=== PATIENT | male | born 1985 | race Caucasian/White ===

== ENCOUNTER 2016-10-03 11:09 | Outpatient (RCR) | payer OTHER ==
--- OUTSIDE RECORDS SUMMARY | 2016-07-18 11:14 | XMS REPORT | Continuity of Care Document ---
Author Author [facility] Organization [facility] Address Unknown Phone Unavailable Care Team Providers Care Mine Development Engineer Name Role Phone TIMOTHY ARGUETA MD PCP Insurance Providers Payer Name Policy Number Subscriber Name Relationship [facility] [id number]*CHPPPO [place] 18 Self / Same As Patient Problems Active Problems Medical Problem Onset Date Status Pulmonary infiltrates Unknown Acute Medications Current Home Medications Medication Dose Units Route Directions Days/Qty Instructions Start Date Valsartan 320 Mg 320 Mg Oral Daily 06/28/16 Promethazine Hcl 12.5 Mg 12.5-25 Mg Oral Every 6 Hours as needed for Nausea /Vomiting 06/28/16 Docusate Sodium 100 Mg 100 Mg Oral As Needed 06/28/16 Metoprolol Tartrate 100 Mg 100 Mg Oral Twice A Day 06/28/16 Cyclobenzaprine Hcl 5 Mg 5 Mg Oral Three Times A Day 06/28/16 Ondansetron 4 Mg 4 Mg Oral Every 6 Hours as needed for Nausea/Vomiting 06/28/16 Minoxidil 10 Mg 10 Mg Oral Twice A Day 06/28/16 Cefdinir (Omnicef) 300 Mg 300 Mg Oral Every 48 Hours 06/28/16 Sertraline Hcl 50 Mg 50 Mg Oral Bedtime 06/28/16 Amlodipine Besylate 10 Mg 10 Mg Oral Daily 06/28/16 Social History Social History Problem Response Recorded Date/Time Recent Foreign Travel N SEE FREEDOM 07/10/2016 10:45am Recent Hopitalizations Yes 06/28/2016 2:35pm Hospital Discharge Instructions No hospital discharge instructions. Plan of Care Prescriptions See Medication Section Functional Status No functional status results. Allergies, Adverse Reactions, Alerts No known allergies. Immunizations No immunization records. Vital Signs Acute Vital Signs Vital Response Date/Time Temperature (Fahrenheit) 98.9 degrees F (97.6 - 99.5) 06/28/2016 5:17pm Temperature (Calculated Celsius) 37.36364 degrees C (36.4 - 37.5) 06/28/2016 5:17pm Temperature Source Tympanic 06/28/2016 5:17pm Pulse Rate (adult) 91 bpm (60 - 90) 06/28/2016 5:17pm Respiratory Rate 18 bpm (12 - 24) 06/28/2016 5:17pm O2 Sat by Pulse Oximetry 96 % (88 - 100) 06/28/2016 5:17pm Blood Pressure 135/101 mm Hg 06/28/2016 5:17pm Blood Pressure Mean 167 mm Hg 06/28/2016 2:15pm Pain Numeric Pain Scale 0-No Pain 06/28/2016 5:17pm Height (Feet) 5 feet 06/28/2016 2:15pm Height (Inches) 7 inches 06/28/2016 2:15pm Height (Calculated Centimeters) 170.666446 cm 06/28/2016 2:15pm Weight (Pounds) 156 pounds 06/28/2016 2:15pm Weight (Calculated Kilograms) 70.894467 kilograms 06/28/2016 2:15pm Capillary Refill Capillary Refill Less Than 3 Seconds 06/28/2016 2:15pm Results Laboratory Results Test Name Result Units Flags Reference Collection Date/Time Result Date/ Time Comments White Blood Count 8.9 10^3/uL 4.3-11.0 07/11/2016 11:55am 07/11/2016 12 :02pm Red Blood Count 3.40 10^6/uL L 4.35-5.85 07/11/2016 11:55am 07/11/2016 12 :02pm Hemoglobin 9.8 G/DL L 13.3-17.7 07/11/2016 11:55am 07/11/2016 12:02pm Hematocrit 31 % L 40-54 07/11/2016 11:55am 07/11/2016 12:02pm Mean Corpuscular Volume 92 FL 80-99 07/11/2016 11:55am 07/11/2016 12: 02pm Mean Corpuscular Hemoglobin 29 PG 25-34 07/11/2016 11:55am 07/11/2016 12:02pm Mean Corpuscular Hemoglobin Concent 31 G/DL L 32-36 07/11/2016 11:55am 12:02pm Red Cell Distribution Width 16.8 % H 10.0-14.5 07/11/2016 11:55am 2015 12:02pm Platelet Count 462 10^3/uL H 130-400 07/11/2016 11:5507/11/2016 12: 02pm Mean Platelet Volume 8.1 FL 7.4-10.4 07/11/2016 11:55am 07/11/2016 12: 02pm Neutrophils (%) (Auto) 77 % H 42-75 07/11/2016 11:55am 07/11/2016 12: 02pm Lymphocytes (%) (Auto) 7 % L 12-44 07/11/2016 11:55am 07/11/2016 12:02pm Monocytes (%) (Auto) 12 % 0-12 07/11/2016 11:5507/11/2016 12:02pm Eosinophils (%) (Auto) 3 % 0-10 07/11/2016 11:55am 07/11/2016 12:02pm Basophils (%) (Auto) 0 % 0-10 07/11/2016 11:5507/11/2016 12:02pm Neutrophils # (Auto) 6.9 X 10^3 1.8-7.8 07/11/2016 11:am 07/11/2016 12:02pm Lymphocytes # (Auto) 0.6 X 10^3 L 1.0-4.0 07/11/2016 11:5507/11/2016 12:02pm Monocytes # (Auto) 1.1 X 10^3 H 0.0-1.0 07/11/2016 11:55am 07/11/2016 12: 02pm Eosinophils # (Auto) 0.3 10^3/uL 0.0-0.3 07/11/2016 11:55am 07/11/2016 12:02pm Basophils # (Auto) 0.0 10^3/uL 0.0-0.1 07/11/2016 11:5507/11/2016 12 :02pm Sodium Level 138 MMOL/L 135-145 07/11/2016 12:07/11/2016 12:47pm Potassium Level 2.8 MMOL/L L 3.6-5.0 07/11/2016 12:07/11/2016 12: 47pm Chloride Level 95 MMOL/L L 98-107 07/11/2016 12:07/11/2016 12:47pm Carbon Dioxide Level 31 MMOL/L 21-32 07/11/2016 12:07/11/2016 12: 47pm Anion Gap 12 MMOL/L 5-14 07/11/2016 12:07/11/2016 12:47pm Blood Urea Nitrogen 6 MG/DL L 7-18 07/11/2016 12:07/11/2016 12:47pm Creatinine 2.13 MG/DL H 0.60-1.30 07/11/2016 12:07/11/2016 12:47pm BUN/Creatinine Ratio 3 07/11/2016 12:07/11/2016 12:47pm Estimat Glomerular Filtration Rate 36 07/11/2016 12:2015 12:47pm GFR INTERPRETIVE DATA UNITS FOR ESTIMATED GFR (eGFR): mL/min/1.73 M2 REFERENCE RANGE FOR ESTIMATED GFR (eGFR) eGFR NORMAL eGFR >60 MODERATELY DECREASED eGFR 30-59 SEVERLY DECREASED eGFR 15-29 KIDNEY FAILURE <15 (OR DIALYSIS) Glucose Level 126 MG/DL H 70-105 07/11/2016 12:pm 07/11/2016 12:47pm Calcium Level 8.4 MG/DL L 8.5-10.1 07/11/2016 12:07/11/2016 12:47pm Magnesium Level 1.9 MG/DL 1.8-2.4 07/11/2016 12:07/11/2016 12: 47pm Total Bilirubin 0.3 MG/DL 0.1-1.0 07/11/2016 12:07/11/2016 12: 47pm Alkaline Phosphatase 83 U/L 40-136 07/11/2016 12:07/11/2016 12: 47pm Aspartate Amino Transf (AST/SGOT) 7 U/L 5-34 07/11/2016 12:2015 12:47pm Alanine Aminotransferase (ALT/SGPT) < 6 U/L 0-55 07/11/2016 12:11pm 12:47pm Lactate Dehydrogenase 275 U/L H 125-220 06/11/2016 10:53am 06/11/2016 11: 42am Total Protein 6.4 G/DL 6.4-8.2 07/11/2016 12:11pm 07/11/2016 12:47pm Albumin 3.1 G/DL L 3.2-4.5 07/11/2016 12:11pm 07/11/2016 12:47pm Ferritin 951 ng/mL H 25-300 06/11/2016 10:53am 06/12/2016 8:33am Test performed at [facility], CLIA# [id number] [address] [place] [address] Homocysteine 7.5 umol/L <=10.3 06/11/2016 10:53am 06/12/2016 4:31pm Test performed at [facility], CLIA# [id number] [address] [place] [address] Methylmalonic Acid 0.65 umol/L H 0.00-0.40 06/11/2016 10:53am 06/17/2016 7:31am Slight elevation 0.41-0.99 umol/L Consistent with mild vitamin B12 deficiency, renal insufficiency, or intravascular volume contraction. Moderate elevation 1.00-9.99 umol/L Consistent with mild vitamin B12 deficiency. Massive elevation - Greater than or equal to 10 umol/L Consistent with significant vitamin B12 deficiency or with inborn errors of metabolism. INTERPRETIVE INFORMATION: MMA Serum/Plasma, Metabolic Disorder Test developed and characteristics determined by [facility]. See Compliance Statement B: [email or web address] Performed by [facility], [address] [place] [id number] [email or web address], Orlando Dangelo MD - Lab. Director Pending Laboratory Results Test Name Collection Date/Time Procedures No known history of procedures. Encounters Encounter Location Arrival/Admit Date Discharge/Depart Date Attending Provider Discharged Recurring [facility] 07/11/16 11:24am 10:29am ANDRE RED Departed Emergency Room [facility] 06/28/16 2:17pm 06/28 5:17pm ALEXANDRIA MOLINA MD
[2016-07-25 11:44] LABS: BASOPHILS % (AUTO) 0 % (0-10); EOSINOPHILS # (AUTO) 0.3 10^3/uL (0.0-0.3); EOSINOPHILS % (AUTO) 3 % (0-10); LYMPHOCYTES # (AUTO) 0.8 X 10^3 (1.0-4.0); LYMPHOCYTES % (AUTO) 9 % (12-44); MEAN CORPUSCULAR HEMOGLOBIN 28 PG (25-34); MEAN CORPUSCULAR HGB CONC 31 G/DL (32-36); MEAN CORPUSCULAR VOLUME 91 FL (80-99); MEAN PLATELET VOLUME 7.9 FL (7.4-10.4); MONOCYTES # (AUTO) 0.6 X 10^3 (0.0-1.0); MONOCYTES % (AUTO) 7 % (0-12); NEUTROPHILS # (AUTO) 7.2 X 10^3 (1.8-7.8); NEUTROPHILS % (AUTO) 81 % (42-75); PLATELET COUNT 487 10^3/uL (130-400); RED BLOOD COUNT 3.24 10^6/uL (4.35-5.85); WHITE BLOOD COUNT 8.9 10^3/uL (4.3-11.0)
[2016-07-25 12:04] LABS: CALCIUM 8.8 MG/DL (8.5-10.1); CREATININE SERUM 1.82 MG/DL (0.60-1.30); POTASSIUM 3.2 MMOL/L (3.6-5.0)
[2016-08-01 11:44] LABS: BASOPHILS # (AUTO) 0.1 10^3/uL (0.0-0.1); BASOPHILS % (AUTO) 1 % (0-10); EOSINOPHILS # (AUTO) 0.4 10^3/uL (0.0-0.3); EOSINOPHILS % (AUTO) 5 % (0-10); LYMPHOCYTES # (AUTO) 1.2 X 10^3 (1.0-4.0); LYMPHOCYTES % (AUTO) 15 % (12-44); MEAN CORPUSCULAR HEMOGLOBIN 29 PG (25-34); MEAN CORPUSCULAR HGB CONC 33 G/DL (32-36); MEAN CORPUSCULAR VOLUME 87 FL (80-99); MEAN PLATELET VOLUME 8.8 FL (7.4-10.4); MONOCYTES # (AUTO) 0.8 X 10^3 (0.0-1.0); MONOCYTES % (AUTO) 10 % (0-12); NEUTROPHILS # (AUTO) 5.2 X 10^3 (1.8-7.8); NEUTROPHILS % (AUTO) 69 % (42-75); PLATELET COUNT 638 10^3/uL (130-400); RED BLOOD COUNT 4.59 10^6/uL (4.35-5.85); RED CELL DISTRIBUTION WIDTH 15.2 % (10.0-14.5); WHITE BLOOD COUNT 7.5 10^3/uL (4.3-11.0)
[2016-08-01 12:06] LABS: CALCIUM 9.3 MG/DL (8.5-10.1); CREATININE SERUM 1.89 MG/DL (0.60-1.30); POTASSIUM 3.2 MMOL/L (3.6-5.0)
[2016-08-08 11:26] LABS: BASOPHILS % (AUTO) 1 % (0-10); EOSINOPHILS # (AUTO) 0.4 10^3/uL (0.0-0.3); EOSINOPHILS % (AUTO) 5 % (0-10); LYMPHOCYTES % (AUTO) 11 % (12-44); MEAN CORPUSCULAR HEMOGLOBIN 30 PG (25-34); MEAN CORPUSCULAR HGB CONC 33 G/DL (32-36); MEAN CORPUSCULAR VOLUME 89 FL (80-99); MEAN PLATELET VOLUME 8.5 FL (7.4-10.4); MONOCYTES # (AUTO) 0.9 X 10^3 (0.0-1.0); MONOCYTES % (AUTO) 10 % (0-12); NEUTROPHILS # (AUTO) 6.5 X 10^3 (1.8-7.8); NEUTROPHILS % (AUTO) 74 % (42-75); PLATELET COUNT 496 10^3/uL (130-400); RED CELL DISTRIBUTION WIDTH 16.1 % (10.0-14.5); WHITE BLOOD COUNT 8.8 10^3/uL (4.3-11.0)
[2016-08-08 11:45] LABS: ALBUMIN 4.2 G/DL (3.2-4.5); BILIRUBIN,TOTAL 0.3 MG/DL (0.1-1.0); CALCIUM 9.1 MG/DL (8.5-10.1); CREATININE SERUM 2.31 MG/DL (0.60-1.30); POTASSIUM 2.9 MMOL/L (3.6-5.0); TOTAL PROTEIN 8.4 G/DL (6.4-8.2)
[2016-09-19 11:32] LABS: BASOPHILS # (AUTO) 0.1 10^3/uL (0.0-0.1); BASOPHILS % (AUTO) 1 % (0-10); EOSINOPHILS # (AUTO) 0.3 10^3/uL (0.0-0.3); EOSINOPHILS % (AUTO) 4 % (0-10); LYMPHOCYTES # (AUTO) 1.1 X 10^3 (1.0-4.0); LYMPHOCYTES % (AUTO) 16 % (12-44); MEAN CORPUSCULAR HEMOGLOBIN 29 PG (25-34); MEAN CORPUSCULAR HGB CONC 32 G/DL (32-36); MEAN CORPUSCULAR VOLUME 90 FL (80-99); MEAN PLATELET VOLUME 8.6 FL (7.4-10.4); MONOCYTES # (AUTO) 0.7 X 10^3 (0.0-1.0); MONOCYTES % (AUTO) 10 % (0-12); NEUTROPHILS # (AUTO) 4.9 X 10^3 (1.8-7.8); NEUTROPHILS % (AUTO) 70 % (42-75); PLATELET COUNT 423 10^3/uL (130-400); RED BLOOD COUNT 3.96 10^6/uL (4.35-5.85); RED CELL DISTRIBUTION WIDTH 15.6 % (10.0-14.5)
[2016-09-19 11:52] LABS: ALANINE AMINOTRANSFERASE < 6 U/L (0-55); ALBUMIN 4.7 G/DL (3.2-4.5); ANION GAP 14 MMOL/L (5-14); ASPARTATE AMINO TRANSFERASE 12 U/L (5-34); BILIRUBIN,TOTAL 0.9 MG/DL (0.1-1.0); BLOOD UREA NITROGEN 10 MG/DL (7-18); BUN/CREATININE RATIO 4; CALCIUM 9.6 MG/DL (8.5-10.1); CARBON DIOXIDE 31 MMOL/L (21-32); CHLORIDE 95 MMOL/L (98-107); CREATININE SERUM 2.42 MG/DL (0.60-1.30); GFR ESTIMATED 31; GLUCOSE 100 MG/DL (70-105); POTASSIUM 2.9 MMOL/L (3.6-5.0); SODIUM 140 MMOL/L (135-145); TOTAL PROTEIN 8.4 G/DL (6.4-8.2)
[~2016-10-03 11:09] MED LIST: ALPR0.5T7 PO; AMLO10TA2 PO; AMOX500T2 PO; CEFD300C3 PO; CENTER ONLY IV SCH; CTR IV SCH; CYCL5TAB PO; DOCU-238 PO; ECUL300V IV; ECULIZUMAB IV SCH; FENT1PAT58; GUAI600T43 PO; HYDR-3922; METO100T2 PO; NF-MINO10T PO; NS (IVPB) CANCER CENTER 250 ML ONE; NS IV 500 ML (CANCER CENTER) 500 ML ONE; NS IV SCH; OMEP40CA36 PO; ONDA4TAB8 PO; OXYC-202 PO; PROM12.59 PO; SERT50TA9 PO; SUCR1TAB36 PO; VALS320T14 PO; [UNRECOGNIZED DRUG - OTHER] IV SCH
[2016-10-03 11:31] LABS: BASOPHILS % (AUTO) 1 % (0-10); EOSINOPHILS # (AUTO) 0.5 10^3/uL (0.0-0.3); EOSINOPHILS % (AUTO) 7 % (0-10); LYMPHOCYTES # (AUTO) 1.4 X 10^3 (1.0-4.0); LYMPHOCYTES % (AUTO) 22 % (12-44); MEAN CORPUSCULAR HEMOGLOBIN 29 PG (25-34); MEAN CORPUSCULAR HGB CONC 32 G/DL (32-36); MEAN CORPUSCULAR VOLUME 91 FL (80-99); MEAN PLATELET VOLUME 8.1 FL (7.4-10.4); MONOCYTES # (AUTO) 0.7 X 10^3 (0.0-1.0); MONOCYTES % (AUTO) 11 % (0-12); NEUTROPHILS # (AUTO) 3.8 X 10^3 (1.8-7.8); NEUTROPHILS % (AUTO) 60 % (42-75); PLATELET COUNT 401 10^3/uL (130-400); RED BLOOD COUNT 3.65 10^6/uL (4.35-5.85); RED CELL DISTRIBUTION WIDTH 16.2 % (10.0-14.5); WHITE BLOOD COUNT 6.4 10^3/uL (4.3-11.0)
[2016-10-03] MEDS ORDERED: NS IV 500 ML (CANCER CENTER) 500 ML ONE (11:41)
[2016-10-14] MEDS ORDERED: LEVO750T9 PO (00:49)
== END 2016-10-16 | disposition home or self-care (01) ==
LOC: ONC 11:09
PROVIDERS: ATTEND Internal Medicine Hematology & Oncology
DX: Z51.11 Encounter for antineoplastic chemotherapy (principal); D59.3 Hemolytic-uremic syndrome; N18.6 End stage renal disease; I12.0 Hypertensive chronic kidney disease with stage 5 chronic kidney disease or end stage renal disease; Z79.899 Other long term (current) drug therapy
CPT/HCPCS: 36415; 80048; 80053; 85025; 96409; 96413; 99213

== ENCOUNTER 2016-10-13 20:38 | Emergency (ER) | payer OTHER, MEDICARE ==
[~2016-10-13] VITALS: Ht 172.7 cm; Wt 68.0 kg
[~2016-10-13 20:38] MED LIST changes: -CENTER ONLY IV SCH; -CTR IV SCH; -ECULIZUMAB IV SCH; -NS (IVPB) CANCER CENTER 250 ML ONE; -NS IV 500 ML (CANCER CENTER) 500 ML ONE; -NS IV SCH; -[UNRECOGNIZED DRUG - OTHER] IV SCH
--- OUTSIDE RECORDS SUMMARY | 2016-10-13 20:43 | XMS REPORT | Continuity of Care Document ---
Author Author [facility] Organization [facility] Address Unknown Phone Unavailable Care Team Providers Care Adobe Layer Helper Name Role Phone TIMOTHY ARGUETA MD PCP Insurance Providers Payer Name Policy Number Subscriber Name Relationship [facility] [id number] [place] 16 Self / Same As Patient Advance Directives Directive Response Recorded Date/Time Advance Directives No 08/30/16 6:49am Resuscitation Status Full Code 08/30/16 6:49am Chief Complaint and Reason for Visit Chief Complaint Respiratory Problems Reason for Visit Hypertensive urgency [id number] Hypoxia Sepsis End stage renal failure on dialysis Pneumonia Problems Active Problems Medical Problem Onset Date Status End stage renal failure on dialysis Unknown Acute H/O hemolytic uremic syndrome Unknown Acute Hypertensive urgency Unknown Acute Hypoxia Unknown Acute Pneumonia Unknown Acute Pulmonary infiltrates Unknown Acute Sepsis Unknown Acute Medications Current Home Medications Medication Dose Units Route Directions Days/Qty Instructions Start Date Valsartan 320 Mg 320 Mg Oral Daily 06/28/16 Promethazine Hcl 12.5 Mg 12.5-25 Mg Oral Every 6 Hours as needed for Nausea /Vomiting 06/28/16 Metoprolol Tartrate 100 Mg 100 Mg Oral Twice A Day 06/28/16 Ondansetron 4 Mg 4 Mg Oral Every 6 Hours as needed for Nausea/Vomiting 06/28/16 Sertraline Hcl 50 Mg 50 Mg Oral Bedtime 06/28/16 Amlodipine Besylate 10 Mg 10 Mg Oral Daily 06/28/16 Eculizumab 300 Mg/30 Ml 1,200 Mg Intraven Every 2 Weeks 07/26/16 Sucralfate 1 Gm 1 Gm Oral Twice A Day 07/26/16 Alprazolam 0.5 Mg 0.5 Mg Oral Every 6 Hours 07/26/16 Fentanyl 1 Each 07/26/16 Oxycodone Hcl/Acetaminophen 1 Each 1 Tab Oral Every 4HRS as needed for Pain 07/26/16 Omeprazole 40 Mg 40 Mg Oral Daily 08/30/16 Amoxicillin 500 Mg 500 Mg Oral Three Times A Day 08/30/16 Guaifenesin 600 Mg 600 Mg Oral Bedtime 08/30/16 Past Home Medications Medication Directions Ordered Status Docusate Sodium 100 Mg Capsule, 100 Mg Oral As Needed 06/28/16 Discontinued Cyclobenzaprine Hcl 5 Mg Tablet, 5 Mg Oral Three Times A Day 06/28/16 Discontinued Minoxidil 10 Mg Tab, 10 Mg Oral Twice A Day 06/28/16 Discontinued Cefdinir (Omnicef) 300 Mg Capsule, 300 Mg Oral Every 48 Hours 06/28/16 Discontinued Hydralazine Hcl 10 Mg Tablet, 07/26/16 Discontinued Social History Social History Problem Response Recorded Date/Time Alcohol Use Denies Use 08/30/2016 6:49am Recreational Drug Use No 08/30/2016 6:49am Recent Foreign Travel No 08/30/2016 6:49am Recent Infectious Disease Exposure No 08/30/2016 6:49am Smoking Status Never a Smoker 08/30/2016 6:49am Recent Hopitalizations No 08/30/2016 6:49am Query Response Start Date Stop Date Smoking Status Never a Smoker Hospital Discharge Instructions No hospital discharge instructions. Plan of Care Discharge Date 08/30/16 9:56am Disposition 02 XFER S[facility]M HOSP Condition at Discharge Improved Prescriptions See Medication Section Referrals TIMOTHY ARGUETA MD - Primary Care Physician Functional Status No functional status results. Allergies, Adverse Reactions, Alerts No known allergies. Immunizations No immunization records. Vital Signs Acute Vital Signs Vital Response Date/Time Temperature (Fahrenheit) 100.0 degrees F (97.6 - 99.5) 08/30/2016 6:49am Temperature (Calculated Celsius) 37.19541 degrees C (36.4 - 37.5) 08/30/2016 6:49am Temperature Source Temporal 08/30/2016 6:49am Pulse Rate (adult) 115 bpm (60 - 90) 08/30/2016 6:49am Respiratory Rate 22 bpm (12 - 24) 08/30/2016 6:49am O2 Sat by Pulse Oximetry 86 % (88 - 100) 08/30/2016 6:50am Blood Pressure 235/163 mm Hg 08/30/2016 6:49am Blood Pressure Mean 187 mm Hg 08/30/2016 6:49am Pain Numeric Pain Scale 8 08/30/2016 8:34am Height (Feet) 5 feet 08/30/2016 6:49am Height (Inches) 7 inches 08/30/2016 6:49am Height (Calculated Centimeters) 170.683646 cm 08/30/2016 6:49am Weight (Pounds) 150 pounds 08/30/2016 6:49am Weight (Calculated Kilograms) 68.254046 kilograms 08/30/2016 6:49am Capillary Refill Capillary Refill Less Than 3 Seconds 08/30/2016 6:49am Height 5 ft 7 in Weight 150 lb Body Mass Index 23.5 kg/m^2 Results Pending Laboratory Results Test Name Collection Date/Time Procedures Procedure Status Date Provider(s) Tracing only of electrocardiogram Active 08/30/16 FRANCIS BAL MD Encounters Encounter Location Arrival/Admit Date Discharge/Depart Date Attending Provider Departed Emergency Room [facility] 08/30/16 6:44am 08/30 9:56am FRANCIS BAL MD Registered Recurring [facility] 08/22/16 10:38am ANDRE RED Discharged Recurring [facility] 05/13/16 12:05pm 11:59pm RICO FROST Recent Diagnosis
--- NOTE | 2016-10-13 22:16 | ED Chest Pain ---
General Chief Complaint: Chest Pain Stated Complaint: CP,SOA Source: patient, family, RN notes reviewed Exam Limitations: no limitations History of Present Illness Time seen by provider: 22:16 Timing/Duration: 12 hours Severity/Quality: moderate, sharp, stabbing Location: other (left chest) Radiation: neck Activities at Onset: other (following dialysis this AM) Prior CP/Workup: no prior cardiac workup Modifying Factors: worse with breathing, worse with coughing ASA po WOODWIND REEDS CUTTER: No NTG SL WOODWIND REEDS CUTTER: No Associated Symptoms: fatigue fever/chills shortness of breath Allergies and Home Medications Allergies Coded Allergies: No Known Drug Allergies (Unverified , 06/28/16) Home Medications Alprazolam 0.5 Mg Tablet 0.5 MG PO Q6H (Reported) Amlodipine Besylate 10 Mg Tablet 10 MG PO DAILY (Reported) Amoxicillin 500 Mg Tablet 500 MG PO TID (Reported) Eculizumab 300 Mg/30 Ml Vial 1,200 MG IV every 2 weeks (Reported) Fentanyl 1 Each Patch.td72 (Reported) Guaifenesin 600 Mg Tab.er.12h 600 MG PO HS (Reported) Levofloxacin 750 Mg Tablet #6 750 MG PO DAILY Prescribed by: VICK GREEN on 10/14/16 0049 Metoprolol Tartrate 100 Mg Tablet 100 MG PO BID (Reported) Omeprazole 40 Mg Capsule.dr 40 MG PO DAILY (Reported) Ondansetron 4 Mg Tab.rapdis 4 MG PO Q6H PRN PRN NAUSEA/VOMITING (Reported) Oxycodone HCl/Acetaminophen 1 Each Tablet 1 TAB PO Q4H PRN PRN PAIN (Reported) Promethazine HCl 12.5 Mg Tablet 12.5-25 MG PO Q6H PRN PRN NAUSEA/VOMITING ( Reported) Sertraline HCl 50 Mg Tablet 50 MG PO HS (Reported) Sucralfate 1 Gm Tablet 1 GM PO BID (Reported) Valsartan 320 Mg Tablet 320 MG PO DAILY (Reported) Review of Systems Constitutional: see HPI fever malaise Respiratory: See HPI Cough Cardiovascular: See HPI Chest Pain All Other Systems Reviewed Negative Unless Noted: Yes (Negative excepted noted.) Past Cjyfqio-Jupzew-Cdmbdj Hx Patient Social History Recent Hopitalizations: No Surgeries HX Surgeries: Yes Respiratory Hx Respiratory Disorders: Yes (pancreatic fistula communicating with right chest, thoracentesis) Respiratory Disorders: Pneumonia Cardiovascular Hx Cardiac Disorders: Yes Cardiac Disorders: Hypertension Neurological Hx Neurological Disorders: No Genitourinary Hx Genitourinary Disorders: Yes (ON DIALYSIS M-W-F, HUS syndrome) Genitourinary Disorders: Renal Failure, Dialysis Gastrointestinal Hx Gastrointestinal Disorders: Yes Gastrointestinal Disorders: Pancreatitis Musculoskeletal Hx Musculoskeletal Disorders: No Endocrine Hx 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) HEENT HX ENT Disorders: No Cancer Hx Cancer: No Psychosocial Hx Psychiatric Problems: No Blood Transfusions Hx Blood Disorders: Yes (ATYPICAL HUS) Physical Exam Vital Signs Vital Sign - Last 12Hours 10/13/16 20:44 Temp 100.2 Pulse 85 Resp 12 B/P 134/105 Pulse Ox 95 O2 Delivery Room Air Capillary Refill : General Appearance: WD/WN Mild Distress HEENT: Pharynx Normal Neck: Supple Respiratory: No Respiratory Distress Crackles Decreased Breath Sounds (bases, L>>R) Other (obvious pain c/ inspiration) Cardiovascular: Regular Rate, Rhythm Rectal: Deferred Neurologic/Psychiatric: Alert Oriented x3 No Motor/Sensory Deficits Other ( appears uncomfortable and not to feel well.) Skin: Warm/Dry Progress/Results/Core Measures Results/Orders Lab Results Laboratory Tests Test 10/13/16 21:15 10/13/16 23:25 Range/Units Alanine Aminotransferase (ALT/SGPT) 8 0-55 U/L Albumin 4.3 3.2-4.5 G/DL Alkaline Phosphatase 87 40-136 U/L Anion Gap 15 H 5-14 MMOL/L Aspartate Amino Transf (AST/SGOT) 9 5-34 U/L B-Type Natriuretic Peptide 363.3 H <100.0 PG/ML BUN/Creatinine Ratio 4 Basophils # (Auto) 0.0 0.0-0.1 10^3/uL Basophils (%) (Auto) 0 0-10 % Blood Urea Nitrogen 18 7-18 MG/DL Calcium Level 9.1 8.5-10.1 MG/DL Carbon Dioxide Level 31 21-32 MMOL/L Chloride Level 94 L 98-107 MMOL/L Creatinine 4.26 H 0.60-1.30 MG/DL Eosinophils # (Auto) 0.3 0.0-0.3 10^3/uL Eosinophils (%) (Auto) 3 0-10 % Estimat Glomerular Filtration Rate 16 Glucose Level 102 70-105 MG/DL Hematocrit 33 L 40-54 % Hemoglobin 10.5 L 13.3-17.7 G/DL Lipase 340 H 8-78 U/L Lymphocytes # (Auto) 0.7 L 1.0-4.0 X 10^3 Lymphocytes (%) (Auto) 8 L 12-44 % Magnesium Level 2.2 1.8-2.4 MG/DL Mean Corpuscular Hemoglobin 29 25-34 PG Mean Corpuscular Hemoglobin Concent 32 32-36 G/DL Mean Corpuscular Volume 92 80-99 FL Mean Platelet Volume 8.5 7.4-10.4 FL Monocytes # (Auto) 0.7 0.0-1.0 X 10^3 Monocytes (%) (Auto) 7 0-12 % Neutrophils # (Auto) 7.5 1.8-7.8 X 10^3 Neutrophils (%) (Auto) 82 H 42-75 % Platelet Count 651 H 130-400 10^3/uL Potassium Level 3.7 3.6-5.0 MMOL/L Red Blood Count 3.64 L 4.35-5.85 10^6/uL Red Cell Distribution Width 16.0 H 10.0-14.5 % Sodium Level 140 135-145 MMOL/L Total Bilirubin 0.4 0.1-1.0 MG/DL Total Protein 8.2 6.4-8.2 G/DL Troponin I < 0.30 <0.30 NG/ML White Blood Count 9.2 4.3-11.0 10^3/uL Lactic Acid Level 0.7 0.5-2.0 MMOL/L Micro Results Microbiology 10/13/16 Blood Culture - Preliminary, Resulted No growth 10/13/16 Blood Culture - Preliminary, Resulted No growth 10/13/16 Influenza Types A,B Antigen (ALESSIO) - Final, Complete My Orders Orders-VICK GREEN DO Saline Lock/Iv-Start (10/13/16 22:14) Ekg Tracing (10/13/16 22:14) BNP (10/13/16 22:14) Cbc With Automated Diff (10/13/16 22:14) Comprehensive Metabolic Panel (10/13/16 22:14) Magnesium (10/13/16 22:14) Troponin I (10/13/16 22:14) Chest 1 View, Ap/Pa Only (10/13/16 22:14) Blood Culture (10/13/16 22:38) Influenza A And B Antigens (10/13/16 22:38) Lactic Acid Analyzer (10/13/16 22:38) Fentanyl Injection (Sublimaze Injection (10/13/16 23:15) Ct Chest Wo (10/13/16 23:03) Lipase (10/14/16 00:29) Levofloxacin Tablet (Levaquin Tablet) (10/14/16 01:00) Dexamethasone Pf Injection (Decadron Pf (10/14/16 01:00) Levofloxacin Tablet (Levaquin Tablet) (10/14/16 00:52) Iv Push Supervisor Receiving And Processing Ed (10/13/16 ) Im/Sub-Q Injection Non-Ab Ed (10/13/16 ) Medications Given in ED Vital Signs/I&O Vital Sign - Last 12Hours 10/13/16 10/14/16 10/14/16 20:44 01:04 01:18 Temp 100.2 100.0 100.0 Pulse 85 87 Resp 12 16 B/P 134/105 Pulse Ox 95 95 O2 Delivery Room Air Room Air ECG Initial ECG Impression Date: Oct 13, 2016 Initial ECG Impression Time: 20:44 Initial ECG Rate: 84 Initial ECG Rhythm: Normal Sinus Initial ECG Intervals: QT Initial ECG Comparisson: No Previous ECG Available Comment Probable JORGE; Probable LVH c/ secondary repol abnrm. Diagnostic Imaging Diagonstic Imaging: Xray, CT Plain Films/CT/US/NM/MRI: chest Reviewed: Reviewed Night [facility] Study Departure Impression Impression: Primary Impression: LLL pneumonia Additional Impression: Pleurisy Disposition: 01 HOME, SELF-CARE Condition: Stable Departure-Patient Inst. Decision time for Depature: 00:48 Referrals: TIMOTHY ARGUETA MD (PCP/Family) Primary Care Physician Patient Instructions: Community-Acquired Pneumonia, Adult (DC), Pleuritic Chest Pain (DC) Scripts Levofloxacin (Levaquin)750 Mg [id number] Mg PO DAILY #6 TAB Ref 0 Prov:VICK GREEN DO 10/14/16 VICK GREEN DO Oct 13, 2016 22:16
[2016-10-13 22:21] LABS: BASOPHILS % (AUTO) 0 % (0-10); EOSINOPHILS # (AUTO) 0.3 10^3/uL (0.0-0.3); EOSINOPHILS % (AUTO) 3 % (0-10); LYMPHOCYTES # (AUTO) 0.7 X 10^3 (1.0-4.0); LYMPHOCYTES % (AUTO) 8 % (12-44); MEAN CORPUSCULAR HEMOGLOBIN 29 PG (25-34); MEAN CORPUSCULAR HGB CONC 32 G/DL (32-36); MEAN CORPUSCULAR VOLUME 92 FL (80-99); MEAN PLATELET VOLUME 8.5 FL (7.4-10.4); MONOCYTES # (AUTO) 0.7 X 10^3 (0.0-1.0); MONOCYTES % (AUTO) 7 % (0-12); NEUTROPHILS # (AUTO) 7.5 X 10^3 (1.8-7.8); NEUTROPHILS % (AUTO) 82 % (42-75); PLATELET COUNT 651 10^3/uL (130-400); RED BLOOD COUNT 3.64 10^6/uL (4.35-5.85); WHITE BLOOD COUNT 9.2 10^3/uL (4.3-11.0)
[2016-10-13 22:32] LABS: ALANINE AMINOTRANSFERASE 8 U/L (0-55); ALBUMIN 4.3 G/DL (3.2-4.5); ANION GAP 15 MMOL/L (5-14); ASPARTATE AMINO TRANSFERASE 9 U/L (5-34); BILIRUBIN,TOTAL 0.4 MG/DL (0.1-1.0); BLOOD UREA NITROGEN 18 MG/DL (7-18); BUN/CREATININE RATIO 4; CALCIUM 9.1 MG/DL (8.5-10.1); CARBON DIOXIDE 31 MMOL/L (21-32); CHLORIDE 94 MMOL/L (98-107); CREATININE SERUM 4.26 MG/DL (0.60-1.30); GFR ESTIMATED 16; GLUCOSE 102 MG/DL (70-105); MAGNESIUM 2.2 MG/DL (1.8-2.4); POTASSIUM 3.7 MMOL/L (3.6-5.0); SODIUM 140 MMOL/L (135-145); TOTAL PROTEIN 8.2 G/DL (6.4-8.2)
[2016-10-13 22:38] LABS: TROPONIN I < 0.30 NG/ML (<0.30)
[2016-10-13] MEDS ORDERED: fentaNYL INJECTION 100 MCG/2 ML AMP IVP ONE (23:15)
[2016-10-14] MEDS ORDERED: LEVO750T9 PO (00:49)
[2016-10-14] MEDS ORDERED: LEVOFLOXACIN 500 MG TAB (LEVAQUIN) ONE (00:52)
[2016-10-14] MEDS ORDERED: DEXAMETHASONE PF 10 MG/ML (DECADRON) VIAL IM ONE (01:00)
[2016-10-14] MEDS ORDERED: LEVOFLOXACIN 750 MG TAB (LEVAQUIN) PO ONE (01:00)
[2016-10-14 01:18] VITALS: BP 141/105
--- NOTE | 2016-10-14 06:15 | Diagnostic Imaging Report ---
EXAM: CHEST 1 VIEW, AP/PA ONLY INDICATION: Chest pain. COMPARISON: Chest radiographs 08/30/2016. FINDINGS: Shallow inspiration accentuates heart size and pulmonary venous congestion. Retrocardiac consolidation. New small left pleural effusion. Right IJ CVC tip low SVC. IMPRESSION: 1. New consolidation in the left lung base. New small left pleural effusion. 2. Right IJ CVC tip remains in the low SVC. Dictated by: Dictated on workstation # [id number]
--- NOTE | 2016-10-14 06:57 | Diagnostic Imaging Report ---
PROCEDURE: CT chest without contrast. TECHNIQUE: Multiple contiguous axial images were obtained through the chest without the use of intravenous contrast. INDICATION: Chest pain. COMPARISON: Chest radiograph 10/13/2016. FINDINGS: Right IJ tunneled port catheter CVC tip near the RA/ SVC junction. Small bilateral pleural effusions, left greater than right. Resulting compressive atelectasis in the lung bases. The left lower lobe is nearly completely collapsed. Small pericardial effusion measuring up to 7 mm in thickness. Cardiomegaly. No mediastinal, hilar, or axillary lymphadenopathy. Coronary arterial calcifications. Two well-circumscribed low-attenuation masses in the spleen measuring up to 2.6 cm. The adrenal glands are negative on this noncontrast exam. Osseous structures are unremarkable. IMPRESSION: 1. Small bilateral pleural effusions, left greater than right. 2. Resulting atelectasis in the lung bases. The left lower lobe has nearly completely collapsed. 3. Cardiomegaly with pericardial effusion measuring up to 7 mm in thickness. 4. Two cystic masses in the tail of the pancreas measuring up to 2.6 cm. Dictated by: Dictated on workstation # [id number]
== END 2016-10-14 01:18 | disposition home or self-care (01) ==
LOC: EDUNIT# 20:38 → ER 20:39
DX: J18.9 Pneumonia, unspecified organism (principal); R09.1 Pleurisy; I12.0 Hypertensive chronic kidney disease with stage 5 chronic kidney disease or end stage renal disease; N18.6 End stage renal disease; D59.3 Hemolytic-uremic syndrome; Z79.899 Other long term (current) drug therapy
CPT/HCPCS: 36415; 71010; 71250; 80053; 83605; 83690; 83735; 83880; 84484; 85025; 87040; 87804; 93005; 96372; 96374

== ENCOUNTER → 2016-11-12 | Outpatient (CLI) | payer OTHER, MEDICARE ==
[~2016-11-12] MED LIST changes: +LEVO750T9 PO
--- OUTSIDE RECORDS SUMMARY | 2016-11-12 16:09 | XMS REPORT | Continuity of Care Document ---
Author Author [facility] Organization [facility] Address Unknown Phone Unavailable Care Team Providers Care College Specialist Name Role Phone TIMOTHY ARGUETA MD PCP Insurance Providers Payer Name Policy Number Subscriber Name Relationship [facility] [place] [id number] [place] 18 Self / Same As Patient Advance Directives Directive Response Recorded Date/Time Advance Directives No 08/30/16 6:49am Resuscitation Status Full Code 08/30/16 6:49am Chief Complaint and Reason for Visit Chief Complaint Respiratory Problems Reason for Visit Hypertensive urgency [id number] Hypoxia Sepsis End stage renal failure on [...] - 99.5) 08/30/2016 6:49am Temperature (Calculated Celsius) 37.63951 degrees C (36.4 - 37.5) 08/30/2016 6:49am [...] 7 inches 08/30/2016 6:49am Height (Calculated Centimeters) 170.624186 cm 08/30/2016 6:49am Weight (Pounds) 150 pounds 08/30/2016 6:49am Weight (Calculated Kilograms) 68.005142 kilograms 08/30/2016 6:49am Capillary Refill Capillary Refill Less Than 3 Seconds 08/30/2016 6:49am Height 5 ft 7 in Weight 150 lb Body Mass Index 23.5 kg/m^2 Results Pending Laboratory Results Test Name Collection Date/Time Procedures Procedure Status Date Provider(s) Tracing only of electrocardiogram Active 08/30/16 FRANCIS BAL MD Encounters Encounter Location Arrival/Admit Date Discharge/Depart Date Attending Provider Departed Emergency Room [facility] 08/30/16 6:44am 08/30 9:56am FRANCIS BAL MD Registered Recurring [facility] 08/22/16 10:38am ANDRE RED Discharged Recurring [facility] 05/13/16 12:05pm 11:59pm RICO FROST Recent Diagnosis
--- NOTE | 2016-11-12 16:41 | Diagnostic Imaging Report ---
INDICATION: Shortness of breath. EXAMINATION: PA and lateral chest. FINDINGS: The right IJ tunnel catheter tip projects over the SVC at the cavoatrial junction. The heart size and pulmonary vascularity are normal. The lungs are clear. There are no effusions or pneumothoraces. IMPRESSION: No acute abnormalities in the chest. Dictated by: Dictated on workstation # [id number]
== END ==
LOC: RAD 16:05
PROVIDERS: ATTEND Nurse Practitioner Family
DX: J18.9 Pneumonia, unspecified organism (principal); J81.1 Chronic pulmonary edema
CPT/HCPCS: 71020

== ENCOUNTER 2017-01-09 11:41 | Outpatient (RCR) | payer OTHER, MEDICARE ==
--- OUTSIDE RECORDS SUMMARY | 2016-10-17 10:52 | XMS REPORT | Continuity of Care Document ---
Author Author [facility] Organization [facility] Address Unknown Phone Unavailable Care Team Providers Care Endless Bed Drum Sander Name Role Phone TIMOTHY ARGUETA MD PCP Insurance Providers Payer Name Policy Number Subscriber Name Relationship [facility] [id number] [place] 18 Self / Same As Patient Advance Directives Directive Response Recorded Date/Time Advance Directives No 08/30/16 6:49am Resuscitation Status Full Code 08/30/16 6:49am Chief Complaint and Reason for Visit Chief Complaint Respiratory Problems Reason for Visit Hypertensive urgency [id number] Hypoxia Sepsis End stage renal failure on [...] - 99.5) 08/30/2016 6:49am Temperature (Calculated Celsius) 37.31413 degrees C (36.4 - 37.5) 08/30/2016 6:49am [...] 7 inches 08/30/2016 6:49am Height (Calculated Centimeters) 170.885839 cm 08/30/2016 6:49am Weight (Pounds) 150 pounds 08/30/2016 6:49am Weight (Calculated Kilograms) 68.943543 kilograms 08/30/2016 6:49am Capillary Refill Capillary Refill Less Than 3 Seconds 08/30/2016 6:49am Height 5 ft 7 in Weight 150 lb Body Mass Index 23.5 kg/m^2 Results Pending Laboratory Results Test Name Collection Date/Time Procedures Procedure Status Date Provider(s) Tracing only of electrocardiogram Active 08/30/16 FRANCIS BAL MD Encounters Encounter Location Arrival/Admit Date Discharge/Depart Date Attending Provider Departed Emergency Room [facility] 08/30/16 6:44am 08/30 9:56am FRANCIS BAL MD Registered Recurring [facility] 08/22/16 10:38am ANDRE RED Discharged Recurring [facility] 05/13/16 12:05pm 11:59pm RICO FROST Recent Diagnosis
[2016-10-31 12:19] LABS: BASOPHILS % (AUTO) 0 % (0-10); EOSINOPHILS # (AUTO) 0.3 10^3/uL (0.0-0.3); EOSINOPHILS % (AUTO) 4 % (0-10); LYMPHOCYTES # (AUTO) 1.1 X 10^3 (1.0-4.0); LYMPHOCYTES % (AUTO) 16 % (12-44); MEAN CORPUSCULAR HEMOGLOBIN 29 PG (25-34); MEAN CORPUSCULAR HGB CONC 32 G/DL (32-36); MEAN CORPUSCULAR VOLUME 90 FL (80-99); MEAN PLATELET VOLUME 8.1 FL (7.4-10.4); MONOCYTES # (AUTO) 0.6 X 10^3 (0.0-1.0); MONOCYTES % (AUTO) 9 % (0-12); NEUTROPHILS # (AUTO) 4.8 X 10^3 (1.8-7.8); NEUTROPHILS % (AUTO) 70 % (42-75); PLATELET COUNT 334 10^3/uL (130-400); RED BLOOD COUNT 4.48 10^6/uL (4.35-5.85); RED CELL DISTRIBUTION WIDTH 16.1 % (10.0-14.5); WHITE BLOOD COUNT 6.9 10^3/uL (4.3-11.0)
[2016-11-14 12:56] LABS: BASOPHILS # (AUTO) 0.1 10^3/uL (0.0-0.1); BASOPHILS % (AUTO) 1 % (0-10); EOSINOPHILS # (AUTO) 0.6 10^3/uL (0.0-0.3); EOSINOPHILS % (AUTO) 9 % (0-10); LYMPHOCYTES # (AUTO) 1.6 X 10^3 (1.0-4.0); LYMPHOCYTES % (AUTO) 24 % (12-44); MEAN CORPUSCULAR HEMOGLOBIN 30 PG (25-34); MEAN CORPUSCULAR HGB CONC 33 G/DL (32-36); MEAN CORPUSCULAR VOLUME 92 FL (80-99); MEAN PLATELET VOLUME 9.1 FL (7.4-10.4); MONOCYTES # (AUTO) 0.7 X 10^3 (0.0-1.0); MONOCYTES % (AUTO) 10 % (0-12); NEUTROPHILS # (AUTO) 3.8 X 10^3 (1.8-7.8); NEUTROPHILS % (AUTO) 57 % (42-75); PLATELET COUNT 335 10^3/uL (130-400); RED BLOOD COUNT 4.88 10^6/uL (4.35-5.85); RED CELL DISTRIBUTION WIDTH 18.4 % (10.0-14.5); WHITE BLOOD COUNT 6.7 10^3/uL (4.3-11.0)
[2016-11-14 13:17] LABS: ALBUMIN 4.8 G/DL (3.2-4.5); BILIRUBIN,TOTAL 0.5 MG/DL (0.1-1.0); CALCIUM 9.2 MG/DL (8.5-10.1); POTASSIUM 3.7 MMOL/L (3.6-5.0); TOTAL PROTEIN 8.7 G/DL (6.4-8.2)
[2016-11-28 11:15] LABS: BASOPHILS # (AUTO) 0.1 10^3/uL (0.0-0.1); BASOPHILS % (AUTO) 1 % (0-10); EOSINOPHILS # (AUTO) 0.4 10^3/uL (0.0-0.3); EOSINOPHILS % (AUTO) 6 % (0-10); LYMPHOCYTES # (AUTO) 0.9 X 10^3 (1.0-4.0); LYMPHOCYTES % (AUTO) 11 % (12-44); MEAN CORPUSCULAR HEMOGLOBIN 30 PG (25-34); MEAN CORPUSCULAR HGB CONC 33 G/DL (32-36); MEAN CORPUSCULAR VOLUME 89 FL (80-99); MEAN PLATELET VOLUME 8.9 FL (7.4-10.4); MONOCYTES # (AUTO) 0.5 X 10^3 (0.0-1.0); MONOCYTES % (AUTO) 7 % (0-12); NEUTROPHILS # (AUTO) 5.8 X 10^3 (1.8-7.8); NEUTROPHILS % (AUTO) 76 % (42-75); PLATELET COUNT 281 10^3/uL (130-400); RED BLOOD COUNT 4.65 10^6/uL (4.35-5.85); RED CELL DISTRIBUTION WIDTH 16.1 % (10.0-14.5); WHITE BLOOD COUNT 7.7 10^3/uL (4.3-11.0)
[2016-11-28 11:32] LABS: ALBUMIN 4.8 G/DL (3.2-4.5); BILIRUBIN,TOTAL 0.6 MG/DL (0.1-1.0); CALCIUM 9.3 MG/DL (8.5-10.1); CREATININE SERUM 3.57 MG/DL (0.60-1.30); POTASSIUM 3.3 MMOL/L (3.6-5.0); TOTAL PROTEIN 8.3 G/DL (6.4-8.2)
[2016-12-12 11:04] LABS: BASOPHILS % (AUTO) 0 % (0-10); EOSINOPHILS # (AUTO) 0.3 10^3/uL (0.0-0.3); EOSINOPHILS % (AUTO) 4 % (0-10); LYMPHOCYTES # (AUTO) 1.4 X 10^3 (1.0-4.0); LYMPHOCYTES % (AUTO) 20 % (12-44); MEAN CORPUSCULAR HEMOGLOBIN 30 PG (25-34); MEAN CORPUSCULAR HGB CONC 33 G/DL (32-36); MEAN CORPUSCULAR VOLUME 91 FL (80-99); MEAN PLATELET VOLUME 8.3 FL (7.4-10.4); MONOCYTES # (AUTO) 0.5 X 10^3 (0.0-1.0); MONOCYTES % (AUTO) 7 % (0-12); NEUTROPHILS # (AUTO) 4.8 X 10^3 (1.8-7.8); NEUTROPHILS % (AUTO) 69 % (42-75); PLATELET COUNT 380 10^3/uL (130-400); RED BLOOD COUNT 3.84 10^6/uL (4.35-5.85); RED CELL DISTRIBUTION WIDTH 15.7 % (10.0-14.5)
[2016-12-12 11:29] LABS: ALBUMIN 4.4 G/DL (3.2-4.5); BILIRUBIN,TOTAL 0.5 MG/DL (0.1-1.0); CALCIUM 9.3 MG/DL (8.5-10.1); CREATININE SERUM 2.79 MG/DL (0.60-1.30); POTASSIUM 3.1 MMOL/L (3.6-5.0); TOTAL PROTEIN 8.3 G/DL (6.4-8.2)
[~2017-01-09] VITALS: Ht 170.2 cm; Wt 71.7 kg
[~2017-01-09 11:41] MED LIST changes: +CENTER ONLY IV SCH; +ECULIZUMAB IV SCH; +NS IV 500 ML (CANCER CENTER) 500 ML IV SCH; +NS IV SCH; +[UNRECOGNIZED DRUG - OTHER] IV SCH
== END 2017-01-15 | disposition home or self-care (01) ==
LOC: ONC 11:41
PROVIDERS: ATTEND Internal Medicine Hematology & Oncology
DX: Z51.11 Encounter for antineoplastic chemotherapy (principal); D59.3 Hemolytic-uremic syndrome; N18.6 End stage renal disease; I12.0 Hypertensive chronic kidney disease with stage 5 chronic kidney disease or end stage renal disease; Z79.899 Other long term (current) drug therapy
CPT/HCPCS: 36415; 80053; 85025; 96413; 99213

== ENCOUNTER → 2017-02-10 | Outpatient (CLI) | payer MEDICARE ==
[~2017-02-10] MED LIST changes: -CENTER ONLY IV SCH; -ECULIZUMAB IV SCH; -NS IV 500 ML (CANCER CENTER) 500 ML IV SCH; -NS IV SCH; -[UNRECOGNIZED DRUG - OTHER] IV SCH
--- NOTE | 2017-02-10 15:46 | Diagnostic Imaging Report ---
INDICATION: Substernal chest pain. DISCUSSION: Two views of the chest were obtained, comparison 11/12/2016. Stable normal heart size. No focal consolidation, pleural fluid, or pneumothorax. Tunneled right chest wall dialysis catheter is stable. No acute osseous abnormality. IMPRESSION: 1. Negative chest. Dictated by: Dictated on workstation # [id number]
[2017-02-10 15:47] LABS: BASOPHILS % (AUTO) 0 % (0-10); EOSINOPHILS # (AUTO) 0.2 10^3/uL (0.0-0.3); EOSINOPHILS % (AUTO) 1 % (0-10); LYMPHOCYTES # (AUTO) 0.9 X 10^3 (1.0-4.0); LYMPHOCYTES % (AUTO) 7 % (12-44); MEAN CORPUSCULAR HEMOGLOBIN 31 PG (25-34); MEAN CORPUSCULAR HGB CONC 32 G/DL (32-36); MEAN CORPUSCULAR VOLUME 98 FL (80-99); MEAN PLATELET VOLUME 9.1 FL (7.4-10.4); MONOCYTES % (AUTO) 8 % (0-12); NEUTROPHILS # (AUTO) 10.4 X 10^3 (1.8-7.8); NEUTROPHILS % (AUTO) 83 % (42-75); PLATELET COUNT 349 10^3/uL (130-400); RED BLOOD COUNT 3.86 10^6/uL (4.35-5.85); RED CELL DISTRIBUTION WIDTH 16.6 % (10.0-14.5); WHITE BLOOD COUNT 12.5 10^3/uL (4.3-11.0)
[2017-02-10 16:05] LABS: ALBUMIN 4.6 G/DL (3.2-4.5); BILIRUBIN,TOTAL 0.9 MG/DL (0.1-1.0); CALCIUM 10.6 MG/DL (8.5-10.1); POTASSIUM 6.1 MMOL/L (3.6-5.0); TOTAL PROTEIN 8.2 G/DL (6.4-8.2)
[2017-02-10 16:06] LABS: BAND NEUTROPHILS 3 %; BASOPHILS % (MANUAL) 1 %; EOSINOPHILS % (MANUAL) 2 %; LYMPHOCYTES % (MANUAL) 10 %; NEUTROPHILS % (MANUAL) 74 %
== END ==
LOC: RAD 15:12
PROVIDERS: ATTEND Nurse Practitioner Family
DX: R07.9 Chest pain, unspecified (principal); R06.02 Shortness of breath; N18.6 End stage renal disease; Z99.2 Dependence on renal dialysis
CPT/HCPCS: 36415; 71020; 80053; 85007; 85027

== ENCOUNTER 2017-04-17 11:29 | Outpatient (RCR) | payer BC, MEDICARE ==
[2017-01-21 13:28] LABS: BASOPHILS % (AUTO) 0 % (0-10); EOSINOPHILS # (AUTO) 0.2 10^3/uL (0.0-0.3); EOSINOPHILS % (AUTO) 2 % (0-10); LYMPHOCYTES # (AUTO) 1.2 X 10^3 (1.0-4.0); LYMPHOCYTES % (AUTO) 13 % (12-44); MEAN CORPUSCULAR HEMOGLOBIN 30 PG (25-34); MEAN CORPUSCULAR HGB CONC 32 G/DL (32-36); MEAN CORPUSCULAR VOLUME 95 FL (80-99); MEAN PLATELET VOLUME 8.9 FL (7.4-10.4); MONOCYTES # (AUTO) 0.8 X 10^3 (0.0-1.0); MONOCYTES % (AUTO) 9 % (0-12); NEUTROPHILS # (AUTO) 6.8 X 10^3 (1.8-7.8); NEUTROPHILS % (AUTO) 76 % (42-75); PLATELET COUNT 289 10^3/uL (130-400); RED BLOOD COUNT 3.67 10^6/uL (4.35-5.85); RED CELL DISTRIBUTION WIDTH 16.8 % (10.0-14.5)
[2017-01-21 14:02] LABS: ALBUMIN 4.2 G/DL (3.2-4.5); BILIRUBIN,TOTAL 0.5 MG/DL (0.1-1.0); CALCIUM 9.5 MG/DL (8.5-10.1); CREATININE SERUM 4.36 MG/DL (0.60-1.30); POTASSIUM 3.7 MMOL/L (3.6-5.0); TOTAL PROTEIN 7.8 G/DL (6.4-8.2)
[2017-03-06 11:34] LABS: BASOPHILS # (AUTO) 0.1 10^3/uL (0.0-0.1); BASOPHILS % (AUTO) 1 % (0-10); EOSINOPHILS # (AUTO) 0.3 10^3/uL (0.0-0.3); EOSINOPHILS % (AUTO) 5 % (0-10); LYMPHOCYTES # (AUTO) 1.7 X 10^3 (1.0-4.0); LYMPHOCYTES % (AUTO) 27 % (12-44); MEAN CORPUSCULAR HEMOGLOBIN 32 PG (25-34); MEAN CORPUSCULAR HGB CONC 32 G/DL (32-36); MEAN CORPUSCULAR VOLUME 99 FL (80-99); MEAN PLATELET VOLUME 9.1 FL (7.4-10.4); MONOCYTES # (AUTO) 0.4 X 10^3 (0.0-1.0); MONOCYTES % (AUTO) 7 % (0-12); NEUTROPHILS # (AUTO) 3.8 X 10^3 (1.8-7.8); NEUTROPHILS % (AUTO) 60 % (42-75); PLATELET COUNT 295 10^3/uL (130-400); RED BLOOD COUNT 3.57 10^6/uL (4.35-5.85); RED CELL DISTRIBUTION WIDTH 16.1 % (10.0-14.5); WHITE BLOOD COUNT 6.2 10^3/uL (4.3-11.0)
[2017-03-06 11:53] LABS: ALBUMIN 4.3 G/DL (3.2-4.5); BILIRUBIN,TOTAL 0.5 MG/DL (0.1-1.0); CALCIUM 9.3 MG/DL (8.5-10.1); CREATININE SERUM 3.34 MG/DL (0.60-1.30); POTASSIUM 3.1 MMOL/L (3.6-5.0); TOTAL PROTEIN 7.7 G/DL (6.4-8.2)
[~2017-04-17 11:29] MED LIST changes: +CENTER ONLY IV SCH; +ECULIZUMAB IV SCH; +NS IV 500 ML (CANCER CENTER) 500 ML IV SCH; +NS IV SCH; +[UNRECOGNIZED DRUG - OTHER] IV SCH
[2017-04-17 12:28] LABS: BASOPHILS % (AUTO) 1 % (0-10); EOSINOPHILS # (AUTO) 0.3 10^3/uL (0.0-0.3); EOSINOPHILS % (AUTO) 6 % (0-10); LYMPHOCYTES # (AUTO) 0.9 X 10^3 (1.0-4.0); LYMPHOCYTES % (AUTO) 17 % (12-44); MEAN CORPUSCULAR HEMOGLOBIN 32 PG (25-34); MEAN CORPUSCULAR HGB CONC 33 G/DL (32-36); MEAN CORPUSCULAR VOLUME 96 FL (80-99); MONOCYTES # (AUTO) 0.4 X 10^3 (0.0-1.0); MONOCYTES % (AUTO) 7 % (0-12); NEUTROPHILS # (AUTO) 3.8 X 10^3 (1.8-7.8); NEUTROPHILS % (AUTO) 70 % (42-75); PLATELET COUNT 206 10^3/uL (130-400); RED BLOOD COUNT 3.59 10^6/uL (4.35-5.85); WHITE BLOOD COUNT 5.5 10^3/uL (4.3-11.0)
[2017-04-17 12:48] LABS: ALBUMIN 3.9 GM/DL (3.2-4.5); BILIRUBIN,TOTAL 0.4 MG/DL (0.1-1.0); CALCIUM 9.2 MG/DL (8.5-10.1); CREATININE SERUM 3.35 MG/DL (0.60-1.30); POTASSIUM 3.9 MMOL/L (3.6-5.0); TOTAL PROTEIN 7.1 GM/DL (6.4-8.2)
== END 2017-04-21 | disposition home or self-care (01) ==
LOC: ONC 11:29
PROVIDERS: ATTEND Internal Medicine Hematology & Oncology
DX: Z51.11 Encounter for antineoplastic chemotherapy (principal); D59.3 Hemolytic-uremic syndrome; N18.6 End stage renal disease; I12.0 Hypertensive chronic kidney disease with stage 5 chronic kidney disease or end stage renal disease; Z79.899 Other long term (current) drug therapy
CPT/HCPCS: 36415; 80053; 83615; 85025; 96413; 99213

== ENCOUNTER → 2017-05-29 | Outpatient (CLI) | payer MEDICARE ==
[~2017-05-29] MED LIST changes: -CENTER ONLY IV SCH; -ECULIZUMAB IV SCH; -NS IV 500 ML (CANCER CENTER) 500 ML IV SCH; -NS IV SCH; -[UNRECOGNIZED DRUG - OTHER] IV SCH
[2017-05-29 11:23] LABS: BASOPHILS # (AUTO) 0.1 10^3/uL (0.0-0.1); BASOPHILS % (AUTO) 1 % (0-10); EOSINOPHILS # (AUTO) 0.3 10^3/uL (0.0-0.3); EOSINOPHILS % (AUTO) 6 % (0-10); LYMPHOCYTES # (AUTO) 1.1 X 10^3 (1.0-4.0); LYMPHOCYTES % (AUTO) 20 % (12-44); MEAN CORPUSCULAR HEMOGLOBIN 32 PG (25-34); MEAN CORPUSCULAR HGB CONC 32 G/DL (32-36); MEAN CORPUSCULAR VOLUME 98 FL (80-99); MEAN PLATELET VOLUME 10.1 FL (7.4-10.4); MONOCYTES # (AUTO) 0.4 X 10^3 (0.0-1.0); MONOCYTES % (AUTO) 7 % (0-12); NEUTROPHILS # (AUTO) 3.5 X 10^3 (1.8-7.8); NEUTROPHILS % (AUTO) 67 % (42-75); PLATELET COUNT 205 10^3/uL (130-400); RED BLOOD COUNT 3.37 10^6/uL (4.35-5.85); RED CELL DISTRIBUTION WIDTH 13.9 % (10.0-14.5); WHITE BLOOD COUNT 5.3 10^3/uL (4.3-11.0)
[2017-05-29 11:47] LABS: BILIRUBIN,TOTAL 0.5 MG/DL (0.1-1.0); CREATININE SERUM 2.54 MG/DL (0.60-1.30); PHOSPHORUS 1.8 MG/DL (2.3-4.7); POTASSIUM 3.2 MMOL/L (3.6-5.0); TOTAL PROTEIN 6.7 GM/DL (6.4-8.2)
[2017-05-29 21:58] LABS: HEPATITIS B CORE TOTAL INDEX 0.17 Index (<=0.50)
[2017-06-01 07:53] LABS: CALCIUM PARA THYROID HORMONE 9.1 mg/dL (8.5-10.5); HEPATITIS B SURFACE AB INDEX 16.84 mIU/mL (>=10.00)
[2017-06-01 07:54] LABS: HEPATITIS B CORE TOTAL INTERP Non-Reactive; HEPATITIS B SURFACE AB INTERP Immune (Immune); HIV AG AB SCREEN Non-Reactive (Non-Reactive)
== END ==
LOC: LAB 10:53
PROVIDERS: ATTEND Nurse Practitioner Family
DX: N18.6 End stage renal disease (principal)
CPT/HCPCS: 36415; 80053; 83970; 84100; 85025; 86703; 86704; 86706; 86803; 87340

== ENCOUNTER → 2017-06-09 | Outpatient (CLI) | payer MEDICARE ==
--- NOTE | 2017-06-09 14:28 | Diagnostic Imaging Report ---
INDICATION: Transplant evaluation. FINDINGS: There are no periapical lucencies appreciated to suggest odontogenic disease. The mandible is intact. IMPRESSION: No evidence of odontogenic disease. Dictated by: Dictated on workstation # [id number]
--- NOTE | 2017-06-09 14:28 | Diagnostic Imaging Report ---
INDICATION: Sternal pain. COMPARISON: 02/10/2017. FINDINGS: The heart size is normal. The mediastinum is unremarkable. The lungs are clear. There is no pleural effusion or pneumothorax. There is a right internal jugular hemodialysis catheter in place with its tip at the cavoatrial junction. IMPRESSION: No acute cardiopulmonary abnormality. The central venous catheter is in satisfactory position. Dictated by: Dictated on workstation # [id number]
== END ==
LOC: CARD 12:13
PROVIDERS: ATTEND Nurse Practitioner Family
DX: N18.6 End stage renal disease (principal)
CPT/HCPCS: 70355; 71020; 93306

== ENCOUNTER 2017-07-10 12:25 | Outpatient (RCR) | payer MEDICARE ==
[~2017-07-10 12:25] MED LIST changes: +CENTER ONLY IV SCH; +ECULIZUMAB IV SCH; +NS IV 500 ML (CANCER CENTER) 500 ML IV SCH; +NS IV SCH; +[UNRECOGNIZED DRUG - OTHER] IV SCH
== END 2017-07-11 | disposition home or self-care (01) ==
LOC: ONC 12:25
PROVIDERS: ATTEND Internal Medicine Hematology & Oncology
DX: Z51.11 Encounter for antineoplastic chemotherapy (principal); D59.3 Hemolytic-uremic syndrome; N18.6 End stage renal disease; I12.0 Hypertensive chronic kidney disease with stage 5 chronic kidney disease or end stage renal disease; Z79.899 Other long term (current) drug therapy
CPT/HCPCS: 36415; 80053; 83970; 84100; 85025; 86703; 86704; 86706; 86803; 87340; 96413

== ENCOUNTER 2017-10-03 07:04 | Emergency (ER) | payer MEDICARE ==
[~2017-10-03] VITALS: Ht 172.7 cm; Wt 74.8 kg
[~2017-10-03 07:04] MED LIST changes: -CENTER ONLY IV SCH; -ECULIZUMAB IV SCH; +METO100T12 PO; -METO100T2 PO; -NS IV 500 ML (CANCER CENTER) 500 ML IV SCH; -NS IV SCH; -[UNRECOGNIZED DRUG - OTHER] IV SCH
[2017-10-03] MEDS ORDERED: fentaNYL INJECTION 100 MCG/2 ML AMP IVP ONE (08:15)
[2017-10-03] MEDS ORDERED: FUROSEMIDE 40 MG/4 ML INJ (LASIX) IVP ONE (08:15)
[2017-10-03] MEDS ORDERED: ONDANSETRON 4 MG/2 ML (SDV) Z0FRAN IVP ONE (08:15)
--- NOTE | 2017-10-03 08:23 | ED Abdominal Pain ---
General Chief Complaint: Abdominal/GI Problems Stated Complaint: SOB, LEG/BACK/STOMACH PAIN Nursing Triage Note: ARRIVED VIA AMB TO ROOM 07. COMPLAINS OF ABD/BACK PAIN ET SOA. PT IS ON DIALYSIS AND IS SCHEDULED TOMORROW. PT ALSO IS BEING TREATED FOR ATYPICAL AZUCENA WITH CHEMO AND HAD IT YESTERDAY. PT TOOK LASIX 80MG PO AT 0530 TODAY. Sepsis Screen: No Definite Risk Source of Information: Patient, Family (mom) Exam Limitations: No Limitations History of Present Illness Time Seen By Provider: 08:13 Initial Comments Patient present to ER by private conveyance with his mother with a chief complaint that for the past couple days she's been feeling some swelling on his feet and abdomen as well as pain in his epigastric region, nausea and vomiting. 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 He is still on chemotherapy for life. He typically takes dialysis on Thursday but because of the whole day has plans to do dialysis tomorrow. He says he took 80 mg of Lasix by mouth last night about 9 :00 at night and it has helped with some of the swelling around his ankles however he still having quite a bit of pain. His Percocets at home are only lasting about 4-6 hours pain relief and he typically uses them 12 hours or less. He has not used any thing for nausea as his nausea did not start till he arrived in the ER today. He says he felt warm last night but no fevers or chills. He describes his pain at the level of the mid thoracic vertebra wrapping around to his epigastrium. He says this is the same pain he gets when he gets swollen or when his pancreas gets inflamed. 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 Wears at 50 g per 24-hour fentanyl patch. Allergies and Home Medications Allergies Coded Allergies: No Known Drug Allergies (Unverified , 06/28/16) Home Medications Alprazolam 0.5 Mg Tablet, 0.5 MG PO Q6H, (Reported) Amlodipine Besylate 10 Mg Tablet, 10 MG PO DAILY, (Reported) Amoxicillin 500 Mg Tablet, 500 MG PO TID, (Reported) Eculizumab 300 Mg/30 Ml Vial, 1,200 MG IV every 2 weeks, (Reported) Fentanyl 1 Each Patch.td72, (Reported) Guaifenesin 600 Mg Tab.er.12h, 600 MG PO HS, (Reported) Levofloxacin 750 Mg Tablet, 750 MG PO DAILY, #6 Ref 0 Prescribed by: VICK GREEN on 10/14/16 0049 Metoprolol Tartrate 100 Mg Tablet, 100 MG PO BID, (Reported) Omeprazole 40 Mg Capsule.dr, 40 MG PO DAILY, (Reported) Ondansetron 4 Mg Tab.rapdis, 4 MG PO Q6H PRN for NAUSEA/VOMITING, (Reported) Oxycodone HCl/Acetaminophen 1 Each Tablet, 1 TAB PO Q4H PRN for PAIN, (Reported) Promethazine HCl 12.5 Mg Tablet, 12.5-25 MG PO Q6H PRN for NAUSEA/VOMITING, ( Reported) Sertraline HCl 50 Mg Tablet, 50 MG PO HS, (Reported) Sucralfate 1 Gm Tablet, 1 GM PO BID, (Reported) Valsartan 320 Mg Tablet, 320 MG PO DAILY, (Reported) Review of Systems Constitutional: chills, No diaphoresis, No fever, malaise EENTM: No Blurred Vision, No Double Vision, No Eye Pain Respiratory: Denies Cough, Shortness of Air, Other (orthopnea) Cardiovascular: Denies Chest Pain, Edema, Denies Palpitations, Denies Syncope Gastrointestinal: See HPI, Abdomen Distended, Abdominal Pain, Denies Constipated, Denies Diarrhea, Nausea, Denies Vomiting Genitourinary: Denies Burning, Denies Discharge Musculoskeletal: back pain (mid thoracic), joint pain Past Xrlkkpu-Bgexjl-Uwcyfp Hx Patient Social History Alcohol Use: Denies Use Recent Foreign Travel: No Contact w/Someone Who Travel: No Recent Infectious Disease Expo: No Recent Hopitalizations: No Seasonal Allergies Seasonal Allergies: No Respiratory Respiratory Disorders: Pneumonia Cardiovascular Cardiac Disorders: Hypertension Genitourinary Genitourinary Disorders: Renal Failure, Dialysis Gastrointestinal Gastrointestinal Disorders: Pancreatitis Physical Exam Vital Signs VS - Last 72 Hours, by Label 10/03/17 07:45 Temp 97.9 Pulse 73 Resp 18 B/P (MAP) 189/123 (145) Pulse Ox 95 O2 Delivery Room Air Capillary Refill : Less Than 3 Seconds General Appearance: WD/WN, mild distress HEENT: PERRL/EOMI, normal ENT inspection, TMs normal, pharynx normal Neck: non-tender, full range of motion, supple, normal inspection Respiratory: chest non-tender, no respiratory distress, no accessory muscle use , crackles (bibasally) Cardiovascular: normal peripheral pulses, regular rate, rhythm, no JVD, other ( 1+ pedal edema bilaterally) Peripheral Pulses: 2+ Radial Pulses (R), 2+ Radial Pulses (L) Gastrointestinal: normal bowel sounds, soft, No guarding, No rebound, tenderness (epigastrium, left upper quadrant and right upper quadrant as well as bilateral flanks painful to percussion) Extremities: normal range of motion, normal capillary refill, pedal edema (1+ bilateral) Back: CVA tenderness (R), CVA tenderness (L) Neurologic/Psychiatric: alert, normal mood/affect, oriented x 3 Skin: normal color, warm/dry Focused Exam Evaluation Lactate Level Laboratory Tests 10/03/17 08:35: Lactic Acid Level 0.54 Lactic Acid Level Laboratory Tests Test 10/03/17 08:35 Lactic Acid Level 0.54 MMOL/L (0.50-2.00) Progress/Results/Core Measures Results/Orders Lab Results Laboratory Tests Test 10/03/17 08:35 10/03/17 09:15 Range/Units White Blood Count 6.0 4.3-11.0 10^3/uL Red Blood Count 3.28 L 4.35-5.85 10^6/uL Hemoglobin 10.6 L 13.3-17.7 G/DL Hematocrit 32 L 40-54 % Mean Corpuscular Volume 98 80-99 FL Mean Corpuscular Hemoglobin 32 25-34 PG Mean Corpuscular Hemoglobin Concent 33 32-36 G/DL Red Cell Distribution Width 14.8 H 10.0-14.5 % Platelet Count 153 130-400 10^3/uL Mean Platelet Volume 10.5 H 7.4-10.4 FL Neutrophils (%) (Auto) 73 42-75 % Lymphocytes (%) (Auto) 15 12-44 % Monocytes (%) (Auto) 8 0-12 % Eosinophils (%) (Auto) 4 0-10 % Basophils (%) (Auto) 1 0-10 % Neutrophils # (Auto) 4.3 1.8-7.8 X 10^3 Lymphocytes # (Auto) 0.9 L 1.0-4.0 X 10^3 Monocytes # (Auto) 0.5 0.0-1.0 X 10^3 Eosinophils # (Auto) 0.2 0.0-0.3 10^3/uL Basophils # (Auto) 0.0 0.0-0.1 10^3/uL Erythrocyte Sedimentation Rate 17 H 0-15 MM/HR Sodium Level 142 135-145 MMOL/L Potassium Level 3.6 3.6-5.0 MMOL/L Chloride Level 101 98-107 MMOL/L Carbon Dioxide Level 28 21-32 MMOL/L Anion Gap 13 5-14 MMOL/L Blood Urea Nitrogen 30 H 7-18 MG/DL Creatinine 5.66 H 0.60-1.30 MG/DL Estimat Glomerular Filtration Rate 12 BUN/Creatinine Ratio 5 Glucose Level 107 H 70-105 MG/DL Lactic Acid Level 0.54 0.50-2.00 MMOL/L Calcium Level 9.3 8.5-10.1 MG/DL Magnesium Level 1.9 1.8-2.4 MG/DL Total Bilirubin 0.9 0.1-1.0 MG/DL Aspartate Amino Transf (AST/SGOT) 12 5-34 U/L Alanine Aminotransferase (ALT/SGPT) 14 0-55 U/L Alkaline Phosphatase 75 40-136 U/L C-Reactive Protein High Sensitivity 1.47 H 0.00-0.50 MG/DL B-Type Natriuretic Peptide 2791.3 H <100.0 PG/ML Total Protein 6.5 6.4-8.2 GM/DL Albumin 3.9 3.2-4.5 GM/DL Lipase 45 8-78 U/L Urine Color YELLOW Urine Clarity CLEAR Urine pH 8 5-9 Urine Specific [place] 1.010 L 1.016-1.022 Urine Protein 3+ H NEGATIVE Urine Glucose (UA) 1+ H NEGATIVE Urine Ketones NEGATIVE NEGATIVE Urine Nitrite NEGATIVE NEGATIVE Urine Bilirubin NEGATIVE NEGATIVE Urine Urobilinogen NORMAL NORMAL MG/DL Urine Leukocyte Esterase 1+ H NEGATIVE Urine RBC (Auto) 2+ H NEGATIVE Urine RBC 0-2 /HPF Urine WBC RARE /HPF Urine Crystals NONE /LPF Urine Bacteria NEGATIVE /HPF Urine Casts NONE /LPF Urine Mucus NEGATIVE /LPF Urine Culture Indicated NO My Orders Orders - NAOMI,MARTINE J BNP (10/03/17 08:14) Cbc With Automated Diff (10/03/17 08:14) Comprehensive Metabolic Panel (10/03/17 08:14) Hs C Reactive Protein (10/03/17 08:14) Lipase (10/03/17 08:14) Magnesium (10/03/17 08:14) Ua Culture If Indicated (10/03/17 08:14) Erythrocyte Sedimentation Rate (10/03/17 08:14) Chest Pa/Lat (2 View) (10/03/17 08:14) Ondansetron Injection (Zofran Injectio (10/03/17 08:15) Furosemide Injection (Lasix Injection) (10/03/17 08:15) Fentanyl Injection (Sublimaze Injection (10/03/17 08:15) Blood Culture (10/03/17 08:23) Lactic Acid Analyzer (10/03/17 08:23) Medications Given in ED Current Medications Medications Dose Ordered Sig/Dayday Route Start Time Stop Time Status Last Admin Dose Admin Fentanyl Citrate 50 mcg ONCE ONCE IVP 10/03/17 08:15 10/03/17 08:19 DC 10/03/17 08:33 50 MCG Furosemide 80 mg ONCE ONCE IVP 10/03/17 08:15 10/03/17 08:19 DC 10/03/17 08:33 80 MG Ondansetron HCl 4 mg ONCE ONCE IVP 10/03/17 08:15 10/03/17 08:19 DC 10/03/17 08:34 4 MG Vital Signs/I&O Vital Sign - Last 12Hours 10/03/17 07:45 Temp 97.9 Pulse 73 Resp 18 B/P (MAP) 189/123 (145) Pulse Ox 95 O2 Delivery Room Air Blood Pressure Mean: 145 Progress Note #1: Time: 08:27 Progress Note Appears to be in fluid overload probably secondary to his CHF. We will give him 80 mg IV Lasix and do a little workup with a white count, lactate and blood cultures. Do not trust whether he's had a fever or not given his present history of chemotherapy. We'll also obtain a urinalysis. Echocardiogram 06/09/17: Ejection fraction 55-65% with pulmonary artery pressure 30-35 mmHg.No significant stenosis or regurgitation of the bowels. Dr. Colmenares. We will treat his pain and nausea. Progress Note #2: Time: 10:05 Progress Note The patient's pain is gone his nausea is controlled and his swelling is improved. He is urinating quite a bit on the Lasix. He would like to avoid hospitalization so we will recommend you take another 80 mg by mouth Lasix this afternoon about 3 or 4:00 and then follow up with his dialysis appointment tomorrow at noon. Diagnostic Imaging Diagonstic Imaging: Xray Plain Films/CT/US/NM/MRI: chest (2v) Comments NAME: CHULA BREAUX [facility] REC#: [id number] PHYSICIAN: MARTINE SALGADO MD CC: CORTES BRENNAN MD; MARTINE SALGADO Page 1 of 1 RADIOLOGY REPORT VIA [facility], [facility]. [place], [place] CC: CORTES BRENNAN MD; MARTINE SALGADO Page 1 of 1 RADIOLOGY REPORT NAME: CHULA BREAUX [facility] REC#: [id number] PT STATUS: REG ER : 1985 PHYSICIAN: MARTINE SALGADO MD ADMIT DATE: 10/03/17/ER Signed Date of Exam: 10/03/17 CHEST PA/LAT (2 VIEW) INDICATION: Back pain. Comparison made with prior examination from 06/09/2017. FINDINGS: Heart size is normal. There is a patchy right basilar infiltrate with a small right pleural effusion. There is no pneumothorax. Mediastinum is unremarkable. There is a right internal jugular hemodialysis catheter in place. IMPRESSION: Patchy right basilar infiltrate suspect for pneumonia with a small right pleural effusion. Dictated by: Dictated on workstation # [id number] Dict: 10/03/17900 Trans: 10/03/17911 Interpreted by: CORTES BRENNAN MD Electronically signed by: CORTES BRENNAN MD 10/03/17911 Reviewed: Reviewed by Me Departure Impression Impression: Primary Impression: Volume overload Qualified Codes: E87.79 - Other fluid overload Additional Impressions: HUS (hemolytic uremic syndrome), atypical ESRD (end stage renal disease) on dialysis Disposition: 01 HOME, SELF-CARE Condition: Improved Departure-Patient Inst. Decision time for Depature: 10:05 Referrals: TIMOTHY ARGUETA MD (PCP/Family) Primary Care Physician Patient Instructions: Heart Failure, Adult (DC) Add. Discharge Instructions: Take 80 mg of Lasix by mouth this afternoon about 3:00 and then keep your follow -up appointment tomorrow at noon with hemodialysis. If you're shortness of breath worsens or you begin to experience chest pain or other symptoms return to the ER for further management. All discharge instructions reviewed with patient and/or family. Voiced understanding. Copy Copies To 1: TIMOTHY ARGUETA MD, TITUS J Oct 03, 2017 08:22
[2017-10-03 08:46] LABS: BASOPHILS % (AUTO) 1 % (0-10); EOSINOPHILS # (AUTO) 0.2 10^3/uL (0.0-0.3); EOSINOPHILS % (AUTO) 4 % (0-10); LYMPHOCYTES # (AUTO) 0.9 X 10^3 (1.0-4.0); LYMPHOCYTES % (AUTO) 15 % (12-44); MEAN CORPUSCULAR HEMOGLOBIN 32 PG (25-34); MEAN CORPUSCULAR HGB CONC 33 G/DL (32-36); MEAN CORPUSCULAR VOLUME 98 FL (80-99); MEAN PLATELET VOLUME 10.5 FL (7.4-10.4); MONOCYTES # (AUTO) 0.5 X 10^3 (0.0-1.0); MONOCYTES % (AUTO) 8 % (0-12); NEUTROPHILS # (AUTO) 4.3 X 10^3 (1.8-7.8); NEUTROPHILS % (AUTO) 73 % (42-75); PLATELET COUNT 153 10^3/uL (130-400); RED BLOOD COUNT 3.28 10^6/uL (4.35-5.85); RED CELL DISTRIBUTION WIDTH 14.8 % (10.0-14.5)
[2017-10-03 09:07] LABS: ERYTHROCYTE SEDIMENTATION RATE 17 MM/HR (0-15)
[2017-10-03 09:10] LABS: ALBUMIN 3.9 GM/DL (3.2-4.5); BILIRUBIN,TOTAL 0.9 MG/DL (0.1-1.0); CALCIUM 9.3 MG/DL (8.5-10.1); CREATININE SERUM 5.66 MG/DL (0.60-1.30); MAGNESIUM 1.9 MG/DL (1.8-2.4); POTASSIUM 3.6 MMOL/L (3.6-5.0); TOTAL PROTEIN 6.5 GM/DL (6.4-8.2); hs C REACTIVE PROTEIN 1.47 MG/DL (0.00-0.50)
--- NOTE | 2017-10-03 09:10 | Diagnostic Imaging Report ---
INDICATION: Back pain. Comparison made with prior examination from 06/09/2017. FINDINGS: Heart size is normal. There is a patchy right basilar infiltrate with a small right pleural effusion. There is no pneumothorax. Mediastinum is unremarkable. There is a right internal jugular hemodialysis catheter in place. IMPRESSION: Patchy right basilar infiltrate suspect for pneumonia with a small right pleural effusion. Dictated by: Dictated on workstation # [id number]
[2017-10-03 09:23] LABS: BILIRUBIN,URINE NEGATIVE (NEGATIVE); KETONES,URINE NEGATIVE (NEGATIVE); LEUKOCYTE ESTERASE ,URINE 1+ (NEGATIVE); NITRITE,URINE NEGATIVE (NEGATIVE); PH,URINE 8 (5-9); PROTEIN,URINE 3+ (NEGATIVE); UROBILINOGEN,URINE NORMAL (NORMAL)
[2017-10-03 09:30] LABS: WBC,URINE RARE /HPF
[2017-10-03 10:13] VITALS: BP 174/117
== END 2017-10-03 10:13 | disposition home or self-care (01) ==
LOC: EDUNIT# 07:04 → ER 07:05
DX: E87.79 Other fluid overload (principal); D59.3 Hemolytic-uremic syndrome; I12.0 Hypertensive chronic kidney disease with stage 5 chronic kidney disease or end stage renal disease; N18.6 End stage renal disease; Z99.2 Dependence on renal dialysis; Z87.19 Personal history of other diseases of the digestive system; Z87.01 Personal history of pneumonia (recurrent)
CPT/HCPCS: 36415; 71020; 80053; 81000; 83605; 83690; 83735; 83880; 85025; 85652; 86141; 87040

== ENCOUNTER 2017-10-16 12:00 | Outpatient (RCR) | payer MEDICARE ==
[~2017-10-16 12:00] MED LIST changes: +CENTER ONLY IV SCH; +ECULIZUMAB IV SCH; +NS IV 500 ML (CANCER CENTER) 500 ML IV SCH; +NS IV SCH; +[UNRECOGNIZED DRUG - OTHER] IV SCH
== END 2017-10-22 | disposition home or self-care (01) ==
LOC: ONC 12:00
PROVIDERS: ATTEND Internal Medicine Hematology & Oncology
DX: Z51.11 Encounter for antineoplastic chemotherapy (principal); D59.3 Hemolytic-uremic syndrome; N18.6 End stage renal disease; I12.0 Hypertensive chronic kidney disease with stage 5 chronic kidney disease or end stage renal disease; Z79.899 Other long term (current) drug therapy
CPT/HCPCS: 96413

== ENCOUNTER 2017-11-16 12:48 | Emergency (ER) | payer MEDICARE ==
[~2017-11-16] VITALS: Ht 172.7 cm; Wt 69.9 kg
[~2017-11-16 12:48] MED LIST changes: -CENTER ONLY IV SCH; -ECULIZUMAB IV SCH; -NS IV 500 ML (CANCER CENTER) 500 ML IV SCH; -NS IV SCH; -[UNRECOGNIZED DRUG - OTHER] IV SCH
[2017-11-16] MEDS ORDERED: RT-ALBUTEROL/IPRATROPIUM 3 ML (DUONEB) VIAL ONE (12:55)
[2017-11-16] MEDS ORDERED: FUROSEMIDE 40 MG/4 ML INJ (LASIX) ONE (12:58)
[2017-11-16] MEDS ORDERED: DEXAMETHASONE 10 MG/ML (DECADRON) 1 ML VIAL ONE (12:58)
[2017-11-16] MEDS ORDERED: methylPREDNISolone 125 MG (Solu-MEDROL) VIAL ONE (12:58)
[2017-11-16 13:12] LABS: ABG BASE EXCESS 1.1 MMOL/L (-2.5-2.5); ABG OXYGEN SATURATION 82 % (94-100); ABG PCO2 49 MMHG (35-45); ABG PO2 48 MMHG (79-93)
[2017-11-16] MEDS ORDERED: DEXAMETHASONE 4 MG/ML SDV (DECADRON) IH ONE (13:15)
[2017-11-16] MEDS ORDERED: FUROSEMIDE 40 MG/4 ML INJ (LASIX) IVP ONE (13:15)
[2017-11-16] MEDS ORDERED: methylPREDNISolone 125 MG (Solu-MEDROL) VIAL IVP ONE (13:15)
[2017-11-16] MEDS ORDERED: RT-ALBUTEROL/IPRATROPIUM 3 ML (DUONEB) VIAL INH ONE (13:15)
[2017-11-16 13:21] LABS: ABG PH 7.34 (7.37-7.43); ALLENS TEST YES-POS; INSPIRED O2 10
[2017-11-16 13:22] LABS: PATIENT TEMP 100.2
[2017-11-16 13:56] LABS: BASOPHILS % (AUTO) 0 % (0-10); EOSINOPHILS # (AUTO) 0.1 10^3/uL (0.0-0.3); EOSINOPHILS % (AUTO) 1 % (0-10); HEMATOCRIT 33 % (40-54); HEMOGLOBIN 10.6 G/DL (13.3-17.7); LYMPHOCYTES # (AUTO) 0.4 X 10^3 (1.0-4.0); LYMPHOCYTES % (AUTO) 4 % (12-44); MEAN CORPUSCULAR HEMOGLOBIN 33 PG (25-34); MEAN CORPUSCULAR HGB CONC 32 G/DL (32-36); MEAN CORPUSCULAR VOLUME 100 FL (80-99); MEAN PLATELET VOLUME 10.4 FL (7.4-10.4); MONOCYTES # (AUTO) 0.5 X 10^3 (0.0-1.0); MONOCYTES % (AUTO) 5 % (0-12); NEUTROPHILS # (AUTO) 8.6 X 10^3 (1.8-7.8); NEUTROPHILS % (AUTO) 90 % (42-75); PLATELET COUNT 147 10^3/uL (130-400); RED BLOOD COUNT 3.26 10^6/uL (4.35-5.85); WHITE BLOOD COUNT 9.6 10^3/uL (4.3-11.0)
[2017-11-16] MEDS ORDERED: ALPR1TAB2 PO (13:58)
[2017-11-16] MEDS ORDERED: FENT1PAT9 TD (13:58)
[2017-11-16] MEDS ORDERED: AMPI500C9 PO (13:58)
[2017-11-16] MEDS ORDERED: CALC667C10 PO (13:58)
[2017-11-16] MEDS ORDERED: ESCI10TA55 PO (13:58)
[2017-11-16] MEDS ORDERED: DOXA4TAB2 PO ×2 (13:58→14:25)
[2017-11-16] MEDS ORDERED: FURO80TA83 PO (13:59)
[2017-11-16 14:22] LABS: AMYLASE 130 U/L (25-125); LIPASE 81 U/L (8-78)
[2017-11-16 14:24] LABS: ALANINE AMINOTRANSFERASE 13 U/L (0-55); ALBUMIN 3.9 GM/DL (3.2-4.5); ALKALINE PHOSPHATASE 69 U/L (40-136); BILIRUBIN,TOTAL 0.5 MG/DL (0.1-1.0); BUN/CREATININE RATIO 6; CALCIUM 8.7 MG/DL (8.5-10.1); CARBON DIOXIDE 23 MMOL/L (21-32); CHLORIDE 102 MMOL/L (98-107); CREATINE KINASE 62 U/L (30-200); CREATININE SERUM 9.29 MG/DL (0.60-1.30); GFR ESTIMATED 7; GLUCOSE 157 MG/DL (70-105); MAGNESIUM 2.3 MG/DL (1.8-2.4); SODIUM 141 MMOL/L (135-145); TOTAL PROTEIN 6.6 GM/DL (6.4-8.2)
[2017-11-16 14:28] LABS: PROTHROMBIN TIME PATIENT 13.7 SEC (12.2-14.7)
[2017-11-16 14:32] LABS: CREATINE KINASE MB 0.9 NG/ML (<6.6)
[2017-11-16 14:42] LABS: BILIRUBIN,URINE NEGATIVE (NEGATIVE); CLARITY,URINE CLEAR; COLOR,URINE YELLOW; GLUCOSE, URINE (UA) 2+ (NEGATIVE); KETONES,URINE NEGATIVE (NEGATIVE); LEUKOCYTE ESTERASE ,URINE 1+ (NEGATIVE); NITRITE,URINE NEGATIVE (NEGATIVE); PH,URINE 8 (5-9); PROTEIN,URINE 3+ (NEGATIVE); UROBILINOGEN,URINE NORMAL (NORMAL)
[2017-11-16 14:44] LABS: LYMPHOCYTES % (MANUAL) 1 %; MONOCYTES % (MANUAL) 2 %; NEUTROPHILS % (MANUAL) 97 %; RBC MORPH NORMAL; TOXIC GRANULATION/VACUOLAZATIO 1+
[2017-11-16 14:56] LABS: BACTERIA,URINE NEGATIVE /HPF; WBC,URINE RARE /HPF
--- NOTE | 2017-11-16 14:59 | Diagnostic Imaging Report ---
INDICATION: Lower respiratory infection. Portable chest at 01:34 p.m. FINDINGS: Right IJ dialysis catheter tip projects over the SVC. There is an alveolar infiltrate in the right lung. Left lung is clear. Heart size is mildly enlarged. IMPRESSION: Developing infiltrate in the right lung consistent with pneumonia. Dictated by: Dictated on workstation # [id number]
[2017-11-16] MEDS ORDERED: cefTRIAXone INJECTION 1,000 MG in NS (IVPB) 50 ML IV ONE (15:00)
[2017-11-16] MEDS ORDERED: morphine INJ 10 MG/ML 1ML (SYR OR VIAL) IVP STA (15:07)
[2017-11-16 16:02] VITALS: BP 143/103
--- NOTE | 2017-11-17 06:58 | ED General ---
General Chief Complaint: Respiratory Problems Stated Complaint: VOMITING/FEVER Nursing Triage Note: PATIENT STATES HE HAS BEEN FEELING ILL FOR ABOUT A WEEK. HE HAD CHEMO ON THURSDAY AND HAS FELT POORLY SINCE THEN. YESTERDAY AND TODAY HE VOMITTED AND STATES HE HAS HAD A FEVER. Nursing Sepsis Screen: Possible Sepsis Risk Source of Information: Patient, Family (MOM DOES MOST OF TALKING FOR PT AND GIVES ALL MEDICAL HISTORY ) History of Present Illness Date Seen by Provider: Nov 16, 2017 Time Seen by Provider: 12:55 Initial Comments PT ARRIVES VIA POV FROM DIALYSIS--NO CALL PT C/O SHORTNESS OF BREATH THIS AM--PT WENT TO DIALYSIS THIS AM, BUT DID NOT HAVE IT DONE, DUE TO SHORTNESS OF BREATH--SENT HERE INSTEAD NO CHEST PAIN PT HAS HAD FEVER UP TO 101 AND HAS BEEN SICK FOR A WEEK WITH COUGH/CONGESTION-- HAS NOT BEEN EVALUATED FOR THESE SYMPTOMS. HAD NAUSEA AND VOMITED X 1 TODAY. GOES TO [id number] AND HAS NOT MISSED ANY SESSIONS, LAST SESSION WAS Thursday11/13/17. STATES HIS LEGS WERE SWOLLEN THIS AM, DOES NOT NORMALLY HAVE SWELLING. LAST TIME HE HAD ANY SWELLING WAS IN SEPTEMBER. ADMITTED 10/03/17 AT [facility] FOR SIMILAR PROBLEM PT HAS HAD BILATERAL PLEURAL EFFUSIONS AND HAS HAD TO HAVE THORACENTESIS SEVERAL TIMES IN THE PAST--STATES SHORTNESS OF BREATH IS SIMILAR TO WHEN HE HAD THAT PROBLEM. HAD FISTULA FROM PANCREAS TO LUNG AT ONE POINT, PER MOM. 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 --LAST TREATMENT WAS ALSO ON Thursday11/13/17. STATES IT ALWAYS MAKES HIM SICK. PT STATES HE IS ON RENAL TRANSPLANT LIST AT [facility] PT STILL MAKES URINE--STATES UP TO A GALLON A DAY. HAS BEEN VOIDING USUAL STATES HE DID OVER EAT AND ATE ALOT OF HIGH SODIUM FOODS YESTERDAY FOR [employer]STIT[employer] PARTY PCP: DR. ARGUETA [facility] Allergies and Home Medications Allergies Coded Allergies: No Known Drug Allergies (Unverified , 06/28/16) Home Medications Alprazolam 1 Mg Tablet, 0.5-1 MG PO BID PRN for ANXIETY, (Reported) TAKES 1/2-1 OF A (1 MG) TABLET Amlodipine Besylate 10 Mg Tablet, 10 MG PO DAILY, (Reported) Ampicillin Trihydrate 500 Mg Capsule, 500 MG PO BID, (Reported) MAY BE TAKEN UP TO THREE TIMES DAILY PROPHYLATICALLY Calcium Acetate 667 Mg Capsule, 1,334-2,668 MG PO UD, (Reported) TAKES 2 (667 MG) CAPSULES FOR SNACKS & 4 (667 MG) CAPSULES WITH MEALS Doxazosin Mesylate 4 Mg Tablet, 8 MG PO BID, (Reported) TAKES 2 (4 MG) TABLETS Doxazosin Mesylate 4 Mg Tablet, 8 MG PO 1600 PRN for BLOOD PRESSURE, (Reported) TAKES 2 (4 MG) TABLETS Eculizumab 300 Mg/30 Ml Vial, 1,200 MG IV every 2 weeks, (Reported) Escitalopram Oxalate 10 Mg Tablet, 10 MG PO HS, (Reported) Fentanyl 1 Each Patch.td72, 50 MCG TD WEEK, (Reported) Furosemide 80 Mg Tablet, 80 MG PO BID PRN for FLUID RETENTION, (Reported) Metoprolol Tartrate 100 Mg Tablet, 150 MG PO BID, (Reported) TAKES 1 & 1/2 OF A (100 MG) TABLET Omeprazole 40 Mg Capsule.dr, 40 MG PO DAILY, (Reported) Ondansetron 4 Mg Tab.rapdis, 4-8 MG PO Q6H PRN for NAUSEA/VOMITING, (Reported) TAKES 1-2 OF A (4 MG) TABLET Oxycodone HCl/Acetaminophen 1 Each Tablet, 1 TAB PO Q4H PRN for PAIN, (Reported) Promethazine HCl 12.5 Mg Tablet, 12.5-25 MG PO Q6H PRN for NAUSEA/VOMITING, ( Reported) TAKES 1-2 OF A (12.5 MG) TABLET Valsartan 320 Mg Tablet, 320 MG PO DAILY, (Reported) Constitutional: see HPI, fever, malaise, weakness EENTM: nose congestion Respiratory: cough, dyspnea on exertion, orthopnea, short of breath Cardiovascular: No chest pain, edema Gastrointestinal: No abdominal pain, nausea, vomiting Genitourinary: see HPI, No decreased output Musculoskeletal: see HPI Skin: no symptoms reported Psychiatric/Neurological: Pre-Existing Deficit (NEUROPATHY IN LEGS--LEFT>RIGHT) Hematologic/Lymphatic: No Symptoms Reported Immunological/Allergic: see HPI Past [id number] Hx Patient Social History Alcohol Use: Denies Use Recreational Drug Use: No Smoking Status: Former Smoker Type Used: Cigarettes 2nd Hand Smoke Exposure: No Recent Foreign Travel: No Contact w/Someone Who Travel: No Recent Infectious Disease Expo: No Recent Hopitalizations: No Immunizations Up To Date Date of Influenza Vaccine: Aug 12, 2017 Seasonal Allergies Seasonal Allergies: No Surgeries History of Surgeries: Yes (RIGHT CENTRAL LINE DIALYSIS CATHETER. THORACENTESIS MULTIPLE TIMES; EGD/COLONOSCOPY; PANCREATIC STENT) Surgeries: Dialysis Respiratory History of Respiratory Disorde: Yes (pancreatic fistula communicating with right chest, thoracentesis) Respiratory Disorders: Pneumonia Cardiovascular History of Cardiac Disorders: Yes (CHF/FLUID OVERLOAD; PLEURAL EFFUSIONS) Cardiac Disorders: Hypertension Neurological History of Neurological Disord: Yes (NEUROPATHY LEGS-LEFT > RIGHT ) Neurological Disorders: Neuropathy Genitourinary History of Genitourinary Disor: Yes ([id number]) Genitourinary Disorders: Renal Failure, Dialysis Gastrointestinal History of Gastrointestinal Di: Yes (PANCREATIC FISTULA TO LUNG-SELF RESOLVED; PANCREATIC STENT) Gastrointestinal Disorders: Pancreatitis Musculoskeletal History of Musculoskeletal Dis: No Endocrine History of Endocrine Disorders: Yes (MINIMAL FUNCTION OF PANCREAS; CHRONIC FATIGUE) HEENT History of HEENT Disorders: No Cancer History of Cancer: No Psychosocial History of Psychiatric Problem: No Integumentary History of Skin or Integumenta: No Blood Transfusions History of Blood Disorders: Yes (ATYPICAL HUS) Physical Exam Vital Signs Vital Sign - Last 12Hours 11/16/17 11/16/17 12:52 12:57 Temp 96.9 Pulse 106 Resp 32 B/P (MAP) 168/100 (122) Pulse Ox 90 O2 Delivery OxyMask O2 Flow Rate 10.00 Capillary Refill : Less Than 3 Seconds General Appearance: Moderate Distress, Other (ANXIOUS BUT ALSO LETHARGIC; DYSPNEIC, PALE, CLAMMY; ) HEENT: PERRL/EOMI Neck: Normal Inspection Respiratory: Decreased Breath Sounds (DECREASED AERATION IN BASES BILATERALLY. 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, Other (LETHARGIC, YET ALSO ANXIOUS) Skin: Cool, Damp, Pallor Focused Exam Evaluation Lactate Level Laboratory Tests 11/16/17 13:40: Lactic Acid Level 1.14 Progress/Results/Core Measures Suspected Sepsis Recent Fever Within 48 Hours: Yes Infection Criteria Present: Suspected New Infection New/Unexplained Altered Menta: No Sepsis Screen: Possible Sepsis Risk Sepsis Diagnosis: SIRS Temperature:96.9 Pulse: 95 Respiratory Rate: 18 Laboratory Tests 11/16/17 13:40: White Blood Count 9.6 Blood Pressure 143 /103 Mean: 121 Laboratory Tests 11/16/17 13:40: Lactic Acid Level 1.14 Laboratory Tests 11/16/17 13:40: Creatinine 9.29H, INR Comment 1.0, Platelet Count 147, Total Bilirubin 0.5 Results/Orders Lab Results Laboratory Tests Test 11/16/17 12:59 11/16/17 13:40 11/16/17 14:36 Range/Units Blood Gas Puncture Site R RAD Blood Gas Patient Temperature 100.2 Arterial Blood pH 7.34 *L 7.37-7.43 Arterial Blood Partial Pressure CO2 49 H 35-45 MMHG Arterial Blood Partial Pressure O2 48 L 79-93 MMHG Arterial Blood HCO3 26 23-27 MMOL/L Arterial Blood Total CO2 28.0 21.0-31.0 MMOL/L Arterial Blood Oxygen Saturation 82 L 94-100 % Arterial Blood Base Excess 1.1 -2.5-2.5 MMOL/L Evin Test YES-POS Blood Gas Ventilator Setting NA Blood Gas Inspired Oxygen 10 White Blood Count 9.6 4.3-11.0 10^3/uL Red Blood Count 3.26 L 4.35-5.85 10^6/uL Hemoglobin 10.6 L 13.3-17.7 G/DL Hematocrit 33 L 40-54 % Mean Corpuscular Volume 100 H 80-99 FL Mean Corpuscular Hemoglobin 33 25-34 PG Mean Corpuscular Hemoglobin Concent 32 32-36 G/DL Red Cell Distribution Width 15.0 H 10.0-14.5 % Platelet Count 147 130-400 10^3/uL Mean Platelet Volume 10.4 7.4-10.4 FL Neutrophils (%) (Auto) 90 H 42-75 % Lymphocytes (%) (Auto) 4 L 12-44 % Monocytes (%) (Auto) 5 0-12 % Eosinophils (%) (Auto) 1 0-10 % Basophils (%) (Auto) 0 0-10 % Neutrophils # (Auto) 8.6 H 1.8-7.8 X 10^3 Lymphocytes # (Auto) 0.4 L 1.0-4.0 X 10^3 Monocytes # (Auto) 0.5 0.0-1.0 X 10^3 Eosinophils # (Auto) 0.1 0.0-0.3 10^3/uL Basophils # (Auto) 0.0 0.0-0.1 10^3/uL Neutrophils % (Manual) 97 % Lymphocytes % (Manual) 1 % Monocytes % (Manual) 2 % Toxic Granulation 1+ Blood Morphology Comment NORMAL Prothrombin Time 13.7 12.2-14.7 SEC INR Comment 1.0 0.8-1.4 Activated Partial Thromboplast Time 29 24-35 SEC Sodium Level 141 135-145 MMOL/L Potassium Level 5.0 3.6-5.0 MMOL/L Chloride Level 102 98-107 MMOL/L Carbon Dioxide Level 23 21-32 MMOL/L Anion Gap 16 H 5-14 MMOL/L Blood Urea Nitrogen 57 H 7-18 MG/DL Creatinine 9.29 H 0.60-1.30 MG/DL Estimat Glomerular Filtration Rate 7 BUN/Creatinine Ratio 6 Glucose Level 157 H 70-105 MG/DL Lactic Acid Level 1.14 0.50-2.00 MMOL/L Calcium Level 8.7 8.5-10.1 MG/DL Magnesium Level 2.3 1.8-2.4 MG/DL Total Bilirubin 0.5 0.1-1.0 MG/DL Aspartate Amino Transf (AST/SGOT) 11 5-34 U/L Alanine Aminotransferase (ALT/SGPT) 13 0-55 U/L Alkaline Phosphatase 69 40-136 U/L Total Creatine Kinase 62 30-200 U/L Creatine Kinase MB 0.9 <6.6 NG/ML Troponin I < 0.30 <0.30 NG/ML Total Protein 6.6 6.4-8.2 GM/DL Albumin 3.9 3.2-4.5 GM/DL Amylase Level 130 H 25-125 U/L Lipase 81 H 8-78 U/L Urine Color YELLOW Urine Clarity CLEAR Urine pH 8 5-9 Urine Specific [place] 1.010 L 1.016-1.022 Urine Protein 3+ H NEGATIVE Urine Glucose (UA) 2+ H NEGATIVE Urine Ketones NEGATIVE NEGATIVE Urine Nitrite NEGATIVE NEGATIVE Urine Bilirubin NEGATIVE NEGATIVE Urine Urobilinogen NORMAL NORMAL MG/DL Urine Leukocyte Esterase 1+ H NEGATIVE Urine RBC (Auto) NEGATIVE NEGATIVE Urine RBC NONE /HPF Urine WBC RARE /HPF Urine Crystals NONE /LPF Urine Bacteria NEGATIVE /HPF Urine Casts NONE /LPF Urine Mucus NEGATIVE /LPF Urine Culture Indicated NO Micro Results Microbiology 11/16/17 Influenza Types A,B Antigen (ALESSIO) - Final, Complete My Orders Orders - TODD SOLIS DO Albuterol/Ipra Inhalation Soln (Duoneb I (11/16/17 12:55) Furosemide Injection (Lasix Injection) (11/16/17 12:58) Methylprednisolone Sod Succ (Solu-Medrol (11/16/17 12:58) Dexamethasone Injection (Decadron Inject (11/16/17 12:58) Saline Lock/Iv-Start (11/16/17 13:01) Ekg Tracing (11/16/17 13:01) O2 (11/16/17 13:01) Monitor-Rhythm Ecg Trace Only (11/16/17 13:01) Arterial Blood Gas (11/16/17 13:01) Cbc With Automated Diff (11/16/17 13:01) Comprehensive Metabolic Panel (11/16/17 13:01) Creatine Kinase (11/16/17 13:01) Creatine Kinase Mb (11/16/17 13:01) Lactic Acid Analyzer (11/16/17 13:01) Magnesium (11/16/17 13:01) Protime With Inr (11/16/17 13:01) Partial Thromboplastin Time (11/16/17 13:01) Troponin I (11/16/17 13:01) Ua Culture If Indicated (11/16/17 13:01) Blood Culture (11/16/17 13:01) Influenza A And B Antigens (11/16/17 13:01) Chest 1 View, Ap/Pa Only (11/16/17 13:01) Albuterol/Ipra Inhalation Soln (Duoneb I (11/16/17 13:15) Dexamethasone Injection (Decadron Inject (11/16/17 13:15) Rt Request For Service (11/16/17 13:01) Svn Sm Volume Nebulizer Rt-Rfs (11/16/17 13:01) Methylprednisolone Sod Succ (Solu-Medrol (11/16/17 13:15) Furosemide Injection (Lasix Injection) (11/16/17 13:15) Amylase (11/16/17 13:05) Lipase (11/16/17 13:05) Manual Differential (11/16/17 13:40) Ceftriaxone Injection (Rocephin Injectio (11/16/17 15:00) Morphine Injection (Morphine Injection (11/16/17 15:07) Vital Signs/I&O Capillary Refill : Less Than 3 Seconds Blood Pressure Mean: 121 Progress Note : Progress Note O2 SAT 40% ON ARRIVAL. PT IMMEDIATELY PLACED ON OXIMASK AT 15L, WITH RAPID IMPROVEMENT IN O2 SATS, PT' S COLOR AND MENTATION MUCH IMPROVED. PT MORE TALKATIVE AND NO LONGER DYSPNEIC. PT MUCH MORE RELAXED AND NO LONGER APPEARS LETHARGIC. O2 SATS REMAINED IN MID 90'S FOR REMAINDER OF ER STAY, WITH OXIMASK STILL AT 15L BP INITIALLY VERY HIGH ON ARRIVAL, CAME DOWN TO 140'S/90'S PRIOR TO TRANSFER. ALSO GIVEN LASIX, SOLU-MEDROL AND NEB TREATMENT ECG Initial ECG Impression Time: 13:19 Initial ECG Rate: 96 Initial ECG Rhythm: Normal Sinus Initial ECG Impression: Normal Initial ECG Comparisson: No Previous ECG Available Diagnostic Imaging Comments CXR--RIGHT PNEUMONIA PER RADIOLOGIST REPORT. ALSO APPEARS TO HAVE FLUID OVERLOAD ON MY REVIEW Reviewed: Reviewed by Me Critical Care Note Critical Care Total Time (minutes) 30 Departure Communication (Admissions) Progress Notes [id number]--CONTACTED [facility] DIRECT CALL 1450--SPOKE WITH DR. RAGLAND, ACCEPTS PT FOR ADMIT. Impression Impression: Primary Impression: End stage renal failure on dialysis Additional Impressions: Acute respiratory failure RIGHT SIDED PNEUMONIA Fluid overload Hemolytic uremic syndrome Disposition: XFER [facility] Condition: Improved Departure-Patient Inst. Referrals: TIMOTHY ARGUETA MD (PCP) Primary Care Physician TODD SOLIS DO Nov 17, 2017 06:58
== END 2017-11-16 16:06 | disposition short-term general hospital (02) ==
LOC: EDUNIT# 12:48 → ER 12:49
DX: J96.00 Acute respiratory failure, unspecified whether with hypoxia or hypercapnia (principal); I13.0 Hypertensive heart and chronic kidney disease with heart failure and stage 1 through stage 4 chronic kidney disease, or unspecified chronic kidney disease; N18.6 End stage renal disease; I50.9 Heart failure, unspecified; J18.9 Pneumonia, unspecified organism; E87.70 Fluid overload, unspecified; D59.3 Hemolytic-uremic syndrome; G62.9 Polyneuropathy, unspecified; Z87.891 Personal history of nicotine dependence; Z99.2 Dependence on renal dialysis
CPT/HCPCS: 36415; 71045; 80053; 81000; 82150; 82550; 82553; 82805; 83605; 83690; 83735; 84484; 85007; 85027; 85610; 85730; 87040; 87804; 93005; 93041; 94640; 96365; 96375

== ENCOUNTER 2017-12-23 18:26 | Emergency (ER) | payer MEDICARE ==
[~2017-12-23] VITALS: Ht 175.3 cm; Wt 72.6 kg
[~2017-12-23 18:26] MED LIST changes: +ALPR1TAB2 PO; +AMPI500C9 PO; +CALC667C10 PO; +DOXA4TAB2 PO; +ESCI10TA55 PO; +FENT1PAT9 TD; +FURO80TA83 PO
--- NOTE | 2017-12-23 20:12 | ED General ---
General Chief Complaint: Cardiac/General Problems Stated Complaint: HIGH BP;HEADACHE Nursing Triage Note: Pt c/o HTN and DINH BP 202/130 in triage. Nursing Sepsis Screen: No Definite Risk Source of Information: Patient Exam Limitations: No Limitations History of Present Illness Date Seen by Provider: Dec 23, 2017 Time Seen by Provider: 20:12 Allergies and Home Medications Allergies Coded Allergies: No Known Drug Allergies (Unverified , 06/28/16) Home Medications Alprazolam 1 Mg Tablet, 0.5-1 MG PO BID PRN for ANXIETY, (Reported) TAKES 1/2-1 OF A (1 MG) TABLET Amlodipine Besylate 10 Mg Tablet, 10 MG PO DAILY, (Reported) Ampicillin Trihydrate 500 Mg Capsule, 500 MG PO BID, (Reported) MAY BE TAKEN UP TO THREE TIMES DAILY PROPHYLATICALLY Calcium Acetate 667 Mg Capsule, 1,334-2,668 MG PO UD, (Reported) TAKES 2 (667 MG) CAPSULES FOR SNACKS & 4 (667 MG) CAPSULES WITH MEALS Doxazosin Mesylate 4 Mg Tablet, 8 MG PO BID, (Reported) TAKES 2 (4 MG) TABLETS Doxazosin Mesylate 4 Mg Tablet, 8 MG PO 1600 PRN for BLOOD PRESSURE, (Reported) TAKES 2 (4 MG) TABLETS Eculizumab 300 Mg/30 Ml Vial, 1,200 MG IV every 2 weeks, (Reported) Escitalopram Oxalate 10 Mg Tablet, 10 MG PO HS, (Reported) Fentanyl 1 Each Patch.td72, 50 MCG TD WEEK, (Reported) Furosemide 80 Mg Tablet, 80 MG PO BID PRN for FLUID RETENTION, (Reported) Metoprolol Tartrate 100 Mg Tablet, 150 MG PO BID, (Reported) TAKES 1 & 1/2 OF A (100 MG) TABLET Omeprazole 40 Mg Capsule.dr, 40 MG PO DAILY, (Reported) Ondansetron 4 Mg Tab.rapdis, 4-8 MG PO Q6H PRN for NAUSEA/VOMITING, (Reported) TAKES 1-2 OF A (4 MG) TABLET Oxycodone HCl/Acetaminophen 1 Each Tablet, 1 TAB PO Q4H PRN for PAIN, (Reported) Promethazine HCl 12.5 Mg Tablet, 12.5-25 MG PO Q6H PRN for NAUSEA/VOMITING, ( Reported) TAKES 1-2 OF A (12.5 MG) TABLET Valsartan 320 Mg Tablet, 320 MG PO DAILY, (Reported) Past Lexuzbz-Bkgrxh-Hdasdy Hx Patient Social History Alcohol Use: Denies Use Recreational Drug Use: No Smoking Status: Former Smoker Type Used: Cigarettes 2nd Hand Smoke Exposure: No Recent Foreign Travel: No Contact w/Someone Who Travel: No Recent Infectious Disease Expo: No Recent Hopitalizations: Yes (2-5-18 [place]) Physical Abuse: No Sexual Abuse: No Mistreated: No Fear: No Immunizations Up To Date Tetanus Booster (TDap): Less than 5yrs Date of Influenza Vaccine: Aug 12, 2017 Seasonal Allergies Seasonal Allergies: No Surgeries History of Surgeries: Yes Surgeries: Dialysis Respiratory History of Respiratory Disorde: Yes (pancreatic fistula communicating with right chest, thoracentesis) Respiratory Disorders: Pneumonia Cardiovascular History of Cardiac Disorders: Yes (CHF/FLUID OVERLOAD; PLEURAL EFFUSIONS) Cardiac Disorders: Hypertension Neurological History of Neurological Disord: Yes (NEUROPATHY LEGS-LEFT > RIGHT ) Neurological Disorders: Neuropathy Genitourinary History of Genitourinary Disor: Yes ([id number]) Genitourinary Disorders: Renal Failure, Dialysis Gastrointestinal History of Gastrointestinal Di: Yes (PANCREATIC FISTULA TO LUNG-SELF RESOLVED; PANCREATIC STENT) Gastrointestinal Disorders: Pancreatitis Musculoskeletal History of Musculoskeletal Dis: No Endocrine History of Endocrine Disorders: Yes (MINIMAL FUNCTION OF PANCREAS; CHRONIC FATIGUE) HEENT History of HEENT Disorders: No Cancer History of Cancer: No Psychosocial History of Psychiatric Problem: No Suicide Risk Score: 1 Integumentary History of Skin or Integumenta: No Blood Transfusions History of Blood Disorders: Yes (ATYPICAL HUS) Physical Exam Vital Signs Vital Signs - First Documented 12/23/17 19:19 Temp 98.5 Pulse 65 Resp 18 B/P (MAP) 202/130 (154) Pulse Ox 98 O2 Delivery Room Air Capillary Refill : Less Than 3 Seconds Progress/Results/Core Measures Suspected Sepsis Recent Fever Within 48 Hours: No Infection Criteria Present: None New/Unexplained Altered Menta: No Sepsis Screen: No Definite Risk Sepsis Diagnosis: SIRS Temperature:98.5 Pulse: 65 Respiratory Rate: 18 Laboratory Tests 12/23/17 19:30: White Blood Count 5.7 Blood Pressure 202 /130 Mean: 154 Laboratory Tests 12/23/17 19:30: Creatinine 4.76H, INR Comment 1.0, Platelet Count 172, Total Bilirubin 0.6 Results/Orders Lab Results Laboratory Tests Test 12/23/17 19:30 12/23/17 21:00 Range/Units White Blood Count 5.7 4.3-11.0 10^3/uL Red Blood Count 3.94 L 4.35-5.85 10^6/uL Hemoglobin 12.7 L 13.3-17.7 G/DL Hematocrit 37 L 40-54 % Mean Corpuscular Volume 95 80-99 FL Mean Corpuscular Hemoglobin 32 25-34 PG Mean Corpuscular Hemoglobin Concent 34 32-36 G/DL Red Cell Distribution Width 13.4 10.0-14.5 % Platelet Count 172 130-400 10^3/uL Mean Platelet Volume 10.5 H 7.4-10.4 FL Neutrophils (%) (Auto) 69 42-75 % Lymphocytes (%) (Auto) 17 12-44 % Monocytes (%) (Auto) 10 0-12 % Eosinophils (%) (Auto) 4 0-10 % Basophils (%) (Auto) 1 0-10 % Neutrophils # (Auto) 3.9 1.8-7.8 X 10^3 Lymphocytes # (Auto) 0.9 L 1.0-4.0 X 10^3 Monocytes # (Auto) 0.5 0.0-1.0 X 10^3 Eosinophils # (Auto) 0.3 0.0-0.3 10^3/uL Basophils # (Auto) 0.0 0.0-0.1 10^3/uL Prothrombin Time 13.3 12.2-14.7 SEC INR Comment 1.0 0.8-1.4 Activated Partial Thromboplast Time 33 24-35 SEC Sodium Level 139 135-145 MMOL/L Potassium Level 3.6 3.6-5.0 MMOL/L Chloride Level 94 L 98-107 MMOL/L Carbon Dioxide Level 33 H 21-32 MMOL/L Anion Gap 12 5-14 MMOL/L Blood Urea Nitrogen 24 H 7-18 MG/DL Creatinine 4.76 H 0.60-1.30 MG/DL Estimat Glomerular Filtration Rate 14 BUN/Creatinine Ratio 5 Glucose Level 96 70-105 MG/DL Calcium Level 9.0 8.5-10.1 MG/DL Magnesium Level 2.2 1.8-2.4 MG/DL Total Bilirubin 0.6 0.1-1.0 MG/DL Aspartate Amino Transf (AST/SGOT) 15 5-34 U/L Alanine Aminotransferase (ALT/SGPT) 21 0-55 U/L Alkaline Phosphatase 68 40-136 U/L Total Creatine Kinase 51 30-200 U/L Creatine Kinase MB 0.4 <6.6 NG/ML Myoglobin 144.1 H 10.0-92.0 NG/ML Troponin I < 0.30 <0.30 NG/ML Total Protein 7.3 6.4-8.2 GM/DL Albumin 4.6 H 3.2-4.5 GM/DL TSH Braxton Testing 1.30 0.35-4.94 UIU/ML Urine Color YELLOW Urine Clarity CLEAR Urine pH 9 5-9 Urine Specific [place] 1.015 L 1.016-1.022 Urine Protein 3+ H NEGATIVE Urine Glucose (UA) NEGATIVE NEGATIVE Urine Ketones NEGATIVE NEGATIVE Urine Nitrite NEGATIVE NEGATIVE Urine Bilirubin NEGATIVE NEGATIVE Urine Urobilinogen NORMAL NORMAL MG/DL Urine Leukocyte Esterase 1+ H NEGATIVE Urine RBC (Auto) 2+ H NEGATIVE Urine RBC 2-5 H /HPF Urine WBC 0-2 /HPF Urine Squamous Epithelial Cells RARE /HPF Urine Crystals NONE /LPF Urine Bacteria NONE /HPF Urine Casts NONE /LPF Urine Mucus NEGATIVE /LPF Urine Culture Indicated NO My Orders Orders - YONI DERAS Clonidine Tablet (Catapres Tablet) (12/23/17 20:15) Cbc With Automated Diff (12/23/17 20:06) Comprehensive Metabolic Panel (12/23/17 20:06) Creatine Kinase (12/23/17 20:06) Creatine Kinase Mb (12/23/17 20:06) Magnesium (12/23/17 20:06) Protime With Inr (12/23/17 20:06) Partial Thromboplastin Time (12/23/17 20:06) Thyroid Analyzer (12/23/17 20:06) Troponin I (12/23/17 20:06) Ua Culture If Indicated (12/23/17 20:06) Myoglobin Serum (12/23/17 20:06) Saline Lock/Iv-Start (12/23/17 20:06) Ekg Tracing (12/23/17 20:06) Monitor-Rhythm Ecg Trace Only (12/23/17 20:06) Labetalol Injection (Normodyne Injection (12/23/17 20:30) Fentanyl Injection (Sublimaze Injection (12/23/17 20:25) Fentanyl Injection (Sublimaze Injection (12/23/17 20:27) Fentanyl Injection (Sublimaze Injection (12/23/17 20:29) Labetalol Injection (Normodyne Injection (12/23/17 21:30) Morphine Injection (Morphine Injection (12/23/17 21:36) Morphine Injection (Morphine Injection (12/23/17 21:35) Hydralazine Injection (Apresoline Inject (12/23/17 22:30) Morphine Injection (Morphine Injection (12/23/17 22:45) Labetalol Injection (Normodyne Injection (12/23/17 23:30) Medications Given in ED Current Medications Medications Dose Ordered Sig/Dayday Route Start Time Stop Time Status Last Admin Dose Admin Clonidine HCl 0.2 mg ONCE ONCE PO 12/23/17 20:15 12/23/17 20:16 DC 12/23/17 20:07 0.2 MG Hydralazine HCl 20 mg ONCE ONCE IV 12/23/17 22:30 12/23/17 22:32 DC 12/23/17 22:53 20 MG Labetalol HCl 10 mg ONCE ONCE IV 12/23/17 20:30 12/23/17 20:31 DC 12/23/17 20:48 10 MG Labetalol HCl 20 mg ONCE ONCE IV 12/23/17 21:30 12/23/17 21:31 DC 12/23/17 21:47 20 MG Vital Signs/I&O Vital Sign - Last 12Hours 12/23/17 19:19 Temp 98.5 Pulse 65 Resp 18 B/P (MAP) 202/130 (154) Pulse Ox 98 O2 Delivery Room Air Capillary Refill : Less Than 3 Seconds Blood Pressure Mean: 154 Departure Impression Impression: Primary Impression: Hypertensive emergency Additional Impression: Hemolytic uremic syndrome Disposition: 01 HOME, SELF-CARE Condition: Improved Departure-Patient Inst. Decision time for Depature: 23:26 Referrals: TIMOTHY MILES MD (PCP/Family) Primary Care Physician Patient Instructions: High Blood Pressure Emergencies Add. Discharge Instructions: All discharge instructions reviewed with patient and/or family. Voiced understanding. Continue usual home medications. Follow-up with Dr. Miles tomorrow in her office for recheck. Call for appointment time first thing in the morning. Monitor blood pressure twice daily and take a record of the blood pressures with you to your follow-up appointment. Return to the emergency department immediately for increased blood pressures, chest pain, shortness of air, dizziness, fever, headache, changes in vision, changes in behavior, slurred speech, or any other concerns. YONI DERAS Dec 23, 2017 20:12
[2017-12-23 20:13] LABS: BASOPHILS % (AUTO) 1 % (0-10); EOSINOPHILS # (AUTO) 0.3 10^3/uL (0.0-0.3); EOSINOPHILS % (AUTO) 4 % (0-10); HEMATOCRIT 37 % (40-54); HEMOGLOBIN 12.7 G/DL (13.3-17.7); LYMPHOCYTES # (AUTO) 0.9 X 10^3 (1.0-4.0); LYMPHOCYTES % (AUTO) 17 % (12-44); MEAN CORPUSCULAR HEMOGLOBIN 32 PG (25-34); MEAN CORPUSCULAR HGB CONC 34 G/DL (32-36); MEAN CORPUSCULAR VOLUME 95 FL (80-99); MEAN PLATELET VOLUME 10.5 FL (7.4-10.4); MONOCYTES # (AUTO) 0.5 X 10^3 (0.0-1.0); MONOCYTES % (AUTO) 10 % (0-12); NEUTROPHILS # (AUTO) 3.9 X 10^3 (1.8-7.8); NEUTROPHILS % (AUTO) 69 % (42-75); PLATELET COUNT 172 10^3/uL (130-400); RED BLOOD COUNT 3.94 10^6/uL (4.35-5.85); RED CELL DISTRIBUTION WIDTH 13.4 % (10.0-14.5); WHITE BLOOD COUNT 5.7 10^3/uL (4.3-11.0)
[2017-12-23] MEDS ORDERED: cloNIDine 0.1 MG (CATAPRES) TAB PO ONE (20:15)
[2017-12-23 20:17] LABS: PROTHROMBIN TIME PATIENT 13.3 SEC (12.2-14.7)
[2017-12-23] MEDS ORDERED: fentaNYL INJECTION 100 MCG/2 ML AMP IVP STA ×2 (20:25→20:29)
[2017-12-23 20:27] LABS: ALANINE AMINOTRANSFERASE 21 U/L (0-55); ALBUMIN 4.6 GM/DL (3.2-4.5); ALKALINE PHOSPHATASE 68 U/L (40-136); BILIRUBIN,TOTAL 0.6 MG/DL (0.1-1.0); BUN/CREATININE RATIO 5; CARBON DIOXIDE 33 MMOL/L (21-32); CHLORIDE 94 MMOL/L (98-107); CREATINE KINASE 51 U/L (30-200); CREATININE SERUM 4.76 MG/DL (0.60-1.30); GFR ESTIMATED 14; GLUCOSE 96 MG/DL (70-105); MAGNESIUM 2.2 MG/DL (1.8-2.4); POTASSIUM 3.6 MMOL/L (3.6-5.0); SODIUM 139 MMOL/L (135-145); TOTAL PROTEIN 7.3 GM/DL (6.4-8.2)
[2017-12-23] MEDS ORDERED: fentaNYL INJECTION 100 MCG/2 ML AMP ONE (20:27)
[2017-12-23] MEDS ORDERED: LABETALOL HCL 20 MG/4 ML VIAL IV ONE ×3 (20:30→23:30)
[2017-12-23 20:47] LABS: CREATINE KINASE MB 0.4 NG/ML (<6.6); MYOGLOBIN SERUM 144.1 NG/ML (10.0-92.0)
[2017-12-23 21:09] LABS: BILIRUBIN,URINE NEGATIVE (NEGATIVE); COLOR,URINE YELLOW; GLUCOSE, URINE (UA) NEGATIVE (NEGATIVE); KETONES,URINE NEGATIVE (NEGATIVE); LEUKOCYTE ESTERASE ,URINE 1+ (NEGATIVE); NITRITE,URINE NEGATIVE (NEGATIVE); PH,URINE 9 (5-9); PROTEIN,URINE 3+ (NEGATIVE); UROBILINOGEN,URINE NORMAL (NORMAL)
[2017-12-23 21:18] LABS: SQUAMOUS EPITHELIAL CELL,UR RARE /HPF; WBC,URINE 0-2 /HPF
[2017-12-23 21:19] LABS: CLARITY,URINE CLEAR
[2017-12-23] MEDS ORDERED: morphine INJ 10 MG/ML 1ML (SYR OR VIAL) ONE (21:35)
[2017-12-23] MEDS ORDERED: morphine INJ 10 MG/ML 1ML (SYR OR VIAL) IVP STA ×2 (21:36→22:45)
[2017-12-23] MEDS ORDERED: hydrALAZINE (APESOLINE) 20 MG/ML VIAL IV ONE (22:30)
[2017-12-23 23:48] VITALS: BP 169/109
== END 2017-12-23 23:48 | disposition home or self-care (01) ==
LOC: ER 18:26
DX: I16.1 Hypertensive emergency (principal); D59.3 Hemolytic-uremic syndrome; I10 Essential (primary) hypertension; G57.93 Unspecified mononeuropathy of bilateral lower limbs; Z87.891 Personal history of nicotine dependence; Z99.2 Dependence on renal dialysis; Z96.89 Presence of other specified functional implants
CPT/HCPCS: 36415; 80053; 81000; 82550; 82553; 83735; 83874; 84443; 84484; 85025; 85610; 85730; 93005; 93041

== ENCOUNTER 2018-01-22 11:49 | Outpatient (RCR) | payer MEDICARE ==
[2017-11-27 12:15] LABS: BASOPHILS % (AUTO) 1 % (0-10); EOSINOPHILS # (AUTO) 0.3 10^3/uL (0.0-0.3); EOSINOPHILS % (AUTO) 4 % (0-10); HEMATOCRIT 32 % (40-54); HEMOGLOBIN 10.7 G/DL (13.3-17.7); LYMPHOCYTES # (AUTO) 0.9 X 10^3 (1.0-4.0); LYMPHOCYTES % (AUTO) 16 % (12-44); MEAN CORPUSCULAR HEMOGLOBIN 33 PG (25-34); MEAN CORPUSCULAR HGB CONC 33 G/DL (32-36); MEAN CORPUSCULAR VOLUME 98 FL (80-99); MEAN PLATELET VOLUME 10.6 FL (7.4-10.4); MONOCYTES # (AUTO) 0.5 X 10^3 (0.0-1.0); MONOCYTES % (AUTO) 8 % (0-12); NEUTROPHILS # (AUTO) 4.1 X 10^3 (1.8-7.8); NEUTROPHILS % (AUTO) 71 % (42-75); PLATELET COUNT 180 10^3/uL (130-400); RED BLOOD COUNT 3.29 10^6/uL (4.35-5.85); RED CELL DISTRIBUTION WIDTH 15.1 % (10.0-14.5); WHITE BLOOD COUNT 5.7 10^3/uL (4.3-11.0)
[2017-11-27 12:35] LABS: BILIRUBIN,TOTAL 0.6 MG/DL (0.1-1.0); CALCIUM 8.5 MG/DL (8.5-10.1); CREATININE SERUM 3.12 MG/DL (0.60-1.30); POTASSIUM 3.6 MMOL/L (3.6-5.0); TOTAL PROTEIN 6.6 GM/DL (6.4-8.2)
[~2018-01-22 11:49] MED LIST changes: +CENTER ONLY IV SCH; +ECULIZUMAB IV SCH; +NS (IVPB) CANCER CENTER 250 ML ONE; +NS IV 500 ML (CANCER CENTER) 500 ML IV SCH; +NS IV SCH; -VALS320T14 PO; +VALS320T15 PO; +[UNRECOGNIZED DRUG - OTHER] IV SCH
== END 2018-01-28 | disposition home or self-care (01) ==
LOC: ONC 11:49
PROVIDERS: ATTEND Internal Medicine Hematology & Oncology
DX: Z51.11 Encounter for antineoplastic chemotherapy (principal); D59.3 Hemolytic-uremic syndrome; N18.6 End stage renal disease; I12.0 Hypertensive chronic kidney disease with stage 5 chronic kidney disease or end stage renal disease; Z79.899 Other long term (current) drug therapy
CPT/HCPCS: 36415; 80053; 85025; 96413

== ENCOUNTER 2018-04-30 12:12 | Outpatient (RCR) | payer MEDICARE ==
[2018-02-19 12:28] LABS: BASOPHILS % (AUTO) 1 % (0-10); EOSINOPHILS # (AUTO) 0.4 10^3/uL (0.0-0.3); EOSINOPHILS % (AUTO) 6 % (0-10); HEMATOCRIT 35 % (40-54); HEMOGLOBIN 11.6 G/DL (13.3-17.7); LYMPHOCYTES # (AUTO) 1.2 X 10^3 (1.0-4.0); LYMPHOCYTES % (AUTO) 21 % (12-44); MEAN CORPUSCULAR HEMOGLOBIN 32 PG (25-34); MEAN CORPUSCULAR HGB CONC 33 G/DL (32-36); MEAN CORPUSCULAR VOLUME 96 FL (80-99); MEAN PLATELET VOLUME 9.2 FL (7.4-10.4); MONOCYTES # (AUTO) 0.4 X 10^3 (0.0-1.0); MONOCYTES % (AUTO) 6 % (0-12); NEUTROPHILS # (AUTO) 3.8 X 10^3 (1.8-7.8); NEUTROPHILS % (AUTO) 66 % (42-75); PLATELET COUNT 310 10^3/uL (130-400); RED BLOOD COUNT 3.65 10^6/uL (4.35-5.85); RED CELL DISTRIBUTION WIDTH 15.1 % (10.0-14.5); WHITE BLOOD COUNT 5.8 10^3/uL (4.3-11.0)
[2018-02-19 12:52] LABS: ALBUMIN 4.3 GM/DL (3.2-4.5); BILIRUBIN,TOTAL 0.5 MG/DL (0.1-1.0); CREATININE SERUM 3.16 MG/DL (0.60-1.30); TOTAL PROTEIN 7.4 GM/DL (6.4-8.2)
[~2018-04-30 12:12] MED LIST changes: +NS (IVPB) CANCER CENTER 250 ML IV PRN; -NS IV 500 ML (CANCER CENTER) 500 ML IV SCH
== END 2018-05-06 | disposition home or self-care (01) ==
LOC: ONC 12:12
PROVIDERS: ATTEND Internal Medicine Hematology & Oncology
DX: Z51.11 Encounter for antineoplastic chemotherapy (principal); D59.3 Hemolytic-uremic syndrome; N18.6 End stage renal disease; I12.0 Hypertensive chronic kidney disease with stage 5 chronic kidney disease or end stage renal disease; Z79.899 Other long term (current) drug therapy
CPT/HCPCS: 36415; 80053; 85025; 96413

== ENCOUNTER 2018-05-14 11:20 | Outpatient (RCR) | payer MEDICARE ==
[~2018-05-14 11:20] MED LIST changes: -NS (IVPB) CANCER CENTER 250 ML ONE
== END 2018-05-21 11:45 | disposition home or self-care (01) ==
LOC: ONC 11:20
PROVIDERS: ATTEND Internal Medicine Hematology & Oncology
DX: Z51.11 Encounter for antineoplastic chemotherapy (principal); D59.3 Hemolytic-uremic syndrome; N18.6 End stage renal disease; I12.0 Hypertensive chronic kidney disease with stage 5 chronic kidney disease or end stage renal disease; Z79.899 Other long term (current) drug therapy
CPT/HCPCS: 96413

== ENCOUNTER 2018-07-09 11:00 | Outpatient (RCR) | payer MEDICARE ==
[~2018-07-09 11:00] MED LIST changes: -AMLO10TA2 PO; +AMLO10TA6 PO; +NS IV 500 ML (CANCER CENTER) 500 ML ONE; -OXYC-202 PO; +OXYC1TAB12 PO
== END 2018-07-22 13:54 | disposition home or self-care (01) ==
LOC: ONC 11:00
PROVIDERS: ATTEND Internal Medicine Hematology & Oncology
DX: Z51.11 Encounter for antineoplastic chemotherapy (principal); D59.3 Hemolytic-uremic syndrome; N18.6 End stage renal disease; I12.0 Hypertensive chronic kidney disease with stage 5 chronic kidney disease or end stage renal disease; Z79.899 Other long term (current) drug therapy
CPT/HCPCS: 96413

== ENCOUNTER 2018-09-16 12:12 | Outpatient (RCR) | payer MEDICARE ==
[~2018-09-16] VITALS: Ht 170.2 cm; Wt 76.2 kg
[~2018-09-16 12:12] MED LIST changes: -NS IV 500 ML (CANCER CENTER) 500 ML ONE
== END 2018-09-23 15:54 | disposition home or self-care (01) ==
LOC: ONC 12:12
PROVIDERS: ATTEND Internal Medicine Hematology & Oncology
DX: Z51.11 Encounter for antineoplastic chemotherapy (principal); D59.3 Hemolytic-uremic syndrome; N18.6 End stage renal disease; I12.0 Hypertensive chronic kidney disease with stage 5 chronic kidney disease or end stage renal disease; Z79.899 Other long term (current) drug therapy
CPT/HCPCS: 96413

== ENCOUNTER → 2018-09-30 | Outpatient (CLI) | payer MEDICARE | LOC: ONC 13:33 | PROVIDERS: ATTEND Internal Medicine Hematology & Oncology | DX: Z51.11 Encounter for antineoplastic chemotherapy (principal); D59.3 Hemolytic-uremic syndrome; I12.0 Hypertensive chronic kidney disease with stage 5 chronic kidney disease or end stage renal disease; N18.6 End stage renal disease; Z79.899 Other long term (current) drug therapy | CPT/HCPCS: 96413 ==

== ENCOUNTER → 2018-10-28 | Outpatient (CLI) | payer MEDICARE | LOC: ONC 13:33 | PROVIDERS: ATTEND Internal Medicine Hematology & Oncology | DX: Z51.11 Encounter for antineoplastic chemotherapy (principal); D59.3 Hemolytic-uremic syndrome; I12.0 Hypertensive chronic kidney disease with stage 5 chronic kidney disease or end stage renal disease; N18.6 End stage renal disease; Z79.899 Other long term (current) drug therapy | CPT/HCPCS: 96413 ==

== ENCOUNTER → 2018-11-11 | Outpatient (CLI) | payer MEDICARE ==
[~2018-11-11] VITALS: Ht 170.2 cm; Wt 78.9 kg
[~2018-11-11] MED LIST changes: -AMLO10TA6 PO; +AMLO10TA7 PO; +NS (IVPB) CANCER CENTER 250 ML ONE
== END ==
LOC: ONC 10:58
PROVIDERS: ATTEND Internal Medicine Hematology & Oncology
DX: Z51.11 Encounter for antineoplastic chemotherapy (principal); D59.3 Hemolytic-uremic syndrome; I12.0 Hypertensive chronic kidney disease with stage 5 chronic kidney disease or end stage renal disease; N18.6 End stage renal disease; Z79.899 Other long term (current) drug therapy
CPT/HCPCS: 96413

== ENCOUNTER → 2018-11-25 | Outpatient (CLI) | payer MEDICARE ==
[~2018-11-25] MED LIST changes: -NS (IVPB) CANCER CENTER 250 ML ONE
== END ==
LOC: ONC 10:18
PROVIDERS: ATTEND Internal Medicine Hematology & Oncology
DX: Z51.11 Encounter for antineoplastic chemotherapy (principal); D59.3 Hemolytic-uremic syndrome; I12.0 Hypertensive chronic kidney disease with stage 5 chronic kidney disease or end stage renal disease; N18.6 End stage renal disease; Z79.899 Other long term (current) drug therapy
CPT/HCPCS: 96413

== ENCOUNTER → 2018-12-09 | Outpatient (CLI) | payer MEDICARE | LOC: ONC 10:27 | PROVIDERS: ATTEND Internal Medicine Hematology & Oncology | DX: Z51.11 Encounter for antineoplastic chemotherapy (principal); D59.3 Hemolytic-uremic syndrome; I12.0 Hypertensive chronic kidney disease with stage 5 chronic kidney disease or end stage renal disease; N18.6 End stage renal disease; Z79.899 Other long term (current) drug therapy | CPT/HCPCS: 96413 ==

== ENCOUNTER → 2018-12-23 | Outpatient (CLI) | payer MEDICARE | LOC: ONC 10:58 | PROVIDERS: ATTEND Internal Medicine Hematology & Oncology | DX: Z51.11 Encounter for antineoplastic chemotherapy (principal); D59.3 Hemolytic-uremic syndrome; I12.0 Hypertensive chronic kidney disease with stage 5 chronic kidney disease or end stage renal disease; N18.6 End stage renal disease; Z79.899 Other long term (current) drug therapy | CPT/HCPCS: 96413 ==

== ENCOUNTER → 2019-01-06 | Outpatient (CLI) | payer MEDICARE | LOC: ONC 11:17 | PROVIDERS: ATTEND Internal Medicine Hematology & Oncology | DX: Z51.11 Encounter for antineoplastic chemotherapy (principal); D59.3 Hemolytic-uremic syndrome; I12.0 Hypertensive chronic kidney disease with stage 5 chronic kidney disease or end stage renal disease; N18.6 End stage renal disease; Z79.899 Other long term (current) drug therapy | CPT/HCPCS: 96413 ==

== ENCOUNTER → 2019-01-20 | Outpatient (CLI) | payer MEDICARE ==
[~2019-01-20] MED LIST changes: +NS IV 500 ML (CANCER CENTER) 500 ML ONE
== END ==
LOC: ONC 11:01
PROVIDERS: ATTEND Internal Medicine Hematology & Oncology
DX: Z51.11 Encounter for antineoplastic chemotherapy (principal); D59.3 Hemolytic-uremic syndrome; I12.0 Hypertensive chronic kidney disease with stage 5 chronic kidney disease or end stage renal disease; N18.6 End stage renal disease; Z79.899 Other long term (current) drug therapy
CPT/HCPCS: 96413

== ENCOUNTER → 2019-02-03 | Outpatient (CLI) | payer MEDICARE ==
[~2019-02-03] MED LIST changes: +NS (IVPB) CANCER CENTER 250 ML ONE; -NS IV 500 ML (CANCER CENTER) 500 ML ONE
== END ==
LOC: ONC 11:39
PROVIDERS: ATTEND Internal Medicine Hematology & Oncology
DX: Z51.11 Encounter for antineoplastic chemotherapy (principal); D59.3 Hemolytic-uremic syndrome; I12.0 Hypertensive chronic kidney disease with stage 5 chronic kidney disease or end stage renal disease; N18.6 End stage renal disease; D64.9 Anemia, unspecified; Z79.899 Other long term (current) drug therapy
CPT/HCPCS: 96413

== ENCOUNTER → 2019-02-17 | Outpatient (CLI) | payer MEDICARE | LOC: ONC 10:59 | PROVIDERS: ATTEND Internal Medicine Hematology & Oncology | DX: Z51.11 Encounter for antineoplastic chemotherapy (principal); D59.3 Hemolytic-uremic syndrome; I12.0 Hypertensive chronic kidney disease with stage 5 chronic kidney disease or end stage renal disease; N18.6 End stage renal disease; D64.9 Anemia, unspecified; Z79.899 Other long term (current) drug therapy | CPT/HCPCS: 96413 ==

== ENCOUNTER → 2019-03-03 | Outpatient (CLI) | payer MEDICARE | LOC: ONC 11:21 | PROVIDERS: ATTEND Internal Medicine Hematology & Oncology | DX: Z51.11 Encounter for antineoplastic chemotherapy (principal); D59.3 Hemolytic-uremic syndrome; I12.0 Hypertensive chronic kidney disease with stage 5 chronic kidney disease or end stage renal disease; N18.6 End stage renal disease; D64.9 Anemia, unspecified; Z79.899 Other long term (current) drug therapy | CPT/HCPCS: 96413 ==

== ENCOUNTER → 2019-03-11 | Emergency (ER) | payer MEDICARE ==
[~2019-03-11] VITALS: Ht 172.7 cm; Wt 79.4 kg
[~2019-03-11] MED LIST changes: -CENTER ONLY IV SCH; -ECULIZUMAB IV SCH; +LABETALOL HCL 20 MG/4 ML VIAL IV ONE; -NS (IVPB) CANCER CENTER 250 ML IV PRN; -NS (IVPB) CANCER CENTER 250 ML ONE; -NS IV SCH; +PIPERACILLIN/TAZOBACTAM (BULK) 4.5 GM in NS (IVPB) 100 ML IV ONE; -[UNRECOGNIZED DRUG - OTHER] IV SCH; +cloNIDine 0.1 MG (CATAPRES) TAB PO ONE; +fentaNYL INJECTION 100 MCG/2 ML AMP IVP ONE; +hydrALAZINE (APESOLINE) 20 MG/ML VIAL IV ONE
--- NOTE | 2019-03-11 18:17 | ED Integumentary General ---
General Chief Complaint: Skin/Wound Problems Stated Complaint: L ARM WOUND INFECTION Nursing Triage Note: Pt to ED with c/o infection to L arm after fistula surgery the Thursday before last. Pt reports having approximately 33 sonu in the arm. Pt reports being put on antibiotics by Dr. Bennett on Thursday and symptoms have worsened. Pt reports clear drainage. Arm is red and erythemous Source: patient Exam Limitations: no limitations History of Present Illness Date Seen by Provider: March 11, 2019 Time Seen by Provider: 18:11 Initial Comments To ER with concerns of wound infection. had a left arm hemodialysis fistula revision by Dr. Bennett at [facility] 10 days ago. At his follow-up visit on Thursday of this week he noticed the beginnings of some redness around the incision. He was started on clindamycin. He's been taking that as directed but denies any improvement and in fact notices a bit of worsening in regards to increasing pain, low grade fevers, increasing redness, small amount of purulent discharge. 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 For that he is on Soliris IV every 2 weeks. He receives hemodialysis on Thursday and received yesterday's treatment. Currently, he is using a hemodialysis catheter in the right chest. Timing/Duration: constant, getting worse Severity: moderate Location: extremities Allergies and Home Medications Allergies Coded Allergies: No Known Drug Allergies (Unverified , 06/28/16) Home Medications Alprazolam 1 Mg Tablet, 0.5-1 MG PO BID PRN for ANXIETY, (Reported) TAKES 1/2-1 OF A (1 MG) TABLET Amlodipine Besylate 10 Mg Tablet, 10 MG PO DAILY, (Reported) Ampicillin Trihydrate 500 Mg Capsule, 500 MG PO BID, (Reported) MAY BE TAKEN UP TO THREE TIMES DAILY PROPHYLATICALLY Calcium Acetate 667 Mg Capsule, 1,334-2,668 MG PO UD, (Reported) TAKES 2 (667 MG) CAPSULES FOR SNACKS & 4 (667 MG) CAPSULES WITH MEALS Doxazosin Mesylate 4 Mg Tablet, 8 MG PO BID, (Reported) TAKES 2 (4 MG) TABLETS Doxazosin Mesylate 4 Mg Tablet, 8 MG PO 1600 PRN for BLOOD PRESSURE, (Reported) TAKES 2 (4 MG) TABLETS Eculizumab 300 Mg/30 Ml Vial, 1,200 MG IV every 2 weeks, (Reported) Escitalopram Oxalate 10 Mg Tablet, 10 MG PO HS, (Reported) Fentanyl 1 Each Patch.td72, 50 MCG TD WEEK, (Reported) Furosemide 80 Mg Tablet, 80 MG PO BID PRN for FLUID RETENTION, (Reported) Metoprolol Tartrate 100 Mg Tablet, 150 MG PO BID, (Reported) TAKES 1 & 1/2 OF A (100 MG) TABLET Omeprazole 40 Mg Capsule.dr, 40 MG PO DAILY, (Reported) Ondansetron 4 Mg Tab.rapdis, 4-8 MG PO Q6H PRN for NAUSEA/VOMITING, (Reported) TAKES 1-2 OF A (4 MG) TABLET Oxycodone HCl/Acetaminophen 1 Each Tablet, 1 TAB PO Q4H PRN for PAIN, (Reported) Promethazine HCl 12.5 Mg Tablet, 12.5-25 MG PO Q6H PRN for NAUSEA/VOMITING, (Reported) TAKES 1-2 OF A (12.5 MG) TABLET Valsartan 320 Mg Tablet, 320 MG PO DAILY, (Reported) Patient Home Medication List Home Medication List Reviewed: Yes Review of Systems Review of Systems Constitutional: see HPI, fever ("low-grade") EENTM: see HPI Respiratory: No dyspnea on exertion, No short of breath (denies shortness of breath currently) Cardiovascular: no symptoms reported Genitourinary: no symptoms reported Musculoskeletal: no symptoms reported Skin: see HPI Psychiatric/Neurological: No Symptoms Reported Endocrine: No Symptoms Reported Hematologic/Lymphatic: No Symptoms Reported Past Lmfgrpq-Cqsasi-Sqrwrr Hx Patient Social History Alcohol Use: Denies Use Recreational Drug Use: No Type Used: Cigarettes 2nd Hand Smoke Exposure: No Recent Foreign Travel: No Contact w/Someone Who Travel: No Recent Infectious Disease Expo: No Recent Hopitalizations: No (2-5-18 Aguilera) Immunizations Up To Date Tetanus Booster (TDap): Less than 5yrs Date of Influenza Vaccine: Aug 12, 2017 Seasonal Allergies Seasonal Allergies: No Past Medical History Surgeries: Yes Dialysis Respiratory: Yes (pancreatic fistula communicating with right chest, thoracentesis) Pneumonia Cardiac: Yes (CHF/FLUID OVERLOAD; PLEURAL EFFUSIONS) Hypertension Neurological: Yes (NEUROPATHY LEGS-LEFT > RIGHT ) Neuropathy Genitourinary: Yes ([id number]) Renal Failure, Dialysis Gastrointestinal: Yes (PANCREATIC FISTULA TO LUNG-SELF RESOLVED; PANCREATIC STENT) Pancreatitis Musculoskeletal: No Endocrine: Yes (MINIMAL FUNCTION OF PANCREAS; CHRONIC FATIGUE) HEENT: No Cancer: No Psychosocial: No Integumentary: No Blood Disorders: Yes (ATYPICAL HUS) Physical Exam Vital Signs Vital Signs - First Documented 03/11/19 17:34 Temp 99.0 Pulse 88 Resp 14 B/P (MAP) 179/122 (141) Pulse Ox 100 O2 Delivery Room Air Capillary Refill : Less Than 3 Seconds General Appearance: WD/WN, no apparent distress HEENT: PERRL/EOMI, normal ENT inspection Neck: non-tender, full range of motion Cardiovascular: regular rate, rhythm, no murmur Respiratory: normal breath sounds, no respiratory distress, no accessory muscle use Extremities: no pedal edema, other (reduced range of motion to the left arm se condary to pain) Neurologic/Psychiatric: alert, normal mood/affect, oriented x 3 Skin: normal color, warm/dry Skin Problem Location: upper extremities (to the medial aspect of the left upper arm is an incision with sonu in place, erythema surrounding this extending about 3-4 cm out from the wound edges on both sides, a bit of purulent material from the center of the wound at the most distal aspect. Culture this collected and sent to lab.) Progress/Results/Core Measures Results/Orders Lab Results Laboratory Tests Test 03/11/19 18:30 Range/Units White Blood Count 10.8 4.3-11.0 10^3/uL Red Blood Count 3.57 L 4.35-5.85 10^6/uL Hemoglobin 11.7 L 13.3-17.7 G/DL Hematocrit 34 L 40-54 % Mean Corpuscular Volume 95 80-99 FL Mean Corpuscular Hemoglobin 33 25-34 PG Mean Corpuscular Hemoglobin Concent 35 32-36 G/DL Red Cell Distribution Width 16.3 H 10.0-14.5 % Platelet Count 188 130-400 10^3/uL Mean Platelet Volume 10.7 H 7.4-10.4 FL Neutrophils (%) (Auto) 81 H 42-75 % Lymphocytes (%) (Auto) 9 L 12-44 % Monocytes (%) (Auto) 8 0-12 % Eosinophils (%) (Auto) 2 0-10 % Basophils (%) (Auto) 0 0-10 % Neutrophils # (Auto) 8.7 H 1.8-7.8 X 10^3 Lymphocytes # (Auto) 0.9 L 1.0-4.0 X 10^3 Monocytes # (Auto) 0.9 0.0-1.0 X 10^3 Eosinophils # (Auto) 0.3 0.0-0.3 10^3/uL Basophils # (Auto) 0.0 0.0-0.1 10^3/uL Prothrombin Time 14.0 12.2-14.7 SEC INR Comment 1.0 0.8-1.4 Sodium Level 138 135-145 MMOL/L Potassium Level 4.2 3.6-5.0 MMOL/L Chloride Level 97 L 98-107 MMOL/L Carbon Dioxide Level 32 21-32 MMOL/L Anion Gap 9 5-14 MMOL/L Blood Urea Nitrogen 6 L 7-18 MG/DL Creatinine 3.62 H 0.60-1.30 MG/DL Estimat Glomerular Filtration Rate 19 BUN/Creatinine Ratio 2 Glucose Level 81 70-105 MG/DL Lactic Acid Level 1.29 0.50-2.00 MMOL/L Calcium Level 9.0 8.5-10.1 MG/DL Corrected Calcium 9.2 8.5-10.1 MG/DL Total Bilirubin 0.5 0.1-1.0 MG/DL Aspartate Amino Transf (AST/SGOT) 26 5-34 U/L Alanine Aminotransferase (ALT/SGPT) 9 0-55 U/L Alkaline Phosphatase 77 40-136 U/L Total Protein 7.5 6.4-8.2 GM/DL Albumin 3.8 3.2-4.5 GM/DL My Orders Orders - JOSELITO MOBLEY APRN Blood Culture (03/11/19 18:08) Wound Culture (03/11/19 18:08) Cbc With Automated Diff (03/11/19 18:08) Comprehensive Metabolic Panel (03/11/19 18:08) Protime With Inr (03/11/19 18:08) Lactic Acid Analyzer (03/11/19 18:08) Ed Iv/Invasive Line Start (03/11/19 18:08) Fentanyl Injection (Sublimaze Injection (03/11/19 18:15) Fentanyl Injection (Sublimaze Injection (03/11/19 18:45) Labetalol Injection (Normodyne Injection (03/11/19 19:00) Piperacillin/Tazobactam (Bulk) (Zosyn In (03/11/19 19:00) Hydralazine Injection (Apresoline Inject (03/11/19 19:15) Clonidine Tablet (Catapres Tablet) (03/11/19 19:30) Hydralazine Injection (Apresoline Inject (03/11/19 19:30) Fentanyl Injection (Sublimaze Injection (03/11/19 20:00) Medications Given in ED Current Medications Medications Dose Ordered Sig/Dayday Route Start Time Stop Time Status Last Admin Dose Admin Clonidine HCl 0.2 mg ONCE ONCE PO 03/11/19 19:30 03/11/19 19:31 DC 03/11/19 19:31 0.2 MG Fentanyl Citrate 50 mcg ONCE ONCE IVP 03/11/19 18:15 03/11/19 18:16 DC 03/11/19 18:21 50 MCG Fentanyl Citrate 50 mcg ONCE ONCE IVP 03/11/19 18:45 03/11/19 18:46 DC 03/11/19 18:54 50 MCG Hydralazine HCl 10 mg ONCE ONCE IV 03/11/19 19:30 03/11/19 19:31 DC 03/11/19 19:28 10 MG Labetalol HCl 10 mg ONCE ONCE IV 03/11/19 19:00 03/11/19 19:01 DC 03/11/19 18:54 10 MG Piperacillin Sod/ Tazobactam Sod 4.5 gm/Sodium Chloride 120 ml @ 240 mls/hr ONCE ONCE IV 03/11/19 19:00 03/11/19 19:29 DC 03/11/19 19:35 240 MLS/HR Vital Signs/I&O 03/11/19 03/11/19 17:34 19:22 Temp 99.0 99.5 Pulse 88 88 Resp 14 12 B/P (MAP) 179/122 (141) 185/125 (145) Pulse Ox 100 97 O2 Delivery Room Air Room Air Blood Pressure Mean: 141 Departure Communication (Admissions) Discussed with him the need to go to [place] to be seen by Dr. bennett and admission for IV antibiotics the facility capable of hemodialysis. He states he will not go by ambulance. He agrees to sign a refusal of transport form. 1836-spoke with pharmacist Joselito here regarding Zosyn dosing with renal failure on dialysis, he recommend one-time dose of 4.5 g Zosyn here then subsequent dosing would be changed. 1946-spoke with Dr. Alberto Alexis, hospitalist at [facility] in [place]. Agrees to a ccept the patient. His blood pressure currently is 176/126, he was just given the evening dose of clonidine 0.2 mg about 10 minutes ago, he was also given 10 mg of hydralazine at that time. He does need to be transported by EMS for hemodynamic monitoring Impression Primary Impression: Postoperative wound cellulitis Additional Impressions: End stage renal failure on dialysis Uncontrolled hypertension Disposition: XFER SHT-TRM HOSP Condition: Stable Departure-Patient Inst. Referrals: TIMOTHY ARGUETA MD (PCP/Family) Primary Care Physician JOSELITO MOBLEY APRN March 11, 2019 18:17
[2019-03-11 18:46] LABS: BASOPHILS % (AUTO) 0 % (0-10); EOSINOPHILS # (AUTO) 0.3 10^3/uL (0.0-0.3); EOSINOPHILS % (AUTO) 2 % (0-10); HEMATOCRIT 34 % (40-54); HEMOGLOBIN 11.7 G/DL (13.3-17.7); LYMPHOCYTES # (AUTO) 0.9 X 10^3 (1.0-4.0); LYMPHOCYTES % (AUTO) 9 % (12-44); MEAN CORPUSCULAR HEMOGLOBIN 33 PG (25-34); MEAN CORPUSCULAR HGB CONC 35 G/DL (32-36); MEAN CORPUSCULAR VOLUME 95 FL (80-99); MEAN PLATELET VOLUME 10.7 FL (7.4-10.4); MONOCYTES # (AUTO) 0.9 X 10^3 (0.0-1.0); MONOCYTES % (AUTO) 8 % (0-12); NEUTROPHILS # (AUTO) 8.7 X 10^3 (1.8-7.8); NEUTROPHILS % (AUTO) 81 % (42-75); PLATELET COUNT 188 10^3/uL (130-400); RED CELL DISTRIBUTION WIDTH 16.3 % (10.0-14.5); WHITE BLOOD COUNT 10.8 10^3/uL (4.3-11.0)
--- NOTE | 2019-03-11 19:02 | NUR ---
report from vic rossi. she called to get emir.
[2019-03-11 19:13] LABS: ALBUMIN 3.8 GM/DL (3.2-4.5); BILIRUBIN,TOTAL 0.5 MG/DL (0.1-1.0); CREATININE SERUM 3.62 MG/DL (0.60-1.30); POTASSIUM 4.2 MMOL/L (3.6-5.0); TOTAL PROTEIN 7.5 GM/DL (6.4-8.2)
--- NOTE | 2019-03-11 19:13 | NUR ---
[pt here with " mom and girlfriend". pt alert gcs 15. pt c/o left arm pain rating 7. left arm fistula with positive shrill/ thrill/ bruits. pt has swelling and redness appearing like cellulits to left arm fistula staple area and back of left upper arm. all sonu intact. site is slightly draining brown drainage. pt denies dyspnea and no acute sighns of dyspnea noted. positive pulse left arm .done alejandra pt at 1922.
--- NOTE | 2019-03-11 19:13 | NUR ---
pt has hemodyalyisis port right chest
[2019-03-11 19:22] VITALS: BP 185/125
--- NOTE | 2019-03-11 20:20 | NUR ---
bp machine before lebetolol is 174/100 ausc hr 84 reg ausr resp 16 normal recheck temp 99.4 p ox r/a is 99. pt remains alert gcs 15 and family remains in the room. pain rating 7. i just gave more pain meds. v/o dr faye to still give lebetolol. emir marroquin. after lebetolol bp is 188/107 hr is 88.
--- NOTE | 2019-03-11 20:50 | NUR ---
ems is here for transfer. dr gave them report and the paperwork and gave me number to call for nurse report. also wanted more lebetolol prior to transfer. bp before lebrtolol is 178/110 hr 87 bp after lebetolol 171/113 hr 88.
[2019-03-11 21:05] VITALS: BP 171/113
--- NOTE | 2019-03-11 21:05 | NUR ---
i called nurse report to [facility]. spoke with rosalino.
--- NOTE | 2019-03-11 21:05 | NUR ---
ems is leaving.
== END | disposition short-term general hospital (02) ==
LOC: EDUNIT# 17:29 → ER 17:30
DX: T81.40XA Infection following a procedure, unspecified, initial encounter (principal); L03.114 Cellulitis of left upper limb; I12.0 Hypertensive chronic kidney disease with stage 5 chronic kidney disease or end stage renal disease; N18.6 End stage renal disease; G62.9 Polyneuropathy, unspecified; Z87.19 Personal history of other diseases of the digestive system; Z96.89 Presence of other specified functional implants; Z87.09 Personal history of other diseases of the respiratory system; Z99.2 Dependence on renal dialysis; Z87.01 Personal history of pneumonia (recurrent)
CPT/HCPCS: 36415; 80053; 83605; 85025; 85610; 87040; 87070; 87077; 87186; 87205; 96374; 96375; 96376

== ENCOUNTER → 2019-03-17 | Outpatient (CLI) | payer MEDICARE ==
[~2019-03-17] MED LIST changes: +CENTER ONLY IV SCH; +ECULIZUMAB IV SCH; -LABETALOL HCL 20 MG/4 ML VIAL IV ONE; +NS (IVPB) CANCER CENTER 250 ML IV PRN; +NS (IVPB) CANCER CENTER 250 ML ONE; +NS IV SCH; -PIPERACILLIN/TAZOBACTAM (BULK) 4.5 GM in NS (IVPB) 100 ML IV ONE; +[UNRECOGNIZED DRUG - OTHER] IV SCH; -cloNIDine 0.1 MG (CATAPRES) TAB PO ONE; -fentaNYL INJECTION 100 MCG/2 ML AMP IVP ONE; -hydrALAZINE (APESOLINE) 20 MG/ML VIAL IV ONE
== END ==
LOC: ONC 11:32
PROVIDERS: ATTEND Internal Medicine Hematology & Oncology
DX: Z51.11 Encounter for antineoplastic chemotherapy (principal); D59.3 Hemolytic-uremic syndrome; I12.0 Hypertensive chronic kidney disease with stage 5 chronic kidney disease or end stage renal disease; N18.6 End stage renal disease; D64.9 Anemia, unspecified; Z79.899 Other long term (current) drug therapy
CPT/HCPCS: 96413

== ENCOUNTER → 2019-03-23 | Outpatient (CLI) | payer MEDICARE ==
[~2019-03-23] MED LIST changes: -CENTER ONLY IV SCH; -ECULIZUMAB IV SCH; -NS (IVPB) CANCER CENTER 250 ML IV PRN; -NS (IVPB) CANCER CENTER 250 ML ONE; -NS IV SCH; -[UNRECOGNIZED DRUG - OTHER] IV SCH
== END ==
LOC: WOUNDCARE 09:44
PROVIDERS: ATTEND Surgery
DX: L98.492 Non-pressure chronic ulcer of skin of other sites with fat layer exposed (principal); T81.31XA Disruption of external operation (surgical) wound, not elsewhere classified, initial encounter; D59.1 Other autoimmune hemolytic anemias; N18.6 End stage renal disease
CPT/HCPCS: 11042

== ENCOUNTER → 2019-03-29 | Outpatient (CLI) | payer MEDICARE | LOC: WOUNDCARE 14:14 | PROVIDERS: ATTEND Surgery | DX: L98.492 Non-pressure chronic ulcer of skin of other sites with fat layer exposed (principal); T81.31XA Disruption of external operation (surgical) wound, not elsewhere classified, initial encounter; D59.1 Other autoimmune hemolytic anemias; N18.6 End stage renal disease | CPT/HCPCS: 11042; 87070; 87205 ==

== ENCOUNTER → 2019-04-05 | Outpatient (CLI) | payer MEDICARE | LOC: WOUNDCARE 14:40 | PROVIDERS: ATTEND Surgery | DX: T81.31XA Disruption of external operation (surgical) wound, not elsewhere classified, initial encounter (principal); L98.492 Non-pressure chronic ulcer of skin of other sites with fat layer exposed; D59.1 Other autoimmune hemolytic anemias; N18.6 End stage renal disease | CPT/HCPCS: 11042 ==

== ENCOUNTER → 2019-04-12 | Outpatient (CLI) | payer MEDICARE | LOC: WOUNDCARE 14:32 | PROVIDERS: ATTEND Surgery | DX: T81.31XA Disruption of external operation (surgical) wound, not elsewhere classified, initial encounter (principal); L98.492 Non-pressure chronic ulcer of skin of other sites with fat layer exposed; D59.1 Other autoimmune hemolytic anemias; N18.6 End stage renal disease | CPT/HCPCS: 99212 ==

== ENCOUNTER → 2019-04-13 | Outpatient (CLI) | payer MEDICARE ==
[~2019-04-13] MED LIST changes: +CENTER ONLY IV SCH; +ECULIZUMAB IV SCH; +NS (IVPB) CANCER CENTER 250 ML IV PRN; +NS (IVPB) CANCER CENTER 250 ML ONE; +NS IV SCH; +[UNRECOGNIZED DRUG - OTHER] IV SCH
== END ==
LOC: ONC 08:27
PROVIDERS: ATTEND Internal Medicine Hematology & Oncology
DX: Z51.11 Encounter for antineoplastic chemotherapy (principal); D59.3 Hemolytic-uremic syndrome; I12.0 Hypertensive chronic kidney disease with stage 5 chronic kidney disease or end stage renal disease; N18.6 End stage renal disease; D64.9 Anemia, unspecified; Z79.899 Other long term (current) drug therapy
CPT/HCPCS: 96413

== ENCOUNTER → 2019-04-28 | Outpatient (CLI) | payer MEDICARE ==
[~2019-04-28] MED LIST changes: -NS (IVPB) CANCER CENTER 250 ML ONE; +NS IV 500 ML (CANCER CENTER) 500 ML ONE
== END ==
LOC: ONC 11:08
PROVIDERS: ATTEND Internal Medicine Hematology & Oncology
DX: Z51.11 Encounter for antineoplastic chemotherapy (principal); D59.3 Hemolytic-uremic syndrome; I12.0 Hypertensive chronic kidney disease with stage 5 chronic kidney disease or end stage renal disease; N18.6 End stage renal disease; D64.9 Anemia, unspecified; Z79.899 Other long term (current) drug therapy
CPT/HCPCS: 96413

== ENCOUNTER → 2019-05-12 | Outpatient (CLI) | payer MEDICARE ==
[~2019-05-12] MED LIST changes: +NS (IVPB) CANCER CENTER 250 ML ONE; -NS IV 500 ML (CANCER CENTER) 500 ML ONE; +PROM12.511 PO; -PROM12.59 PO
== END ==
LOC: ONC 11:03
PROVIDERS: ATTEND Internal Medicine Hematology & Oncology
DX: Z51.11 Encounter for antineoplastic chemotherapy (principal); D59.3 Hemolytic-uremic syndrome; I12.0 Hypertensive chronic kidney disease with stage 5 chronic kidney disease or end stage renal disease; N18.6 End stage renal disease; D64.9 Anemia, unspecified; Z79.899 Other long term (current) drug therapy
CPT/HCPCS: 96413

== ENCOUNTER → 2019-05-26 | Outpatient (CLI) | payer MEDICARE | LOC: ONC 11:21 | PROVIDERS: ATTEND Internal Medicine Hematology & Oncology | DX: N18.6 End stage renal disease (principal) | CPT/HCPCS: 96413 ==

== ENCOUNTER → 2019-06-06 | Outpatient (CLI) | payer OTHER, MEDICARE ==
[~2019-06-06] MED LIST changes: -CENTER ONLY IV SCH; -ECULIZUMAB IV SCH; -NS (IVPB) CANCER CENTER 250 ML IV PRN; -NS (IVPB) CANCER CENTER 250 ML ONE; -NS IV SCH; -[UNRECOGNIZED DRUG - OTHER] IV SCH
== END ==
LOC: CARD 08:49
PROVIDERS: ATTEND Family Medicine
DX: N18.6 End stage renal disease (principal); I51.7 Cardiomegaly
CPT/HCPCS: 93306

== ENCOUNTER → 2019-06-09 | Outpatient (CLI) | payer OTHER, MEDICARE ==
[~2019-06-09] MED LIST changes: +CENTER ONLY IV SCH; +ECULIZUMAB IV SCH; +NS (IVPB) CANCER CENTER 250 ML IV PRN; +NS (IVPB) CANCER CENTER 250 ML ONE; +NS IV SCH; +[UNRECOGNIZED DRUG - OTHER] IV SCH
== END ==
LOC: ONC 11:17
PROVIDERS: ATTEND Internal Medicine Hematology & Oncology
DX: Z51.11 Encounter for antineoplastic chemotherapy (principal); D59.3 Hemolytic-uremic syndrome; I12.0 Hypertensive chronic kidney disease with stage 5 chronic kidney disease or end stage renal disease; N18.6 End stage renal disease; D64.9 Anemia, unspecified; Z79.899 Other long term (current) drug therapy
CPT/HCPCS: 96413

== ENCOUNTER → 2019-06-14 | Outpatient (CLI) | payer MEDICARE, OTHER ==
[~2019-06-14] MED LIST changes: -CENTER ONLY IV SCH; -ECULIZUMAB IV SCH; -NS (IVPB) CANCER CENTER 250 ML IV PRN; -NS (IVPB) CANCER CENTER 250 ML ONE; -NS IV SCH; -[UNRECOGNIZED DRUG - OTHER] IV SCH
[2019-06-14 11:00] LABS: BASOPHILS % (AUTO) 1 % (0-10); EOSINOPHILS # (AUTO) 0.2 10^3/uL (0.0-0.3); EOSINOPHILS % (AUTO) 3 % (0-10); HEMATOCRIT 36 % (40-54); HEMOGLOBIN 11.6 G/DL (13.3-17.7); LYMPHOCYTES # (AUTO) 1.3 X 10^3 (1.0-4.0); LYMPHOCYTES % (AUTO) 19 % (12-44); MEAN CORPUSCULAR HEMOGLOBIN 32 PG (25-34); MEAN CORPUSCULAR HGB CONC 32 G/DL (32-36); MEAN CORPUSCULAR VOLUME 98 FL (80-99); MEAN PLATELET VOLUME 9.7 FL (7.4-10.4); MONOCYTES # (AUTO) 0.6 X 10^3 (0.0-1.0); MONOCYTES % (AUTO) 9 % (0-12); NEUTROPHILS # (AUTO) 4.5 X 10^3 (1.8-7.8); NEUTROPHILS % (AUTO) 69 % (42-75); PLATELET COUNT 157 10^3/uL (130-400); RED CELL DISTRIBUTION WIDTH 16.1 % (10.0-14.5); WHITE BLOOD COUNT 6.6 10^3/uL (4.3-11.0)
[2019-06-14 11:22] LABS: ALBUMIN 4.4 GM/DL (3.2-4.5); BILIRUBIN,TOTAL 0.5 MG/DL (0.1-1.0); CALCIUM 9.8 MG/DL (8.5-10.1); CREATININE SERUM 7.12 MG/DL (0.60-1.30); PHOSPHORUS 3.9 MG/DL (2.3-4.7); POTASSIUM 3.6 MMOL/L (3.6-5.0); TOTAL PROTEIN 7.8 GM/DL (6.4-8.2)
--- NOTE | 2019-06-14 12:05 | Diagnostic Imaging Report ---
Patient History: N18.6 END STAGE RENAL DISEASE. Technique: Two views of the chest Comparison: 06/08/2018 FINDINGS: The lung volumes are normal. No focal consolidation is seen. No large pleural effusion or pneumothorax is seen. The cardiomediastinal silhouette is normal in size and contour. No acute osseous abnormality is seen. IMPRESSION: No acute pulmonary abnormality seen. Dictated by: Dictated on workstation # [id number]
--- NOTE | 2019-06-14 12:09 | Diagnostic Imaging Report ---
INDICATION: Renal failure. On transplant list. COMPARISON: 06/08/2018 TECHNIQUE: Single Panorex view of the mandible. FINDINGS: No acute fracture or dislocation is seen involving the mandible or included maxilla. No periodontal disease is noted. No periapical lucencies. The appearance is unchanged compared to the prior exam. IMPRESSION: No acute abnormalities in the mandible. No radiographic evidence of periodontal disease. Dictated by: Dictated on workstation # [id number]
[2019-06-15 07:05] LABS: HEPATITIS C ANTIBODY C Non-Reactive (Non-Reactive)
== END ==
LOC: LAB 09:05
PROVIDERS: ATTEND Family Medicine
DX: I12.0 Hypertensive chronic kidney disease with stage 5 chronic kidney disease or end stage renal disease (principal); N18.6 End stage renal disease; R68.82 Decreased libido
CPT/HCPCS: 36415; 70355; 71046; 80053; 82306; 82746; 83970; 84100; 84403; 84443; 85025; 86703; 86704; 86707; 86803; 87340

== ENCOUNTER → 2019-06-23 | Outpatient (CLI) | payer MEDICARE ==
[~2019-06-23] MED LIST changes: +CENTER ONLY IV SCH; +ECULIZUMAB IV SCH; +NS (IVPB) CANCER CENTER 250 ML IV PRN; +NS (IVPB) CANCER CENTER 250 ML ONE; +NS IV SCH; +[UNRECOGNIZED DRUG - OTHER] IV SCH
== END | disposition still patient (30) ==
LOC: ONC 11:02
PROVIDERS: ATTEND Internal Medicine Hematology & Oncology
DX: Z51.11 Encounter for antineoplastic chemotherapy (principal); D59.3 Hemolytic-uremic syndrome; I12.0 Hypertensive chronic kidney disease with stage 5 chronic kidney disease or end stage renal disease; N18.6 End stage renal disease; D64.9 Anemia, unspecified; Z79.899 Other long term (current) drug therapy
CPT/HCPCS: 96413

== ENCOUNTER → 2019-07-07 | Outpatient (CLI) | payer MEDICARE ==
[~2019-07-07] MED LIST changes: -CENTER ONLY IV SCH; -ECULIZUMAB IV SCH; -NS (IVPB) CANCER CENTER 250 ML IV PRN; -NS IV SCH; -[UNRECOGNIZED DRUG - OTHER] IV SCH
== END ==
LOC: ONC 11:14
PROVIDERS: ATTEND Internal Medicine Hematology & Oncology
DX: Z51.11 Encounter for antineoplastic chemotherapy (principal); D59.3 Hemolytic-uremic syndrome; I12.0 Hypertensive chronic kidney disease with stage 5 chronic kidney disease or end stage renal disease; N18.6 End stage renal disease; D64.9 Anemia, unspecified; Z79.899 Other long term (current) drug therapy
CPT/HCPCS: 96413

== ENCOUNTER → 2019-07-21 | Outpatient (CLI) | payer MEDICARE ==
[~2019-07-21] MED LIST changes: +CENTER ONLY IV SCH; +ECULIZUMAB IV SCH; +NS (IVPB) CANCER CENTER 250 ML IV PRN; +NS IV SCH; +[UNRECOGNIZED DRUG - OTHER] IV SCH
== END ==
LOC: ONC 10:53
PROVIDERS: ATTEND Internal Medicine Hematology & Oncology
DX: Z51.11 Encounter for antineoplastic chemotherapy (principal); D59.3 Hemolytic-uremic syndrome; I12.0 Hypertensive chronic kidney disease with stage 5 chronic kidney disease or end stage renal disease; N18.6 End stage renal disease; D64.9 Anemia, unspecified; Z79.899 Other long term (current) drug therapy
CPT/HCPCS: 96413

== ENCOUNTER → 2019-08-04 | Outpatient (CLI) | payer MEDICARE ==
[~2019-08-04] MED LIST changes: -NS (IVPB) CANCER CENTER 250 ML ONE; +NS IV 500 ML (CANCER CENTER) 500 ML ONE
== END ==
LOC: ONC 10:55
PROVIDERS: ATTEND Internal Medicine Hematology & Oncology
DX: Z51.11 Encounter for antineoplastic chemotherapy (principal); D59.3 Hemolytic-uremic syndrome; I12.0 Hypertensive chronic kidney disease with stage 5 chronic kidney disease or end stage renal disease; N18.6 End stage renal disease; D64.9 Anemia, unspecified; Z79.899 Other long term (current) drug therapy
CPT/HCPCS: 96413

== ENCOUNTER → 2019-08-18 | Outpatient (CLI) | payer MEDICARE ==
[~2019-08-18] MED LIST changes: -NS IV 500 ML (CANCER CENTER) 500 ML ONE
== END ==
LOC: ONC 10:50
PROVIDERS: ATTEND Internal Medicine Hematology & Oncology
DX: Z51.11 Encounter for antineoplastic chemotherapy (principal); D59.3 Hemolytic-uremic syndrome
CPT/HCPCS: 96413

== ENCOUNTER → 2019-09-01 | Outpatient (CLI) | payer MEDICARE ==
[~2019-09-01] MED LIST changes: +NS IV 500 ML (CANCER CENTER) 500 ML ONE
== END ==
LOC: ONC 11:04
PROVIDERS: ATTEND Internal Medicine Hematology & Oncology
DX: Z51.11 Encounter for antineoplastic chemotherapy (principal); D59.3 Hemolytic-uremic syndrome; I12.0 Hypertensive chronic kidney disease with stage 5 chronic kidney disease or end stage renal disease; N18.6 End stage renal disease; D64.9 Anemia, unspecified; Z79.899 Other long term (current) drug therapy
CPT/HCPCS: 96413

== ENCOUNTER 2019-09-12 07:06 | Emergency (ER) | payer MEDICARE ==
[~2019-09-12] VITALS: Ht 175.2 cm; Wt 78.8 kg
[~2019-09-12 07:06] MED LIST changes: -CENTER ONLY IV SCH; -ECULIZUMAB IV SCH; -NS (IVPB) CANCER CENTER 250 ML IV PRN; -NS IV 500 ML (CANCER CENTER) 500 ML ONE; -NS IV SCH; -[UNRECOGNIZED DRUG - OTHER] IV SCH
--- NOTE | 2019-09-12 07:23 | ED Abdominal Pain ---
General Stated Complaint: LT SIDE PAIN History of Present Illness Date Seen by Provider: Sep 12, 2019 Time Seen by Provider: 07:23 Initial Comments 33-year-old male presents with left lateral abdominal pain. Patient reports it started today. That he thinks it may be from some stool. Patient has issues with constipation due to taking calcium binders due to poor pancreatic function, he is also dialysis patient. He reports subjective fever. States that he increased his calcium binders over the weekend due to the holidays. He is some mild nausea but no vomiting or diarrhea. He does not have any urinary discomfort. Allergies and Home Medications Allergies Coded Allergies: No Known Drug Allergies (Unverified , 06/28/16) Home Medications Alprazolam 1 Mg Tablet, 0.5-1 MG PO BID PRN for ANXIETY, (Reported) TAKES 1/2-1 OF A (1 MG) TABLET Amlodipine Besylate 10 Mg Tablet, 10 MG PO DAILY, (Reported) Ampicillin Trihydrate 500 Mg Capsule, 500 MG PO BID, (Reported) MAY BE TAKEN UP TO THREE TIMES DAILY PROPHYLATICALLY Calcium Acetate 667 Mg Capsule, 1,334-2,668 MG PO UD, (Reported) TAKES 2 (667 MG) CAPSULES FOR SNACKS & 4 (667 MG) CAPSULES WITH MEALS Doxazosin Mesylate 4 Mg Tablet, 8 MG PO BID, (Reported) TAKES 2 (4 MG) TABLETS Doxazosin Mesylate 4 Mg Tablet, 8 MG PO 1600 PRN for BLOOD PRESSURE, (Reported) TAKES 2 (4 MG) TABLETS Eculizumab 300 Mg/30 Ml Vial, 1,200 MG IV every 2 weeks, (Reported) Escitalopram Oxalate 10 Mg Tablet, 10 MG PO HS, (Reported) Fentanyl 1 Each Patch.td72, 50 MCG TD WEEK, (Reported) Furosemide 80 Mg Tablet, 80 MG PO BID PRN for FLUID RETENTION, (Reported) Levofloxacin 500 Mg Tablet, 500 MG PO DAILY Prescribed by: ROMANA CHAVEZ on 09/12/19 1009 Metoprolol Tartrate 100 Mg Tablet, 150 MG PO BID, (Reported) TAKES 1 & 1/2 OF A (100 MG) TABLET Omeprazole 40 Mg Capsule.dr, 40 MG PO DAILY, (Reported) Ondansetron 4 Mg Tab.rapdis, 4-8 MG PO Q6H PRN for NAUSEA/VOMITING, (Reported) TAKES 1-2 OF A (4 MG) TABLET Oxycodone HCl/Acetaminophen 1 Each Tablet, 1 TAB PO Q4H PRN for PAIN, (Reported) Promethazine HCl 12.5 Mg Tablet, 12.5-25 MG PO Q6H PRN for NAUSEA/VOMITING, (Reported) TAKES 1-2 OF A (12.5 MG) TABLET Valsartan 320 Mg Tablet, 320 MG PO DAILY, (Reported) Patient Home Medication List Home Medication List Reviewed: Yes Review of Systems Review of Systems Constitutional: chills, fever Respiratory: Denies Cough Cardiovascular: Denies Chest Pain Gastrointestinal: Abdominal Pain, Constipated; Denies Diarrhea; Nausea; Denies Vomiting Genitourinary: No Symptoms Reported Musculoskeletal: no symptoms reported Skin: no symptoms reported Past Fqjjjjo-Mqckqz-Mshamx Hx Past Med/Social Hx: Reviewed Nursing Past Med/Soc Hx Patient Social History Type Used: Cigarettes 2nd Hand Smoke Exposure: No Recent Foreign Travel: No Contact w/Someone Who Travel: No Recent Hopitalizations: No (2-5-18 [place]) Immunizations Up To Date Tetanus Booster (TDap): Less than 5yrs Date of Influenza Vaccine: Aug 12, 2017 Seasonal Allergies Seasonal Allergies: No Past Medical History Surgeries: Yes Dialysis Respiratory: Yes (pancreatic fistula communicating with right chest, thoracentesis) Pneumonia Cardiac: Yes (CHF/FLUID OVERLOAD; PLEURAL EFFUSIONS) Hypertension Neurological: Yes (NEUROPATHY LEGS-LEFT > RIGHT ) Neuropathy Genitourinary: Yes ([id number]) Renal Failure, Dialysis Gastrointestinal: Yes (PANCREATIC FISTULA TO LUNG-SELF RESOLVED; PANCREATIC STENT) Pancreatitis Musculoskeletal: No Endocrine: Yes (MINIMAL FUNCTION OF PANCREAS; CHRONIC FATIGUE) HEENT: No Cancer: No Psychosocial: No Integumentary: No Blood Disorders: Yes (ATYPICAL HUS) Physical Exam Vital Signs Vital Signs - First Documented 09/12/19 09/12/19 07:10 10:29 Temp 36.6 Pulse 81 Resp 18 B/P (MAP) 159/99 (119) Pulse Ox 96 Capillary Refill : Height/Weight/BMI Height: 5'8.00" Weight: 175lbs. 0oz. 79.753898tr; BMI Method:Stated General Appearance: no apparent distress Neck: supple Respiratory: chest non-tender, lungs clear, normal breath sounds Cardiovascular: normal peripheral pulses, regular rate, rhythm Gastrointestinal: soft; No guarding, No rebound; tenderness (left lateral abdomen) Extremities: normal range of motion, non-tender Neurologic/Psychiatric: alert, normal mood/affect, oriented x 3 Skin: normal color, warm/dry Progress/Results/Core Measures Results/Orders Lab Results Laboratory Tests Test 09/12/19 07:43 Range/Units White Blood Count 12.3 H 4.3-11.0 10^3/uL Red Blood Count 2.92 L 4.35-5.85 10^6/uL Hemoglobin 9.2 L 13.3-17.7 G/DL Hematocrit 28 L 40-54 % Mean Corpuscular Volume 96 80-99 FL Mean Corpuscular Hemoglobin 32 25-34 PG Mean Corpuscular Hemoglobin Concent 33 32-36 G/DL Red Cell Distribution Width 15.4 H 10.0-14.5 % Platelet Count 103 L 130-400 10^3/uL Mean Platelet Volume 11.1 H 7.4-10.4 FL Neutrophils (%) (Auto) 83 H 42-75 % Lymphocytes (%) (Auto) 7 L 12-44 % Monocytes (%) (Auto) 10 0-12 % Eosinophils (%) (Auto) 1 0-10 % Basophils (%) (Auto) 0 0-10 % Neutrophils # (Auto) 10.1 H 1.8-7.8 X 10^3 Lymphocytes # (Auto) 0.8 L 1.0-4.0 X 10^3 Monocytes # (Auto) 1.2 H 0.0-1.0 X 10^3 Eosinophils # (Auto) 0.1 0.0-0.3 10^3/uL Basophils # (Auto) 0.0 0.0-0.1 10^3/uL Neutrophils % (Manual) 81 % Lymphocytes % (Manual) 8 % Monocytes % (Manual) 10 % Eosinophils % (Manual) 0 % Basophils % (Manual) 0 % Band Neutrophils 1 % Anisocytosis SLIGHT Sodium Level 134 L 135-145 MMOL/L Potassium Level 3.9 3.6-5.0 MMOL/L Chloride Level 102 98-107 MMOL/L Carbon Dioxide Level 20 L 21-32 MMOL/L Anion Gap 12 5-14 MMOL/L Blood Urea Nitrogen 39 H 7-18 MG/DL Creatinine 9.63 H 0.60-1.30 MG/DL Estimat Glomerular Filtration Rate 6 BUN/Creatinine Ratio 4 Glucose Level 122 H 70-105 MG/DL Calcium Level 9.2 8.5-10.1 MG/DL Corrected Calcium 9.6 8.5-10.1 MG/DL Total Bilirubin 1.1 H 0.1-1.0 MG/DL Aspartate Amino Transf (AST/SGOT) 7 5-34 U/L Alanine Aminotransferase (ALT/SGPT) 11 0-55 U/L Alkaline Phosphatase 59 40-136 U/L Total Protein 6.3 L 6.4-8.2 GM/DL Albumin 3.5 3.2-4.5 GM/DL Lipase 169 H 8-78 U/L My Orders Orders - CHAVEZ,ROMANA L DO Comprehensive Metabolic Panel (09/12/19 07:24) Lipase (09/12/19 07:24) Acute Abd Series (09/12/19 07:24) Cbc With Automated Diff (09/12/19 07:24) Manual Differential (09/12/19 07:43) Fentanyl Injection (Sublimaze Injection (09/12/19 08:25) Ct Abdomen/Pelvis Wo (09/12/19 08:40) Levofloxacin Tablet (Levaquin Tablet) (09/12/19 08:40) Vital Signs/I&O 09/12/19 09/12/19 07:10 10:29 Temp 36.6 Pulse 81 70 Resp 18 18 B/P (MAP) 159/99 (119) 143/96 Pulse Ox 96 Progress Progress Note : Time: 10:05 Progress Note Review labs, x-ray and CT with patient. Patient with slight elevation of his white count, questionable pneumonia in the left lower lobe. He does have a new pseudocyst and lesion in his pancreas that is causing displacement of his left kidney and spleen which is likely the cause of his pain. I did call and discuss this with Dr. Miles so that she would be aware of the new findings. Patient will be discharged with Levaquin for the questionable pneumonia due to being immunocompromised. He should follow-up with Dr. Miles for further evaluation of the CT findings in the next week or so. Diagnostic Imaging Diagonstic Imaging: Xray, CT Plain Films/CT/US/NM/MRI: chest, abdomen Reviewed: Reviewed/Discussed Departure Impression Primary Impression: LLL pneumonia Qualified Codes: J18.1 - Lobar pneumonia, unspecified organism Additional Impressions: Cyst and pseudocyst of pancreas Pancreatic mass Disposition: 01 HOME, SELF-CARE Condition: Stable Departure-Patient Inst. Referrals: TIMOTHY MILES MD (PCP/Family) Primary Care Physician Patient Instructions: Pneumonia, Adult (DC) Add. Discharge Instructions: Follow-up with Dr. Miles either later this week or next week. Scripts Levofloxacin (Levofloxacin) 500 Mg Tablet 500 MG PO DAILY, #7 TAB 0 Refills Prov: ROMANA CHAVEZ DO 09/12/19 ROMANA CHAVEZ DO Sep 12, 2019 07:23 POS
[2019-09-12 07:57] LABS: BASOPHILS % (AUTO) 0 % (0-10); EOSINOPHILS # (AUTO) 0.1 10^3/uL (0.0-0.3); EOSINOPHILS % (AUTO) 1 % (0-10); HEMATOCRIT 28 % (40-54); HEMOGLOBIN 9.2 G/DL (13.3-17.7); LYMPHOCYTES # (AUTO) 0.8 X 10^3 (1.0-4.0); LYMPHOCYTES % (AUTO) 7 % (12-44); MEAN CORPUSCULAR HEMOGLOBIN 32 PG (25-34); MEAN CORPUSCULAR HGB CONC 33 G/DL (32-36); MEAN CORPUSCULAR VOLUME 96 FL (80-99); MEAN PLATELET VOLUME 11.1 FL (7.4-10.4); MONOCYTES # (AUTO) 1.2 X 10^3 (0.0-1.0); MONOCYTES % (AUTO) 10 % (0-12); NEUTROPHILS # (AUTO) 10.1 X 10^3 (1.8-7.8); NEUTROPHILS % (AUTO) 83 % (42-75); PLATELET COUNT 103 10^3/uL (130-400); RED CELL DISTRIBUTION WIDTH 15.4 % (10.0-14.5); WHITE BLOOD COUNT 12.3 10^3/uL (4.3-11.0)
[2019-09-12 08:13] LABS: ALBUMIN 3.5 GM/DL (3.2-4.5); BILIRUBIN,TOTAL 1.1 MG/DL (0.1-1.0); CALCIUM 9.2 MG/DL (8.5-10.1); CREATININE SERUM 9.63 MG/DL (0.60-1.30); POTASSIUM 3.9 MMOL/L (3.6-5.0); TOTAL PROTEIN 6.3 GM/DL (6.4-8.2)
[2019-09-12] MEDS ORDERED: fentaNYL INJECTION 100 MCG/2 ML AMP IVP STA (08:25)
--- NOTE | 2019-09-12 08:28 | Diagnostic Imaging Report ---
INDICATION: Abdominal pain. Patient is on dialysis. Also on chemotherapy. Comparison with 06/14/2019. FINDINGS: Consolidated infiltrate and atelectasis has developed in the left lower lung. The left upper lung is clear. The right lung is clear. The heart is not enlarged. There is no pulmonary edema. No pneumothorax or pleural effusion. Upright and supine abdomen shows normal stool and gas pattern throughout the colon. There is no other evidence of constipation. There are no air-fluid levels or distended bowel loops to indicate obstruction. There is no organomegaly. No pathologic calcification. No bony abnormalities. IMPRESSION: Findings are consistent with development of left lower lobe pneumonia when compared with 06/14/2019 chest x-ray. Dictated by: Dictated on workstation # [id number]
[2019-09-12 08:39] LABS: ANISOCYTOSIS SLIGHT; BAND NEUTROPHILS 1 %; BASOPHILS % (MANUAL) 0 %; EOSINOPHILS % (MANUAL) 0 %; LYMPHOCYTES % (MANUAL) 8 %; MONOCYTES % (MANUAL) 10 %; NEUTROPHILS % (MANUAL) 81 %
[2019-09-12] MEDS ORDERED: LEVOFLOXACIN 500 MG TAB (LEVAQUIN) PO STA (08:40)
--- NOTE | 2019-09-12 09:37 | Diagnostic Imaging Report ---
PROCEDURE: CT abdomen and pelvis without contrast. TECHNIQUE: Multiple contiguous axial images were obtained through the abdomen and pelvis without the use of intravenous contrast. Auto Exposure Controls were utilized during the CT exam to meet ALARA standards for radiation dose reduction. INDICATION: Nausea, emesis and fever. COMPARISON: Comparison is made to study of 10/13/2016. FINDINGS: There is dependent atelectasis and/or pneumonitis in both lung bases. There is a small amount of left pleural fluid which has significantly reduced compared to the previous examination. Below the diaphragm, unenhanced images of the liver, gallbladder, adrenal glands and right kidney are stable and unremarkable. There is mild splenomegaly. There are two adjacent low density lesions involving the region of the pancreatic tail which are significantly increased in size when compared to previous study. This includes an approximately 13 x 11 cm heterogeneous mass which may represent hemorrhagic cyst or pseudocyst which appears to significantly displace the left kidney and obliterates the fat plane along the medial spleen. There is mild edema and/or inflammation in the left perirenal space as well. The more proximal lesion in the splenic tail measures approximately 3.8 x 3.2 cm. There are mildly prominent central retroperitoneal lymph nodes similar to previous study. No significant free fluid is seen within the peritoneal space. Unopacified bladder is unremarkable. There is no other evidence of localized inflammation. In particular, the appendix has a normal appearance. IMPRESSION: Given the presence of low-density lesions in the pancreas on previous study, the significantly enlarged lesions in the distal pancreas may represent pancreatic pseudocyst. Complexity within the largest tail lesion may be result of superimposed infection. Consideration could be given to aspiration to exclude other etiology. This does result in mass effect upon the spleen and left kidney as described. Otherwise, there has been reduction in left pleural fluid without other significant adverse change identified. Dictated by: Dictated on workstation # [id number]
[2019-09-12] MEDS ORDERED: LEVO500T80 PO (10:09)
[2019-09-12 10:29] VITALS: BP 143/96
== END 2019-09-12 10:29 | disposition home or self-care (01) ==
LOC: EDUNIT# 07:06 → ER 07:07
DX: J18.1 Lobar pneumonia, unspecified organism (principal); K86.3 Pseudocyst of pancreas; K86.2 Cyst of pancreas; K86.89 Other specified diseases of pancreas; F41.9 Anxiety disorder, unspecified; I11.0 Hypertensive heart disease with heart failure; I50.9 Heart failure, unspecified; G62.9 Polyneuropathy, unspecified; Z99.2 Dependence on renal dialysis
CPT/HCPCS: 36415; 74022; 74176; 80053; 83690; 85007; 85027; 96374

== ENCOUNTER → 2019-09-15 | Outpatient (CLI) | payer MEDICARE ==
[~2019-09-15] MED LIST changes: +CENTER ONLY IV SCH; +ECULIZUMAB IV SCH; +LEVO500T80 PO; +NS (IVPB) CANCER CENTER 250 ML IV PRN; +NS (IVPB) CANCER CENTER 250 ML ONE; +NS IV SCH; +ONDA4TAB11 PO; +[UNRECOGNIZED DRUG - OTHER] IV SCH
== END ==
LOC: ONC 11:04
PROVIDERS: ATTEND Internal Medicine Hematology & Oncology
DX: Z51.11 Encounter for antineoplastic chemotherapy (principal); D59.3 Hemolytic-uremic syndrome; I12.0 Hypertensive chronic kidney disease with stage 5 chronic kidney disease or end stage renal disease; N18.6 End stage renal disease; D64.9 Anemia, unspecified; Z79.899 Other long term (current) drug therapy
CPT/HCPCS: 96413

== ENCOUNTER 2019-09-27 18:46 | Emergency (ER) | payer MEDICARE ==
[~2019-09-27] VITALS: Ht 175.2 cm; Wt 72.7 kg
[~2019-09-27 18:46] MED LIST changes: -CENTER ONLY IV SCH; -ECULIZUMAB IV SCH; -NS (IVPB) CANCER CENTER 250 ML IV PRN; -NS (IVPB) CANCER CENTER 250 ML ONE; -NS IV SCH; -ONDA4TAB11 PO; -[UNRECOGNIZED DRUG - OTHER] IV SCH
[2019-09-27] MEDS ORDERED: HYDROmorphone 2 MG/ML VIAL (DILAUDID) IV ONE ×2 (20:15→21:30)
[2019-09-27] MEDS ORDERED: NS IV 500 ML 500 ML IV SCH (20:15)
[2019-09-27] MEDS ORDERED: PROMETHAZINE INJ 25 MG/ML (PHENERGAN) AMP IVP ONE (20:15)
--- NOTE | 2019-09-27 20:21 | ED Abdominal Pain ---
General Chief Complaint: Abdominal/GI Problems Stated Complaint: ABD PAIN Source of Information: Patient Exam Limitations: No Limitations History of Present Illness Date Seen by Provider: Sep 27, 2019 Time Seen by Provider: 20:17 Initial Comments To ER with epigastric abdominal pain, nausea, intermittent fever, weakness. . He states that he had an outpatient gallbladder ultrasound done which showed some sludge and stones. This was done at [facility] in [place] he has a consult with Dr. Bennett in the next few weeks. They state that he has follow-up in a few weeks but they're uncertain if he can wait that long due to his pain. Intermittent fevers according to mother, patient himself denies that. He also had a diabetic pseudocyst drained recently outpatient by Dr. Hernandez in [place]. 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 Timing/Duration: 1-2 Days Severity/Quality: Cramping Location: Epigastric Radiation: No Radiation Activities at Onset: None Associated Symptoms: Nausea/Vomiting Allergies and Home Medications Allergies Coded Allergies: No Known Drug Allergies (Unverified , 06/28/16) Home Medications Alprazolam 1 Mg Tablet, 0.5-1 MG PO BID PRN for ANXIETY, (Reported) TAKES 1/2-1 OF A (1 MG) TABLET Amlodipine Besylate 10 Mg Tablet, 10 MG PO DAILY, (Reported) Ampicillin Trihydrate 500 Mg Capsule, 500 MG PO BID, (Reported) MAY BE TAKEN UP TO THREE TIMES DAILY PROPHYLATICALLY Calcium Acetate 667 Mg Capsule, 1,334-2,668 MG PO UD, (Reported) TAKES 2 (667 MG) CAPSULES FOR SNACKS & 4 (667 MG) CAPSULES WITH MEALS Doxazosin Mesylate 4 Mg Tablet, 8 MG PO BID, (Reported) TAKES 2 (4 MG) TABLETS Doxazosin Mesylate 4 Mg Tablet, 8 MG PO 1600 PRN for BLOOD PRESSURE, (Reported) TAKES 2 (4 MG) TABLETS Eculizumab 300 Mg/30 Ml Vial, 1,200 MG IV every 2 weeks, (Reported) Escitalopram Oxalate 10 Mg Tablet, 10 MG PO HS, (Reported) Fentanyl 1 Each Patch.td72, 50 MCG TD WEEK, (Reported) Furosemide 80 Mg Tablet, 80 MG PO BID PRN for FLUID RETENTION, (Reported) Levofloxacin 500 Mg Tablet, 500 MG PO DAILY Prescribed by: ROMANA CHAVEZ on 09/12/19 1009 Metoprolol Tartrate 100 Mg Tablet, 150 MG PO BID, (Reported) TAKES 1 & 1/2 OF A (100 MG) TABLET Omeprazole 40 Mg Capsule.dr, 40 MG PO DAILY, (Reported) Ondansetron 4 Mg Tab.rapdis, 4-8 MG PO Q6H PRN for NAUSEA/VOMITING, (Reported) TAKES 1-2 OF A (4 MG) TABLET Oxycodone HCl/Acetaminophen 1 Each Tablet, 1 TAB PO Q4H PRN for PAIN, (Reported) Promethazine HCl 12.5 Mg Tablet, 12.5-25 MG PO Q6H PRN for NAUSEA/VOMITING, (Reported) TAKES 1-2 OF A (12.5 MG) TABLET Valsartan 320 Mg Tablet, 320 MG PO DAILY, (Reported) Patient Home Medication List Home Medication List Reviewed: Yes Review of Systems Review of Systems Constitutional: see HPI EENTM: No Symptoms Reported Respiratory: No Symptoms Reported Cardiovascular: No Symptoms Reported Gastrointestinal: See HPI, Abdominal Pain, Nausea, Vomiting Genitourinary: No Symptoms Reported Musculoskeletal: no symptoms reported Skin: no symptoms reported Psychiatric/Neurological: No Symptoms Reported Endocrine: No Symptoms Reported Hematologic/Lymphatic: No Symptoms Reported Past Agtsoln-Jsziww-Ddjxsb Hx Patient Social History Type Used: Cigarettes 2nd Hand Smoke Exposure: No Recent Foreign Travel: No Contact w/Someone Who Travel: No Recent Hopitalizations: No (2-5-18 [place]) Immunizations Up To Date Tetanus Booster (TDap): Less than 5yrs Date of Influenza Vaccine: Aug 12, 2017 Seasonal Allergies Seasonal Allergies: No Past Medical History Surgeries: Yes Dialysis Respiratory: Yes (pancreatic fistula communicating with right chest, thoracentesis) Pneumonia Cardiac: Yes (CHF/FLUID OVERLOAD; PLEURAL EFFUSIONS) Hypertension Neurological: Yes (NEUROPATHY LEGS-LEFT > RIGHT ) Neuropathy Genitourinary: Yes ([id number]) Renal Failure, Dialysis Gastrointestinal: Yes (PANCREATIC FISTULA TO LUNG-SELF RESOLVED; PANCREATIC STENT) Pancreatitis Musculoskeletal: No Endocrine: Yes (MINIMAL FUNCTION OF PANCREAS; CHRONIC FATIGUE) HEENT: No Cancer: No Psychosocial: No Integumentary: No Blood Disorders: Yes (ATYPICAL HUS) Physical Exam Vital Signs Vital Signs - First Documented 09/27/19 19:53 Temp 37.0 Pulse 100 Resp 20 B/P (MAP) 180/116 (137) Pulse Ox 100 O2 Delivery Room Air Capillary Refill : Height/Weight/BMI Height: 5'8.00" Weight: 175lbs. 0oz. [id number]; 25.00 BMI Method:Stated General Appearance: WD/WN, no apparent distress, other (His mother answers all questions and does all the talking for him, he does answer when she allows him to--rarely. ) HEENT: PERRL/EOMI, normal ENT inspection, TMs normal Neck: non-tender, full range of motion Respiratory: no respiratory distress, no accessory muscle use Cardiovascular: regular rate, rhythm, no murmur Gastrointestinal: normal bowel sounds, soft, tenderness Extremities: normal range of motion, non-tender Neurologic/Psychiatric: alert, normal mood/affect, oriented x 3 Skin: normal color, warm/dry Progress/Results/Core Measures Results/Orders Lab Results Laboratory Tests Test 09/27/19 20:27 Range/Units White Blood Count 8.9 4.3-11.0 10^3/uL Red Blood Count 2.58 L 4.35-5.85 10^6/uL Hemoglobin 7.8 L 13.3-17.7 G/DL Hematocrit 25 L 40-54 % Mean Corpuscular Volume 95 80-99 FL Mean Corpuscular Hemoglobin 30 25-34 PG Mean Corpuscular Hemoglobin Concent 32 32-36 G/DL Red Cell Distribution Width 15.3 H 10.0-14.5 % Platelet Count 360 130-400 10^3/uL Mean Platelet Volume 8.8 7.4-10.4 FL Neutrophils (%) (Auto) 80 H 42-75 % Lymphocytes (%) (Auto) 9 L 12-44 % Monocytes (%) (Auto) 8 0-12 % Eosinophils (%) (Auto) 3 0-10 % Basophils (%) (Auto) 1 0-10 % Neutrophils # (Auto) 7.1 1.8-7.8 X 10^3 Lymphocytes # (Auto) 0.8 L 1.0-4.0 X 10^3 Monocytes # (Auto) 0.7 0.0-1.0 X 10^3 Eosinophils # (Auto) 0.3 0.0-0.3 10^3/uL Basophils # (Auto) 0.0 0.0-0.1 10^3/uL Sodium Level 141 135-145 MMOL/L Potassium Level 3.2 L 3.6-5.0 MMOL/L Chloride Level 99 98-107 MMOL/L Carbon Dioxide Level 27 21-32 MMOL/L Anion Gap 15 H 5-14 MMOL/L Blood Urea Nitrogen 23 H 7-18 MG/DL Creatinine 5.85 H 0.60-1.30 MG/DL Estimat Glomerular Filtration Rate 11 BUN/Creatinine Ratio 4 Glucose Level 126 H 70-105 MG/DL Calcium Level 9.5 8.5-10.1 MG/DL Corrected Calcium 9.9 8.5-10.1 MG/DL Total Bilirubin 0.4 0.1-1.0 MG/DL Aspartate Amino Transf (AST/SGOT) 7 5-34 U/L Alanine Aminotransferase (ALT/SGPT) 6 0-55 U/L Alkaline Phosphatase 67 40-136 U/L Total Protein 7.1 6.4-8.2 GM/DL Albumin 3.5 3.2-4.5 GM/DL Lipase 156 H 8-78 U/L My Orders Orders - JOSELITO MOBLEY DIRECTOR DATA Cbc With Automated Diff (09/27/19 20:14) Comprehensive Metabolic Panel (09/27/19 20:14) Lipase (09/27/19 20:14) Ua Culture If Indicated (09/27/19 20:14) Ed Iv/Invasive Line Start (09/27/19 20:14) Ns Iv 500 Ml (Sodium Chloride 0.9%) (09/27/19 20:15) Hydromorphone Injection (Dilaudid Inject (09/27/19 20:15) Promethazine Injection (Phenergan Injec (09/27/19 20:15) Ct Abdomen/Pelvis Wo (09/27/19 21:25) Hydromorphone Injection (Dilaudid Inject (09/27/19 21:30) Chest 1 View, Ap/Pa Only (09/27/19 21:56) Medications Given in ED Current Medications Medications Dose Ordered Sig/Dayday Route Start Time Stop Time Status Last Admin Dose Admin Hydromorphone HCl 0.5 mg ONCE ONCE IV 09/27/19 20:15 09/27/19 20:16 DC 09/27/19 20:35 0.5 MG Hydromorphone HCl 0.5 mg ONCE ONCE IV 09/27/19 21:30 09/27/19 21:31 DC 09/27/19 21:44 0.5 MG Promethazine HCl 12.5 mg ONCE ONCE IVP 09/27/19 20:15 09/27/19 20:16 DC 09/27/19 20:35 12.5 MG Vital Signs/I&O 09/27/19 19:53 Temp 37.0 Pulse 100 Resp 20 B/P (MAP) 180/116 (137) Pulse Ox 100 O2 Delivery Room Air Departure Impression Primary Impression: Anemia Additional Impressions: Epigastric pain Pancreatic pseudocyst Atypical hemolytic uremic syndrome Hemodialysis patient Disposition: XFER SHT-TRM HOSP Condition: Stable Transfer Transfer Reason: Exceeds level of care Time Spoke to Accepting Phy: 22:15 Transfer Progress Notes Spoke with Dr. Price at [facility], who agrees to admit. Departure-Patient Inst. Referrals: TIMOTHY ARGUETA MD (PCP/Family) Primary Care Physician JOSELITO MOBLEY DIRECTOR DATA Sep 27, 2019 20:21 POS
[2019-09-27 20:36] LABS: BASOPHILS % (AUTO) 1 % (0-10); EOSINOPHILS # (AUTO) 0.3 10^3/uL (0.0-0.3); EOSINOPHILS % (AUTO) 3 % (0-10); HEMATOCRIT 25 % (40-54); HEMOGLOBIN 7.8 G/DL (13.3-17.7); LYMPHOCYTES # (AUTO) 0.8 X 10^3 (1.0-4.0); LYMPHOCYTES % (AUTO) 9 % (12-44); MEAN CORPUSCULAR HEMOGLOBIN 30 PG (25-34); MEAN CORPUSCULAR HGB CONC 32 G/DL (32-36); MEAN CORPUSCULAR VOLUME 95 FL (80-99); MEAN PLATELET VOLUME 8.8 FL (7.4-10.4); MONOCYTES # (AUTO) 0.7 X 10^3 (0.0-1.0); MONOCYTES % (AUTO) 8 % (0-12); NEUTROPHILS # (AUTO) 7.1 X 10^3 (1.8-7.8); NEUTROPHILS % (AUTO) 80 % (42-75); PLATELET COUNT 360 10^3/uL (130-400); RED CELL DISTRIBUTION WIDTH 15.3 % (10.0-14.5); WHITE BLOOD COUNT 8.9 10^3/uL (4.3-11.0)
[2019-09-27 20:55] LABS: ALBUMIN 3.5 GM/DL (3.2-4.5); BILIRUBIN,TOTAL 0.4 MG/DL (0.1-1.0); CALCIUM 9.5 MG/DL (8.5-10.1); CREATININE SERUM 5.85 MG/DL (0.60-1.30); POTASSIUM 3.2 MMOL/L (3.6-5.0); TOTAL PROTEIN 7.1 GM/DL (6.4-8.2)
--- NOTE | 2019-09-27 21:57 | Diagnostic Imaging Report ---
PROCEDURE: CT abdomen and pelvis without contrast. TECHNIQUE: Multiple contiguous axial images were obtained through the abdomen and pelvis without the use of intravenous contrast. Auto Exposure Controls were utilized during the CT exam to meet ALARA standards for radiation dose reduction. INDICATION: Left flank and left lower quadrant pain COMPARISON: 09/12/2019 FINDINGS: The lung bases demonstrate atelectasis with trace effusion. The heart is mildly large. The interventricular septum is visible. The liver demonstrates no focal lesions. The spleen is mildly large. The adrenal glands appear normal. There is a large cystic lesion in the left retroperitoneum which measures up to 12.8 x 10.3 cm on axial imaging, and 13.1 cm craniocaudal. There is surrounding edema. There is significant mass effect on the left kidney and mild mass effect on the spleen. An additional cystic lesion is seen more medially and superiorly measuring 3.5 x 5.3 cm in size. These are thought to originate from the pancreas, likely pseudocysts. The bowel loops are nondistended without obstruction. The appendix is normal. There is a small amount of free fluid in the pelvis. No free air is seen. No acute osseous abnormality is seen. IMPRESSION: 1. Very large cystic lesions in the left retroperitoneum, thought to be from the pancreatic tail. This has increased in size since 09/12/2019 and causes significant mass effect on the left kidney and spleen. 2. There is edema about the cystic lesion, which is nonspecific, however, pancreatitis is not excluded. 3. Small amount of free fluid in the pelvis. 4. Trace pleural effusions bilaterally. 5. Mild cardiomegaly. Anemia. Dictated by: Dictated on workstation # [id number]
[2019-09-27 23:07] LABS: BILIRUBIN,URINE NEGATIVE (NEGATIVE); CLARITY,URINE CLEAR; COLOR,URINE YELLOW; GLUCOSE, URINE (UA) TRACE (NEGATIVE); KETONES,URINE NEGATIVE (NEGATIVE); LEUKOCYTE ESTERASE ,URINE NEGATIVE (NEGATIVE); NITRITE,URINE NEGATIVE (NEGATIVE); PH,URINE 8.5 (5-9); PROTEIN,URINE 1+ (NEGATIVE)
[2019-09-27 23:16] LABS: BACTERIA,URINE TRACE /HPF
[2019-09-28] MEDS ORDERED: fentaNYL INJECTION 100 MCG/2 ML AMP ONE (00:02)
[2019-09-28 00:15] VITALS: BP 164/112
[2019-09-28] MEDS ORDERED: fentaNYL INJECTION 100 MCG/2 ML AMP IVP ONE (02:00)
--- NOTE | 2019-09-28 07:41 | Diagnostic Imaging Report ---
Indication: Pain. Study compared 09/12/2019. Findings: Patchy infiltrate or atelectasis in the left base is improved from the prior. Right lung is clear. No evidence for effusion. No failure. Impression: Improvements in left basilar infiltrate, no adverse development. Dictated by: Dictated on workstation # [id number]
== END 2019-09-28 00:11 | disposition short-term general hospital (02) ==
LOC: EDUNIT# 18:46 → ER 18:47
DX: D59.3 Hemolytic-uremic syndrome (principal); K86.3 Pseudocyst of pancreas; I10 Essential (primary) hypertension; G62.9 Polyneuropathy, unspecified; Z99.2 Dependence on renal dialysis
CPT/HCPCS: 36415; 71045; 74176; 80053; 81000; 83690; 85025; 96361; 96374; 96375; 96376

== ENCOUNTER 2019-10-10 13:41 | Emergency (ER) | payer MEDICARE ==
[~2019-10-10] VITALS: Ht 175 cm; Wt 74.6 kg
[~2019-10-10 13:41] MED LIST changes: -ACETAMINOPHEN 325 MG TABLET ONE; -ACETAMINOPHEN 325 MG TABLET PO ONE; -NS IV 500 ML 500 ML IV SCH; -NS IV 500 ML 500 ML ONE; -ONDA4TAB11 PO
[2019-10-10] MEDS ORDERED: NS IV 1000 ML 1,000 ML IV SCH (14:28)
[2019-10-10] MEDS ORDERED: PROMETHAZINE INJ 25 MG/ML (PHENERGAN) AMP IVP ONE (14:30)
--- NOTE | 2019-10-10 14:37 | ED GI ---
General Chief Complaint: Abdominal/GI Problems Stated Complaint: N/V/D;FEVER Nursing Triage Note: Pt ambulates to triage with c/o midline abd pain that's worse in the am. Pt states he was discharged from [facility] on 10/03/19 after getting gallbladder removed and pancreatic cyst placed. Pt reports having N/V since then. Pt is on dialysis and got a power port placed 2 wks ago. Pt also has c/o right ear having fluid. Sepsis Screen: No Definite Risk History of Present Illness Date Seen by Provider: Oct 10, 2019 Time Seen by Provider: 13:55 Initial Comments 34-year-old male with multiple chronic health concerns related to his hemolytic uremic syndrome, presents for nausea and fever that has been present for the last 24-48 hours. He has Zofran at home and has not taken any in the last 24 hours. He reports last eating some Ramen noodles yesterday evening, he is taking sips of Gatorade and water. He reports a fever up to 100.8 yesterday and was told by his dialysis yesterday to be evaluated at the emergency department. He had his gallbladder removed on 09/30/[address] Bennett at [facility], he also had the shunt from his pancreas replaced. Patient has not notified Dr. Bennett's office of the symptoms he is currently experiencing. He had a power port placed in his right chest wall. It has not been accessed yet. His symptoms are very vague today and he is not complaining of one specific symptom. He did obtain a flu shot this fall. He complains of feeling fluid in his right ear. Timing/Duration: 12-24 Hours Severity/Quality: Moderate Location: Generalized Abdomen Radiation: No Radiation Associated Symptoms: No Back Pain, No Chest Pain, No Diaphoresis; Fever/Chills, Fatigue; No Headache, No Heartburn; Nausea/Vomiting (hasn't vomiting in the last 24 hours); No Rash, No Shortness of Air, No Swelling/Mass in Abdomen, No Syncope; Weakness Allergies and Home Medications Allergies Coded Allergies: No Known Drug Allergies (Unverified , 06/28/16) Home Medications Alprazolam 1 Mg Tablet, 0.5-1 MG PO BID PRN for ANXIETY, (Reported) TAKES 1/2-1 OF A (1 MG) TABLET Amlodipine Besylate 10 Mg Tablet, 10 MG PO DAILY, (Reported) Ampicillin Trihydrate 500 Mg Capsule, 500 MG PO BID, (Reported) MAY BE TAKEN UP TO THREE TIMES DAILY PROPHYLATICALLY Calcium Acetate 667 Mg Capsule, 1,334-2,668 MG PO UD, (Reported) TAKES 2 (667 MG) CAPSULES FOR SNACKS & 4 (667 MG) CAPSULES WITH MEALS Doxazosin Mesylate 4 Mg Tablet, 8 MG PO BID, (Reported) TAKES 2 (4 MG) TABLETS Doxazosin Mesylate 4 Mg Tablet, 8 MG PO 1600 PRN for BLOOD PRESSURE, (Reported) TAKES 2 (4 MG) TABLETS Eculizumab 300 Mg/30 Ml Vial, 1,200 MG IV every 2 weeks, (Reported) Escitalopram Oxalate 10 Mg Tablet, 10 MG PO HS, (Reported) Fentanyl 1 Each Patch.td72, 50 MCG TD WEEK, (Reported) Furosemide 80 Mg Tablet, 80 MG PO BID PRN for FLUID RETENTION, (Reported) Levofloxacin 500 Mg Tablet, 500 MG PO DAILY Prescribed by: ROMANA CHAVEZ on 09/12/19 1009 Metoprolol Tartrate 100 Mg Tablet, 150 MG PO BID, (Reported) TAKES 1 & 1/2 OF A (100 MG) TABLET Omeprazole 40 Mg Capsule.dr, 40 MG PO DAILY, (Reported) Ondansetron 4 Mg Tab.rapdis, 4-8 MG PO Q6H PRN for NAUSEA/VOMITING, (Reported) TAKES 1-2 OF A (4 MG) TABLET Ondansetron 4 Mg Tab.rapdis, 4 MG PO Q6H PRN for NAUSEA/VOMITING Prescribed by: ALICE WELLINGTON on 10/10/191900 Oxycodone HCl/Acetaminophen 1 Each Tablet, 1 TAB PO Q4H PRN for PAIN, (Reported) Promethazine HCl 12.5 Mg Tablet, 12.5-25 MG PO Q6H PRN for NAUSEA/VOMITING, (Reported) TAKES 1-2 OF A (12.5 MG) TABLET Valsartan 320 Mg Tablet, 320 MG PO DAILY, (Reported) Patient Home Medication List Home Medication List Reviewed: Yes Review of Systems Review of Systems Constitutional: see HPI, fever, malaise, weakness, weight loss EENTM: See HPI, Ear Pain Respiratory: No Symptoms Reported, See HPI Cardiovascular: No Symptoms Reported, See HPI Gastrointestinal: See HPI; Denies Diarrhea; Nausea, Poor Appetite; Denies Vomiting Genitourinary: No Symptoms Reported, See HPI Musculoskeletal: no symptoms reported, see HPI Skin: no symptoms reported, see HPI; No rash Psychiatric/Neurological: No Symptoms Reported, See HPI Endocrine: No Symptoms Reported, See HPI Hematologic/Lymphatic: No Symptoms Reported, See HPI All Other Systems Reviewed Negative Unless Noted: Yes Past Iulnnif-Pvptfg-Twvcgg Hx Past Med/Social Hx: Reviewed Nursing Past Med/Soc Hx Patient Social History Alcohol Use: Denies Use Recreational Drug Use: No Smoking Status: Never a Smoker Type Used: Cigarettes 2nd Hand Smoke Exposure: No Recent Foreign Travel: No Contact w/Someone Who Travel: No Recent Infectious Disease Expo: No Recent Hopitalizations: Yes (gallbladder removed and pancreatic stent 10/03/19) Immunizations Up To Date Tetanus Booster (TDap): Less than 5yrs Date of Influenza Vaccine: Aug 12, 2019 Seasonal Allergies Seasonal Allergies: No Past Medical History Surgeries: Yes (pancreatic cyst drained and stent placed 09/29) Dialysis, Gallbladder, Pancreatic Respiratory: Yes (pancreatic fistula communicating with right chest, thoracentesis) Pneumonia Cardiac: Yes (CHF/FLUID OVERLOAD; PLEURAL EFFUSIONS) Hypertension Neurological: Yes (NEUROPATHY LEGS-LEFT > RIGHT ) Neuropathy Genitourinary: Yes ([id number]) Renal Failure, Dialysis Gastrointestinal: Yes (PANCREATIC FISTULA TO LUNG-SELF RESOLVED; PANCREATIC STENT) Pancreatitis Musculoskeletal: No Endocrine: Yes (MINIMAL FUNCTION OF PANCREAS; CHRONIC FATIGUE) HEENT: No Cancer: No Psychosocial: No Integumentary: No Blood Disorders: Yes (ATYPICAL HUS) Physical Exam Vital Signs Vital Signs - First Documented 10/10/19 13:51 Temp 36.9 Pulse 75 Resp 17 B/P (MAP) 154/98 (116) Pulse Ox 98 O2 Delivery Room Air Capillary Refill : Less Than 3 Seconds Height/Weight/BMI Height: 5'8.00" Weight: 175lbs. 0oz. 79.474673hf; 24.00 BMI Method:Stated General Appearance: WD/WN, no apparent distress HEENT: PERRL/EOMI, normal ENT inspection, TMs normal, pharynx normal; No TM abnormal (R) Neck: non-tender, full range of motion, supple, normal inspection; No lymphadenopathy (R), No lymphadenopathy (L) Respiratory: chest non-tender, lungs clear, normal breath sounds, other (power reports right chest wall, incision well healed with no erythema, induration, warmth or drainage.) Cardiovascular: normal peripheral pulses, regular rate, rhythm, no murmur Gastrointestinal: normal bowel sounds, non tender (well-healed incisions from cholecystectomy. No erythema, warmth, or drainage.), soft; No distended, No rebound, No tenderness, No mass, No hepatomegaly, No spleenomegaly Extremities: normal range of motion, non-tender, normal inspection Neurologic/Psychiatric: no motor/sensory deficits, alert, normal mood/affect, oriented x 3 Skin: normal color, warm/dry, pallor Progress/Results/Core Measures Results/Orders Lab Results Laboratory Tests Test 10/10/19 14:57 Range/Units White Blood Count 5.0 4.3-11.0 10^3/uL Red Blood Count 2.29 L 4.35-5.85 10^6/uL Hemoglobin 6.7 *L 13.3-17.7 G/DL Hematocrit 22 L 40-54 % Mean Corpuscular Volume 94 80-99 FL Mean Corpuscular Hemoglobin 29 25-34 PG Mean Corpuscular Hemoglobin Concent 31 L 32-36 G/DL Red Cell Distribution Width 15.8 H 10.0-14.5 % Platelet Count 196 130-400 10^3/uL Mean Platelet Volume 9.6 7.4-10.4 FL Neutrophils (%) (Auto) 66 42-75 % Lymphocytes (%) (Auto) 16 12-44 % Monocytes (%) (Auto) 13 H 0-12 % Eosinophils (%) (Auto) 6 0-10 % Basophils (%) (Auto) 0 0-10 % Neutrophils # (Auto) 3.3 1.8-7.8 X 10^3 Lymphocytes # (Auto) 0.8 L 1.0-4.0 X 10^3 Monocytes # (Auto) 0.6 0.0-1.0 X 10^3 Eosinophils # (Auto) 0.3 0.0-0.3 10^3/uL Basophils # (Auto) 0.0 0.0-0.1 10^3/uL Sodium Level 141 135-145 MMOL/L Potassium Level 3.3 L 3.6-5.0 MMOL/L Chloride Level 100 98-107 MMOL/L Carbon Dioxide Level 28 21-32 MMOL/L Anion Gap 13 5-14 MMOL/L Blood Urea Nitrogen 13 7-18 MG/DL Creatinine 4.40 H 0.60-1.30 MG/DL Estimat Glomerular Filtration Rate 15 BUN/Creatinine Ratio 3 Glucose Level 127 H 70-105 MG/DL Calcium Level 8.9 8.5-10.1 MG/DL Corrected Calcium 9.6 8.5-10.1 MG/DL Total Bilirubin 0.5 0.1-1.0 MG/DL Aspartate Amino Transf (AST/SGOT) 6 5-34 U/L Alanine Aminotransferase (ALT/SGPT) < 6 0-55 U/L Alkaline Phosphatase 63 40-136 U/L Total Protein 6.1 L 6.4-8.2 GM/DL Albumin 3.1 L 3.2-4.5 GM/DL Amylase Level 42 25-125 U/L Lipase 16 8-78 U/L Micro Results Microbiology 10/10/19 Influenza Types A,B Antigen (ALESSIO) - Final, Complete My Orders Orders - ALICE WELLINGTON Ua Culture If Indicated (10/10/19 13:43) Influenza A And B Antigens (10/10/19 13:43) Amylase (10/10/19 13:56) Cbc With Automated Diff (10/10/19 13:56) Comprehensive Metabolic Panel (10/10/19 13:56) Lipase (10/10/19 13:56) Ed Iv/Invasive Line Start (10/10/19 14:28) Ns Iv 1000 Ml (Sodium Chloride 0.9%) (10/10/19 14:28) Promethazine Injection (Phenergan Injec (10/10/19 14:30) Red Cells Leukocytes Reduced (10/10/19 15:42) Potassium Chloride (Tablet) (Klor Con Ta (10/10/19 15:43) Type And Screen (10/10/19 15:42) Medications Given in ED Current Medications Medications Dose Ordered Sig/Dayday Route Start Time Stop Time Status Last Admin Dose Admin Promethazine HCl 25 mg ONCE ONCE IVP 10/10/19 14:30 10/10/19 14:31 DC 10/10/19 15:02 25 MG Vital Signs/I&O 10/10/19 10/10/19 10/10/19 10/10/19 13:51 16:09 16:54 17:09 Temp 36.9 36.9 37.2 37.3 Pulse 75 93 93 94 Resp 17 16 20 20 B/P (MAP) 154/98 (116) 164/103 (116) 166/102 168/104 Pulse Ox 98 97 95 96 O2 Delivery Room Air Room Air Room Air Room Air Blood Pressure Mean: 116 Progress Progress Note : Time: 13:55 Progress Note Patient seen and evaluated, will obtain labs and reevaluate. Normal saline 1 L per IV. And Zofran 4 mg IV. Spoke with Dr. Bennett/s office, the medical practice assistant and verified that his carport could be accurate continues for lab draws and fluids. 1430 influenza negative, patient reports nausea has improved since the Zofran. Hemoglobin 6.7. The patient has chronic anemia and did require transfusions whi le he was at [facility] last week. He denies any blood in stools. 1515 discussed with the patient recommendation for transfusion 1 unit, he will be transferred to outpatient surgery for the infusion. Stressed the importance of him following up with surgeon if symptoms are not improving or worsen and to push fluids and food. Discharge instructions and return precautions with him. Departure Impression Primary Impression: Nausea alone Additional Impressions: Fatigue Qualified Codes: R53.82 - Chronic fatigue, unspecified Hemolytic uremic syndrome S/P cholecystectomy Anemia Qualified Codes: D64.9 - Anemia, unspecified Disposition: 01 HOME, SELF-CARE Condition: Stable Departure-Patient Inst. Decision time for Depature: 15:35 Referrals: TIMOTHY ARGUETA MD (PCP/Family) Primary Care Physician Patient Instructions: Anemia of Chronic Disease (DC), Cholecystectomy (DC) Add. Discharge Instructions: Continue taking your home medication, push fluids and food. Follow-up with Dr. Bennett or Dr. Hernandez if symptoms are not improving or worsen. Keep your scheduled appointments for dialysis. Use your Zofran every 6 hours as needed for nausea. Return to the emergency department for new, urgent health care needs. All discharge instructions reviewed with patient and/or family. Voiced understanding. Scripts Ondansetron (Ondansetron Odt) 4 Mg Tab.rapdis 4 MG PO Q6H PRN for NAUSEA/VOMITING, #20 TAB 0 Refills Prov: ALICE WELLINGTON 10/10/19 Copy Copies To 1: TIMOTHY ARGUETA MD, AMY ARNP Oct 10, 2019 14:37
[2019-10-10 15:04] LABS: BASOPHILS % (AUTO) 0 % (0-10); EOSINOPHILS # (AUTO) 0.3 10^3/uL (0.0-0.3); EOSINOPHILS % (AUTO) 6 % (0-10); HEMATOCRIT 22 % (40-54); LYMPHOCYTES # (AUTO) 0.8 X 10^3 (1.0-4.0); LYMPHOCYTES % (AUTO) 16 % (12-44); MEAN CORPUSCULAR HEMOGLOBIN 29 PG (25-34); MEAN CORPUSCULAR HGB CONC 31 G/DL (32-36); MEAN CORPUSCULAR VOLUME 94 FL (80-99); MEAN PLATELET VOLUME 9.6 FL (7.4-10.4); MONOCYTES # (AUTO) 0.6 X 10^3 (0.0-1.0); MONOCYTES % (AUTO) 13 % (0-12); NEUTROPHILS # (AUTO) 3.3 X 10^3 (1.8-7.8); NEUTROPHILS % (AUTO) 66 % (42-75); PLATELET COUNT 196 10^3/uL (130-400); RED CELL DISTRIBUTION WIDTH 15.8 % (10.0-14.5)
[2019-10-10 15:09] LABS: HEMOGLOBIN 6.7 G/DL (13.3-17.7)
[2019-10-10 15:25] LABS: ALANINE AMINOTRANSFERASE < 6 U/L (0-55); ALBUMIN 3.1 GM/DL (3.2-4.5); ALKALINE PHOSPHATASE 63 U/L (40-136); AMYLASE 42 U/L (25-125); BILIRUBIN,TOTAL 0.5 MG/DL (0.1-1.0); BUN/CREATININE RATIO 3; CALCIUM 8.9 MG/DL (8.5-10.1); CARBON DIOXIDE 28 MMOL/L (21-32); CHLORIDE 100 MMOL/L (98-107); GFR ESTIMATED 15; GLUCOSE 127 MG/DL (70-105); LIPASE 16 U/L (8-78); POTASSIUM 3.3 MMOL/L (3.6-5.0); SODIUM 141 MMOL/L (135-145); TOTAL PROTEIN 6.1 GM/DL (6.4-8.2)
[2019-10-10] MEDS ORDERED: KCL 10 MEQ TAB (MICRO K) PO STA (15:43)
--- NOTE | 2019-10-10 16:15 | NUR ---
SEE SD ACCOUNT FOR TREATMENT CHARTING.
[2019-10-10 16:54] VITALS: BP 166/102
[2019-10-10 17:09] VITALS: BP 168/104
[2019-10-10] MEDS ORDERED: ONDA4TAB11 PO (19:01)
== END 2019-10-10 16:09 | disposition home or self-care (01) ==
LOC: EDUNIT# 13:41 → ER 13:42
DX: D59.3 Hemolytic-uremic syndrome (principal); R11.0 Nausea; I11.0 Hypertensive heart disease with heart failure; I50.9 Heart failure, unspecified; G62.9 Polyneuropathy, unspecified; Z90.49 Acquired absence of other specified parts of digestive tract; Z99.2 Dependence on renal dialysis
CPT/HCPCS: 36415; 80053; 82150; 83690; 85025; 86850; 86900; 86901; 86920; 87804; 96374

== ENCOUNTER → 2019-10-10 | Outpatient (CLI) | payer MEDICARE ==
[~2019-10-10] VITALS: Ht 172.7 cm; Wt 74.6 kg
[~2019-10-10] MED LIST changes: +ACETAMINOPHEN 325 MG TABLET ONE; +ACETAMINOPHEN 325 MG TABLET PO ONE; +NS IV 500 ML 500 ML IV SCH; +NS IV 500 ML 500 ML ONE; +ONDA4TAB11 PO
[2019-10-10 16:15] VITALS: BP 185/108
--- NOTE | 2019-10-10 16:54 | NUR ---
SEE ER ACCOUNT FOR BLOOD TRANSFUSION CHARTING.
[2019-10-10 19:00] VITALS: BP 175/109
--- NOTE | 2019-10-10 19:27 | NUR ---
1900: blood transfusion completed; vital signs; 98.4-95-100%-175/109-18. port site intact; flushed port with 10 ml saline flush x3 per timothy lynch rn.call emergency room and talked with richard pink; explained temperature; ordered tylenol 325 mg x2 tablets po for temperature. no more iv fluid to be given because of patient's diaylsis status. patient voiced no complaints; eager to be dismissed home. blood drawn from port and sent to lab as be protocol. drawn per timothy lynch rn.
[2019-10-10 19:42] LABS: HEMOGLOBIN 7.4 G/DL (13.3-17.7)
[2019-10-10 19:45] VITALS: BP 175/109
== END ==
LOC: SDC 15:58
PROVIDERS: ATTEND Nurse Practitioner
DX: N18.9 Chronic kidney disease, unspecified (principal); D63.1 Anemia in chronic kidney disease; D59.3 Hemolytic-uremic syndrome
CPT/HCPCS: 36415; 36430; 85014; 85018

== ENCOUNTER → 2019-10-13 | Outpatient (CLI) | payer MEDICARE ==
[~2019-10-13] MED LIST changes: +CENTER ONLY IV SCH; +ECULIZUMAB IV SCH; +NS (IVPB) CANCER CENTER 250 ML IV PRN; +NS IV 500 ML (CANCER CENTER) 500 ML ONE; +NS IV SCH; +ONDA4TAB11 PO; +[UNRECOGNIZED DRUG - OTHER] IV SCH
[2019-10-13 11:24] LABS: BASOPHILS % (AUTO) 0 % (0-10); EOSINOPHILS # (AUTO) 0.4 10^3/uL (0.0-0.3); EOSINOPHILS % (AUTO) 7 % (0-10); HEMATOCRIT 26 % (40-54); HEMOGLOBIN 7.8 G/DL (13.3-17.7); LYMPHOCYTES # (AUTO) 0.8 X 10^3 (1.0-4.0); LYMPHOCYTES % (AUTO) 14 % (12-44); MEAN CORPUSCULAR HEMOGLOBIN 28 PG (25-34); MEAN CORPUSCULAR HGB CONC 31 G/DL (32-36); MEAN CORPUSCULAR VOLUME 93 FL (80-99); MEAN PLATELET VOLUME 9.1 FL (7.4-10.4); MONOCYTES # (AUTO) 0.6 X 10^3 (0.0-1.0); MONOCYTES % (AUTO) 12 % (0-12); NEUTROPHILS # (AUTO) 3.7 X 10^3 (1.8-7.8); NEUTROPHILS % (AUTO) 67 % (42-75); PLATELET COUNT 227 10^3/uL (130-400); RED CELL DISTRIBUTION WIDTH 16.1 % (10.0-14.5); WHITE BLOOD COUNT 5.5 10^3/uL (4.3-11.0)
== END ==
LOC: ONC 10:59
PROVIDERS: ATTEND Internal Medicine Hematology & Oncology
DX: Z51.11 Encounter for antineoplastic chemotherapy (principal); D59.3 Hemolytic-uremic syndrome; I12.0 Hypertensive chronic kidney disease with stage 5 chronic kidney disease or end stage renal disease; N18.6 End stage renal disease; D63.1 Anemia in chronic kidney disease; Z90.49 Acquired absence of other specified parts of digestive tract; Z87.19 Personal history of other diseases of the digestive system
CPT/HCPCS: 36591; 85025; 96413

== ENCOUNTER → 2019-10-27 | Outpatient (CLI) | payer MEDICARE ==
[~2019-10-27] MED LIST changes: -NS IV 500 ML (CANCER CENTER) 500 ML ONE; +OMEP40CA27 PO; -OMEP40CA36 PO
== END ==
LOC: ONC 11:05
PROVIDERS: ATTEND Internal Medicine Hematology & Oncology
DX: D63.1 Anemia in chronic kidney disease (principal); D59.3 Hemolytic-uremic syndrome; N18.6 End stage renal disease
CPT/HCPCS: 96413

== ENCOUNTER → 2019-11-10 | Outpatient (CLI) | payer MEDICARE ==
[~2019-11-10] MED LIST changes: +NS IV 500 ML (CANCER CENTER) 500 ML ONE; +NS IV 500 ML (CANCER CENTER) IV SCH
== END ==
LOC: ONC 11:13
PROVIDERS: ATTEND Internal Medicine Hematology & Oncology
DX: D59.3 Hemolytic-uremic syndrome (principal); D63.1 Anemia in chronic kidney disease; I12.0 Hypertensive chronic kidney disease with stage 5 chronic kidney disease or end stage renal disease; N18.6 End stage renal disease
CPT/HCPCS: 96413

== ENCOUNTER → 2019-11-24 | Outpatient (CLI) | payer MEDICARE | LOC: ONC 11:10 | PROVIDERS: ATTEND Internal Medicine Hematology & Oncology | DX: D59.3 Hemolytic-uremic syndrome (principal); D63.1 Anemia in chronic kidney disease; I12.0 Hypertensive chronic kidney disease with stage 5 chronic kidney disease or end stage renal disease; N18.6 End stage renal disease | CPT/HCPCS: 96413 ==

== ENCOUNTER → 2019-12-08 | Outpatient (CLI) | payer MEDICARE ==
[~2019-12-08] MED LIST changes: +NS (IVPB) CANCER CENTER 250 ML ONE; -NS IV 500 ML (CANCER CENTER) 500 ML ONE
== END ==
LOC: ONC 11:13
PROVIDERS: ATTEND Internal Medicine Hematology & Oncology
DX: D59.3 Hemolytic-uremic syndrome (principal); D63.1 Anemia in chronic kidney disease; I12.0 Hypertensive chronic kidney disease with stage 5 chronic kidney disease or end stage renal disease; N18.6 End stage renal disease
CPT/HCPCS: 96413

== ENCOUNTER → 2019-12-22 | Outpatient (CLI) | payer MEDICARE ==
[~2019-12-22] MED LIST changes: -NS (IVPB) CANCER CENTER 250 ML ONE
== END ==
LOC: ONC 11:15
PROVIDERS: ATTEND Internal Medicine Hematology & Oncology
DX: Z51.11 Encounter for antineoplastic chemotherapy (principal); D59.3 Hemolytic-uremic syndrome; N18.6 End stage renal disease; Z94.0 Kidney transplant status; Z79.899 Other long term (current) drug therapy
CPT/HCPCS: 96413

== ENCOUNTER → 2020-01-05 | Outpatient (CLI) | payer MEDICARE ==
[~2020-01-05] MED LIST changes: +NS (IVPB) CANCER CENTER 250 ML ONE
== END ==
LOC: ONC 11:05
PROVIDERS: ATTEND Internal Medicine Hematology & Oncology
DX: D59.3 Hemolytic-uremic syndrome (principal); N18.6 End stage renal disease; Z94.0 Kidney transplant status; Z79.899 Other long term (current) drug therapy
CPT/HCPCS: 96413

== ENCOUNTER → 2020-01-19 | Outpatient (CLI) | payer MEDICARE ==
[~2020-01-19] MED LIST changes: -NS (IVPB) CANCER CENTER 250 ML ONE; +NS IV 500 ML (CANCER CENTER) 500 ML ONE
== END ==
LOC: ONC 10:45
PROVIDERS: ATTEND Internal Medicine Hematology & Oncology
DX: Z51.11 Encounter for antineoplastic chemotherapy (principal); D63.1 Anemia in chronic kidney disease; D59.3 Hemolytic-uremic syndrome; N18.6 End stage renal disease
CPT/HCPCS: 96413

== ENCOUNTER → 2020-02-02 | Outpatient (CLI) | payer MEDICARE | LOC: ONC 11:11 | PROVIDERS: ATTEND Internal Medicine Hematology & Oncology | DX: Z51.11 Encounter for antineoplastic chemotherapy (principal); D63.1 Anemia in chronic kidney disease; D59.3 Hemolytic-uremic syndrome; N18.6 End stage renal disease; Z94.0 Kidney transplant status; Z79.899 Other long term (current) drug therapy ==

== ENCOUNTER → 2020-02-16 | Outpatient (CLI) | payer MEDICARE | LOC: ONC 14:22 | PROVIDERS: ATTEND Internal Medicine Hematology & Oncology | DX: Z51.11 Encounter for antineoplastic chemotherapy (principal); D63.1 Anemia in chronic kidney disease; D59.3 Hemolytic-uremic syndrome; N18.6 End stage renal disease; Z94.0 Kidney transplant status; Z79.899 Other long term (current) drug therapy | CPT/HCPCS: 96413 ==

== ENCOUNTER → 2020-03-01 | Outpatient (CLI) | payer MEDICARE ==
[~2020-03-01] MED LIST changes: +NS (IVPB) CANCER CENTER 250 ML ONE; -NS IV 500 ML (CANCER CENTER) 500 ML ONE
== END ==
LOC: ONC 11:15
PROVIDERS: ATTEND Internal Medicine Hematology & Oncology
DX: D59.3 Hemolytic-uremic syndrome (principal); D64.9 Anemia, unspecified; Z94.0 Kidney transplant status
CPT/HCPCS: 96413

== ENCOUNTER → 2020-03-15 | Outpatient (CLI) | payer MEDICARE | LOC: ONC 11:57 | PROVIDERS: ATTEND Internal Medicine Hematology & Oncology | DX: Z51.11 Encounter for antineoplastic chemotherapy (principal); D59.3 Hemolytic-uremic syndrome; D64.9 Anemia, unspecified; Z94.0 Kidney transplant status | CPT/HCPCS: 96413 ==

== ENCOUNTER → 2020-03-29 | Outpatient (CLI) | payer MEDICARE ==
[~2020-03-29] MED LIST changes: -CENTER ONLY IV SCH; -ECULIZUMAB IV SCH; -NS (IVPB) CANCER CENTER 250 ML IV PRN; -NS (IVPB) CANCER CENTER 250 ML ONE; +NS IV 500 ML (CANCER CENTER) 500 ML ONE; -NS IV 500 ML (CANCER CENTER) IV SCH; -NS IV SCH; -[UNRECOGNIZED DRUG - OTHER] IV SCH
== END ==
LOC: ONC 12:43
PROVIDERS: ATTEND Internal Medicine Hematology & Oncology
DX: D59.3 Hemolytic-uremic syndrome (principal); D64.9 Anemia, unspecified; Z94.0 Kidney transplant status
CPT/HCPCS: 96413

== ENCOUNTER → 2020-04-12 | Outpatient (CLI) | payer MEDICARE ==
[~2020-04-12] MED LIST changes: +CENTER ONLY IV SCH; +ECULIZUMAB IV SCH; +NS (IVPB) CANCER CENTER 250 ML ONE; +NS IV 500 ML (CANCER CENTER) 500 ML IV SCH; -NS IV 500 ML (CANCER CENTER) 500 ML ONE; +NS IV SCH; +[UNRECOGNIZED DRUG - OTHER] IV SCH; +[UNRECOGNIZED DRUG - OTHER] IV SCH
== END ==
LOC: ONC 10:02
PROVIDERS: ATTEND Internal Medicine Hematology & Oncology
DX: Z51.11 Encounter for antineoplastic chemotherapy (principal); D59.3 Hemolytic-uremic syndrome; I12.0 Hypertensive chronic kidney disease with stage 5 chronic kidney disease or end stage renal disease; N18.6 End stage renal disease
CPT/HCPCS: 96413; G0463

== ENCOUNTER → 2020-04-26 | Outpatient (CLI) | payer MEDICARE ==
[~2020-04-26] MED LIST changes: -[UNRECOGNIZED DRUG - OTHER] IV SCH
== END ==
LOC: ONC 12:38
PROVIDERS: ATTEND Internal Medicine Hematology & Oncology
DX: Z51.11 Encounter for antineoplastic chemotherapy (principal); D59.3 Hemolytic-uremic syndrome; I12.0 Hypertensive chronic kidney disease with stage 5 chronic kidney disease or end stage renal disease; N18.6 End stage renal disease
CPT/HCPCS: 96413

== ENCOUNTER → 2020-05-10 | Outpatient (CLI) | payer MEDICARE ==
[~2020-05-10] MED LIST changes: -NS (IVPB) CANCER CENTER 250 ML ONE
== END ==
LOC: ONC 14:14
PROVIDERS: ATTEND Internal Medicine Hematology & Oncology
DX: D59.3 Hemolytic-uremic syndrome (principal); I12.0 Hypertensive chronic kidney disease with stage 5 chronic kidney disease or end stage renal disease; N18.6 End stage renal disease
CPT/HCPCS: 96413

== ENCOUNTER → 2020-06-07 | Outpatient (CLI) | payer MEDICARE ==
[~2020-06-07] MED LIST changes: +NS (IVPB) CANCER CENTER 250 ML ONE
== END ==
LOC: ONC 13:35
PROVIDERS: ATTEND Internal Medicine Hematology & Oncology
DX: Z51.11 Encounter for antineoplastic chemotherapy (principal); D59.3 Hemolytic-uremic syndrome
CPT/HCPCS: 96413

== ENCOUNTER → 2020-06-21 | Outpatient (CLI) | payer MEDICARE | LOC: ONC 10:59 | PROVIDERS: ATTEND Internal Medicine Hematology & Oncology | DX: Z51.11 Encounter for antineoplastic chemotherapy (principal); D59.3 Hemolytic-uremic syndrome; N18.6 End stage renal disease; Z94.0 Kidney transplant status; Z79.899 Other long term (current) drug therapy | CPT/HCPCS: 96413; G0463 ==

== ENCOUNTER → 2020-07-05 | Outpatient (CLI) | payer MEDICARE | LOC: ONC 12:57 | PROVIDERS: ATTEND Internal Medicine Hematology & Oncology | DX: Z51.11 Encounter for antineoplastic chemotherapy (principal); D59.3 Hemolytic-uremic syndrome; I12.0 Hypertensive chronic kidney disease with stage 5 chronic kidney disease or end stage renal disease; N18.6 End stage renal disease; Z94.0 Kidney transplant status | CPT/HCPCS: 96413 ==

== ENCOUNTER → 2020-07-19 | Outpatient (CLI) | payer MEDICARE ==
[~2020-07-19] MED LIST changes: -NS (IVPB) CANCER CENTER 250 ML ONE
== END ==
LOC: ONC 13:10
PROVIDERS: ATTEND Internal Medicine Hematology & Oncology
DX: Z51.11 Encounter for antineoplastic chemotherapy (principal); D59.3 Hemolytic-uremic syndrome; I12.0 Hypertensive chronic kidney disease with stage 5 chronic kidney disease or end stage renal disease; N18.6 End stage renal disease
CPT/HCPCS: 36591; 96413

== ENCOUNTER → 2020-07-19 | Outpatient (CLI) | payer MEDICARE ==
[~2020-07-19] MED LIST changes: -CENTER ONLY IV SCH; -ECULIZUMAB IV SCH; -NS IV 500 ML (CANCER CENTER) 500 ML IV SCH; -NS IV SCH; -[UNRECOGNIZED DRUG - OTHER] IV SCH
[2020-07-20 03:19] LABS: FK506 7.7 ng/mL
== END ==
LOC: LAB 13:24
DX: Z94.0 Kidney transplant status (principal)
CPT/HCPCS: 36415; 80197; 86160

== ENCOUNTER → 2020-08-02 | Outpatient (CLI) | payer MEDICARE ==
[~2020-08-02] MED LIST changes: +CENTER ONLY IV SCH; +ECULIZUMAB IV SCH; +NS IV 500 ML (CANCER CENTER) 500 ML IV SCH; +NS IV 500 ML (CANCER CENTER) 500 ML ONE; +NS IV SCH; +[UNRECOGNIZED DRUG - OTHER] IV SCH
== END ==
LOC: ONC 13:12
PROVIDERS: ATTEND Internal Medicine Hematology & Oncology
DX: Z51.11 Encounter for antineoplastic chemotherapy (principal); D59.3 Hemolytic-uremic syndrome; I12.0 Hypertensive chronic kidney disease with stage 5 chronic kidney disease or end stage renal disease; N18.6 End stage renal disease
CPT/HCPCS: 36591; 96413

== ENCOUNTER 2020-08-03 16:17 | Outpatient (RCR) | payer MEDICARE ==
[~2020-08-03 16:17] MED LIST changes: +AMLO-251 PO; -AMLO10TA7 PO; -CENTER ONLY IV SCH; -ECULIZUMAB IV SCH; -ESCI10TA55 PO; +ESCI10TA64 PO; -NS IV 500 ML (CANCER CENTER) 500 ML IV SCH; -NS IV 500 ML (CANCER CENTER) 500 ML ONE; -NS IV SCH; -[UNRECOGNIZED DRUG - OTHER] IV SCH
[2020-08-03 16:22] LABS: BASOPHILS % (AUTO) 0 % (0-10); EOSINOPHILS # (AUTO) 0.2 10^3/uL (0.0-0.3); EOSINOPHILS % (AUTO) 2 % (0-10); HEMATOCRIT 42 % (40-54); HEMOGLOBIN 13.8 g/dL (13.3-17.7); LYMPHOCYTES # (AUTO) 0.7 10^3/uL (1.0-4.0); LYMPHOCYTES % (AUTO) 8 % (12-44); MEAN CORPUSCULAR HEMOGLOBIN 32 pg (25-34); MEAN CORPUSCULAR HGB CONC 33 g/dL (32-36); MEAN CORPUSCULAR VOLUME 99 fL (80-99); MEAN PLATELET VOLUME 9.4 fL (9.0-12.2); MONOCYTES # (AUTO) 0.4 10^3/uL (0.0-1.0); MONOCYTES % (AUTO) 5 % (0-12); NEUTROPHILS # (AUTO) 7.2 10^3/uL (1.8-7.8); NEUTROPHILS % (AUTO) 84 % (42-75); PLATELET COUNT 205 10^3/uL (130-400); WHITE BLOOD COUNT 8.5 10^3/uL (4.3-11.0)
[2020-08-03 16:33] LABS: ALBUMIN 4.4 GM/DL (3.2-4.5); CHLORIDE 107 MMOL/L (98-107); POTASSIUM 4.5 MMOL/L (3.6-5.0); SODIUM 137 MMOL/L (135-145)
[2020-08-03 16:35] LABS: CALCIUM 9.7 MG/DL (8.5-10.1); GLUCOSE 142 MG/DL (70-105)
[2020-08-03 16:37] LABS: CARBON DIOXIDE 21 MMOL/L (21-32)
[2020-08-03 16:39] LABS: CREATININE SERUM 1.24 MG/DL (0.60-1.30); GFR ESTIMATED > 60; PHOSPHORUS 2.8 MG/DL (2.3-4.7)
[2020-08-03 16:40] LABS: BUN/CREATININE RATIO 13
[2020-08-03 16:42] LABS: BAND NEUTROPHILS 3 %; EOSINOPHILS % (MANUAL) 1 %; LYMPHOCYTES % (MANUAL) 8 %; MONOCYTES % (MANUAL) 4 %; NEUTROPHILS % (MANUAL) 84 %
[2020-08-03 16:43] LABS: RBC MORPH NORMAL
== END 2020-10-31 | disposition home or self-care (01) ==
LOC: LAB 16:17
PROVIDERS: ATTEND Internal Medicine
DX: Z94.0 Kidney transplant status (principal); Z79.899 Other long term (current) drug therapy
CPT/HCPCS: 36415; 80069; 80197; 85007; 85027

== ENCOUNTER → 2020-08-16 | Outpatient (CLI) | payer MEDICARE ==
[~2020-08-16] MED LIST changes: +CENTER ONLY IV SCH; +ECULIZUMAB IV SCH; +ESCI10TA55 PO; -ESCI10TA64 PO; +NS IV 500 ML (CANCER CENTER) 500 ML IV SCH; +NS IV 500 ML (CANCER CENTER) 500 ML ONE; +NS IV SCH; +[UNRECOGNIZED DRUG - OTHER] IV SCH
[2020-08-16 14:48] LABS: BASOPHILS % (AUTO) 1 % (0-10); EOSINOPHILS # (AUTO) 0.3 10^3/uL (0.0-0.3); EOSINOPHILS % (AUTO) 5 % (0-10); HEMATOCRIT 41 % (40-54); HEMOGLOBIN 13.3 g/dL (13.3-17.7); LYMPHOCYTES # (AUTO) 0.9 10^3/uL (1.0-4.0); LYMPHOCYTES % (AUTO) 14 % (12-44); MEAN CORPUSCULAR HEMOGLOBIN 32 pg (25-34); MEAN CORPUSCULAR HGB CONC 32 g/dL (32-36); MEAN CORPUSCULAR VOLUME 98 fL (80-99); MEAN PLATELET VOLUME 9.4 fL (9.0-12.2); MONOCYTES # (AUTO) 0.5 10^3/uL (0.0-1.0); MONOCYTES % (AUTO) 8 % (0-12); NEUTROPHILS # (AUTO) 4.4 10^3/uL (1.8-7.8); NEUTROPHILS % (AUTO) 71 % (42-75); PLATELET COUNT 182 10^3/uL (130-400); WHITE BLOOD COUNT 6.1 10^3/uL (4.3-11.0)
[2020-08-16 15:08] LABS: ALANINE AMINOTRANSFERASE 23 U/L (0-55); ALBUMIN 4.3 GM/DL (3.2-4.5); ALKALINE PHOSPHATASE 89 U/L (40-136); BILIRUBIN,TOTAL 0.6 MG/DL (0.1-1.0); BUN/CREATININE RATIO 13; CALCIUM 9.6 MG/DL (8.5-10.1); CARBON DIOXIDE 21 MMOL/L (21-32); CHLORIDE 107 MMOL/L (98-107); CHOLESTEROL 163 MG/DL (< 200); CREATININE SERUM 1.25 MG/DL (0.60-1.30); GFR ESTIMATED > 60; GLUCOSE 117 MG/DL (70-105); HDL CHOLESTEROL 35 MG/DL (40-60); SODIUM 137 MMOL/L (135-145); TOTAL PROTEIN 6.9 GM/DL (6.4-8.2); TRIGLYCERIDES 120 MG/DL (<150); VLDL CHOLESTEROL 24 MG/DL (5-40)
[2020-08-17 00:09] LABS: FK506 4.9 ng/mL
== END ==
LOC: ONC 13:52
PROVIDERS: ATTEND Internal Medicine Hematology & Oncology
DX: Z51.11 Encounter for antineoplastic chemotherapy (principal); D59.3 Hemolytic-uremic syndrome; Z94.0 Kidney transplant status
CPT/HCPCS: 80053; 80061; 80069; 80197; 83036; 85025; 86160; 87799; 96413; G0463; 36591

== ENCOUNTER 2020-08-18 03:24 | Emergency (ER) | payer MEDICARE ==
[~2020-08-18] VITALS: Ht 172.7 cm; Wt 72.6 kg
[~2020-08-18 03:24] MED LIST changes: -CENTER ONLY IV SCH; -ECULIZUMAB IV SCH; -NS IV 500 ML (CANCER CENTER) 500 ML IV SCH; -NS IV 500 ML (CANCER CENTER) 500 ML ONE; -NS IV SCH; -[UNRECOGNIZED DRUG - OTHER] IV SCH
[2020-08-18] MEDS ORDERED: ONDANSETRON 4 MG/2 ML (SDV) Z0FRAN IVP ONE (03:45)
[2020-08-18] MEDS ORDERED: DIATRIZOATE MEGLUM/SODIUM 37% 120 ML (GASTROGRAFIN) PO ONE ×2 (03:45→05:45)
[2020-08-18] MEDS ORDERED: fentaNYL INJECTION 100 MCG/2 ML AMP IVP ONE ×2 (03:45→05:00)
[2020-08-18] MEDS ORDERED: PANTOPRAZOLE 40 MG (PROTONIX) VIAL IV ONE (03:45)
--- NOTE | 2020-08-18 03:49 | ED Abdominal Pain ---
General Stated Complaint: UPPER ABD PAIN Source of Information: Patient Exam Limitations: No Limitations (MARTINE SALGADO) History of Present Illness Date Seen by Provider: Aug 18, 2020 Time Seen by Provider: 03:30 Initial Comments Patient presents ER by private conveyance that tonight he started having some epigastric abdominal pain nausea went to the bathroom and vomited up some blood looked him like blood clots. He has extensive history of abdominal surgeries including cholecystectomy. 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 Dr. Hernandez put in stents and his pancreas. Follows with Dr. Miles locally. He is not on blood thinners. He is not on any NSAIDs except for a baby aspirin. No history of coronary disease. He says the pain feels different from his pancreas. No history of kidney stones. No dysuria or constipation. He had a bowel movement yesterday. He did not try taking anything for pain or antacids. He's had endoscopy in the past for pancreas and used to be on antacids but is not presently. He is not on dialysis how he does have a Port-A-Cath on his right chest and his dialysis bypass graft in the left side. He had his antirejection medication and Solaris last week. (MARTINE SALGADO) Allergies and Home Medications Allergies Coded Allergies: No Known Drug Allergies (Unverified , 06/28/16) Home Medications Alprazolam 1 Mg Tablet, 0.5-1 MG PO BID PRN for ANXIETY, (Reported) TAKES 1/2-1 OF A (1 MG) TABLET Amlodipine Besylate 10 Mg Tablet, 10 MG PO DAILY, (Reported) Ampicillin Trihydrate 500 Mg Capsule, 500 MG PO BID, (Reported) MAY BE TAKEN UP TO THREE TIMES DAILY PROPHYLATICALLY Calcium Acetate 667 Mg Capsule, 1,334-2,668 MG PO UD, (Reported) TAKES 2 (667 MG) CAPSULES FOR SNACKS & 4 (667 MG) CAPSULES WITH MEALS Doxazosin Mesylate 4 Mg Tablet, 8 MG PO BID, (Reported) TAKES 2 (4 MG) TABLETS Doxazosin Mesylate 4 Mg Tablet, 8 MG PO 1600 PRN for BLOOD PRESSURE, (Reported) TAKES 2 (4 MG) TABLETS Eculizumab 300 Mg/30 Ml Vial, 1,200 MG IV every 2 weeks, (Reported) Escitalopram Oxalate 10 Mg Tablet, 10 MG PO HS, (Reported) Fentanyl 1 Each Patch.td72, 50 MCG TD WEEK, (Reported) Furosemide 80 Mg Tablet, 80 MG PO BID PRN for FLUID RETENTION, (Reported) Levofloxacin 500 Mg Tablet, 500 MG PO DAILY Prescribed by: ROMANA CHAVEZ on 09/12/19 1009 Metoprolol Tartrate 100 Mg Tablet, 150 MG PO BID, (Reported) TAKES 1 & 1/2 OF A (100 MG) TABLET Omeprazole 40 Mg Capsule.dr, 40 MG PO DAILY, (Reported) Ondansetron 4 Mg Tab.rapdis, 4-8 MG PO Q6H PRN for NAUSEA/VOMITING, (Reported) TAKES 1-2 OF A (4 MG) TABLET Ondansetron 4 Mg Tab.rapdis, 4 MG PO Q6H PRN for NAUSEA/VOMITING Prescribed by: ALICE WELLINGTON on 10/10/19 1901 Oxycodone HCl/Acetaminophen 1 Each Tablet, 1 TAB PO Q4H PRN for PAIN, (Reported) Promethazine HCl 12.5 Mg Tablet, 12.5-25 MG PO Q6H PRN for NAUSEA/VOMITING, (Reported) TAKES 1-2 OF A (12.5 MG) TABLET Valsartan 320 Mg Tablet, 320 MG PO DAILY, (Reported) Patient Home Medication List Home Medication List Reviewed: Yes (MARTINE SALGADO) Review of Systems Review of Systems Constitutional: No chills, No diaphoresis EENTM: No Blurred Vision, No Double Vision Respiratory: Denies Cough, Denies Shortness of Air Cardiovascular: Denies Chest Pain Gastrointestinal: See HPI, Abdominal Pain, Nausea, Vomiting Genitourinary: Denies Burning, Denies Discharge Musculoskeletal: No back pain, No joint pain Psychiatric/Neurological: Denies Anxiety, Denies Depressed (MARTINE SALGADO) All Other Systems Reviewed Negative Unless Noted: Yes (MARTINE SALGADO) Past Jcsseuz-Uyvgsu-Gjjpcs Hx Patient Social History Alcohol Use: Denies Use Recreational Drug Use: No Smoking Status: Current Everyday Smoker Type Used: Cigarettes 2nd Hand Smoke Exposure: No Recent Foreign Travel: No Contact w/Someone Who Travel: No Recent Hopitalizations: Yes (gallbladder removed and pancreatic stent 10/03/19) (MARTINE SALGADO) Immunizations Up To Date Tetanus Booster (TDap): Less than 5yrs Date of Influenza Vaccine: Aug 12, 2019 (MARTINE SALGADO) Seasonal Allergies Seasonal Allergies: No (MARTINE SALGADO) Past Medical History Surgeries: Yes (pancreatic cyst drained and stent placed 09/29) Dialysis, Gallbladder, Pancreatic Respiratory: Yes (pancreatic fistula communicating with right chest, thoracentesis) Pneumonia Cardiac: Yes (CHF/FLUID OVERLOAD; PLEURAL EFFUSIONS) Hypertension Neurological: Yes (NEUROPATHY LEGS-LEFT > RIGHT ) Neuropathy Genitourinary: Yes ([id number]) Renal Failure, Dialysis Gastrointestinal: Yes (PANCREATIC FISTULA TO LUNG-SELF RESOLVED; PANCREATIC STENT) Pancreatitis Musculoskeletal: No Endocrine: Yes (MINIMAL FUNCTION OF PANCREAS; CHRONIC FATIGUE) HEENT: No Cancer: No Psychosocial: No Integumentary: No Blood Disorders: Yes (ATYPICAL HUS) (MARTINE SALGADO) Physical Exam Vital Signs Vital Signs - First Documented 08/18/20 03:25 Temp 36.0 Pulse 80 Resp 20 B/P (MAP) 152/120 (131) Pulse Ox 98 O2 Delivery Room Air (YAAKOV CHRISTOPHER MD) Vital Signs Capillary Refill : (MARTINE SALGADO) Height/Weight/BMI Height: 5'8.00" Weight: 175lbs. 0oz. 79.983940bl; 24.00 BMI Method:Stated General Appearance: WD/WN, mild distress HEENT: PERRL/EOMI, TMs normal, pharynx normal Neck: full range of motion, supple, normal inspection Respiratory: lungs clear, normal breath sounds, no respiratory distress, no accessory muscle use Cardiovascular: normal peripheral pulses, regular rate, rhythm, no edema, no gallop, no murmur Peripheral Pulses: 2+ Radial Pulses (R), 2+ Radial Pulses (L) Gastrointestinal: normal bowel sounds, soft, tenderness, other (negative for mesenteric signs, Rovsing, McBurney point tenderness.) Extremities: normal range of motion, non-tender, normal inspection, normal capillary refill Neurologic/Psychiatric: no motor/sensory deficits, alert, normal mood/affect, oriented x 3 Skin: normal color, warm/dry (MARTINE SALGADO) Progress/Results/Core Measures Results/Orders Lab Results Laboratory Tests Test 08/18/20 03:50 Range/Units White Blood Count 6.4 4.3-11.0 10^3/uL Red Blood Count 4.15 L 4.30-5.52 10^6/uL Hemoglobin 13.1 L 13.3-17.7 g/dL Hematocrit 41 40-54 % Mean Corpuscular Volume 99 80-99 fL Mean Corpuscular Hemoglobin 32 25-34 pg Mean Corpuscular Hemoglobin Concent 32 32-36 g/dL Red Cell Distribution Width 13.7 10.0-14.5 % Platelet Count 176 130-400 10^3/uL Mean Platelet Volume 9.7 9.0-12.2 fL Immature Granulocyte % (Auto) 1 % Neutrophils (%) (Auto) 71 42-75 % Lymphocytes (%) (Auto) 13 12-44 % Monocytes (%) (Auto) 10 0-12 % Eosinophils (%) (Auto) 6 0-10 % Basophils (%) (Auto) 1 0-10 % Neutrophils # (Auto) 4.6 1.8-7.8 10^3/uL Lymphocytes # (Auto) 0.8 L 1.0-4.0 10^3/uL Monocytes # (Auto) 0.6 0.0-1.0 10^3/uL Eosinophils # (Auto) 0.4 H 0.0-0.3 10^3/uL Basophils # (Auto) 0.0 0.0-0.1 10^3/uL Immature Granulocyte # (Auto) 0.0 0.0-0.1 10^3/uL Sodium Level 138 135-145 MMOL/L Potassium Level 3.9 3.6-5.0 MMOL/L Chloride Level 109 H 98-107 MMOL/L Carbon Dioxide Level 19 L 21-32 MMOL/L Anion Gap 10 5-14 MMOL/L Blood Urea Nitrogen 15 7-18 MG/DL Creatinine 1.16 0.60-1.30 MG/DL Estimat Glomerular Filtration Rate > 60 BUN/Creatinine Ratio 13 Glucose Level 118 H 70-105 MG/DL Calcium Level 9.4 8.5-10.1 MG/DL Corrected Calcium 9.3 8.5-10.1 MG/DL Total Bilirubin 0.4 0.1-1.0 MG/DL Aspartate Amino Transf (AST/SGOT) 10 5-34 U/L Alanine Aminotransferase (ALT/SGPT) 15 0-55 U/L Alkaline Phosphatase 88 40-136 U/L Troponin I < 0.028 <0.028 NG/ML Total Protein 6.6 6.4-8.2 GM/DL Albumin 4.1 3.2-4.5 GM/DL Lipase 158 H 8-78 U/L (YAAKOV CHRISTOPHER MD) Medications Given in ED Current Medications Medications Dose Ordered Sig/Dayday Route Start Time Stop Time Status Last Admin Dose Admin Diatrizoate Meglum/ Diatrizoate Sod 120 ml ONCE ONCE PO 08/18/20 03:45 08/18/20 03:47 DC 08/18/20 05:37 30 ML Fentanyl Citrate 50 mcg ONCE ONCE IVP 08/18/20 03:45 08/18/20 03:47 DC 08/18/20 04:08 50 MCG Fentanyl Citrate 50 mcg ONCE ONCE IVP 08/18/20 05:00 08/18/20 05:01 DC 08/18/20 05:21 50 MCG Lactated Ringer's 1,000 ml @ 0 mls/hr Q0M ONCE IV 08/18/20 05:57 08/18/20 05:58 DC 08/18/20 06:10 1,000 MLS/HR Ondansetron HCl 8 mg ONCE ONCE IVP 08/18/20 03:45 08/18/20 03:47 DC 08/18/20 04:08 8 MG Pantoprazole 40 mg ONCE ONCE IV 08/18/20 03:45 08/18/20 03:47 DC 08/18/20 04:08 40 MG Promethazine HCl 12.5 mg ONCE ONCE IVP 08/18/20 05:00 08/18/20 05:01 DC 08/18/20 05:21 12.5 MG (YAAKOV CHRISTOPHER MD) Vital Signs/I&O 08/18/20 03:25 Temp 36.0 Pulse 80 Resp 20 B/P (MAP) 152/120 (131) Pulse Ox 98 O2 Delivery Room Air (YAAKOV CHRISTOPHER MD) Progress Progress Note : Time: 03:50 Progress Note GERD versus PUD versus pancreatitis. Less likely adhesions causing obstruction but a CT with oral contrast only, labs including lipase would be warranted. Plan to give him some ondansetron and fentanyl for discomfort. (MARTINE SALGADO) Progress Note : Progress Note 0610: Patient has received Phenergan as well and is currently receiving IV fluid. Patient has completed CT with oral contrast. Overall he is feeling a little better. I have reexamined the patient and he has no new complaints. Pending CT scan. 0635: CT complete and does not show any significant findings. Hemoglobin is stable. Lipase is slightly elevated. He has not had any return vomiting. I did discuss with the patient various options and he would like to call Dr. Hernandez earlier this week for recheck. I will go ahead and have the films electronically sent to [facility] so that this can be reviewed there by his GI doctor if he would like. I did discuss this with the patient was appreciative. He has pain medicines at home and will use those if needed. He will also reinitiate his PPI and use famotidine as needed. Discharged home with return precautions. Patient verbalize understanding of instructions and agreement with plan. (YAAKOV CHRISTOPHER MD) Initial ECG Impression Date: Aug 18, 2020 Initial ECG Impression Time: 03:54 Initial ECG Rate: 68 Initial ECG Rhythm: Normal Sinus Initial ECG Intervals: Normal Initial ECG Impression: Normal Comment Normal sinus rhythm without clinically relevant ST changes. (MARTINE SALGADO) Diagnostic Imaging Diagonstic Imaging: CT (without IV contrast) Plain Films/CT/US/NM/MRI: abdomen, pelvis Reviewed: Reviewed by Me (MARTINE SALGADO) Comments No specific cause for epigastric pain, nausea or vomiting is identified. However, there is a residual 2.5 cm ovoid low-density lesion in the pancreatic tail not evacuated by the draining stent in the stomach which shows largely evacuated the complex fluid collection evident in the left upper quadrant abdomen on the prior study. (YAAKOV CHRISTOPHER MD) Departure Impression Primary Impression: Epigastric abdominal pain Additional Impression: Pancreatitis Qualified Codes: K86.1 - Other chronic pancreatitis Disposition: 01 HOME, SELF-CARE Condition: Stable Departure-Patient Inst. Decision time for Depature: 06:40 (YAAKOV CHRISTOPHER MD) Referrals: TIMOTHY MILES MD (PCP/Family) Primary Care Physician Patient Instructions: Severe Abdominal Pain, Adult (DC), Pancreatitis (DC) Add. Discharge Instructions: Continue home medications as previously prescribed. You should restart your omeprazole daily. You may take Pepcid or the generic famotidine 20 mg once or twice daily as needed for stomach upset as well. You should drink plenty of fluids and eat a light diet over the next few days and then advance as tolerated. You should call Dr. Hernandez's office first thing on Thursday morning for appointment this week. We did electronically send the CT images to [facility] for him to view if he would like. Return for worse pain, fever, vomiting, weakness, breathing problems, blood in your vomit or stool or other concerns as needed. Copy Copies To 1: TIMOTHY MILES MD, TITUS J Aug 18, 2020 03:48 YAAKOV CHRISTOPHER MD Aug 18, 2020 06:42
[2020-08-18 04:04] LABS: BASOPHILS % (AUTO) 1 % (0-10); EOSINOPHILS # (AUTO) 0.4 10^3/uL (0.0-0.3); EOSINOPHILS % (AUTO) 6 % (0-10); HEMATOCRIT 41 % (40-54); HEMOGLOBIN 13.1 g/dL (13.3-17.7); LYMPHOCYTES # (AUTO) 0.8 10^3/uL (1.0-4.0); LYMPHOCYTES % (AUTO) 13 % (12-44); MEAN CORPUSCULAR HEMOGLOBIN 32 pg (25-34); MEAN CORPUSCULAR HGB CONC 32 g/dL (32-36); MEAN CORPUSCULAR VOLUME 99 fL (80-99); MEAN PLATELET VOLUME 9.7 fL (9.0-12.2); MONOCYTES # (AUTO) 0.6 10^3/uL (0.0-1.0); MONOCYTES % (AUTO) 10 % (0-12); NEUTROPHILS # (AUTO) 4.6 10^3/uL (1.8-7.8); NEUTROPHILS % (AUTO) 71 % (42-75); PLATELET COUNT 176 10^3/uL (130-400); WHITE BLOOD COUNT 6.4 10^3/uL (4.3-11.0)
[2020-08-18 04:12] LABS: ALBUMIN 4.1 GM/DL (3.2-4.5)
[2020-08-18 04:13] LABS: CHLORIDE 109 MMOL/L (98-107); POTASSIUM 3.9 MMOL/L (3.6-5.0); SODIUM 138 MMOL/L (135-145)
[2020-08-18 04:14] LABS: CALCIUM 9.4 MG/DL (8.5-10.1)
[2020-08-18 04:15] LABS: GLUCOSE 118 MG/DL (70-105); TOTAL PROTEIN 6.6 GM/DL (6.4-8.2)
[2020-08-18 04:16] LABS: CARBON DIOXIDE 19 MMOL/L (21-32)
[2020-08-18 04:17] LABS: BILIRUBIN,TOTAL 0.4 MG/DL (0.1-1.0)
[2020-08-18 04:18] LABS: ALKALINE PHOSPHATASE 88 U/L (40-136)
[2020-08-18 04:19] LABS: CREATININE SERUM 1.16 MG/DL (0.60-1.30); GFR ESTIMATED > 60
[2020-08-18 04:20] LABS: BUN/CREATININE RATIO 13
[2020-08-18 04:21] LABS: ALANINE AMINOTRANSFERASE 15 U/L (0-55)
[2020-08-18 04:22] LABS: LIPASE 158 U/L (8-78)
[2020-08-18] MEDS ORDERED: KETOROLAC 30 MG/ML VIAL IVP ONE (04:30)
[2020-08-18] MEDS ORDERED: PROMETHAZINE INJ 25 MG/ML (PHENERGAN) AMP IVP ONE (05:00)
[2020-08-18] MEDS ORDERED: LACTATED RINGERS 1,000 ML IV ONE (05:57)
[2020-08-18 07:10] VITALS: BP 127/90
--- NOTE | 2020-08-18 07:41 | Diagnostic Imaging Report ---
PROCEDURE: CT abdomen and pelvis without contrast. TECHNIQUE: Multiple contiguous axial images were obtained through the abdomen and pelvis without the use of intravenous contrast. Auto Exposure Controls were utilized during the CT exam to meet ALARA standards for radiation dose reduction. INDICATION: Epigastric pain, nausea, and vomiting. History of a renal transplant in January. Study compared with exam 09/27/2019. A gastropancreatic stent has been placed in the interim with evacuation of the previous large pseudocyst. There is an ovoid hypodensity within the pancreatic tail measuring approximately 2 x 1 cm which may be a small residual intraparenchymal pseudocyst; this component substantially decreased from prior. Nonobstructive pokagon renal atrophy again noted. Stomach is nondistended. Gallbladder surgically absent. No choledocholithiasis. The unopacified liver nonacute. The spleen within normal limits of size. The aorta is atherosclerotic but nonaneurysmal. The appendix normal. No bowel obstruction. Right lower quadrant iliac fossa transplant showed no evidence for obstruction or peritransplant fluid collection. No findings of acute pancreatitis. No adverse development. IMPRESSION: 1. Evacuation of previous dominant pseudocyst in the left upper quadrant with placement of a gastropancreatic stent. 2. An intraparenchymal pancreatic lesion is much smaller than on prior one at roughly 2 x 1 cm having previously measured 5 x 3 cm. 3. No findings of acute pancreatitis, bile duct dilatation, ileus or bowel obstruction. 4. No evidence for transplant obstruction. Chronic pokagon renal atrophy nonacute. Dictated by: Dictated on workstation # [id number]
== END 2020-08-18 07:10 | disposition home or self-care (01) ==
LOC: EDUNIT# 03:24 → ER 03:27
DX: R10.13 Epigastric pain (principal); K85.90 Acute pancreatitis without necrosis or infection, unspecified; I10 Essential (primary) hypertension; F17.210 Nicotine dependence, cigarettes, uncomplicated
CPT/HCPCS: 36415; 74176; 80053; 83690; 84484; 85025; 93005

== ENCOUNTER → 2020-08-30 | Outpatient (CLI) | payer MEDICARE ==
[~2020-08-30] MED LIST changes: +CENTER ONLY IV SCH; +ECULIZUMAB IV SCH; +NS (IVPB) CANCER CENTER 250 ML ONE; +NS IV 500 ML (CANCER CENTER) 500 ML IV SCH; +NS IV SCH; +[UNRECOGNIZED DRUG - OTHER] IV SCH
== END ==
LOC: ONC 13:14
PROVIDERS: ATTEND Internal Medicine Hematology & Oncology
DX: Z51.11 Encounter for antineoplastic chemotherapy (principal); D59.3 Hemolytic-uremic syndrome; Z94.0 Kidney transplant status
CPT/HCPCS: 36591; 96413

== ENCOUNTER → 2020-09-13 | Outpatient (CLI) | payer MEDICARE ==
[~2020-09-13] MED LIST changes: -NS (IVPB) CANCER CENTER 250 ML ONE
[2020-09-13 13:22] LABS: BASOPHILS % (AUTO) 0 % (0-10); EOSINOPHILS # (AUTO) 0.2 10^3/uL (0.0-0.3); EOSINOPHILS % (AUTO) 2 % (0-10); HEMATOCRIT 43 % (40-54); LYMPHOCYTES # (AUTO) 0.7 10^3/uL (1.0-4.0); LYMPHOCYTES % (AUTO) 8 % (12-44); MEAN CORPUSCULAR HEMOGLOBIN 32 pg (25-34); MEAN CORPUSCULAR HGB CONC 33 g/dL (32-36); MEAN CORPUSCULAR VOLUME 97 fL (80-99); MEAN PLATELET VOLUME 9.4 fL (9.0-12.2); MONOCYTES # (AUTO) 0.4 10^3/uL (0.0-1.0); MONOCYTES % (AUTO) 5 % (0-12); NEUTROPHILS % (AUTO) 85 % (42-75); PLATELET COUNT 214 10^3/uL (130-400); WHITE BLOOD COUNT 8.3 10^3/uL (4.3-11.0)
[2020-09-13 13:37] LABS: ALBUMIN 4.3 GM/DL (3.2-4.5)
[2020-09-13 13:38] LABS: CHLORIDE 104 MMOL/L (98-107); POTASSIUM 4.3 MMOL/L (3.6-5.0); SODIUM 135 MMOL/L (135-145)
[2020-09-13 13:39] LABS: CALCIUM 9.6 MG/DL (8.5-10.1)
[2020-09-13 13:40] LABS: GLUCOSE 159 MG/DL (70-105)
[2020-09-13 13:41] LABS: CARBON DIOXIDE 18 MMOL/L (21-32)
[2020-09-13 13:43] LABS: CREATININE SERUM 1.15 MG/DL (0.60-1.30); GFR ESTIMATED > 60; PHOSPHORUS 2.5 MG/DL (2.3-4.7)
[2020-09-13 13:44] LABS: BUN/CREATININE RATIO 10
[2020-09-13 23:35] LABS: FK506 3.9 ng/mL
== END ==
LOC: ONC 12:57
PROVIDERS: ATTEND Internal Medicine Hematology & Oncology
DX: Z51.11 Encounter for antineoplastic chemotherapy (principal); D59.3 Hemolytic-uremic syndrome; Z94.0 Kidney transplant status
CPT/HCPCS: 36591; 80069; 80197; 85025; 86160; 87799; 96413

== ENCOUNTER → 2020-09-27 | Outpatient (CLI) | payer MEDICARE ==
[~2020-09-27] MED LIST changes: +NS IV 1000 ML (CANCER CTR) 1,000 ML ONE
[2020-09-27 13:41] LABS: BASOPHILS # (AUTO) 0.1 10^3/uL (0.0-0.1); BASOPHILS % (AUTO) 1 % (0-10); EOSINOPHILS # (AUTO) 0.3 10^3/uL (0.0-0.3); EOSINOPHILS % (AUTO) 3 % (0-10); HEMATOCRIT 43 % (40-54); HEMOGLOBIN 13.8 g/dL (13.3-17.7); LYMPHOCYTES # (AUTO) 0.7 10^3/uL (1.0-4.0); LYMPHOCYTES % (AUTO) 8 % (12-44); MEAN CORPUSCULAR HEMOGLOBIN 31 pg (25-34); MEAN CORPUSCULAR HGB CONC 32 g/dL (32-36); MEAN CORPUSCULAR VOLUME 97 fL (80-99); MEAN PLATELET VOLUME 9.3 fL (9.0-12.2); MONOCYTES # (AUTO) 0.4 10^3/uL (0.0-1.0); MONOCYTES % (AUTO) 4 % (0-12); NEUTROPHILS # (AUTO) 7.6 10^3/uL (1.8-7.8); NEUTROPHILS % (AUTO) 84 % (42-75); PLATELET COUNT 255 10^3/uL (130-400); WHITE BLOOD COUNT 9.1 10^3/uL (4.3-11.0)
[2020-09-27 13:59] LABS: ALBUMIN 4.4 GM/DL (3.2-4.5); BUN/CREATININE RATIO 11; CALCIUM 9.6 MG/DL (8.5-10.1); CARBON DIOXIDE 26 MMOL/L (21-32); CHLORIDE 104 MMOL/L (98-107); CREATININE SERUM 1.14 MG/DL (0.60-1.30); GFR ESTIMATED > 60; GLUCOSE 178 MG/DL (70-105); PHOSPHORUS 2.7 MG/DL (2.3-4.7); POTASSIUM 4.5 MMOL/L (3.6-5.0); SODIUM 134 MMOL/L (135-145)
== END ==
LOC: ONC 13:35
PROVIDERS: ATTEND Internal Medicine Hematology & Oncology
DX: Z51.11 Encounter for antineoplastic chemotherapy (principal); D59.3 Hemolytic-uremic syndrome; I12.0 Hypertensive chronic kidney disease with stage 5 chronic kidney disease or end stage renal disease; N18.6 End stage renal disease; D63.1 Anemia in chronic kidney disease; Z94.0 Kidney transplant status
CPT/HCPCS: 80069; 80197; 85025; 96413

== ENCOUNTER → 2020-10-15 | Outpatient (CLI) | payer MEDICARE ==
[2020-10-15 13:46] LABS: BASOPHILS # (AUTO) 0.1 10^3/uL (0.0-0.1); BASOPHILS % (AUTO) 1 % (0-10); EOSINOPHILS # (AUTO) 0.3 10^3/uL (0.0-0.3); EOSINOPHILS % (AUTO) 3 % (0-10); HEMATOCRIT 44 % (40-54); HEMOGLOBIN 14.5 g/dL (13.3-17.7); LYMPHOCYTES # (AUTO) 0.7 10^3/uL (1.0-4.0); LYMPHOCYTES % (AUTO) 7 % (12-44); MEAN CORPUSCULAR HEMOGLOBIN 32 pg (25-34); MEAN CORPUSCULAR HGB CONC 33 g/dL (32-36); MEAN CORPUSCULAR VOLUME 97 fL (80-99); MEAN PLATELET VOLUME 9.2 fL (9.0-12.2); MONOCYTES # (AUTO) 0.5 10^3/uL (0.0-1.0); MONOCYTES % (AUTO) 5 % (0-12); NEUTROPHILS # (AUTO) 8.2 10^3/uL (1.8-7.8); NEUTROPHILS % (AUTO) 84 % (42-75); PLATELET COUNT 271 10^3/uL (130-400); WHITE BLOOD COUNT 9.8 10^3/uL (4.3-11.0)
[2020-10-15 14:16] LABS: ALANINE AMINOTRANSFERASE 26 U/L (0-55); ALBUMIN 4.2 GM/DL (3.2-4.5); ALKALINE PHOSPHATASE 108 U/L (40-136); BILIRUBIN,TOTAL 0.3 MG/DL (0.1-1.0); BUN/CREATININE RATIO 13; CALCIUM 9.3 MG/DL (8.5-10.1); CARBON DIOXIDE 22 MMOL/L (21-32); CHLORIDE 106 MMOL/L (98-107); CREATININE SERUM 1.09 MG/DL (0.60-1.30); GFR ESTIMATED > 60; GLUCOSE 158 MG/DL (70-105); PHOSPHORUS 3.4 MG/DL (2.3-4.7); POTASSIUM 4.3 MMOL/L (3.6-5.0); SODIUM 137 MMOL/L (135-145); TOTAL PROTEIN 7.5 GM/DL (6.4-8.2)
== END ==
LOC: ONC 13:07
PROVIDERS: ATTEND Internal Medicine Hematology & Oncology
DX: Z51.81 Encounter for therapeutic drug level monitoring (principal); Z51.11 Encounter for antineoplastic chemotherapy; D59.3 Hemolytic-uremic syndrome; N18.6 End stage renal disease; Z94.0 Kidney transplant status
CPT/HCPCS: 80053; 80197; 84100; 85025; 86160; 87799; 96413; G0463; 36591

== ENCOUNTER → 2020-10-30 | Outpatient (CLI) | payer MEDICARE ==
[~2020-10-30] MED LIST changes: -ESCI10TA55 PO; +ESCI10TA64 PO; -NS IV 1000 ML (CANCER CTR) 1,000 ML ONE
[2020-10-30 13:27] LABS: BASOPHILS # (AUTO) 0.1 10^3/uL (0.0-0.1); BASOPHILS % (AUTO) 1 % (0-10); EOSINOPHILS # (AUTO) 0.2 10^3/uL (0.0-0.3); EOSINOPHILS % (AUTO) 3 % (0-10); HEMATOCRIT 46 % (40-54); HEMOGLOBIN 14.8 g/dL (13.3-17.7); LYMPHOCYTES # (AUTO) 0.8 10^3/uL (1.0-4.0); LYMPHOCYTES % (AUTO) 8 % (12-44); MEAN CORPUSCULAR HEMOGLOBIN 31 pg (25-34); MEAN CORPUSCULAR HGB CONC 32 g/dL (32-36); MEAN CORPUSCULAR VOLUME 98 fL (80-99); MEAN PLATELET VOLUME 9.4 fL (9.0-12.2); MONOCYTES # (AUTO) 0.5 10^3/uL (0.0-1.0); MONOCYTES % (AUTO) 6 % (0-12); NEUTROPHILS # (AUTO) 7.6 10^3/uL (1.8-7.8); NEUTROPHILS % (AUTO) 82 % (42-75); PLATELET COUNT 248 10^3/uL (130-400); WHITE BLOOD COUNT 9.3 10^3/uL (4.3-11.0)
[2020-10-30 13:42] LABS: ALBUMIN 4.2 GM/DL (3.2-4.5); BUN/CREATININE RATIO 12; CALCIUM 9.7 MG/DL (8.5-10.1); CARBON DIOXIDE 19 MMOL/L (21-32); CHLORIDE 107 MMOL/L (98-107); CREATININE SERUM 1.11 MG/DL (0.60-1.30); GFR ESTIMATED > 60; GLUCOSE 132 MG/DL (70-105); PHOSPHORUS 2.2 MG/DL (2.3-4.7); POTASSIUM 4.5 MMOL/L (3.6-5.0); SODIUM 137 MMOL/L (135-145)
== END ==
LOC: ONC 13:07
PROVIDERS: ATTEND Internal Medicine Hematology & Oncology
DX: D59.3 Hemolytic-uremic syndrome (principal)
CPT/HCPCS: 36591; 80069; 80197; 85025; 96413

== ENCOUNTER → 2020-11-15 | Outpatient (CLI) | payer MEDICARE ==
[~2020-11-15] MED LIST changes: +ESCI-2 PO; -ESCI10TA64 PO; +SERT-413 PO; -SERT50TA9 PO
[2020-11-15 13:30] LABS: BASOPHILS # (AUTO) 0.1 10^3/uL (0.0-0.1); BASOPHILS % (AUTO) 1 % (0-10); EOSINOPHILS # (AUTO) 0.2 10^3/uL (0.0-0.3); EOSINOPHILS % (AUTO) 2 % (0-10); HEMATOCRIT 47 % (40-54); HEMOGLOBIN 15.5 g/dL (13.3-17.7); LYMPHOCYTES # (AUTO) 0.9 10^3/uL (1.0-4.0); LYMPHOCYTES % (AUTO) 9 % (12-44); MEAN CORPUSCULAR HEMOGLOBIN 31 pg (25-34); MEAN CORPUSCULAR HGB CONC 33 g/dL (32-36); MEAN CORPUSCULAR VOLUME 94 fL (80-99); MEAN PLATELET VOLUME 9.5 fL (9.0-12.2); MONOCYTES # (AUTO) 0.6 10^3/uL (0.0-1.0); MONOCYTES % (AUTO) 6 % (0-12); NEUTROPHILS # (AUTO) 7.8 10^3/uL (1.8-7.8); NEUTROPHILS % (AUTO) 81 % (42-75); PLATELET COUNT 239 10^3/uL (130-400); WHITE BLOOD COUNT 9.7 10^3/uL (4.3-11.0)
[2020-11-15 13:48] LABS: ALANINE AMINOTRANSFERASE 31 U/L (0-55); ALBUMIN 4.3 GM/DL (3.2-4.5); ALKALINE PHOSPHATASE 99 U/L (40-136); BILIRUBIN,TOTAL 0.4 MG/DL (0.1-1.0); BUN/CREATININE RATIO 17; CALCIUM 9.7 MG/DL (8.5-10.1); CARBON DIOXIDE 21 MMOL/L (21-32); CHLORIDE 105 MMOL/L (98-107); CHOLESTEROL 191 MG/DL (< 200); CREATININE SERUM 1.22 MG/DL (0.60-1.30); GFR ESTIMATED > 60; GLUCOSE 143 MG/DL (70-105); HDL CHOLESTEROL 40 MG/DL (40-60); PHOSPHORUS 2.7 MG/DL (2.3-4.7); POTASSIUM 4.7 MMOL/L (3.6-5.0); SODIUM 135 MMOL/L (135-145); TOTAL PROTEIN 7.2 GM/DL (6.4-8.2); TRIGLYCERIDES 155 MG/DL (<150); VLDL CHOLESTEROL 31 MG/DL (5-40)
[2020-11-15 22:53] LABS: FK506 5.3 ng/mL
== END ==
LOC: ONC 13:02
PROVIDERS: ATTEND Internal Medicine Hematology & Oncology
DX: Z51.81 Encounter for therapeutic drug level monitoring (principal); D59.3 Hemolytic-uremic syndrome; N18.6 End stage renal disease; D63.1 Anemia in chronic kidney disease; I15.9 Secondary hypertension, unspecified; Z94.0 Kidney transplant status
CPT/HCPCS: 36591; 80053; 80061; 80069; 80197; 83036; 84100; 85025; 86160; 87799; 96413

== ENCOUNTER → 2020-11-29 | Outpatient (CLI) | payer MEDICARE ==
[2020-11-29 13:28] LABS: BASOPHILS # (AUTO) 0.1 10^3/uL (0.0-0.1); BASOPHILS % (AUTO) 1 % (0-10); EOSINOPHILS # (AUTO) 0.2 10^3/uL (0.0-0.3); EOSINOPHILS % (AUTO) 2 % (0-10); HEMATOCRIT 46 % (40-54); HEMOGLOBIN 15.1 g/dL (13.3-17.7); LYMPHOCYTES # (AUTO) 1.1 10^3/uL (1.0-4.0); LYMPHOCYTES % (AUTO) 11 % (12-44); MEAN CORPUSCULAR HEMOGLOBIN 31 pg (25-34); MEAN CORPUSCULAR HGB CONC 33 g/dL (32-36); MEAN CORPUSCULAR VOLUME 95 fL (80-99); MEAN PLATELET VOLUME 9.3 fL (9.0-12.2); MONOCYTES # (AUTO) 0.7 10^3/uL (0.0-1.0); MONOCYTES % (AUTO) 7 % (0-12); NEUTROPHILS # (AUTO) 7.9 10^3/uL (1.8-7.8); NEUTROPHILS % (AUTO) 79 % (42-75); PLATELET COUNT 254 10^3/uL (130-400)
[2020-11-29 13:48] LABS: ALBUMIN 4.3 GM/DL (3.2-4.5); BUN/CREATININE RATIO 13; CALCIUM 9.8 MG/DL (8.5-10.1); CARBON DIOXIDE 21 MMOL/L (21-32); CHLORIDE 107 MMOL/L (98-107); CREATININE SERUM 1.19 MG/DL (0.60-1.30); GFR ESTIMATED > 60; GLUCOSE 145 MG/DL (70-105); PHOSPHORUS 2.3 MG/DL (2.3-4.7); POTASSIUM 4.6 MMOL/L (3.6-5.0); SODIUM 135 MMOL/L (135-145)
== END ==
LOC: ONC 13:11
PROVIDERS: ATTEND Internal Medicine Hematology & Oncology
DX: Z51.11 Encounter for antineoplastic chemotherapy (principal); Z51.81 Encounter for therapeutic drug level monitoring; D59.3 Hemolytic-uremic syndrome; N18.6 End stage renal disease; D64.9 Anemia, unspecified; I15.9 Secondary hypertension, unspecified; Z94.0 Kidney transplant status
CPT/HCPCS: 36591; 80069; 80197; 85025; 96365; 96413

== ENCOUNTER → 2020-12-13 | Outpatient (CLI) | payer MEDICARE ==
[2020-12-13 14:06] LABS: BASOPHILS % (AUTO) 0 % (0-10); EOSINOPHILS # (AUTO) 0.1 10^3/uL (0.0-0.3); EOSINOPHILS % (AUTO) 1 % (0-10); HEMATOCRIT 48 % (40-54); HEMOGLOBIN 15.5 g/dL (13.3-17.7); LYMPHOCYTES # (AUTO) 0.6 10^3/uL (1.0-4.0); LYMPHOCYTES % (AUTO) 6 % (12-44); MEAN CORPUSCULAR HEMOGLOBIN 31 pg (25-34); MEAN CORPUSCULAR HGB CONC 33 g/dL (32-36); MEAN CORPUSCULAR VOLUME 95 fL (80-99); MEAN PLATELET VOLUME 9.7 fL (9.0-12.2); MONOCYTES # (AUTO) 0.5 10^3/uL (0.0-1.0); MONOCYTES % (AUTO) 5 % (0-12); NEUTROPHILS # (AUTO) 8.6 10^3/uL (1.8-7.8); NEUTROPHILS % (AUTO) 86 % (42-75); PLATELET COUNT 267 10^3/uL (130-400)
[2020-12-13 14:32] LABS: ALBUMIN 4.4 GM/DL (3.2-4.5); BUN/CREATININE RATIO 7; CALCIUM 9.6 MG/DL (8.5-10.1); CARBON DIOXIDE 19 MMOL/L (21-32); CHLORIDE 105 MMOL/L (98-107); CREATININE SERUM 1.09 MG/DL (0.60-1.30); GFR ESTIMATED > 60; GLUCOSE 145 MG/DL (70-105); PHOSPHORUS 2.3 MG/DL (2.3-4.7); POTASSIUM 3.9 MMOL/L (3.6-5.0); SODIUM 137 MMOL/L (135-145)
[2020-12-13 21:58] LABS: FK506 5.5 ng/mL
== END ==
LOC: ONC 12:58
PROVIDERS: ATTEND Internal Medicine Hematology & Oncology
DX: Z51.11 Encounter for antineoplastic chemotherapy (principal); Z45.2 Encounter for adjustment and management of vascular access device; Z51.81 Encounter for therapeutic drug level monitoring; D59.3 Hemolytic-uremic syndrome; N18.6 End stage renal disease; I15.9 Secondary hypertension, unspecified; Z99.2 Dependence on renal dialysis; Z94.0 Kidney transplant status
CPT/HCPCS: 36591; 80069; 80197; 85025; 86160; 87799; 96365

== ENCOUNTER → 2020-12-27 | Outpatient (CLI) | payer MEDICARE ==
[2020-12-27 13:32] LABS: BASOPHILS % (AUTO) 1 % (0-10); EOSINOPHILS # (AUTO) 0.2 10^3/uL (0.0-0.3); EOSINOPHILS % (AUTO) 2 % (0-10); HEMATOCRIT 48 % (40-54); HEMOGLOBIN 15.8 g/dL (13.3-17.7); LYMPHOCYTES # (AUTO) 0.5 10^3/uL (1.0-4.0); LYMPHOCYTES % (AUTO) 6 % (12-44); MEAN CORPUSCULAR HEMOGLOBIN 31 pg (25-34); MEAN CORPUSCULAR HGB CONC 33 g/dL (32-36); MEAN CORPUSCULAR VOLUME 95 fL (80-99); MEAN PLATELET VOLUME 9.2 fL (9.0-12.2); MONOCYTES # (AUTO) 0.5 10^3/uL (0.0-1.0); MONOCYTES % (AUTO) 6 % (0-12); NEUTROPHILS # (AUTO) 7.3 10^3/uL (1.8-7.8); NEUTROPHILS % (AUTO) 85 % (42-75); PLATELET COUNT 255 10^3/uL (130-400); WHITE BLOOD COUNT 8.6 10^3/uL (4.3-11.0)
[2020-12-27 13:54] LABS: ALBUMIN 4.4 GM/DL (3.2-4.5); BUN/CREATININE RATIO 8; CALCIUM 9.5 MG/DL (8.5-10.1); CARBON DIOXIDE 19 MMOL/L (21-32); CHLORIDE 105 MMOL/L (98-107); CREATININE SERUM 1.19 MG/DL (0.60-1.30); GFR ESTIMATED > 60; GLUCOSE 167 MG/DL (70-105); PHOSPHORUS 2.5 MG/DL (2.3-4.7); POTASSIUM 4.1 MMOL/L (3.6-5.0); SODIUM 134 MMOL/L (135-145)
== END ==
LOC: ONC 13:06
PROVIDERS: ATTEND Internal Medicine Hematology & Oncology
DX: Z51.11 Encounter for antineoplastic chemotherapy (principal); Z51.81 Encounter for therapeutic drug level monitoring; D59.3 Hemolytic-uremic syndrome; I15.9 Secondary hypertension, unspecified; D63.1 Anemia in chronic kidney disease; N18.6 End stage renal disease; Z94.0 Kidney transplant status
CPT/HCPCS: 80069; 80197; 85025; 96365

== ENCOUNTER → 2021-01-10 | Outpatient (CLI) | payer MEDICARE ==
[2021-01-10 13:30] LABS: BASOPHILS # (AUTO) 0.1 10^3/uL (0.0-0.1); BASOPHILS % (AUTO) 1 % (0-10); EOSINOPHILS # (AUTO) 0.1 10^3/uL (0.0-0.3); EOSINOPHILS % (AUTO) 1 % (0-10); HEMATOCRIT 48 % (40-54); HEMOGLOBIN 15.7 g/dL (13.3-17.7); LYMPHOCYTES # (AUTO) 0.7 10^3/uL (1.0-4.0); LYMPHOCYTES % (AUTO) 7 % (12-44); MEAN CORPUSCULAR HEMOGLOBIN 31 pg (25-34); MEAN CORPUSCULAR HGB CONC 32 g/dL (32-36); MEAN CORPUSCULAR VOLUME 95 fL (80-99); MEAN PLATELET VOLUME 9.6 fL (9.0-12.2); MONOCYTES # (AUTO) 0.5 10^3/uL (0.0-1.0); MONOCYTES % (AUTO) 6 % (0-12); NEUTROPHILS % (AUTO) 85 % (42-75); PLATELET COUNT 275 10^3/uL (130-400); WHITE BLOOD COUNT 9.4 10^3/uL (4.3-11.0)
[2021-01-10 13:37] LABS: ALANINE AMINOTRANSFERASE 31 U/L (0-55); ALBUMIN 4.4 GM/DL (3.2-4.5); ALKALINE PHOSPHATASE 111 U/L (40-136); BILIRUBIN,TOTAL 0.5 MG/DL (0.1-1.0); BUN/CREATININE RATIO 10; CALCIUM 9.7 MG/DL (8.5-10.1); CARBON DIOXIDE 20 MMOL/L (21-32); CHLORIDE 105 MMOL/L (98-107); CREATININE SERUM 1.03 MG/DL (0.60-1.30); GFR ESTIMATED > 60; GLUCOSE 122 MG/DL (70-105); PHOSPHORUS 2.5 MG/DL (2.3-4.7); POTASSIUM 4.1 MMOL/L (3.6-5.0); SODIUM 135 MMOL/L (135-145); TOTAL PROTEIN 7.3 GM/DL (6.4-8.2)
[2021-01-10 23:00] LABS: FK506 4.2 ng/mL
== END | disposition home or self-care (01) ==
LOC: ONC 12:57
PROVIDERS: ATTEND Internal Medicine Hematology & Oncology
DX: Z51.11 Encounter for antineoplastic chemotherapy (principal); D59.3 Hemolytic-uremic syndrome; I12.0 Hypertensive chronic kidney disease with stage 5 chronic kidney disease or end stage renal disease; N18.6 End stage renal disease; Z99.2 Dependence on renal dialysis; D63.1 Anemia in chronic kidney disease; Z79.899 Other long term (current) drug therapy; Z94.0 Kidney transplant status; R00.0 Tachycardia, unspecified; Z79.82 Long term (current) use of aspirin
CPT/HCPCS: 80053; 80197; 84100; 85025; 86160; 87799; 96365; G0463; 36591; 80069

== ENCOUNTER → 2021-01-24 | Outpatient (CLI) | payer MEDICARE ==
[~2021-01-24] MED LIST changes: +NS (IVPB) CANCER CENTER 250 ML ONE
== END ==
LOC: ONC 12:52
PROVIDERS: ATTEND Internal Medicine Hematology & Oncology
DX: D59.3 Hemolytic-uremic syndrome (principal); N18.6 End stage renal disease; D64.9 Anemia, unspecified; I15.9 Secondary hypertension, unspecified; I49.9 Cardiac arrhythmia, unspecified; Z94.0 Kidney transplant status; Z79.899 Other long term (current) drug therapy; Z99.2 Dependence on renal dialysis; Z79.82 Long term (current) use of aspirin; Z79.891 Long term (current) use of opiate analgesic
CPT/HCPCS: 96365

== ENCOUNTER → 2021-02-08 | Outpatient (CLI) | payer MEDICARE ==
[~2021-02-08] MED LIST changes: -DOCU-238 PO; +DOCU-241 PO; +NS (IVPB) CANCER CENTER 250 ML IV SCH; -NS (IVPB) CANCER CENTER 250 ML ONE; -NS IV 500 ML (CANCER CENTER) 500 ML IV SCH
== END ==
LOC: ONC 13:44
PROVIDERS: ATTEND Internal Medicine Hematology & Oncology
DX: Z51.81 Encounter for therapeutic drug level monitoring (principal); D59.3 Hemolytic-uremic syndrome; E78.5 Hyperlipidemia, unspecified; Z94.0 Kidney transplant status; N18.6 End stage renal disease; Z99.2 Dependence on renal dialysis
CPT/HCPCS: 96365

== ENCOUNTER → 2021-02-21 | Outpatient (CLI) | payer MEDICARE ==
[~2021-02-21] MED LIST changes: +NS (IVPB) CANCER CENTER 250 ML ONE
[2021-02-21 13:40] LABS: BASOPHILS # (AUTO) 0.1 10^3/uL (0.0-0.1); BASOPHILS % (AUTO) 1 % (0-10); EOSINOPHILS # (AUTO) 0.1 10^3/uL (0.0-0.3); EOSINOPHILS % (AUTO) 1 % (0-10); HEMATOCRIT 49 % (40-54); LYMPHOCYTES # (AUTO) 0.9 10^3/uL (1.0-4.0); LYMPHOCYTES % (AUTO) 9 % (12-44); MEAN CORPUSCULAR HEMOGLOBIN 32 pg (25-34); MEAN CORPUSCULAR HGB CONC 33 g/dL (32-36); MEAN CORPUSCULAR VOLUME 96 fL (80-99); MONOCYTES # (AUTO) 0.6 10^3/uL (0.0-1.0); MONOCYTES % (AUTO) 6 % (0-12); NEUTROPHILS # (AUTO) 8.6 10^3/uL (1.8-7.8); NEUTROPHILS % (AUTO) 83 % (42-75); PLATELET COUNT 254 10^3/uL (130-400); WHITE BLOOD COUNT 10.4 10^3/uL (4.3-11.0)
[2021-02-21 14:03] LABS: ALANINE AMINOTRANSFERASE 35 U/L (0-55); ALBUMIN 4.2 GM/DL (3.2-4.5); ALKALINE PHOSPHATASE 117 U/L (40-136); BILIRUBIN,TOTAL 0.6 MG/DL (0.1-1.0); BUN/CREATININE RATIO 14; CALCIUM 9.5 MG/DL (8.5-10.1); CARBON DIOXIDE 25 MMOL/L (21-32); CHLORIDE 105 MMOL/L (98-107); CHOLESTEROL 202 MG/DL (< 200); CREATININE SERUM 0.99 MG/DL (0.60-1.30); GFR ESTIMATED > 60; GLUCOSE 142 MG/DL (70-105); HDL CHOLESTEROL 42 MG/DL (40-60); PHOSPHORUS 2.6 MG/DL (2.3-4.7); POTASSIUM 4.5 MMOL/L (3.6-5.0); SODIUM 134 MMOL/L (135-145); TOTAL PROTEIN 6.9 GM/DL (6.4-8.2); TRIGLYCERIDES 100 MG/DL (<150); VLDL CHOLESTEROL 20 MG/DL (5-40)
[2021-02-22 03:27] LABS: FK506 8.8 ng/mL
== END ==
LOC: ONC 13:08
PROVIDERS: ATTEND Internal Medicine Hematology & Oncology
DX: Z51.81 Encounter for therapeutic drug level monitoring (principal); D59.3 Hemolytic-uremic syndrome; N18.6 End stage renal disease; D63.1 Anemia in chronic kidney disease; Z94.0 Kidney transplant status; Z99.2 Dependence on renal dialysis
CPT/HCPCS: 36591; 80053; 80061; 80197; 84100; 85025; 86160; 87799; 96413

== ENCOUNTER → 2021-03-07 | Outpatient (CLI) | payer MEDICARE ==
[~2021-03-07] MED LIST changes: -NS (IVPB) CANCER CENTER 250 ML ONE; +NS IV 500 ML (CANCER CENTER) 500 ML ONE
== END ==
LOC: ONC 13:10
PROVIDERS: ATTEND Internal Medicine Hematology & Oncology
DX: Z51.81 Encounter for therapeutic drug level monitoring (principal); Z51.11 Encounter for antineoplastic chemotherapy; D59.3 Hemolytic-uremic syndrome; N18.6 End stage renal disease; I15.9 Secondary hypertension, unspecified; Z99.2 Dependence on renal dialysis; Z94.0 Kidney transplant status
CPT/HCPCS: 96365

== ENCOUNTER → 2021-03-21 | Outpatient (CLI) | payer MEDICARE ==
[~2021-03-21] MED LIST changes: -NS IV 500 ML (CANCER CENTER) 500 ML ONE
[2021-03-21 13:32] LABS: BASOPHILS # (AUTO) 0.1 10^3/uL (0.0-0.1); BASOPHILS % (AUTO) 1 % (0-10); EOSINOPHILS # (AUTO) 0.1 10^3/uL (0.0-0.3); EOSINOPHILS % (AUTO) 1 % (0-10); HEMATOCRIT 46 % (40-54); HEMOGLOBIN 15.3 g/dL (13.3-17.7); LYMPHOCYTES # (AUTO) 0.9 10^3/uL (1.0-4.0); LYMPHOCYTES % (AUTO) 8 % (12-44); MEAN CORPUSCULAR HEMOGLOBIN 32 pg (25-34); MEAN CORPUSCULAR HGB CONC 34 g/dL (32-36); MEAN CORPUSCULAR VOLUME 95 fL (80-99); MEAN PLATELET VOLUME 9.6 fL (9.0-12.2); MONOCYTES # (AUTO) 0.6 10^3/uL (0.0-1.0); MONOCYTES % (AUTO) 5 % (0-12); NEUTROPHILS # (AUTO) 8.8 10^3/uL (1.8-7.8); NEUTROPHILS % (AUTO) 84 % (42-75); PLATELET COUNT 234 10^3/uL (130-400); WHITE BLOOD COUNT 10.4 10^3/uL (4.3-11.0)
[2021-03-21 13:39] LABS: ALBUMIN 4.1 GM/DL (3.2-4.5); BUN/CREATININE RATIO 14; CALCIUM 9.4 MG/DL (8.5-10.1); CARBON DIOXIDE 21 MMOL/L (21-32); CHLORIDE 103 MMOL/L (98-107); CREATININE SERUM 1.02 MG/DL (0.60-1.30); GFR ESTIMATED > 60; GLUCOSE 156 MG/DL (70-105); PHOSPHORUS 3.1 MG/DL (2.3-4.7); POTASSIUM 4.4 MMOL/L (3.6-5.0); SODIUM 133 MMOL/L (135-145)
== END ==
LOC: ONC 13:01
PROVIDERS: ATTEND Internal Medicine Hematology & Oncology
DX: Z45.2 Encounter for adjustment and management of vascular access device (principal); Z51.81 Encounter for therapeutic drug level monitoring; D59.3 Hemolytic-uremic syndrome; N18.6 End stage renal disease; D63.1 Anemia in chronic kidney disease; Z99.2 Dependence on renal dialysis; Z94.0 Kidney transplant status
CPT/HCPCS: 36591; 80069; 80197; 85025; 87799; 96365

== ENCOUNTER → 2021-04-04 | Outpatient (CLI) | payer MEDICARE ==
[~2021-04-04] MED LIST changes: -DOCU-241 PO; +DOCU-26 PO; -OMEP40CA27 PO; +OMEP40CA6 PO
== END ==
LOC: ONC 12:59
PROVIDERS: ATTEND Internal Medicine Hematology & Oncology
DX: Z51.11 Encounter for antineoplastic chemotherapy (principal); Z51.81 Encounter for therapeutic drug level monitoring; D59.3 Hemolytic-uremic syndrome; I12.9 Hypertensive chronic kidney disease with stage 1 through stage 4 chronic kidney disease, or unspecified chronic kidney disease; N18.6 End stage renal disease; D63.1 Anemia in chronic kidney disease; Z99.2 Dependence on renal dialysis; Z94.0 Kidney transplant status
CPT/HCPCS: 96365; G0463

== ENCOUNTER → 2021-04-18 | Outpatient (CLI) | payer MEDICARE ==
[2021-04-18 13:39] LABS: BASOPHILS # (AUTO) 0.1 10^3/uL (0.0-0.1); BASOPHILS % (AUTO) 1 % (0-10); EOSINOPHILS # (AUTO) 0.1 10^3/uL (0.0-0.3); EOSINOPHILS % (AUTO) 2 % (0-10); HEMATOCRIT 48 % (40-54); HEMOGLOBIN 15.7 g/dL (13.3-17.7); LYMPHOCYTES # (AUTO) 0.7 10^3/uL (1.0-4.0); LYMPHOCYTES % (AUTO) 8 % (12-44); MEAN CORPUSCULAR HEMOGLOBIN 31 pg (25-34); MEAN CORPUSCULAR HGB CONC 33 g/dL (32-36); MEAN CORPUSCULAR VOLUME 95 fL (80-99); MEAN PLATELET VOLUME 9.2 fL (9.0-12.2); MONOCYTES # (AUTO) 0.5 10^3/uL (0.0-1.0); MONOCYTES % (AUTO) 6 % (0-12); NEUTROPHILS # (AUTO) 7.5 10^3/uL (1.8-7.8); NEUTROPHILS % (AUTO) 83 % (42-75); PLATELET COUNT 224 10^3/uL (130-400)
[2021-04-18 13:58] LABS: ALBUMIN 4.3 GM/DL (3.2-4.5); BUN/CREATININE RATIO 13; CALCIUM 9.9 MG/DL (8.5-10.1); CARBON DIOXIDE 20 MMOL/L (21-32); CHLORIDE 106 MMOL/L (98-107); CREATININE SERUM 1.15 MG/DL (0.60-1.30); GFR ESTIMATED > 60; GLUCOSE 151 MG/DL (70-105); PHOSPHORUS 2.8 MG/DL (2.3-4.7); SODIUM 134 MMOL/L (135-145)
[2021-04-18 23:22] LABS: FK506 6.9 ng/mL
== END ==
LOC: ONC 13:03
PROVIDERS: ATTEND Internal Medicine Hematology & Oncology
DX: Z51.11 Encounter for antineoplastic chemotherapy (principal); Z45.2 Encounter for adjustment and management of vascular access device; Z51.81 Encounter for therapeutic drug level monitoring; D59.3 Hemolytic-uremic syndrome; I12.0 Hypertensive chronic kidney disease with stage 5 chronic kidney disease or end stage renal disease; N18.6 End stage renal disease; D63.1 Anemia in chronic kidney disease; Z99.2 Dependence on renal dialysis; Z94.0 Kidney transplant status
CPT/HCPCS: 36591; 80069; 80197; 85025; 87799; 96365

== ENCOUNTER → 2021-05-02 | Outpatient (CLI) | payer MEDICARE | LOC: ONC 12:38 | PROVIDERS: ATTEND Internal Medicine Hematology & Oncology | DX: Z51.11 Encounter for antineoplastic chemotherapy (principal); Z51.81 Encounter for therapeutic drug level monitoring; D59.3 Hemolytic-uremic syndrome; I12.0 Hypertensive chronic kidney disease with stage 5 chronic kidney disease or end stage renal disease; N18.6 End stage renal disease; D63.1 Anemia in chronic kidney disease; Z94.0 Kidney transplant status; Z99.2 Dependence on renal dialysis | CPT/HCPCS: 96365 ==

== ENCOUNTER → 2021-05-16 | Outpatient (CLI) | payer MEDICARE ==
[2021-05-16 13:32] LABS: BASOPHILS % (AUTO) 0 % (0-10); EOSINOPHILS # (AUTO) 0.1 10^3/uL (0.0-0.3); EOSINOPHILS % (AUTO) 1 % (0-10); HEMATOCRIT 45 % (40-54); HEMOGLOBIN 14.9 g/dL (13.3-17.7); LYMPHOCYTES # (AUTO) 0.6 10^3/uL (1.0-4.0); LYMPHOCYTES % (AUTO) 6 % (12-44); MEAN CORPUSCULAR HEMOGLOBIN 32 pg (25-34); MEAN CORPUSCULAR HGB CONC 33 g/dL (32-36); MEAN CORPUSCULAR VOLUME 96 fL (80-99); MEAN PLATELET VOLUME 9.5 fL (9.0-12.2); MONOCYTES # (AUTO) 0.6 10^3/uL (0.0-1.0); MONOCYTES % (AUTO) 7 % (0-12); NEUTROPHILS % (AUTO) 85 % (42-75); PLATELET COUNT 202 10^3/uL (130-400); WHITE BLOOD COUNT 9.4 10^3/uL (4.3-11.0)
[2021-05-16 13:55] LABS: ALBUMIN 4.2 GM/DL (3.2-4.5); BILIRUBIN,TOTAL 0.9 MG/DL (0.1-1.0); CREATININE SERUM 1.12 MG/DL (0.60-1.30); PHOSPHORUS 2.6 MG/DL (2.3-4.7); POTASSIUM 4.7 MMOL/L (3.6-5.0); TOTAL PROTEIN 7.4 GM/DL (6.4-8.2)
[2021-05-16 23:06] LABS: FK506 7.6 ng/mL
== END ==
LOC: ONC 13:01
PROVIDERS: ATTEND Internal Medicine Hematology & Oncology
DX: Z51.11 Encounter for antineoplastic chemotherapy (principal); Z45.2 Encounter for adjustment and management of vascular access device
CPT/HCPCS: 36591; 80053; 80061; 80197; 84100; 85025; 86160; 87799; 96365

== ENCOUNTER → 2021-05-30 | Outpatient (CLI) | payer MEDICARE | LOC: ONC 13:07 | PROVIDERS: ATTEND Internal Medicine Hematology & Oncology | DX: Z51.11 Encounter for antineoplastic chemotherapy (principal); Z51.81 Encounter for therapeutic drug level monitoring; I12.0 Hypertensive chronic kidney disease with stage 5 chronic kidney disease or end stage renal disease; N18.6 End stage renal disease; D63.1 Anemia in chronic kidney disease; D59.3 Hemolytic-uremic syndrome; Z94.0 Kidney transplant status; Z99.2 Dependence on renal dialysis | CPT/HCPCS: 96365 ==

== ENCOUNTER → 2021-06-13 | Outpatient (CLI) | payer MEDICARE ==
[2021-06-13 13:50] LABS: BASOPHILS % (AUTO) 1 % (0-10); EOSINOPHILS # (AUTO) 0.1 10^3/uL (0.0-0.3); EOSINOPHILS % (AUTO) 2 % (0-10); HEMATOCRIT 45 % (40-54); HEMOGLOBIN 14.6 g/dL (13.3-17.7); LYMPHOCYTES # (AUTO) 0.6 10^3/uL (1.0-4.0); LYMPHOCYTES % (AUTO) 8 % (12-44); MEAN CORPUSCULAR HEMOGLOBIN 32 pg (25-34); MEAN CORPUSCULAR HGB CONC 33 g/dL (32-36); MEAN CORPUSCULAR VOLUME 97 fL (80-99); MEAN PLATELET VOLUME 9.6 fL (9.0-12.2); MONOCYTES # (AUTO) 0.8 10^3/uL (0.0-1.0); MONOCYTES % (AUTO) 10 % (0-12); NEUTROPHILS # (AUTO) 5.7 10^3/uL (1.8-7.8); NEUTROPHILS % (AUTO) 79 % (42-75); PLATELET COUNT 182 10^3/uL (130-400); WHITE BLOOD COUNT 7.2 10^3/uL (4.3-11.0)
[2021-06-13 14:07] LABS: ALBUMIN 4.1 GM/DL (3.2-4.5); CREATININE SERUM 0.97 MG/DL (0.60-1.30); PHOSPHORUS 2.3 MG/DL (2.3-4.7); POTASSIUM 4.5 MMOL/L (3.6-5.0)
[2021-06-14 01:15] LABS: FK506 9.2 ng/mL
== END ==
LOC: ONC 12:24
PROVIDERS: ATTEND Internal Medicine Hematology & Oncology
DX: D59.3 Hemolytic-uremic syndrome (principal); I10 Essential (primary) hypertension; Z94.0 Kidney transplant status; Z79.899 Other long term (current) drug therapy
CPT/HCPCS: 36591; 80069; 80197; 85025; 87799; 96365

== ENCOUNTER → 2021-06-27 | Outpatient (CLI) | payer MEDICARE | LOC: ONC 13:06 | PROVIDERS: ATTEND Internal Medicine Hematology & Oncology | DX: Z51.11 Encounter for antineoplastic chemotherapy (principal); D59.3 Hemolytic-uremic syndrome; I12.0 Hypertensive chronic kidney disease with stage 5 chronic kidney disease or end stage renal disease; N18.6 End stage renal disease; Z99.2 Dependence on renal dialysis; Z94.0 Kidney transplant status | CPT/HCPCS: 96365; G0463 ==

== ENCOUNTER → 2021-07-12 | Outpatient (CLI) | payer MEDICARE ==
[2021-07-12 11:52] LABS: BASOPHILS # (AUTO) 0.1 10^3/uL (0.0-0.1); BASOPHILS % (AUTO) 1 % (0-10); EOSINOPHILS # (AUTO) 0.2 10^3/uL (0.0-0.3); EOSINOPHILS % (AUTO) 2 % (0-10); HEMATOCRIT 46 % (40-54); HEMOGLOBIN 14.9 g/dL (13.3-17.7); LYMPHOCYTES # (AUTO) 0.7 10^3/uL (1.0-4.0); LYMPHOCYTES % (AUTO) 9 % (12-44); MEAN CORPUSCULAR HEMOGLOBIN 32 pg (25-34); MEAN CORPUSCULAR HGB CONC 33 g/dL (32-36); MEAN CORPUSCULAR VOLUME 99 fL (80-99); MEAN PLATELET VOLUME 9.4 fL (9.0-12.2); MONOCYTES # (AUTO) 0.6 10^3/uL (0.0-1.0); MONOCYTES % (AUTO) 8 % (0-12); NEUTROPHILS # (AUTO) 6.3 10^3/uL (1.8-7.8); NEUTROPHILS % (AUTO) 79 % (42-75); PLATELET COUNT 172 10^3/uL (130-400); WHITE BLOOD COUNT 7.9 10^3/uL (4.3-11.0)
[2021-07-12 12:08] LABS: ALBUMIN 3.6 GM/DL (3.2-4.5); CALCIUM 9.3 MG/DL (8.5-10.1); CREATININE SERUM 0.97 MG/DL (0.60-1.30); PHOSPHORUS 2.6 MG/DL (2.3-4.7); POTASSIUM 3.8 MMOL/L (3.6-5.0)
[2021-07-13 00:34] LABS: FK506 6.5 ng/mL
== END ==
LOC: ONC 11:24
PROVIDERS: ATTEND Internal Medicine Hematology & Oncology
DX: Z51.11 Encounter for antineoplastic chemotherapy (principal); Z51.81 Encounter for therapeutic drug level monitoring; D59.3 Hemolytic-uremic syndrome; I10 Essential (primary) hypertension; Z94.0 Kidney transplant status
CPT/HCPCS: 80069; 80197; 85025; 87799; 96365

== ENCOUNTER → 2021-07-25 | Outpatient (CLI) | payer MEDICARE | LOC: ONC 13:06 | PROVIDERS: ATTEND Internal Medicine Hematology & Oncology | DX: Z51.11 Encounter for antineoplastic chemotherapy (principal); Z51.81 Encounter for therapeutic drug level monitoring; D59.3 Hemolytic-uremic syndrome; I12.0 Hypertensive chronic kidney disease with stage 5 chronic kidney disease or end stage renal disease; N18.6 End stage renal disease; D63.1 Anemia in chronic kidney disease; Z99.2 Dependence on renal dialysis; Z94.0 Kidney transplant status | CPT/HCPCS: 96413 ==

== ENCOUNTER → 2021-08-08 | Outpatient (CLI) | payer MEDICARE | LOC: ONC 13:02 | PROVIDERS: ATTEND Internal Medicine Hematology & Oncology | DX: Z51.81 Encounter for therapeutic drug level monitoring (principal); D59.3 Hemolytic-uremic syndrome; I12.0 Hypertensive chronic kidney disease with stage 5 chronic kidney disease or end stage renal disease; N18.6 End stage renal disease; D63.1 Anemia in chronic kidney disease; Z99.2 Dependence on renal dialysis; Z94.0 Kidney transplant status | CPT/HCPCS: 96365 ==

== ENCOUNTER → 2021-08-08 | Outpatient (CLI) | payer MEDICARE ==
[~2021-08-08] MED LIST changes: -CENTER ONLY IV SCH; -ECULIZUMAB IV SCH; -NS (IVPB) CANCER CENTER 250 ML IV SCH; -NS IV SCH; -[UNRECOGNIZED DRUG - OTHER] IV SCH
[2021-08-08 14:44] LABS: BILIRUBIN,URINE NEGATIVE (NEGATIVE); CLARITY,URINE CLEAR; COLOR,URINE ORANGE; GLUCOSE, URINE (UA) 3+ (NEGATIVE); KETONES,URINE NEGATIVE (NEGATIVE); LEUKOCYTE ESTERASE ,URINE NEGATIVE (NEGATIVE); NITRITE,URINE NEGATIVE (NEGATIVE); PROTEIN,URINE 1+ (NEGATIVE)
[2021-08-08 14:53] LABS: BACTERIA,URINE NEGATIVE /HPF
== END ==
LOC: LAB 13:07
DX: Z48.22 Encounter for aftercare following kidney transplant (principal)
CPT/HCPCS: 81000; 84156

== ENCOUNTER → 2021-08-22 | Outpatient (CLI) | payer MEDICARE ==
[~2021-08-22] MED LIST changes: +CENTER ONLY IV SCH; +ECULIZUMAB IV SCH; +NS (IVPB) CANCER CENTER 250 ML IV SCH; +NS IV SCH; +[UNRECOGNIZED DRUG - OTHER] IV SCH
[2021-08-22 13:51] LABS: BASOPHILS # (AUTO) 0.1 10^3/uL (0.0-0.1); BASOPHILS % (AUTO) 1 % (0-10); EOSINOPHILS # (AUTO) 0.2 10^3/uL (0.0-0.3); EOSINOPHILS % (AUTO) 3 % (0-10); HEMATOCRIT 46 % (40-54); HEMOGLOBIN 15.6 g/dL (13.3-17.7); LYMPHOCYTES # (AUTO) 0.8 10^3/uL (1.0-4.0); LYMPHOCYTES % (AUTO) 12 % (12-44); MEAN CORPUSCULAR HEMOGLOBIN 32 pg (25-34); MEAN CORPUSCULAR HGB CONC 34 g/dL (32-36); MEAN CORPUSCULAR VOLUME 96 fL (80-99); MEAN PLATELET VOLUME 9.1 fL (9.0-12.2); MONOCYTES # (AUTO) 0.9 10^3/uL (0.0-1.0); MONOCYTES % (AUTO) 14 % (0-12); NEUTROPHILS # (AUTO) 4.5 10^3/uL (1.8-7.8); NEUTROPHILS % (AUTO) 70 % (42-75); PLATELET COUNT 232 10^3/uL (130-400); WHITE BLOOD COUNT 6.5 10^3/uL (4.3-11.0)
[2021-08-22 14:10] LABS: ALBUMIN 4.3 GM/DL (3.2-4.5); BILIRUBIN,TOTAL 0.6 MG/DL (0.1-1.0); CALCIUM 10.4 MG/DL (8.5-10.1); CREATININE SERUM 0.88 MG/DL (0.60-1.30); PHOSPHORUS 2.8 MG/DL (2.3-4.7); TOTAL PROTEIN 7.6 GM/DL (6.4-8.2)
[2021-08-23 00:59] LABS: FK506 8.6 ng/mL
== END ==
LOC: ONC 13:10
PROVIDERS: ATTEND Internal Medicine Hematology & Oncology
DX: Z51.11 Encounter for antineoplastic chemotherapy (principal); Z45.2 Encounter for adjustment and management of vascular access device; Z94.0 Kidney transplant status
CPT/HCPCS: 36591; 80053; 80061; 80069; 80197; 84100; 85025; 86160; 87799; 96365

== ENCOUNTER → 2021-09-04 | Outpatient (CLI) | payer MEDICARE ==
[~2021-09-04] MED LIST changes: -LEVO500T80 PO; +LEVO500T81 PO
== END ==
LOC: ONC 14:11
PROVIDERS: ATTEND Internal Medicine Hematology & Oncology
DX: D59.3 Hemolytic-uremic syndrome (principal); Z94.0 Kidney transplant status; I12.0 Hypertensive chronic kidney disease with stage 5 chronic kidney disease or end stage renal disease; N18.6 End stage renal disease; Z79.899 Other long term (current) drug therapy; Z79.82 Long term (current) use of aspirin; Z79.2 Long term (current) use of antibiotics; Z79.891 Long term (current) use of opiate analgesic; Z99.2 Dependence on renal dialysis; D63.1 Anemia in chronic kidney disease
CPT/HCPCS: 96365

== ENCOUNTER → 2021-09-19 | Outpatient (CLI) | payer MEDICARE ==
[2021-09-19 13:49] LABS: BASOPHILS % (AUTO) 0 % (0-10); EOSINOPHILS # (AUTO) 0.1 10^3/uL (0.0-0.3); EOSINOPHILS % (AUTO) 1 % (0-10); HEMATOCRIT 46 % (40-54); HEMOGLOBIN 15.2 g/dL (13.3-17.7); LYMPHOCYTES # (AUTO) 0.5 10^3/uL (1.0-4.0); LYMPHOCYTES % (AUTO) 6 % (12-44); MEAN CORPUSCULAR HEMOGLOBIN 32 pg (25-34); MEAN CORPUSCULAR HGB CONC 33 g/dL (32-36); MEAN CORPUSCULAR VOLUME 97 fL (80-99); MEAN PLATELET VOLUME 9.5 fL (9.0-12.2); MONOCYTES # (AUTO) 0.5 10^3/uL (0.0-1.0); MONOCYTES % (AUTO) 5 % (0-12); NEUTROPHILS # (AUTO) 8.2 10^3/uL (1.8-7.8); NEUTROPHILS % (AUTO) 87 % (42-75); PLATELET COUNT 226 10^3/uL (130-400); WHITE BLOOD COUNT 9.4 10^3/uL (4.3-11.0)
[2021-09-19 14:12] LABS: ALBUMIN 3.9 GM/DL (3.2-4.5); BILIRUBIN,TOTAL 0.5 MG/DL (0.1-1.0); CALCIUM 9.6 MG/DL (8.5-10.1); CREATININE SERUM 1.01 MG/DL (0.60-1.30); PHOSPHORUS 1.6 MG/DL (2.3-4.7); POTASSIUM 4.6 MMOL/L (3.6-5.0); TOTAL PROTEIN 6.9 GM/DL (6.4-8.2)
[2021-09-19 16:28] LABS: BILIRUBIN,URINE NEGATIVE (NEGATIVE); CLARITY,URINE CLEAR; COLOR,URINE YELLOW; GLUCOSE, URINE (UA) 3+ (NEGATIVE); KETONES,URINE NEGATIVE (NEGATIVE); LEUKOCYTE ESTERASE ,URINE NEGATIVE (NEGATIVE); NITRITE,URINE NEGATIVE (NEGATIVE); PROTEIN,URINE NEGATIVE (NEGATIVE)
[2021-09-19 16:39] LABS: BACTERIA,URINE NEGATIVE /HPF
[2021-09-20 00:58] LABS: FK506 7.4 ng/mL
== END ==
LOC: ONC 13:27
PROVIDERS: ATTEND Internal Medicine Hematology & Oncology
DX: Z51.11 Encounter for antineoplastic chemotherapy (principal); Z45.2 Encounter for adjustment and management of vascular access device; D59.3 Hemolytic-uremic syndrome; E11.00 Type 2 diabetes mellitus with hyperosmolarity without nonketotic hyperglycemic-hyperosmolar coma (NKHHC); E11.65 Type 2 diabetes mellitus with hyperglycemia; E11.22 Type 2 diabetes mellitus with diabetic chronic kidney disease; I12.0 Hypertensive chronic kidney disease with stage 5 chronic kidney disease or end stage renal disease; N18.6 End stage renal disease; Z94.0 Kidney transplant status
CPT/HCPCS: 80053; 80197; 81000; 83036; 84100; 85025; 87799; 96365; G0463; 36591; 99213

== ENCOUNTER → 2021-10-03 | Outpatient (CLI) | payer MEDICARE | LOC: ONC 13:00 | PROVIDERS: ATTEND Internal Medicine Hematology & Oncology | DX: D59.3 Hemolytic-uremic syndrome (principal); I12.0 Hypertensive chronic kidney disease with stage 5 chronic kidney disease or end stage renal disease; N18.6 End stage renal disease; D63.1 Anemia in chronic kidney disease; R73.9 Hyperglycemia, unspecified; Z94.0 Kidney transplant status; Z99.2 Dependence on renal dialysis | CPT/HCPCS: 96365 ==

== ENCOUNTER → 2021-10-17 | Outpatient (CLI) | payer MEDICARE ==
[2021-10-17 13:32] LABS: BASOPHILS # (AUTO) 0.1 10^3/uL (0.0-0.1); BASOPHILS % (AUTO) 1 % (0-10); EOSINOPHILS # (AUTO) 0.3 10^3/uL (0.0-0.3); EOSINOPHILS % (AUTO) 4 % (0-10); HEMATOCRIT 40 % (40-54); HEMOGLOBIN 13.4 g/dL (13.3-17.7); LYMPHOCYTES # (AUTO) 0.9 10^3/uL (1.0-4.0); LYMPHOCYTES % (AUTO) 12 % (12-44); MEAN CORPUSCULAR HEMOGLOBIN 32 pg (25-34); MEAN CORPUSCULAR HGB CONC 34 g/dL (32-36); MEAN CORPUSCULAR VOLUME 95 fL (80-99); MEAN PLATELET VOLUME 9.9 fL (9.0-12.2); MONOCYTES # (AUTO) 0.8 10^3/uL (0.0-1.0); MONOCYTES % (AUTO) 11 % (0-12); NEUTROPHILS # (AUTO) 5.4 10^3/uL (1.8-7.8); NEUTROPHILS % (AUTO) 72 % (42-75); PLATELET COUNT 197 10^3/uL (130-400); WHITE BLOOD COUNT 7.5 10^3/uL (4.3-11.0)
[2021-10-17 13:53] LABS: ALBUMIN 4.1 GM/DL (3.2-4.5); CALCIUM 9.7 MG/DL (8.5-10.1); CREATININE SERUM 1.06 MG/DL (0.60-1.30); PHOSPHORUS 2.8 MG/DL (2.3-4.7); POTASSIUM 3.9 MMOL/L (3.6-5.0)
[2021-10-18 02:07] LABS: FK506 14.8 ng/mL
== END ==
LOC: ONC 13:07
PROVIDERS: ATTEND Internal Medicine Hematology & Oncology
DX: Z51.11 Encounter for antineoplastic chemotherapy (principal); Z45.2 Encounter for adjustment and management of vascular access device; D59.3 Hemolytic-uremic syndrome; I10 Essential (primary) hypertension; R73.9 Hyperglycemia, unspecified; Z94.0 Kidney transplant status
CPT/HCPCS: 36591; 80069; 80197; 85025; 87799; 96365

== ENCOUNTER → 2021-10-31 | Outpatient (CLI) | payer MEDICARE | LOC: ONC 12:52 | PROVIDERS: ATTEND Internal Medicine Hematology & Oncology | DX: Z51.11 Encounter for antineoplastic chemotherapy (principal); D59.3 Hemolytic-uremic syndrome; I12.0 Hypertensive chronic kidney disease with stage 5 chronic kidney disease or end stage renal disease; N18.6 End stage renal disease; R73.9 Hyperglycemia, unspecified; Z99.2 Dependence on renal dialysis; Z94.0 Kidney transplant status; D63.1 Anemia in chronic kidney disease | CPT/HCPCS: 96365 ==

== ENCOUNTER → 2021-11-15 | Outpatient (CLI) | payer MEDICARE ==
[2021-11-15 14:15] LABS: BASOPHILS % (AUTO) 1 % (0-10); EOSINOPHILS # (AUTO) 0.2 10^3/uL (0.0-0.3); EOSINOPHILS % (AUTO) 3 % (0-10); HEMATOCRIT 46 % (40-54); HEMOGLOBIN 15.8 g/dL (13.3-17.7); LYMPHOCYTES % (AUTO) 14 % (12-44); MEAN CORPUSCULAR HEMOGLOBIN 31 pg (25-34); MEAN CORPUSCULAR HGB CONC 34 g/dL (32-36); MEAN CORPUSCULAR VOLUME 91 fL (80-99); MEAN PLATELET VOLUME 10.4 fL (9.0-12.2); MONOCYTES # (AUTO) 0.6 10^3/uL (0.0-1.0); MONOCYTES % (AUTO) 8 % (0-12); NEUTROPHILS # (AUTO) 5.4 10^3/uL (1.8-7.8); NEUTROPHILS % (AUTO) 74 % (42-75); PLATELET COUNT 234 10^3/uL (130-400); WHITE BLOOD COUNT 7.3 10^3/uL (4.3-11.0)
[2021-11-15 14:39] LABS: ALANINE AMINOTRANSFERASE 71 U/L (0-55); ALBUMIN 4.3 GM/DL (3.2-4.5); ALKALINE PHOSPHATASE 122 U/L (40-136); BUN/CREATININE RATIO 13; CARBON DIOXIDE 18 MMOL/L (21-32); CHLORIDE 98 MMOL/L (98-107); CHOLESTEROL 235 MG/DL (< 200); CREATININE SERUM 1.22 MG/DL (0.60-1.30); GFR ESTIMATED 78; GLUCOSE 313 MG/DL (70-105); HDL CHOLESTEROL 30 MG/DL (40-60); PHOSPHORUS 2.9 MG/DL (2.3-4.7); POTASSIUM 3.9 MMOL/L (3.6-5.0); SODIUM 132 MMOL/L (135-145); TOTAL PROTEIN 7.5 GM/DL (6.4-8.2); TRIGLYCERIDES 431 MG/DL (<150)
[2021-11-16 01:12] LABS: FK506 5.9 ng/mL
== END ==
LOC: ONC 13:08
PROVIDERS: ATTEND Internal Medicine Hematology & Oncology
DX: Z51.11 Encounter for antineoplastic chemotherapy (principal); Z45.2 Encounter for adjustment and management of vascular access device; D59.3 Hemolytic-uremic syndrome; N18.6 End stage renal disease; I10 Essential (primary) hypertension; R73.9 Hyperglycemia, unspecified; Z99.2 Dependence on renal dialysis; Z94.0 Kidney transplant status
CPT/HCPCS: 96365; G0463; 36591

== ENCOUNTER → 2021-11-29 | Outpatient (CLI) | payer MEDICARE | LOC: ONC 10:59 | PROVIDERS: ATTEND Internal Medicine Hematology & Oncology | DX: Z51.11 Encounter for antineoplastic chemotherapy (principal); Z45.2 Encounter for adjustment and management of vascular access device; D59.3 Hemolytic-uremic syndrome; I12.0 Hypertensive chronic kidney disease with stage 5 chronic kidney disease or end stage renal disease; N18.6 End stage renal disease; R73.9 Hyperglycemia, unspecified; Z99.2 Dependence on renal dialysis; Z94.0 Kidney transplant status | CPT/HCPCS: 96360; 96365; 96523 ==

== ENCOUNTER 2021-12-03 13:58 | Inpatient (IN) | payer MEDICARE ==
[~2021-12-03] VITALS: Ht 175.3 cm; Wt 85.4 kg
[2021-12-03] VITALS (10 sets, daily range): BP systolic 125–176; BP diastolic 90–130
[~2021-12-03 13:58] MED LIST changes: -CENTER ONLY IV SCH; -ECULIZUMAB IV SCH; -NS (IVPB) CANCER CENTER 250 ML IV SCH; -NS IV SCH; -[UNRECOGNIZED DRUG - OTHER] IV SCH
[2021-12-03 14:55] LABS: BASOPHILS # (AUTO) 0.1 10^3/uL (0.0-0.1); BASOPHILS % (AUTO) 1 % (0-10); EOSINOPHILS % (AUTO) 0 % (0-10); HEMATOCRIT 50 % (40-54); HEMOGLOBIN 16.5 g/dL (13.3-17.7); LYMPHOCYTES # (AUTO) 0.5 10^3/uL (1.0-4.0); LYMPHOCYTES % (AUTO) 6 % (12-44); MEAN CORPUSCULAR HEMOGLOBIN 31 pg (25-34); MEAN CORPUSCULAR HGB CONC 33 g/dL (32-36); MEAN CORPUSCULAR VOLUME 95 fL (80-99); MEAN PLATELET VOLUME 10.3 fL (9.0-12.2); MONOCYTES # (AUTO) 0.7 10^3/uL (0.0-1.0); MONOCYTES % (AUTO) 7 % (0-12); NEUTROPHILS # (AUTO) 7.5 10^3/uL (1.8-7.8); NEUTROPHILS % (AUTO) 85 % (42-75); PLATELET COUNT 283 10^3/uL (130-400); WHITE BLOOD COUNT 8.9 10^3/uL (4.3-11.0)
[2021-12-03] MEDS ORDERED: CATHETER FLUSH 10 ML SYR IV PRN (15:00)
[2021-12-03] MEDS ORDERED: ONDANSETRON 4 MG/2 ML (SDV) Z0FRAN IVP ONE (15:00)
[2021-12-03] MEDS: NS IV 1000 ML 1,000 ML IV SCH ×2 (15:08→16:00)
[2021-12-03 15:30] LABS: BAND NEUTROPHILS 3 %; BASOPHILS % (MANUAL) 1 %; EOSINOPHILS % (MANUAL) 2 %; LYMPHOCYTES % (MANUAL) 2 %; MONOCYTES % (MANUAL) 8 %; NEUTROPHILS % (MANUAL) 84 %
[2021-12-03 15:31] LABS: ALBUMIN 4.4 GM/DL (3.2-4.5); BILIRUBIN,TOTAL 0.8 MG/DL (0.1-1.0); CALCIUM 10.9 MG/DL (8.5-10.1); CREATININE SERUM 2.2 MG/DL (0.60-1.30); RBC MORPH NORMAL; TOTAL PROTEIN 7.8 GM/DL (6.4-8.2)
[2021-12-03] MEDS ORDERED: POTASSIUM CL 10MEQ/50ML IVPB 50 ML IV SCH (17:00)
[2021-12-03] MEDS ORDERED: NS IV 1000 ML 1,000 ML IV SCH (17:00)
--- NOTE | 2021-12-03 17:03 | History & Physical ---
History of Present Illness History of Present Illness Reason for visit/HPI CHULA IS 36 Y/O MALE WHO IS WELL KNOWN TO ME FROM CLINIC. THE PATIENT PRESENTED TO THE OFFICE TODAY WITH NAUSEA AND EMESIS FOR A FEW DAYS WITH DECREASED FOOD INTAKE. HIS MOM REPORTS THAT HE HAS NOT FELT WELL FOR A FEW WEEKS AND SHE HAS BEEN ASKING HIM TO CALL THE OFFICE BUT HE WOULD NOT CALL FOR AN APPOINTMENT. UPON REVIEW OF OLD LABS, IT WAS NOTED THAT HE HAD BEEN MILDLY HYPONATREMIC ON O NCOLOGY LABS WITH ELEVATED GLUCOSE IN THE 300 RANGE WITHOUT MY OFFICE BEING NOTIFIED OF HIS ABNORMAL LABS AND WITHOUT ONCOLOGY ACTIVELY TREATING THE ISSUE. CHULA WAS SENT FOR STAT LABS AND FLUIDS AT THE [facility]OSPITAL DAY SURGERY [facility]IT SINCE WE DID NOT HAVE ANY ACUTE EVIDENCE OF OTHER ILLNESS AND HE WAS NOT IN DISTRESS WITH NORMAL VITAL SIGNS AT THE OFFICE. WE RECEIVED A PHONE CALL FROM DAY SURGERY WITH HIS BLOOD GLUCOSE OF 1050, SODIUM OF 123, AND HE WAS ADMITTED TO THE ICU FOR DKA. HOME MEDICATIONS LISTED FROM THE OFFICE AND CONFIRMED BY PT'S MOTHER ARE FOLLOWS: PREDNISONE 5MG DAILY AMPICILLIN 500MG BID DULOXETINE 60MG DAILY NYSTATIN SUSPENSION PROTONIX 40MG DAILY PRN OXYCODONE 10/325MG BID PRN ASA 81MG DAILY COREG 25MG 1.5 TAB BID HYDRALAZINE 100MG TID VITAMIN D 3 5000 UNITS DAILY MYCOPHENOLATE 360MG BID TACROLIUMUS ER 1MG DAILY Date of Admission Dec 03, 2021 at 16:40 Date Seen by a Provider: Dec 03, 2021 Time Seen by a Provider: 17:00 Attending Physician Timothy Miles MD Admitting Physician Timothy Miles MD Consult EICU Allergies and Home Medications Allergies Coded Allergies: No Known Drug Allergies (Unverified , 06/28/16) Patient Home Medication List Home Medication List Reviewed: Yes Alprazolam (Xanax) 1 Mg Tablet, 0.5-1 MG PO BID PRN for ANXIETY, (Reported) Entered as Reported by: ROXI LUIS on 11/16/17 1358 Ampicillin Trihydrate (Ampicillin Trihydrate) 500 Mg Capsule, 500 MG PO BID, (Reported) Entered as Reported by: ROXI LUIS on 11/16/17 1358 Calcium Acetate (Calcium Acetate) 667 Mg Capsule, 1,334-2,668 MG PO UD, (Reported) Entered as Reported by: ROXI LUIS on 11/16/17 1358 Eculizumab (Soliris) 300 Mg/30 Ml Vial, 1,200 MG IV every 2 weeks, (Reported) Entered as Reported by: MISAEL DUGAN on 07/26/16 0640 Last Action: Reviewed Ondansetron (Zofran Odt) 4 Mg Tab.rapdis, 4-8 MG PO Q6H PRN for NAUSEA/VOMITING, (Reported) Entered as Reported by: WALLACE RILEY on 06/28/16 1507 Ondansetron (Ondansetron Odt) 4 Mg Tab.rapdis, 4 MG PO Q6H PRN for NAUSEA/VOMITING Prescribed by: ALICE WELLINGTON on 10/10/19 190 Oxycodone HCl/Acetaminophen (Percocet 10-325 mg Tablet) 1 Each Tablet, 1 TAB PO Q4H PRN for PAIN, (Reported) Entered as Reported by: MISAEL DUGAN on 07/26/16 0640 Promethazine HCl (Promethazine HCl) 12.5 Mg Tablet, 12.5-25 MG PO Q6H PRN for NAUSEA/VOMITING, (Reported) Entered as Reported by: WALLACE RILEY on 06/28/16 1507 Discontinued Medications Amlodipine Besylate (Amlodipine Besylate) 10 Mg Tablet, 10 MG PO DAILY, (Reported) Entered as Reported by: WALLACE RILEY on 06/28/16 1507 Last Action: Discontinued Doxazosin Mesylate (Doxazosin Mesylate) 4 Mg Tablet, 8 MG PO BID, (Reported) Entered as Reported by: ROXI LUIS on 11/16/17 1358 Last Action: Discontinued Doxazosin Mesylate (Doxazosin Mesylate) 4 Mg Tablet, 8 MG PO 1600 PRN for BLOOD PRESSURE, (Reported) Entered as Reported by: ROXI LUIS on 11/16/17 1425 Last Action: Discontinued Escitalopram Oxalate (Escitalopram Oxalate) 10 Mg Tablet, 10 MG PO HS, (Reported) Entered as Reported by: ROXI LUIS on 11/16/17 1358 Last Action: Discontinued Fentanyl (Fentanyl Patch 50 MCG) 1 Each Patch.td72, 50 MCG TD WEEK, (Reported) Entered as Reported by: ROXI LUIS on 11/16/17 1358 Last Action: Discontinued Furosemide (Lasix) 80 Mg Tablet, 80 MG PO BID PRN for FLUID RETENTION, (Reported) Entered as Reported by: ROXI LUIS on 11/16/17 1359 Last Action: Discontinued Levofloxacin (Levofloxacin) 500 Mg Tablet, 500 MG PO DAILY Prescribed by: ROMANA CHAVEZ on 09/12/19 1009 Last Action: Discontinued Metoprolol Tartrate (Metoprolol Tartrate) 100 Mg Tablet, 150 MG PO BID, (Reported) Entered as Reported by: WALLACE RILEY on 06/28/16 1507 Last Action: Discontinued Omeprazole (Omeprazole) 40 Mg Capsule.dr, 40 MG PO DAILY, (Reported) Entered as Reported by: MK WIER on 08/30/16 0706 Last Action: Discontinued Valsartan (Valsartan) 320 Mg Tablet, 320 MG PO DAILY, (Reported) Entered as Reported by: WALLACE RILEY on 06/28/16 1506 Last Action: Discontinued Past Suwfnds-Msexsj-Qalmev Hx Patient Social History Marrital Status: single Number of Children: 0 Number of living children: 0 Living Status: LIVES WITH PARENTS Employed/Student: unemployed (ON DISABILITY - PREVIOUSLY WAS A [employer]) Tobacco Use?: No Smoking Status: Never a Smoker Use of E-Cig and/or Vaping dev: No Substance use?: No Alcohol Use?: No Immunizations Up To Date Date of Influenza Vaccine: Aug 12, 2019 Seasonal Allergies Seasonal Allergies: No Current Status Advance Directives: No Communicates: Verbally Primary Language: Trinidadian Preferred Spoken Language: Trinidadian Is interpretation needed?: No Implanted or Applied Medical D: None Past Medical History Surgeries: Dialysis (FISTULA), Gallbladder, Pancreatic, Renal (KIDNEY TRANSPLANT), Vascular Surgery (FISTULA) Pneumonia Hypertension Neuropathy Renal Failure, Dialysis (STOPPED AFTER RENAL TRANSPLANT) Chronic Constipation, Pancreatitis Diabetes, Non-Insulin dep Are Your Blood Sugars Over 250: Yes (NEWLY DIAGNOSED 2021) Loss of Vision: Denies Hearing Impairment: Denies What Type of Treatment Did You: Chemotherapy (FOR ATYPICAL HEMOLYTIC UREMIC SYNDROME) Anxiety, Depression Blood Disorders: Yes (ATYPICAL HUS) Family Medical History Reviewed and Corrections made Heart Disease, Hypertension, Psychiatric Problems (NEWPHEW - BY SUICIDE IN 2020) Review of Systems Constitutional: No chills, No dizziness, No fever; malaise, weakness, weight loss (ACUTE WT LOSS OF 15# IN A FEW WEEKS) EENTM: mouth pain, throat pain Respiratory: No cough, No dyspnea on exertion, No short of breath, No wheezing Cardiovascular: No chest pain, No palpitations Gastrointestinal: No abdominal pain, No constipation, No diarrhea, No dy sphagia; loss of appetite, nausea, vomiting Genitourinary: no symptoms reported Musculoskeletal: No back pain; muscle pain, muscle weakness Skin: No change in color; dryness; No pruritus, No rash Psychiatric/Neurological: Anxiety, Depressed; Denies Headache, Denies Numbness, Denies Paresthesia, Denies Pre-Existing Deficit, Denies Seizure; Weakness (GENERALIZED) All Other Systems Reviewed Negative Unless Noted: Yes Physical Exam Vital Signs Vital Signs - First Documented 12/03/21 14:57 Temp 36.0 Pulse 87 Resp 18 B/P (MAP) 133/99 Pulse Ox 97 O2 Delivery Room Air Capillary Refill : Less Than 3 Seconds Height, Weight, BMI Height: 5'8.00" Weight: 175lbs. 0oz. 79.278115fj; 24.00 BMI Method:Stated General Appearance: WD/WN, Chronically ill, Other (TEARFUL) HEENT: PERRL/EOMI, Other (THRUSH COATING TONGUE) Neck: Full Range of Motion, Non Tender, Supple Respiratory: Chest Non Tender, Lungs Clear, Normal Breath Sounds, No Accessory Muscle Use, No Respiratory Distress Cardiovascular: Regular Rate, Rhythm, No Edema, Normal Peripheral Pulses Gastrointestinal: Normal Bowel Sounds, No Organomegaly, No Pulsatile Mass, Non Tender, Soft, Other (LARGE SCAR ACROSS UPPER AND LOWER ABDOMEN) Rectal: Deferred Back: Normal Inspection, No Vertebral Tenderness Extremity: Normal Capillary Refill, Normal Inspection, Normal Range of Motion, Non Tender, No Calf Tenderness, No Pedal Edema Neurologic/Psychiatric: Alert, Oriented x3, No Motor/Sensory Deficits, tanning drum 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 - ABG AND BETA HYDROXYBUTYRATE PENDING AT TIME OF NOTE. PT STARTED ON DKA PROTOCOL, MONITOR LABS, SERIAL FSBS, AND WILL SUPPORT WITH FLUIDS AND INSULIN DRIP. HYPONATREMIA - IV FLUIDS GIVEN IN DAY SURGERY OF NORMAL SALINE, WILL CONTINUE WITH FLUID SUPPORT, REGULAR DIET TOLERATED, ONCE TREATMENT OF DKA, SHOULD SEE SOME ELECTROLYTE CORRECTIONS. NEW ONSET DIABETES MELLITUS - STEROID INDUCED - PT ON STEROID SUPPRESSION OF IMMUNE SYSTEM WILL HAVE TO GET DIETARY INVOLVED PRIOR TO DISCHARGE AND SEE ABOUT ONE ON ONE COUNSELING FOR STATION CASHIER PLAN DUE TO CHULA'S COMPLICATED MEDICAL PICTURE. NAUSEA AND EMESIS - IV ZOFRAN, PROMETHAZINE - IV PPI CHRONIC HYPERTENSION - RESUMED HOME REGIMEN WITH PARAMETERS ON HYDRALAZINE. RENAL TRANSPLANT RECIPIENT ON CHRONIC IMMUNOSUPPRESSIVE MEDICATION USE WITH CHRONIC STEROID USE - PT TO BE GIVEN A ONE TIME DOSE OF IV SOLUMEDROL FOR STRESS DOSING - NOT THE USUAL HIGHER DOSE OF STRESS DOSED STEROIDS, BUT WITH HIS VERY ELEVATED GLUCOSE, THE 20MG DOSE WAS THE SAFEST OPTION FOR STRESS DOSING SINCE HE HAS MISSED OR HAD EMESIS WITH SOME OF HIS USUAL MEDICATIONS. - RESTART HIS MYCOPHENOLATE AND TACROLIMUS DOSING - FAMILY TO BRING IN CHULA'S HOME MEDICATIONS. - ALSO RESUMED HIS AMPICILLIN FOR INFECTION PREVENTION WHILE ON IMMUNOSUPPRESSIVE MEDICATIONS. DEPRESSION WITH ANXIETY - DISCUSSED WITH CHULA - WILL GIVE A LOW DOSE OF PRN XANAX TONIGHT. - RESUME CYMBALTA TOMORROW. ATYPICAL HEMOLYTIC UREMIC SYNDROME - PT RECENTLY HAD HIS CHEMOTHERAPY - SHOULD NOT BE DUE WHILE IN THE HOSPITA. Admission Diagnosis DIABETIC KETOACIDOSIS HYPONATREMIA NEW ONSET DIABETES MELLITUS - STEROID INDUCED NAUSEA EMESIS CHRONIC HYPERTENSION RENAL TRANSPLANT RECIPIENT CHRONIC IMMUNOSUPPRESSIVE MEDICATION USE CHRONIC STEROID USE DEPRESSION ANXIETY ATYPICAL HEMOLYTIC UREMIC SYNDROME Admission Status: Inpatient Order (span 2 midnights) Reason for Inpatient Admission: INPATIENT ADMISSION FOR DKA, WILL REQUIRE AT LEAST 72 HOURS FOR STABILIZATION AND TREATMENT. TIMOTHY MILES MD Dec 03, 2021 17:02
[2021-12-03] MEDS ORDERED: inSUlin REGULAR HUMAN VIAL 250 UNITS in NORMAL SALINE 250 ML IV SCH (17:30)
[2021-12-03] MEDS ORDERED: PROMETHAZINE INJ 25 MG/ML (PHENERGAN) AMP IVP PRN (17:45)
[2021-12-03] MEDS ORDERED: ALPRAZolam 0.25 MG (XANAX) TAB PO PRN (17:45)
[2021-12-03 17:53] LABS: HEMATOCRIT 42 % (40-54); HEMOGLOBIN 14.3 g/dL (13.3-17.7); MEAN CORPUSCULAR HEMOGLOBIN 31 pg (25-34); MEAN CORPUSCULAR HGB CONC 35 g/dL (32-36); MEAN CORPUSCULAR VOLUME 91 fL (80-99); MEAN PLATELET VOLUME 10.1 fL (9.0-12.2); PLATELET COUNT 186 10^3/uL (130-400)
[2021-12-03 17:54] LABS: ABG BASE EXCESS -9.7 MMOL/L (-2.5-2.5); ABG OXYGEN SATURATION 97 % (94-100); ABG PCO2 34 MMHG (35-45); ABG PO2 89 MMHG (79-93); ABG TCO2 16.7 MMOL/L (21.0-31.0)
[2021-12-03 17:56] LABS: ABG PH 7.29 (7.37-7.43); ALLENS TEST POSITIVE; PATIENT TEMP 37; VENTILATOR NO
[2021-12-03 17:56] LABS: BILIRUBIN,URINE NEGATIVE (NEGATIVE); CLARITY,URINE CLEAR; COLOR,URINE YELLOW; GLUCOSE, URINE (UA) 3+ (NEGATIVE); KETONES,URINE 3+ (NEGATIVE); LEUKOCYTE ESTERASE ,URINE NEGATIVE (NEGATIVE); NITRITE,URINE NEGATIVE (NEGATIVE); PH,URINE 5.5 (5-9); PROTEIN,URINE NEGATIVE (NEGATIVE)
[2021-12-03 18:00] LABS: POTASSIUM 4.2 MMOL/L (3.6-5.0)
[2021-12-03 18:01] LABS: CALCIUM 9.1 MG/DL (8.5-10.1)
[2021-12-03 18:05] LABS: CREATININE SERUM 1.36 MG/DL (0.60-1.30)
[2021-12-03 18:06] LABS: AMORPHOUS SEDIMENT,UR RARE AMOR URATES /LPF; BACTERIA,URINE NEGATIVE /HPF
[2021-12-03] MEDS: 1/2 NS IV SOLUTION 1,000 ML IV SCH ×2 (18:26→22:28)
[2021-12-03] MEDS: POTASSIUM CL 10MEQ/50ML IVPB 50 ML IV SCH ×3 (18:27→22:29)
[2021-12-03] MEDS: NYSTATIN ORAL SUSP 5 ML UDC PO SCH (18:27)
[2021-12-03] MEDS: ENOXAPARIN 40 MG/0.4 ML (LOVENOX) SYR SC SCH (18:28)
[2021-12-03] MEDS ORDERED: PANTOPRAZOLE 40 MG (PROTONIX) VIAL IV ONE (19:00)
[2021-12-03] MEDS ORDERED: oxyCODONE/APAP 10/325MG (PERCOCET 10) TABLET PO PRN (19:00)
[2021-12-03] MEDS ORDERED: PATIENT MAY USE OWN MED,SINGLE MED PO SCH ×2 (20:00→20:30)
[2021-12-03] MEDS ORDERED: methylPREDNISolone 40 MG/ML (Solu-MEDROL) VIAL IV NR (20:00)
--- NOTE | 2021-12-03 20:10 | Tele-ICU Consult ---
History of Present Illness History of Present Illness Date Seen by Provider: Dec 03, 2021 Time Seen by Provider: 20:08 Date of Admission Allergies and Home Medications Allergies Coded Allergies: No Known Drug Allergies (Unverified , 06/28/16) Home Medications Alprazolam 1 Mg Tablet, 0.5-1 MG PO BID PRN for ANXIETY, (Reported) TAKES 1/2-1 OF A (1 MG) TABLET Ampicillin Trihydrate 500 Mg Capsule, 500 MG PO BID, (Reported) MAY BE TAKEN UP TO THREE TIMES DAILY PROPHYLATICALLY Calcium Acetate 667 Mg Capsule, 1,334-2,668 MG PO UD, (Reported) TAKES 2 (667 MG) CAPSULES FOR SNACKS & 4 (667 MG) CAPSULES WITH MEALS Eculizumab 300 Mg/30 Ml Vial, 1,200 MG IV every 2 weeks, (Reported) Ondansetron 4 Mg Tab.rapdis, 4-8 MG PO Q6H PRN for NAUSEA/VOMITING, (Reported) TAKES 1-2 OF A (4 MG) TABLET Ondansetron 4 Mg Tab.rapdis, 4 MG PO Q6H PRN for NAUSEA/VOMITING Prescribed by: ALICE WELLINGTON on 10/10/191900 Oxycodone HCl/Acetaminophen 1 Each Tablet, 1 TAB PO Q4H PRN for PAIN, (Reported) Promethazine HCl 12.5 Mg Tablet, 12.5-25 MG PO Q6H PRN for NAUSEA/VOMITING, (Reported) TAKES 1-2 OF A (12.5 MG) TABLET Past Medical/Social/Family Hx Patient Social History Marrital Status: single Number of Children: 0 Number of living children: 0 Living Status: LIVES WITH PARENTS Employed/Student: unemployed (ON DISABILITY - PREVIOUSLY WAS A [employer]) Tobacco Use?: No Smoking Status: Never a Smoker Use of E-Cig and/or Vaping dev: No Substance use?: No Alcohol Use?: No Immunizations Up To Date Influenza Vaccine Up-to-Date: Yes; Up-to-Date Current Status Advance Directives: No Communicates: Verbally Primary Language: Eritrean Preferred Spoken Language: Eritrean Is interpretation needed?: No Implanted or Applied Medical D: None Review of Systems Constitutional: see HPI Focused Exam Height, Weight, BMI Height: 5'8.00" Weight: 175lbs. 0oz. 79.464616cp; 24.00 BMI Method:Stated Exam Exam Patient acknowledged, consented, and participated in this virtual visit which was conducted using real time audio/video Vital Signs Date Time Temp Pulse Resp B/P (MAP) Pulse Ox O2 Delivery O2 Flow Rate FiO2 12/03/21 17:17 80 12/03/21 17:15 70 9 155/130 (138) 96 Room Air 12/03/21 14:57 36.0 87 18 133/99 97 Room Air Height & Weight Height: 5'8.00" Weight: 175lbs. 0oz. 79.606324yd; 24.00 BMI Method:Stated General Appearance: No Apparent Distress, WD/WN, Chronically ill, Other (TEAR FUL) HEENT: PERRL/EOMI, Other (THRUSH COATING TONGUE) Neck: Full Range of Motion, Non Tender, Supple Respiratory: Chest Non Tender, Lungs Clear, Normal Breath Sounds, No Accessory Muscle Use, No Respiratory Distress Cardiovascular: Regular Rate, Rhythm, No Edema, Normal Peripheral Pulses Capillary Refill: Less Than 3 Seconds Extremity: Normal Capillary Refill, Normal Inspection, Normal Range of Motion, Non Tender, No Calf Tenderness, No Pedal Edema Neurologic/Psychiatric: Alert, Oriented x3, No Motor/Sensory Deficits, performance management consultant II- XII Norm as Tested, Other (FLAT AFFECT) Skin: Normal Color, Warm/Dry Lymphatic: No Adenopathy Results Lab Laboratory Tests 12/03/21 14:50 12/03/21 17:40 Assessment/Plan Assessment/Plan (Tele-ICU Physician , consultation) Available chart/ vitals / labs / Images reviewed H&P is from ER notes Patient's information available about PMH, Shx, Fhx allergy reviewed in EMR. ROS as per chart and RN report Now in ICU, hemodynamically stable Video assessment done using teleICU camera, rest of exam as per RN Discussed with RN. Consultants: Hospital course: A/P DKA , new onset DM -insulin drip continue to monitor for resolution of acidosis, AG and electrolytes. Continue hydration. -Tx Gastroparesis ZEKE - dehydration - cont IVF - follow closely Pseudo- [id number] - corrected Na on admission 143 - follow closely S/p renal transplant , on tacrolomus and prednisone - to cont meds - monitor renal function - receivd 20 mg Solu medtol x1 - follow VTE Prophylaxis: kenya 40 Stress Ulcer Prophylaxis: Plans in collaboration with bedside consultants and IM MDs. Discussed with RN to reach out if any questions or concerns A total of 31 minutes of critical care time was devoted to this patient today, required to treat and/or prevent further deterioration of critical care condition ( as above ) . JUSTINE CHAHAL MD Dec 03, 2021 20:10
[2021-12-03] MEDS: AMPICILLIN FOR IV USE 500 MG in NS (IVPB) 50 ML IV SCH (20:18)
[2021-12-03] MEDS: ONDANSETRON 4 MG/2 ML (SDV) Z0FRAN IVP PRN (20:18)
[2021-12-03 21:02] LABS: POTASSIUM 3.6 MMOL/L (3.6-5.0)
[2021-12-03 21:03] LABS: CALCIUM 8.8 MG/DL (8.5-10.1)
[2021-12-03 21:08] LABS: CREATININE SERUM 1.21 MG/DL (0.60-1.30)
[2021-12-03] MEDS: [UNRECOGNIZED DRUG - OTHER] PO SCH (22:08)
[2021-12-03] MEDS: SUCRALFATE 1 GM (CARAFATE) TAB PO SCH (22:08)
[2021-12-03] MEDS: hydrALAZINE (APRESOLINE) 25 MG TAB PO SCH (22:09)
[2021-12-04] VITALS (24 sets, daily range): BP systolic 115–139; BP diastolic 78–105
[2021-12-04] MEDS: POTASSIUM CL 10MEQ/50ML IVPB 50 ML IV SCH ×11 (00:29→20:58)
[2021-12-04] MEDS: NYSTATIN ORAL SUSP 5 ML UDC PO SCH ×5 (01:10→23:26)
[2021-12-04] MEDS: D5 1/2 NS 1000 ML IV SOLUTION 1,000 ML IV SCH ×4 (01:18→20:58)
[2021-12-04 01:48] LABS: POTASSIUM 3.8 MMOL/L (3.6-5.0)
[2021-12-04 01:49] LABS: CALCIUM 8.9 MG/DL (8.5-10.1)
[2021-12-04 01:53] LABS: CREATININE SERUM 1.02 MG/DL (0.60-1.30)
[2021-12-04] MEDS: 1/2 NS IV SOLUTION 1,000 ML IV SCH ×6 (02:30→23:26)
[2021-12-04 05:00] LABS: EOSINOPHILS % (AUTO) 0 % (0-10)
[2021-12-04 05:02] LABS: BASOPHILS % (AUTO) 0 % (0-10); HEMATOCRIT 34 % (40-54); HEMOGLOBIN 11.9 g/dL (13.3-17.7); LYMPHOCYTES # (AUTO) 0.6 10^3/uL (1.0-4.0); LYMPHOCYTES % (AUTO) 10 % (12-44); MEAN CORPUSCULAR HEMOGLOBIN 31 pg (25-34); MEAN CORPUSCULAR HGB CONC 35 g/dL (32-36); MEAN CORPUSCULAR VOLUME 91 fL (80-99); MEAN PLATELET VOLUME 9.7 fL (9.0-12.2); MONOCYTES # (AUTO) 0.5 10^3/uL (0.0-1.0); MONOCYTES % (AUTO) 9 % (0-12); NEUTROPHILS # (AUTO) 4.3 10^3/uL (1.8-7.8); NEUTROPHILS % (AUTO) 79 % (42-75); PLATELET COUNT 133 10^3/uL (130-400); WHITE BLOOD COUNT 5.4 10^3/uL (4.3-11.0)
[2021-12-04 05:14] LABS: PHOSPHORUS 2.2 MG/DL (2.3-4.7)
[2021-12-04 05:16] LABS: MAGNESIUM 1.6 MG/DL (1.6-2.4)
[2021-12-04 05:54] LABS: POTASSIUM 3.8 MMOL/L (3.6-5.0)
[2021-12-04 05:55] LABS: CALCIUM 8.8 MG/DL (8.5-10.1)
[2021-12-04 06:00] LABS: CREATININE SERUM 0.97 MG/DL (0.60-1.30)
[2021-12-04] MEDS: MAGNESIUM 1 GM/100 ML IVPB 100 ML IV SCH ×3 (06:24→06:39)
[2021-12-04] MEDS: KCL 20 MEQ TAB (K-DUR) PO SCH (06:24)
[2021-12-04] MEDS: SUCRALFATE 1 GM (CARAFATE) TAB PO SCH ×4 (06:38→20:56)
[2021-12-04] MEDS: hydrALAZINE (APRESOLINE) 25 MG TAB PO SCH ×3 (06:38→23:26)
[2021-12-04] MEDS: predniSONE 5 MG TAB PO SCH (06:38)
--- NOTE | 2021-12-04 07:42 | Progress Note ---
Subjective Subjective Date Seen by Provider: Dec 04, 2021 Time Seen by Provider: 07:30 Mr. Bear is being followed for DKA with a past medical history significant for a renal transplant. He reports this morning that he is feeling much better today than he was feeling yesterday. He denies nausea or vomiting this morning. He was able to tolerate a liquid diet last night. He does report pain in his epigastric region and lower sternum but it has abated since yesterday. He says the fluids and medicine seem to have really helped him. He was able to sleep well last night. We spoke about his hospital course and how this stay will most likely last a few days. He says he is alright with whatever needs to be done. Review of Systems General: No Chills, No Fatigue Pulmonary: No Dyspnea, No Cough Cardiovascular: Chest Pain (Lower sternum/epigastric); No: Palpitations Gastrointestinal: Abdominal Pain (Epigastric); No: Nausea (None this morning), Vomiting (None this morning) Genitourinary: No Dysuria, No Frequency Neurological: No: Weakness, Change in speech, Confusion All Other Systems Reviewed All Other Systems Reviewed: Yes Objective Exam Vital Signs Vital Signs Date Time Temp Pulse Resp B/P (MAP) Pulse Ox O2 Delivery O2 Flow Rate FiO2 12/04/21 06:00 60 13 125/87 (100) 94 Room Air 12/04/21 05:00 60 11 127/96 (106) 96 Room Air 12/04/21 04:00 98 Room Air 12/04/21 04:00 61 15 115/84 (94) 95 Room Air 12/04/21 03:00 68 15 116/83 (94) 93 Room Air 12/04/21 02:00 66 19 119/84 (97) 94 Room Air 12/04/21 01:00 70 18 129/90 (102) 94 Room Air 12/04/21 01:00 70 12/04/21 00:00 98 Room Air 12/04/21 00:00 70 14 123/89 (97) 94 Room Air 12/03/21 23:00 77 19 125/90 (100) 92 Room Air 12/03/21 22:00 70 21 142/111 (121) 95 Room Air 12/03/21 21:00 79 19 158/114 (135) 96 Room Air 12/03/21 20:00 98 Room Air 12/03/21 20:00 81 17 163/119 (135) 98 Room Air 12/03/21 19:45 82 28 165/121 (137) 98 Room Air 12/03/21 19:30 87 22 176/117 (135) 92 Room Air 12/03/21 19:15 82 21 162/113 (124) 98 Room Air 12/03/21 19:00 82 11 172/118 (140) 99 Room Air 12/03/21 19:00 36.7 Room Air 12/03/21 19:00 82 12/03/21 17:17 80 12/03/21 17:15 70 9 155/130 (138) 96 Room Air 12/03/21 17:00 96 Room Air 12/03/21 14:57 36.0 87 18 133/99 97 Room Air I & O 12/04/21 07:00 Intake Total 6560 ml Output Total 1800 ml Balance 4760 ml General Appearance: No Apparent Distress, WD/WN, Chronically ill HEENT: PERRL/EOMI Neck: Normal Inspection, Non Tender, Supple; No Lymphadenopathy (L), No Lymphadenopathy (R) Respiratory: Chest Non Tender, Lungs Clear, Normal Breath Sounds, No Accessory Muscle Use, No Respiratory Distress Cardiovascular: Regular Rate, Rhythm, No Edema, No Murmur, Normal Peripheral Pulses Gastrointestinal: Normal Bowel Sounds, No Organomegaly, No Pulsatile Mass, Soft, Tenderness (Tender to deep palpation in epigastric region) Extremity: Normal Capillary Refill, Normal Inspection, Normal Range of Motion, Non Tender, No Calf Tenderness, No Pedal Edema Neurologic/Psychiatric: Alert, Oriented x3, No Motor/Sensory Deficits, Normal Mood/Affect, termite control servicer II-XII Norm as Tested, Other (Patient in a much better mood/spirits this morning) Skin: Normal Color, Warm/Dry Lymphatic: No Adenopathy (Head and neck) Results Lab Laboratory Tests 12/03/21 14:50: White Blood Count 8.9, Red Blood Count 5.27, Hemoglobin 16.5, Hematocrit 50, Mean Corpuscular Volume 95, Mean Corpuscular Hemoglobin 31, Mean Corpuscular Hemoglobin Concent 33, Red Cell Distribution Width 14.1, Platelet Count 283, Mean Platelet Volume 10.3, Immature Granulocyte % (Auto) 1, Neutrophils (%) (Auto) 85H, Lymphocytes (%) (Auto) 6L, Monocytes (%) (Auto) 7, Eosinophils (%) (Auto) 0, Basophils (%) (Auto) 1, Neutrophils # (Auto) 7.5, Lymphocytes # (Auto) 0.5L, Monocytes # (Auto) 0.7, Eosinophils # (Auto) 0.0, Basophils # (Auto) 0.1, Immature Granulocyte # (Auto) 0.1, Neutrophils % (Manual) 84, Lymphocytes % (Manual) 2, Monocytes % (Manual) 8, Eosinophils % (Manual) 2, Basophils % (Man ual) 1, Band Neutrophils 3, Blood Morphology Comment NORMAL, Sodium Level 123*L, Potassium Level 5.0, Chloride Level 83L, Carbon Dioxide Level 18L, Anion Gap 22H , Blood Urea Nitrogen 21H, Creatinine 2.20H, Estimat Glomerular Filtration Rate 38, BUN/Creatinine Ratio 10, Glucose Level 1050*H, Calcium Level 10.9H, Corrected Calcium 10.6H, Total Bilirubin 0.8, Aspartate Amino Transf (AST/SGOT) 10, Alanine Aminotransferase (ALT/SGPT) 17, Alkaline Phosphatase 204H, Total Protein 7.8, Albumin 4.4 12/03/21 17:40: White Blood Count 7.0, Red Blood Count 4.56, Hemoglobin 14.3, Hematocrit 42, Mean Corpuscular Volume 91, Mean Corpuscular Hemoglobin 31, Mean Corpuscular Hemoglobin Concent 35, Red Cell Distribution Width 13.7, Platelet Count 186, Mean Platelet Volume 10.1, Sodium Level 131L, Potassium Level 4.2, Chloride Level 97L, Carbon Dioxide Level 16L, Anion Gap 18H, Blood Urea Nitrogen 18, Creatinine 1.36H, Estimat Glomerular Filtration Rate 68, BUN/Creatinine Ratio 13, Glucose Level 717*H, Calcium Level 9.1, Urine Color YELLOW, Urine Clarity C LEAR, Urine pH 5.5, Urine Specific [place] 1.020, Urine Protein NEGATIVE, Urine Glucose (UA) 3+H, Urine Ketones 3+H, Urine Nitrite NEGATIVE, Urine Bilirubin NEGATIVE, Urine Urobilinogen 0.2, Urine Leukocyte Esterase NEGATIVE, Urine RBC (Auto) NEGATIVE, Urine RBC NONE, Urine WBC NONE, Urine Crystals PRESENTH, Urine Amorphous Sediment RARE TRU URATESH, Urine Bacteria NEGATIVE, Urine Casts NONE, Urine Mucus NEGATIVE, Urine Culture Indicated NO, Beta-Hydroxybutyrate (Chem panel) 7.11H 12/03/21 17:50: Blood Gas Puncture Site RIGHT RADIAL, Blood Gas Patient Temperature 37, Arterial Blood pH 7.29*L, Arterial Blood Partial Pressure CO2 34L, Arterial Blood Partial Pressure O2 89, Arterial Blood HCO3 16*L, Arterial Blood Total CO2 16.7L, Arterial Blood Oxygen Saturation 97, Arterial Blood Base Excess -9.7L, Evin Test POSITIVE, Blood Gas Ventilator Setting NO, Blood Gas Inspired Oxygen UNK 12/03/21 19:33: Glucometer 520*H 12/03/21 20:30: Glucometer 424*H 12/03/21 20:44: Sodium Level 135, Potassium Level 3.6, Chloride Level 104, Carbon Dioxide Level 15L, Anion Gap 16H, Blood Urea Nitrogen 14, Creatinine 1.21, Estimat Glomerular Filtration Rate 79, BUN/Creatinine Ratio 12, Glucose Level 400H, Calcium Level 8.8 12/03/21 21:46: Glucometer 411*H 12/03/21 22:32: Glucometer 329H 12/03/21 23:18: Glucometer 287H 12/04/21 00:07: Glucometer 255H 12/04/21 01:13: Glucometer 211H 12/04/21 01:33: Sodium Level 134L, Potassium Level 3.8, Chloride Level 105, Carbon Dioxide Level 18L, Anion Gap 11, Blood Urea Nitrogen 10, Creatinine 1.02, Estimat Glomerular Filtration Rate 96, BUN/Creatinine Ratio 10, Glucose Level 245H, Calcium Level 8.9 12/04/21 02:12: Glucometer 264H 12/04/21 03:18: Glucometer 240H 12/04/21 04:47: Glucometer 325H 12/04/21 04:50: Glucometer 301H 12/04/21 04:51: White Blood Count 5.4, Red Blood Count 3.80L, Hemoglobin 11.9L, Hematocrit 34L, Mean Corpuscular Volume 91, Mean Corpuscular Hemoglobin 31, Mean Corpuscular Hemoglobin Concent 35, Red Cell Distribution Width 13.5, Platelet Count 133, Mean Platelet Volume 9.7, Immature Granulocyte % (Auto) 1, Neutrophils (%) (Auto) 79H, Lymphocytes (%) (Auto) 10L, Monocytes (%) (Auto) 9, Eosinophils (%) (Auto) 0, Basophils (%) (Auto) 0, Neutrophils # (Auto) 4.3, Lymphocytes # (Auto) 0.6L, Monocytes # (Auto) 0.5, Eosinophils # (Auto) 0.0, Basophils # (Auto) 0.0, Immature Granulocyte # (Auto) 0.1, Percent Immature Platelet Fraction 3.0, Sodium Level 131L, Potassium Level 3.8, Chloride Level 103, Carbon Dioxide Level 19L, Anion Gap 9, Blood Urea Nitrogen 8, Creatinine 0.97, Estimat Glomerular Filtration Rate 102, BUN/Creatinine Ratio 8, Glucose Level 296H, Calcium Level 8.8, Phosphorus Level 2.2L, Magnesium Level 1.6, Beta-Hydroxybutyrate (Chem panel) 0.97H 12/04/21 05:24: Glucometer 247H 12/04/21 06:30: Glucometer 221H Assessment/Plan Assessment/Plan Assessment and Plan Assessment DKA - Blood glucose of 1050 at admission - 221 at 0630 today Hyponatremia - 123 at admission - 131 this morning High anion kay metabolic acidosis - 22 at admission - 9 this morning Elevated ketones - beta-hydroxybutyrate Anemia - Likely dilutional d/t fluid resuscitation - 11.9 this morning New onset diabetes mellitus - Likely steroid induced - Patient has complex medical picture Nausea and vomiting HTN Renal transplant Chronic immunosuppression Chronic steroid use Depression and anxiety Atypical HUS Plan Continue insulin gtt, IVF, and potassium replacement per protocol. Continue fluid resuscitation to help correct hyponatremia. Monitor that it does not correct too quickly. Tolerating clear liquids. Advance to normal diet today as tolerated. Zofran, promethazine, and PPI for nausea Restart home medications and immunosuppresive regimen Patient will require a few days in the hospital before d/c Supervisory-Addendum Brief Verification & Attestation Participated in pt care: history, MDM, physical Personally performed: exam, history, MDM, supervision of care Care discussed with: Medical Student Procedures: n/a Results interpretation: Verified all documentation DIABETIC KETOACIDOSIS HYPONATREMIA NEW ONSET DIABETES MELLITUS - STEROID INDUCED NAUSEA EMESIS CHRONIC HYPERTENSION RENAL TRANSPLANT RECIPIENT CHRONIC IMMUNOSUPPRESSIVE MEDICATION USE CHRONIC STEROID USE DEPRESSION ANXIETY ATYPICAL HEMOLYTIC UREMIC SYNDROME DIABETIC KETOACIDOSIS - FURTHER LABS PENDING - BUT PT HAS GLUCOSE OF 1050, NAUSEA, EMESIS AND POOR PO INTAKE FOR THE PAST WEEK. - ABG AND BETA HYDROXYBUTYRATE PENDING AT TIME OF NOTE. PT STARTED ON DKA PROTOCOL, MONITOR LABS, SERIAL FSBS, AND WILL SUPPORT WITH FLUIDS AND INSULIN DRIP. - SINCE HE IS NO LONGER VOMITING, CAN ADVANCE DIET TOLERATED. - WILL PLACE DIETARY CONSULT - WILL ALSO ASK FOR NURSE EDUCATOR CONSULT FOR PATIENT HYPONATREMIA - RESOLVED NEW ONSET DIABETES MELLITUS - STEROID INDUCED - PT ON STEROID SUPPRESSION OF IMMUNE SYSTEM WILL HAVE TO GET DIETARY INVOLVED PRIOR TO DISCHARGE AND SEE ABOUT ONE ON ONE COUNSELING FOR RD SCIENTIST PLAN DUE TO CHULA'S COMPLICATED MEDICAL PICTURE. NAUSEA AND EMESIS - IV ZOFRAN, PROMETHAZINE - IV PPI CHRONIC HYPERTENSION - RESUMED HOME REGIMEN WITH PARAMETERS ON HYDRALAZINE. RENAL TRANSPLANT RECIPIENT ON CHRONIC IMMUNOSUPPRESSIVE MEDICATION USE WITH CHRONIC STEROID USE - PT WAS GIVEN A ONE TIME DOSE OF IV SOLUMEDROL FOR STRESS DOSING - WITH HIS VERY ELEVATED GLUCOSE, THE 20MG DOSE WAS THE SAFEST OPTION FOR STRESS DOSING SINCE HE HAS MISSED OR HAD EMESIS WITH SOME OF HIS USUAL MEDICATIONS. - RESTARTED MYCOPHENOLATE AND TACROLIMUS DOSING - FAMILY TO BROUGHT CHULA'S HOME MEDICATIONS. - ALSO RESUMED HIS AMPICILLIN FOR INFECTION PREVENTION WHILE ON IMMUNOSUPPRESSIVE MEDICATIONS. - HE IS MUCH BETTER THIS MORNING, ABLE TO KEEP DOWN PO MEDICATIONS, WILL TRANSITION TO ORAL AMOXICILLIN SINCE HE IS NO LONGER VOMITING. DEPRESSION WITH ANXIETY - RESUMED CYMBALTA 12/04/21 ATYPICAL HEMOLYTIC UREMIC SYNDROME - PT RECENTLY HAD HIS CHEMOTHERAPY - SHOULD NOT BE DUE WHILE IN THE HOSPITAL - CALLED TO DR. RED - HE WILL SAY HI TO PATIENT - NOT A FORMAL CONSULT DURING THIS ADMISSION. KAREY PAEZ Dec 04, 2021 07:42 TIMOTHY ARGUETA MD Dec 04, 2021 16:31
[2021-12-04] MEDS: AMPICILLIN FOR IV USE 500 MG in NS (IVPB) 50 ML IV SCH ×2 (08:26→20:59)
[2021-12-04] MEDS: PANTOPRAZOLE 40 MG (PROTONIX) VIAL IV SCH (08:27)
[2021-12-04] MEDS: DULoxetine 30 MG (CYMBALTA) CAP PO SCH ×2 (08:27→20:58)
[2021-12-04] MEDS: [UNRECOGNIZED DRUG - OTHER] PO SCH ×2 (08:38→20:59)
[2021-12-04] MEDS: ENVARSUS 1 MG PO SCH (08:38)
[2021-12-04] MEDS: fluCOnazole (DIFLUCAN) 100 MG TAB PO SCH (08:54)
[2021-12-04] MEDS: VITAMIN D3 125 MCG (5,000 UNITS) CAPSULE PO SCH (08:54)
[2021-12-04] MEDS ORDERED: PHARMACY TO DOSE SQ SCH (09:00)
[2021-12-04 10:10] LABS: CREATININE SERUM 0.93 MG/DL (0.60-1.30); POTASSIUM 3.4 MMOL/L (3.6-5.0)
--- NOTE | 2021-12-04 10:41 | Tele-ICU Progress Note ---
Subjective Date Seen by a Provider: Dec 04, 2021 Time Seen by a Provider: 10:41 Sepsis Event Evaluation Height, Weight, BMI Height: 5'8.00" Weight: 175lbs. 0oz. 79.059195ta; 24.21 BMI Method:Stated Exam Exam Patient acknowledged, consented, and participated in this virtual visit which was conducted using real time audio/video Vital Signs Date Time Temp Pulse Resp B/P (MAP) Pulse Ox O2 Delivery O2 Flow Rate FiO2 12/04/21 10:00 68 26 125/97 (106) 97 Room Air 12/04/21 09:00 64 13 119/93 (102) 99 Room Air 12/04/21 08:00 67 18 115/78 (90) 94 Room Air 12/04/21 08:00 98 Room Air 12/04/21 07:53 Room Air 0.00 12/04/21 07:42 36.6 12/04/21 07:00 66 13 128/88 (101) 97 Room Air 12/04/21 07:00 79 12/04/21 06:00 60 13 125/87 (100) 94 Room Air 12/04/21 05:00 60 11 127/96 (106) 96 Room Air 12/04/21 04:00 98 Room Air 12/04/21 04:00 61 15 115/84 (94) 95 Room Air 12/04/21 03:00 68 15 116/83 (94) 93 Room Air 12/04/21 02:00 66 19 119/84 (97) 94 Room Air 12/04/21 01:00 70 18 129/90 (102) 94 Room Air 12/04/21 01:00 70 12/04/21 00:00 98 Room Air 12/04/21 00:00 70 14 123/89 (97) 94 Room Air 12/03/21 23:00 77 19 125/90 (100) 92 Room Air 12/03/21 22:00 70 21 142/111 (121) 95 Room Air 12/03/21 21:00 79 19 158/114 (135) 96 Room Air 12/03/21 20:00 98 Room Air 12/03/21 20:00 81 17 163/119 (135) 98 Room Air 12/03/21 19:45 82 28 165/121 (137) 98 Room Air 12/03/21 19:30 87 22 176/117 (135) 92 Room Air 12/03/21 19:15 82 21 162/113 (124) 98 Room Air 12/03/21 19:00 82 11 172/118 (140) 99 Room Air 12/03/21 19:00 36.7 Room Air 12/03/21 19:00 82 12/03/21 17:17 80 12/03/21 17:15 70 9 155/130 (138) 96 Room Air 12/03/21 17:00 96 Room Air 12/03/21 14:57 36.0 87 18 133/99 97 Room Air I & O 12/04/21 06:59 Intake Total 6560 ml Output Total 1800 ml Balance 4760 ml Height & Weight Height: 5'8.00" Weight: 175lbs. 0oz. 79.979186ol; 24.21 BMI Method:Stated General Appearance: No Apparent Distress, WD/WN, Chronically ill HEENT: PERRL/EOMI Neck: Normal Inspection, Non Tender, Supple; No Lymphadenopathy (L), No Lymphadenopathy (R) Respiratory: Chest Non Tender, Lungs Clear, Normal Breath Sounds, No Accessory Muscle Use, No Respiratory Distress Cardiovascular: Regular Rate, Rhythm, No Edema, No Murmur, Normal Peripheral Pulses Capillary Refill: Less Than 3 Seconds Extremity: Normal Capillary Refill, Normal Inspection, Normal Range of Motion, Non Tender, No Calf Tenderness, No Pedal Edema Neurologic/Psychiatric: Alert, Oriented x3, No Motor/Sensory Deficits, Normal Mood/Affect, devops consultant II-XII Norm as Tested, Other (Patient in a much better mood/spirits this morning) Skin: Normal Color, Warm/Dry Lymphatic: No Adenopathy (Head and neck) Results Lab Laboratory Tests 12/03/21 14:50 12/03/21 17:40 12/03/21 20:44 12/04/21 01:33 12/04/21 04:51 12/04/21 09:45 Assessment/Plan Assessment/Plan (Tele-ICU Physician , Progress Note ) Available chart/ vitals / labs / Images reviewed Video assessment done using teleICU camera, rest of exam as per RN Discussed with RN , EXAM PER RN Events overnight : Afebrile FiO2 - I/O = Drips: insulin Pressors: , hemodynamically stable Consultants: Hospital course: (12/03) 36 y/o male - DKA A/P DKA , new onset DM -insulin drip continue to monitor for resolution of acidosis, AG and electrolytes. Continue hydration gebtly - soon for long actibg insulin hopefully -Tx Gastroparesis ZEKE - dehydration - cont IVF - follow closely Pseudo- hyponateremia - corrected Na on admission 143 - follow closely S/p renal transplant , on tacrolomus and prednisone - to cont meds - monitor renal function - receivd 20 mg Solu medtol x1 - follow VTE Prophylaxis: kenya 40 Stress Ulcer Prophylaxis: Plans in collaboration with bedside consultants and IM MDs. Discussed with RN to reach out if any questions or concerns A total of 20 minutes of critical care time was devoted to this patient today, required to treat and/or prevent further deterioration of critical care condition ( as above ) . JUSTINE CHAHAL MD Dec 04, 2021 10:41
[2021-12-04] MEDS ORDERED: PRED5TAB PO (10:57)
[2021-12-04] MEDS ORDERED: PANT40TA52 PO (10:57)
[2021-12-04] MEDS ORDERED: OXYC-556 PO (10:57)
[2021-12-04] MEDS ORDERED: HYDR100T27 PO (10:57)
[2021-12-04] MEDS ORDERED: CARV12.53 PO (10:57)
[2021-12-04] MEDS ORDERED: TACR1TAB PO (10:57)
[2021-12-04] MEDS ORDERED: MYCO360T3 PO (10:57)
[2021-12-04] MEDS ORDERED: ASPI-1238 PO (11:01)
[2021-12-04] MEDS ORDERED: CHOL500050 PO (11:01)
[2021-12-04] MEDS ORDERED: PROM25TA14 PO (11:06)
[2021-12-04] MEDS ORDERED: NYST1000 PO (11:06)
[2021-12-04] MEDS ORDERED: ONDA4TAB11 PO (11:06)
[2021-12-04] MEDS: ONDANSETRON 4 MG/2 ML (SDV) Z0FRAN IVP PRN (11:29)
[2021-12-04] MEDS: ENOXAPARIN 40 MG/0.4 ML (LOVENOX) SYR SC SCH (18:36)
[2021-12-05] VITALS (13 sets, daily range): BP systolic 111–135; BP diastolic 72–98
[2021-12-05] MEDS: POTASSIUM CL 10MEQ/50ML IVPB 50 ML IV SCH ×3 (00:23→07:03)
[2021-12-05] MEDS: D5 1/2 NS 1000 ML IV SOLUTION 1,000 ML IV SCH ×2 (01:08→05:33)
[2021-12-05] MEDS: ONDANSETRON 4 MG/2 ML (SDV) Z0FRAN IVP PRN (01:25)
[2021-12-05] MEDS: 1/2 NS IV SOLUTION 1,000 ML IV SCH (01:30)
[2021-12-05 05:47] LABS: EOSINOPHILS # (AUTO) 0.1 10^3/uL (0.0-0.3); EOSINOPHILS % (AUTO) 1 % (0-10); HEMATOCRIT 35 % (40-54); MEAN CORPUSCULAR VOLUME 92 fL (80-99)
[2021-12-05 05:49] LABS: BASOPHILS % (AUTO) 0 % (0-10); HEMOGLOBIN 11.9 g/dL (13.3-17.7); LYMPHOCYTES # (AUTO) 0.8 10^3/uL (1.0-4.0); LYMPHOCYTES % (AUTO) 15 % (12-44); MEAN CORPUSCULAR HEMOGLOBIN 31 pg (25-34); MEAN CORPUSCULAR HGB CONC 34 g/dL (32-36); MEAN PLATELET VOLUME 9.8 fL (9.0-12.2); MONOCYTES # (AUTO) 0.7 10^3/uL (0.0-1.0); MONOCYTES % (AUTO) 14 % (0-12); NEUTROPHILS # (AUTO) 3.5 10^3/uL (1.8-7.8); NEUTROPHILS % (AUTO) 69 % (42-75); PLATELET COUNT 108 10^3/uL (130-400); WHITE BLOOD COUNT 5.1 10^3/uL (4.3-11.0)
[2021-12-05 06:12] LABS: POTASSIUM 3.1 MMOL/L (3.6-5.0)
[2021-12-05 06:13] LABS: CALCIUM 8.5 MG/DL (8.5-10.1)
[2021-12-05 06:17] LABS: CREATININE SERUM 0.73 MG/DL (0.60-1.30)
[2021-12-05 06:18] LABS: PHOSPHORUS 1.1 MG/DL (2.3-4.7)
[2021-12-05 06:20] LABS: MAGNESIUM 1.5 MG/DL (1.6-2.4)
[2021-12-05] MEDS ORDERED: NS IV 1000 ML 1,000 ML ONE (06:53)
[2021-12-05] MEDS: SUCRALFATE 1 GM (CARAFATE) TAB PO SCH ×4 (07:02→21:09)
[2021-12-05] MEDS: NYSTATIN ORAL SUSP 5 ML UDC PO SCH ×3 (07:02→17:06)
[2021-12-05] MEDS: hydrALAZINE (APRESOLINE) 25 MG TAB PO SCH ×2 (07:02→16:36)
[2021-12-05] MEDS: MAGNESIUM 1 GM/100 ML IVPB 100 ML IV SCH ×3 (07:02→11:32)
[2021-12-05] MEDS: predniSONE 5 MG TAB PO SCH (07:02)
[2021-12-05] MEDS: KCL 20 MEQ TAB (K-DUR) PO SCH (07:02)
[2021-12-05] MEDS: NS IV 1000 ML 1,000 ML IV SCH ×2 (07:04→21:11)
[2021-12-05] MEDS ORDERED: KCL 20 MEQ TAB (K-DUR) PO NR ×2 (08:00→10:00)
--- NOTE | 2021-12-05 08:06 | Progress Note ---
Subjective Subjective Date Seen by Provider: Dec 05, 2021 Time Seen by Provider: 08:30 Mr. Bear is being followed for DKA with a past medical history significant for a renal transplant. He reports that he continues to feel better today. He denies any new pains and says his epigastric pain continues to decrease. He is taking Nystatin and says that has helped his mouth tremendously. He ate a regular meal at lunch and dinner last night. He had an episode of nausea last night around 0200. His blood glucose dropped to 100; it was resolved with some orange juice. Review of Systems General: No Chills, No Fatigue Pulmonary: No Dyspnea, No Cough Cardiovascular: Chest Pain (Lower sternum/epigastric. Improving); No: Palpitations Gastrointestinal: Nausea (None this morning), Vomiting (None this morning), Abdominal Pain (Epigastric. Improving) Genitourinary: No Dysuria, No Frequency Neurological: No: Weakness, Change in speech, Confusion All Other Systems Reviewed All Other Systems Reviewed: Yes Objective Exam Vital Signs Vital Signs Date Time Temp Pulse Resp B/P (MAP) Pulse Ox O2 Delivery O2 Flow Rate FiO2 12/05/21 07:31 36.6 12/05/21 07:00 78 12/05/21 06:00 56 33 130/92 (105) Room Air 12/05/21 05:00 62 17 114/72 (86) 96 Room Air 12/05/21 04:00 98 Room Air 12/05/21 04:00 62 25 119/84 (96) 96 Room Air 12/05/21 03:00 64 16 111/81 (91) 95 Room Air 12/05/21 02:00 60 14 126/94 (105) 95 Room Air 12/05/21 01:00 70 12/05/21 01:00 60 22 135/98 (110) Room Air 12/05/21 00:00 66 18 123/91 (102) Room Air 12/05/21 00:00 98 Room Air 12/04/21 23:00 68 22 134/92 (106) Room Air 12/04/21 22:00 70 21 134/95 (108) Room Air 12/04/21 21:00 69 18 135/98 (110) 93 Room Air 12/04/21 20:00 98 Room Air 12/04/21 20:00 72 21 135/94 (108) 94 Room Air 12/04/21 19:00 72 18 124/90 (101) Room Air 12/04/21 19:00 71 12/04/21 18:00 72 23 115/79 (91) Room Air 12/04/21 17:00 63 28 125/90 (102) 99 Room Air 12/04/21 16:00 98 Room Air 12/04/21 16:00 68 16 124/97 (106) 96 Room Air 12/04/21 15:00 66 19 139/105 (116) 94 Room Air 12/04/21 14:00 65 23 135/93 (107) 100 Room Air 12/04/21 13:00 64 12/04/21 13:00 62 21 118/81 (93) 95 Room Air 12/04/21 12:00 64 11 119/85 (96) 95 Room Air 12/04/21 12:00 Room Air 12/04/21 12:00 36.7 12/04/21 11:00 61 11 133/94 (107) 96 Room Air 12/04/21 10:00 68 26 125/97 (106) 97 Room Air 12/04/21 09:00 64 13 119/93 (102) 99 Room Air I & O 12/05/21 07:00 Intake Total 4600 ml Output Total 4175 ml Balance 425 ml General Appearance: No Apparent Distress, WD/WN, Chronically ill HEENT: PERRL/EOMI Neck: Normal Inspection, Non Tender, Supple; No Lymphadenopathy (L), No Lymphadenopathy (R) Respiratory: Chest Non Tender, Lungs Clear, Normal Breath Sounds, No Accessory Muscle Use, No Respiratory Distress Cardiovascular: Regular Rate, Rhythm, No Edema, No Murmur, Normal Peripheral Pulses Gastrointestinal: Normal Bowel Sounds, No Organomegaly, No Pulsatile Mass, Soft, Tenderness (Tender to deep palpation in epigastric region. 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 Norm as Tested Skin: Normal Color, Warm/Dry Lymphatic: No Adenopathy (Head and neck) Results Lab Laboratory Tests 12/04/21 08:35: Glucometer 284H 12/04/21 09:29: Glucometer 218H 12/04/21 09:45: Sodium Level 132L, Potassium Level 3.4L, Chloride Level 104, Carbon Dioxide Level 21, Anion Gap 7, Blood Urea Nitrogen 6L, Creatinine 0.93, Estimat Glomerular Filtration Rate 108, BUN/Creatinine Ratio 6, Glucose Level 206H, Calcium Level 9.0 12/04/21 10:36: Glucometer 184H 12/04/21 11:35: Glucometer 233H 12/04/21 12:33: Glucometer 303H 12/04/21 13:35: Glucometer 306H 12/04/21 14:28: Glucometer 268H 12/04/21 17:01: Glucometer 140H 12/04/21 18:32: Glucometer 162H 12/04/21 19:51: Glucometer 203H 12/04/21 21:06: Glucometer 200H 12/04/21 22:11: Glucometer 179H 12/04/21 23:24: Glucometer 145H 12/05/21 00:26: Glucometer 112H 12/05/21 01:17: Glucometer 101 12/05/21 01:58: Glucometer 100 12/05/21 03:05: Glucometer 132H 12/05/21 04:08: Glucometer 137H 12/05/21 05:13: Glucometer 137H 12/05/21 05:38: White Blood Count 5.1, Red Blood Count 3.79L, Hemoglobin 11.9L, Hematocrit 35L, Mean Corpuscular Volume 92, Mean Corpuscular Hemoglobin 31, Mean Corpuscular Hemoglobin Concent 34, Red Cell Distribution Width 13.6, Platelet Count 108L, Mean Platelet Volume 9.8, Immature Granulocyte % (Auto) 0, Neutrophils (%) (Auto) 69, Lymphocytes (%) (Auto) 15, Monocytes (%) (Auto) 14H, Eosinophils (%) (Auto) 1, Basophils (%) (Auto) 0, Neutrophils # (Auto) 3.5, Lymphocytes # (Auto) 0.8L, Monocytes # (Auto) 0.7, Eosinophils # (Auto) 0.1, Basophils # (Auto) 0.0, Immature Granulocyte # (Auto) 0.0, Percent Immature Platelet Fraction 3.6, Sodium Level 136, Potassium Level 3.1L, Chloride Level 109H, Carbon Dioxide Level 21, Anion Gap 6, Blood Urea Nitrogen 5L, Creatinine 0.73, Estimat Glomerular Filtration Rate 119, BUN/Creatinine Ratio 7, Glucose Level 131H, Calcium Level 8.5, Phosphorus Level 1.1L, Magnesium Level 1.5L 12/05/21 06:07: Glucometer 132H 12/05/21 07:54: Glucometer 146H Microbiology 12/03/21 Blood Culture - Preliminary, Resulted No growth Assessment/Plan Assessment/Plan Assessment and Plan Assessment DKA - Blood glucose of 1050 at admission - 132 at 0607 today Hyponatremia - 123 at admission - 136 this morning High anion kay metabolic acidosis - 22 at admission - Resolved Elevated ketones - beta-hydroxybutyrate Anemia - Likely dilutional d/t fluid resuscitation - 11.9 this morning New onset diabetes mellitus - Likely steroid induced - Patient has complex medical picture Nausea and vomiting HTN Renal transplant Chronic immunosuppression Chronic steroid use Depression and anxiety Atypical HUS Plan Continue insulin gtt, IVF, and potassium replacement per protocol. Continue fluid resuscitation to help correct hyponatremia. Monitor that it does not correct too quickly. Normal diet as tolerated. Zofran, promethazine, and PPI for nausea. Restart home medications and immunosuppresive regimen. Patient will require diabetic education d/t new onset diabetes. Patient will require a few days in the hospital before d/c. Supervisory-Addendum Brief Verification & Attestation Participated in pt care: history, MDM, physical Personally performed: exam, history, MDM, supervision of care Care discussed with: Medical Student Procedures: n/a Results interpretation: Verified all documentation DIABETIC KETOACIDOSIS HYPONATREMIA NEW ONSET DIABETES MELLITUS - STEROID INDUCED NAUSEA EMESIS CHRONIC HYPERTENSION RENAL TRANSPLANT RECIPIENT CHRONIC IMMUNOSUPPRESSIVE MEDICATION USE CHRONIC STEROID USE DEPRESSION ANXIETY ATYPICAL HEMOLYTIC UREMIC SYNDROME DIABETIC KETOACIDOSIS - FURTHER LABS PENDING - BUT PT HAS GLUCOSE OF 1050, NAUSEA, EMESIS AND POOR PO INTAKE FOR THE PAST WEEK. - ABG AND BETA HYDROXYBUTYRATE PENDING AT TIME OF NOTE. PT STARTED ON DKA PROTOCOL, MONITOR LABS, SERIAL FSBS, AND WILL SUPPORT WITH FLUIDS AND INSULIN DRIP. - SINCE HE IS NO LONGER VOMITING, CAN ADVANCE DIET TOLERATED. - WILL PLACE DIETARY CONSULT - WILL ALSO ASK FOR NURSE EDUCATOR CONSULT FOR PATIENT HYPONATREMIA - RESOLVED NEW ONSET DIABETES MELLITUS - STEROID INDUCED - PT ON STEROID SUPPRESSION OF IMMUNE SYSTEM WILL HAVE TO GET DIETARY INVOLVED PRIOR TO DISCHARGE AND SEE ABOUT ONE ON ONE COUNSELING FOR HYDROGRAPHY TEACHER PLAN DUE TO CHULA'S COMPLICATED MEDICAL PICTURE. NAUSEA AND EMESIS - IV ZOFRAN, PROMETHAZINE - IV PPI CHRONIC HYPERTENSION - RESUMED HOME REGIMEN WITH PARAMETERS ON HYDRALAZINE. RENAL TRANSPLANT RECIPIENT ON CHRONIC IMMUNOSUPPRESSIVE MEDICATION USE WITH CHRONIC STEROID USE - PT WAS GIVEN A ONE TIME DOSE OF IV SOLUMEDROL FOR STRESS DOSING - WITH HIS VERY ELEVATED GLUCOSE, THE 20MG DOSE WAS THE SAFEST OPTION FOR STRESS DOSING SINCE HE HAS MISSED OR HAD EMESIS WITH SOME OF HIS USUAL MEDICATIONS. - RESTARTED MYCOPHENOLATE AND TACROLIMUS DOSING - FAMILY TO BROUGHT CHULA'S HOME MEDICATIONS. - ALSO RESUMED HIS AMPICILLIN FOR INFECTION PREVENTION WHILE ON IMMUNOSUPPRESSIVE MEDICATIONS. - HE IS MUCH BETTER THIS MORNING, ABLE TO KEEP DOWN PO MEDICATIONS, WILL TRANSITIONED TO ORAL AMOXICILLIN SINCE HE IS NO LONGER VOMITING. DEPRESSION WITH ANXIETY - RESUMED CYMBALTA 12/04/21 ATYPICAL HEMOLYTIC UREMIC SYNDROME - PT RECENTLY HAD HIS CHEMOTHERAPY - SHOULD NOT BE DUE WHILE IN THE HOSPITAL - CALLED TO DR. RED - HE WILL SAY HI TO PATIENT - NOT A FORMAL CONSULT DURING THIS ADMISSION. KAREY PAEZ Dec 05, 2021 08:06 TIMOTHY ARGUETA MD Dec 06, 2021 10:35
[2021-12-05] MEDS: PANTOPRAZOLE 40 MG (PROTONIX) VIAL IV SCH (08:29)
[2021-12-05] MEDS: inSUlin ASPART (NovoLOG) 1 UNIT/0.01 ML (CHARGE PER UNIT) SC SCH ×5 (08:29→21:10)
[2021-12-05] MEDS: VITAMIN D3 125 MCG (5,000 UNITS) CAPSULE PO SCH (08:30)
[2021-12-05] MEDS: AMOXICILLIN 500 MG (POLYMOX) CAP PO SCH ×2 (08:30→21:09)
[2021-12-05] MEDS: DULoxetine 30 MG (CYMBALTA) CAP PO SCH ×2 (08:30→21:09)
[2021-12-05] MEDS: [UNRECOGNIZED DRUG - OTHER] PO SCH ×2 (08:31→21:09)
[2021-12-05] MEDS: fluCOnazole (DIFLUCAN) 100 MG TAB PO SCH (08:31)
[2021-12-05] MEDS: ENVARSUS 1 MG PO SCH (08:32)
--- NOTE | 2021-12-05 10:33 | Tele-ICU Progress Note ---
Subjective Date Seen by a Provider: Dec 05, 2021 Time Seen by a Provider: 10:32 Sepsis Event Evaluation Height, Weight, BMI Height: 5'8.00" Weight: 175lbs. 0oz. [id number]; 24.21 BMI Method:Stated Exam Exam Patient acknowledged, consented, and participated in this virtual visit which was conducted using real time audio/video Vital Signs Date Time Temp Pulse Resp B/P (MAP) Pulse Ox O2 Delivery O2 Flow Rate FiO2 12/05/21 09:00 73 24 124/80 (95) Room Air 12/05/21 08:00 76 24 123/79 (94) Room Air 12/05/21 07:31 36.6 12/05/21 07:00 78 15 131/91 (104) Room Air 12/05/21 07:00 78 12/05/21 06:00 56 33 130/92 (105) Room Air 12/05/21 05:00 62 17 114/72 (86) 96 Room Air 12/05/21 04:00 98 Room Air 12/05/21 04:00 62 25 119/84 (96) 96 Room Air 12/05/21 03:00 64 16 111/81 (91) 95 Room Air 12/05/21 02:00 60 14 126/94 (105) 95 Room Air 12/05/21 01:00 70 12/05/21 01:00 60 22 135/98 (110) Room Air 12/05/21 00:00 66 18 123/91 (102) Room Air 12/05/21 00:00 98 Room Air 12/04/21 23:00 68 22 134/92 (106) Room Air 12/04/21 22:00 70 21 134/95 (108) Room Air 12/04/21 21:00 69 18 135/98 (110) 93 Room Air 12/04/21 20:00 98 Room Air 12/04/21 20:00 72 21 135/94 (108) 94 Room Air 12/04/21 19:00 72 18 124/90 (101) Room Air 12/04/21 19:00 71 12/04/21 18:00 72 23 115/79 (91) Room Air 12/04/21 17:00 63 28 125/90 (102) 99 Room Air 12/04/21 16:00 98 Room Air 12/04/21 16:00 68 16 124/97 (106) 96 Room Air 12/04/21 15:00 66 19 139/105 (116) 94 Room Air 12/04/21 14:00 65 23 135/93 (107) 100 Room Air 12/04/21 13:00 64 12/04/21 13:00 62 21 118/81 (93) 95 Room Air 12/04/21 12:00 64 11 119/85 (96) 95 Room Air 12/04/21 12:00 Room Air 12/04/21 12:00 36.7 12/04/21 11:00 61 11 133/94 (107) 96 Room Air I & O 12/05/21 07:00 Intake Total 4600 ml Output Total 4175 ml Balance 425 ml Height & Weight Height: 5'8.00" Weight: 175lbs. 0oz. [id number]; 24.21 BMI Method:Stated General Appearance: No Apparent Distress, WD/WN, Chronically ill HEENT: PERRL/EOMI Neck: Normal Inspection, Non Tender, Supple; No Lymphadenopathy (L), No Lymphadenopathy (R) Respiratory: Chest Non Tender, Lungs Clear, Normal Breath Sounds, No Accessory Muscle Use, No Respiratory Distress Cardiovascular: Regular Rate, Rhythm, No Edema, No Murmur, Normal Peripheral Pulses Capillary Refill: Less Than 3 Seconds Extremity: Normal Capillary Refill, Normal Inspection, Normal Range of Motion, Non Tender, No Calf Tenderness, No Pedal Edema Neurologic/Psychiatric: Alert, Oriented x3, No Motor/Sensory Deficits, Normal Mood/Affect, 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 Norm as Tested Skin: Normal Color, Warm/Dry Lymphatic: No Adenopathy (Head and neck) Results Lab Laboratory Tests 12/03/21 14:50 12/03/21 17:40 12/03/21 20:44 12/04/21 01:33 12/04/21 04:51 12/04/21 09:45 12/05/21 05:38 Assessment/Plan Assessment/Plan (Tele-ICU Physician , Progress Note ) Available chart/ vitals / labs / Images reviewed Video assessment done using teleICU camera, rest of exam as per RN Discussed with RN , EXAM PER RN Events overnight : Afebrile FiO2 - I/O = Drips: Pressors: , hemodynamically stable Consultants: Hospital course: (12/03) 36 y/o male - DKA A/P DKA , new onset DM -insulin drip OFF ZEKE - dehydration - RESOLVED Pseudo- hyponateremia - RESOLVED S/p renal transplant , on tacrolomus and prednisone - to cont meds - monitor renal function - receivd 20 mg Solu medtol x1 - follow VTE Prophylaxis: kenya 40 Stress Ulcer Prophylaxis: Plans in collaboration with bedside consultants and IM MDs. Discussed with RN to reach out if any questions or concerns A total of 20 minutes of critical care time was devoted to this patient today, required to treat and/or prevent further deterioration of critical care condition ( as above ) . JUSTINE CHAHAL MD Dec 05, 2021 10:33
--- NOTE | 2021-12-05 14:09 | Physical Therapy Evaluation ---
PT Evaluation-General Medical Diagnosis Admission Date Dec 03, 2021 at 16:40 Medical Diagnosis: DKA Onset Date: Dec 03, 2021 Therapy Diagnosis Therapy Diagnosis: weakness, debility Height/Weight Height (Feet): 5 Height (Inches): 8.00 Weight (Pounds): 175 Weight (Ounces): 0 Precautions Precautions/Isolations: Standard Precautions Referral Physician: Ginger Reason for Referral: Evaluation/Treatment Medical History Pertinent Medical History: DM, HTN, Neuropathy Current History Patient was direct admit from Dr. Miles's office with DKA. Reviewed History: Yes Social History Home: Single Level Current Living Status: Other Family Prior Prior Level of Function SCALE: Activities may be completed with or without assistive devices. 8-Hjhjgnglkj-ihjttxg completes the activity by him/herself with no assistance from a helper. 5-Set-up or Clean-up Assistance-helper sets up or cleans up; patient completes activity. [place] assists only prior to or following the activity. 4-Supervision or Touching Assistance-helper provides verbal cues and/or touching/steadying and/or contact guard assistance as patient completes activity. Assistance may be provided throughout the activity or intermittently. 3-Partial/Moderate Assistance-helper does LESS THAN HALF the effort. [place] lifts, holds or supports trunk or limbs, but provides less than half the effort. 2-Substantial/Maximal Assistance-helper does MORE THAN HALF the effort. [place] lifts or holds trunk or limbs and provides more than half the effort. 0-Fveazdjsn-xptjcu does ALL the effort. Patient does none of the effort to complete the activity. Or, the assistance of 2 or more helpers is required for the patient to complete the activity. If activity was not attempted, code reason: 7-Patient Refused. 9-Not Applicable-not attempted and the patient did not perform the activity before the current illness, exacerbation or injury. 10-Not Attempted due to Environmental Limitations-(lack of equipment, weather restraints, etc.). 88-Not Attempted due to Medical Conditions or Safety Concerns. Bed Mobility: 6 Transfers (B,C,W/C): 6 Gait: 6 Stairs: 6 Patient reports he will use a cane PRN PT Evaluation-Current Subjective Patient presents laying in bed and agrees to walk with physical therapy. Objective Patient Orientation: Person, Place, Time, Situation ROM/Strength ROM Lower Extremities WFL Strength Lower Extremities 4/5 strength R LE Grossly 3+/5 strength L LE grossly Integumentary/Posture Bowel Incontinence: No Bladder Incontinence: No Neuromuscular (Tone, Coordination, Reflexes) grossly intact Sensory Vision: Functional Hearing: Functional Transfers Lying to Sitting/Side of Bed(Q: 6 Sit to Stand (QC): 6 Chair/Hdq-ei-Smcsy Xfer(QC): 6 Gait Does the Patient Walk?: Yes Mode of Locomotion: Walk Anticipated Mode of Locomotion: Walk Walk 10 feet (QC): 6 Walk 50 ft with 2 Turns(QC): 6 Walk 150 ft (QC): 6 Distance: 250' Gait Assistive Device: None Comments/Gait Description Patient used the hand rail for balance or pushed the IV pole for balance. Balance Sitting Static: Normal Sitting Dynamic: Normal Standing Static: Normal Standing Dynamic: Good Assessment/Needs Patient is independent for bed mobility, transfers, and ambulation. Patient is being d/c from therapy at this time due to independence. Rehab Potential: Good PT Plan Treatment/Plan Treatment Plan: Discontinue PT, goals met Treatment Duration: Dec 05, 2021 Frequency: 1 time per week Estimated Hrs Per Day: .25 hour per day Time/GCodes Time In: 1318 Time Out: 1326 Total Billed Treatment Time: 8 Total Billed Treatment 1 Visit GLENNLow 8 min MARIA E ARRIAZA PT Dec 05, 2021 14:09
[2021-12-05] MEDS: ENOXAPARIN 40 MG/0.4 ML (LOVENOX) SYR SC SCH (17:06)
[2021-12-06] VITALS: BP 133/88
[2021-12-06] MEDS: NYSTATIN ORAL SUSP 5 ML UDC PO SCH ×3 (00:02→11:45)
[2021-12-06] MEDS: hydrALAZINE (APRESOLINE) 25 MG TAB PO SCH ×2 (00:02→06:21)
[2021-12-06 04:00] VITALS: BP 129/85
[2021-12-06 05:32] LABS: BASOPHILS % (AUTO) 1 % (0-10); EOSINOPHILS # (AUTO) 0.1 10^3/uL (0.0-0.3); EOSINOPHILS % (AUTO) 2 % (0-10); HEMATOCRIT 34 % (40-54); HEMOGLOBIN 11.4 g/dL (13.3-17.7); LYMPHOCYTES # (AUTO) 0.5 10^3/uL (1.0-4.0); LYMPHOCYTES % (AUTO) 15 % (12-44); MEAN CORPUSCULAR HEMOGLOBIN 31 pg (25-34); MEAN CORPUSCULAR HGB CONC 33 g/dL (32-36); MEAN CORPUSCULAR VOLUME 93 fL (80-99); MEAN PLATELET VOLUME 9.8 fL (9.0-12.2); MONOCYTES # (AUTO) 0.5 10^3/uL (0.0-1.0); MONOCYTES % (AUTO) 13 % (0-12); NEUTROPHILS # (AUTO) 2.4 10^3/uL (1.8-7.8); NEUTROPHILS % (AUTO) 68 % (42-75); PLATELET COUNT 82 10^3/uL (130-400); WHITE BLOOD COUNT 3.6 10^3/uL (4.3-11.0)
[2021-12-06 05:52] LABS: CALCIUM 8.6 MG/DL (8.5-10.1); CREATININE SERUM 0.72 MG/DL (0.60-1.30); POTASSIUM 3.3 MMOL/L (3.6-5.0)
[2021-12-06 05:54] LABS: MAGNESIUM 1.6 MG/DL (1.6-2.4); PHOSPHORUS 2.3 MG/DL (2.3-4.7)
[2021-12-06] MEDS: inSUlin ASPART (NovoLOG) 1 UNIT/0.01 ML (CHARGE PER UNIT) SC SCH ×2 (05:58→11:46)
[2021-12-06] MEDS: KCL 20 MEQ TAB (K-DUR) PO SCH (06:03)
[2021-12-06] MEDS: SUCRALFATE 1 GM (CARAFATE) TAB PO SCH ×2 (06:21→11:45)
[2021-12-06] MEDS: predniSONE 5 MG TAB PO SCH (06:24)
[2021-12-06] MEDS ORDERED: KCL 20 MEQ TAB (K-DUR) PO NR ×2 (06:30→08:30)
--- NOTE | 2021-12-06 07:30 | Progress Note ---
Subjective Subjective Date Seen by Provider: Dec 06, 2021 Time Seen by Provider: 06:35 Mr. Bear is being followed for DKA with a past medical history significant for a renal transplant. He reports that he continues to feel better today. He reports his epigastric pain is still present but it continues to improve. He has a new bruise and his lower abdomen from his lovenox injection. He reports it as painful but he bruises easily so he is used to things like this happening. He denies nausea or vomiting this morning. He reports taking less Zofran yesterday than the day before. He is able to tolerate his normal diet well. He had diabetic education with a nurse yesterday and he says that it went well. He wants to help control his blood glucose with diet. Review of Systems General: No Chills, No Fatigue Pulmonary: No Dyspnea, No Cough Cardiovascular: Chest Pain (Lower sternum/epigastric. Improving); No: Palpitations Gastrointestinal: Abdominal Pain (Epigastric. Improving); No: Nausea (None this morning), Vomiting (None this morning) Genitourinary: No Dysuria, No Frequency Neurological: No: Weakness, Change in speech, Confusion All Other Systems Reviewed All Other Systems Reviewed: Yes Objective Exam Vital Signs Vital Signs Date Time Temp Pulse Resp B/P (MAP) Pulse Ox O2 Delivery O2 Flow Rate FiO2 12/06/21 04:00 36.6 68 18 129/85 (100) 97 Room Air 12/06/21 00:00 36.6 74 20 133/88 (103) 96 Room Air 12/05/21 20:00 98 Room Air 12/05/21 19:40 36.8 73 18 133/83 (100) 98 Room Air 12/05/21 16:13 36.3 58 18 126/83 (97) 98 Room Air 12/05/21 12:00 36.7 74 20 131/93 (106) Room Air 12/05/21 09:00 73 24 124/80 (95) Room Air 12/05/21 08:15 98 Room Air 12/05/21 08:00 76 24 123/79 (94) Room Air 12/05/21 07:31 36.6 I & O 12/06/21 07:00 Intake Total 1800 ml Output Total 425 ml Balance 1375 ml General Appearance: No Apparent Distress, WD/WN, Chronically ill HEENT: PERRL/EOMI, Pharynx Normal, Moist Mucous Membranes; No Scleral Icterus (L), No Scleral Icterus (R) Neck: Normal Inspection, Non Tender, Supple; No Lymphadenopathy (L), No Lymphadenopathy (R) Respiratory: Chest Non Tender, Lungs Clear, Normal Breath Sounds, No Accessory Muscle Use, No Respiratory Distress Cardiovascular: Regular Rate, Rhythm, No Edema, No Murmur, Normal Peripheral Pulses Gastrointestinal: Normal Bowel Sounds, No Organomegaly, No Pulsatile Mass, Soft, Tenderness (Tender to deep palpation in epigastric region. 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 Tested Skin: Normal Color, Warm/Dry Lymphatic: No Adenopathy (Head and neck) Results Lab Laboratory Tests 12/05/21 07:54: Glucometer 146H 12/05/21 10:34: Glucometer 205H 12/05/21 12:09: Glucometer 206H 12/05/21 16:21: Glucometer 251H 12/05/21 20:20: Glucometer 307H 12/06/21 05:21: White Blood Count 3.6L, Red Blood Count 3.69L, Hemoglobin 11.4L, Hematocrit 34L, Mean Corpuscular Volume 93, Mean Corpuscular Hemoglobin 31, Mean Corpuscular Hemoglobin Concent 33, Red Cell Distribution Width 13.9, Platelet Count 82L, Mean Platelet Volume 9.8, Immature Granulocyte % (Auto) 1, Neutrophils (%) (Auto) 68, Lymphocytes (%) (Auto) 15, Monocytes (%) (Auto) 13H, Eosinophils (%) (Auto) 2, Basophils (%) (Auto) 1, Neutrophils # (Auto) 2.4, Lymphocytes # (Auto) 0.5L, Monocytes # (Auto) 0.5, Eosinophils # (Auto) 0.1, Basophils # (Auto) 0.0, Immature Granulocyte # (Auto) 0.1, Percent Immature Platelet Fraction 3.6, Sodium Level 138, Potassium Level 3.3L, Chloride Level 108H, Carbon Dioxide Le kiersten 21, Anion Gap 9, Blood Urea Nitrogen 6L, Creatinine 0.72, Estimat Glomerular Filtration Rate 120, BUN/Creatinine Ratio 8, Glucose Level 144H, Calcium Level 8.6, Phosphorus Level 2.3, Magnesium Level 1.6 Microbiology 12/03/21 Blood Culture - Preliminary, Resulted No growth 12/03/21 MRSA Screen - Final, Complete MRSA not isolated Assessment/Plan Assessment/Plan Assessment and Plan Assessment DKA - Blood glucose of 1050 at admission - 144 at 0521 this morning Hyponatremia - Resolved High anion kay metabolic acidosis - Resolved Elevated ketones - Resolved Anemia - Likely dilutional d/t fluid resuscitation - 11.9 this morning New onset diabetes mellitus - Likely steroid induced - Patient has complex medical picture Nausea and vomiting HTN Renal transplant Chronic immunosuppression Chronic steroid use Depression and anxiety Atypical HUS Plan Continue insulin, IVF, and potassium replacement per protocol. Normal diet as tolerated. Zofran, promethazine, and PPI for nausea. Restart home medications and immunosuppresive regimen. Patient will require diabetic education d/t new onset diabetes. Plan to d/c today with close clinic f/u to ensure support for new onset diabetes Supervisory-Addendum Brief Verification & Attestation Participated in pt care: history, MDM, physical Personally performed: exam, history, MDM, supervision of care Care discussed with: Medical Student Procedures: n/a Results interpretation: Verified all documentation SEE MY DC SUMMARY KAREY PAEZ Dec 06, 2021 07:30 TIMOTHY ARGUETA MD Dec 06, 2021 10:35
[2021-12-06 08:11] VITALS: BP 128/82
[2021-12-06] MEDS: VITAMIN D3 125 MCG (5,000 UNITS) CAPSULE PO SCH (08:28)
[2021-12-06] MEDS: [UNRECOGNIZED DRUG - OTHER] PO SCH (08:29)
[2021-12-06] MEDS: DULoxetine 30 MG (CYMBALTA) CAP PO SCH (08:29)
[2021-12-06] MEDS: ENVARSUS 1 MG PO SCH (08:29)
[2021-12-06] MEDS: fluCOnazole (DIFLUCAN) 100 MG TAB PO SCH (08:29)
[2021-12-06] MEDS: PANTOPRAZOLE 40 MG (PROTONIX) VIAL IV SCH (08:30)
[2021-12-06] MEDS: AMOXICILLIN 500 MG (POLYMOX) CAP PO SCH (08:36)
[2021-12-06] MEDS: NS IV 1000 ML 1,000 ML IV SCH (08:39)
[2021-12-06] MEDS ORDERED: CARV12.53 PO (09:10)
[2021-12-06] MEDS ORDERED: SUCR1TAB PO (09:10)
[2021-12-06] MEDS ORDERED: INSU100V16 SC (09:10)
[2021-12-06] MEDS ORDERED: FLUC100T10 PO (09:10)
[2021-12-06] MEDS ORDERED: INSU100V5 SQ (09:10)
--- NOTE | 2021-12-06 09:14 | Discharge Inst-Simple/Standard ---
Discharge Inst-Standard Reconcile Patient Problems Problems Reviewed?: Yes Discharge Medications New, Converted or Re-Newed RX: Transmitted to Pharmacy ([facility]) Patient Instructions/Follow Up Plan of Care/Instructions/FU: [facility] AND PER DIETARY FOR DIABETIC EDUCATION Activity as Tolerated: Yes Discharge Diet: ADA Diet Health Concerns: DIABETES MELLITUS HYPERTENSION CHRONIC IMMUNOSUPPRESSION Return to The Hospital For: ANY CONCERN FOR UNCONTROLLED DIABETES, CHEST PAIN, SHORTNESS OF BREATH OR LIFETHREATENING ILLNESS OR INJURY Medication List: Active Scripts Active Novolog (Insulin Aspart) 100 Unit/1 Ml Susp 0 Unit SC ACHS FSBS 180 - 200 2UNITS REG INSULIN, FSBS 201 - 250 4UNITS, FSBS 251 - 300 GIVE 6UNITS, 301 - 350 8 UNITS, 351 - 400 10UNITS, 401AND HIGHER GIVE 12 UNITS, CALL DR IF NOT DOWN IN 2 HOURS Levemir (Insulin Determir) 1,000 Units/10 Ml Soln 10 Unit SQ HS Sucralfate 1 Gm Tablet 1 Gm PO ACHS Carvedilol 12.5 Mg Tablet 37.5 Mg PO BID Fluconazole 100 Mg Tablet 100 Mg PO DAILY Reported Ondansetron Odt (Ondansetron) 4 Mg Tab.rapdis 4 Mg PO Q8H PRN Nystatin 100,000 Unit/1 Ml Oral.susp 10 Ml PO QID SWISH AND SWALLOW FILLED 12-03-2021 #400ML/10 DAY SUPPLY Promethazine Tablet (Promethazine HCl) 25 Mg Tablet 25 Mg PO Q8H PRN Vitamin D3 (Cholecalciferol (Vitamin D3)) 125 Mcg Capsule 125 Mcg PO DAILY Aspirin EC (Aspirin) 81 Mg Tablet.dr 81 Mg PO DAILY Hydralazine HCl 100 Mg Tablet 100 Mg PO BID Envarsus Xr (Tacrolimus) 1 Mg Tab.er.24h 1 Mg PO DAILY Mycophenolic Acid (Mycophenolate Sodium) 360 Mg Tablet. 360 Mg PO BID Pantoprazole Sodium 40 Mg Tablet.dr 40 Mg PO HS Carvedilol 12.5 Mg Tablet 12.5 Mg PO BID Prednisone 5 Mg Tablet 5 Mg PO DAILY Oxycodone-Acetaminophen 10-325 (Oxycodone HCl/Acetaminophen) 1 Each Tablet 1 Ea PO BID PRN Ampicillin Trihydrate 500 Mg Capsule 500 Mg PO BID Soliris (Eculizumab) 300 Mg/30 Ml Vial 1,200 Mg IV EVERY 2 WEEKS Lab results: Laboratory Tests Test 12/05/21 10:34 12/05/21 12:09 12/05/21 16:21 12/05/21 20:20 Range/Units Glucometer 205 H 206 H 251 H 307 H 70-110 MG/DL Test 12/06/21 05:21 Range/Units White Blood Count 3.6 L 4.3-11.0 10^3/uL Red Blood Count 3.69 L 4.30-5.52 10^6/uL Hemoglobin 11.4 L 13.3-17.7 g/dL Hematocrit 34 L 40-54 % Mean Corpuscular Volume 93 80-99 fL Mean Corpuscular Hemoglobin 31 25-34 pg Mean Corpuscular Hemoglobin Concent 33 32-36 g/dL Red Cell Distribution Width 13.9 10.0-14.5 % Platelet Count 82 L 130-400 10^3/uL Mean Platelet Volume 9.8 9.0-12.2 fL Immature Granulocyte % (Auto) 1 % Neutrophils (%) (Auto) 68 42-75 % Lymphocytes (%) (Auto) 15 12-44 % Monocytes (%) (Auto) 13 H 0-12 % Eosinophils (%) (Auto) 2 0-10 % Basophils (%) (Auto) 1 0-10 % Neutrophils # (Auto) 2.4 1.8-7.8 10^3/uL Lymphocytes # (Auto) 0.5 L 1.0-4.0 10^3/uL Monocytes # (Auto) 0.5 0.0-1.0 10^3/uL Eosinophils # (Auto) 0.1 0.0-0.3 10^3/uL Basophils # (Auto) 0.0 0.0-0.1 10^3/uL Immature Granulocyte # (Auto) 0.1 0.0-0.1 10^3/uL Percent Immature Platelet Fraction 3.6 0.0-7.6 % Sodium Level 138 135-145 MMOL/L Potassium Level 3.3 L 3.6-5.0 MMOL/L Chloride Level 108 H 98-107 MMOL/L Carbon Dioxide Level 21 21-32 MMOL/L Anion Gap 9 5-14 MMOL/L Blood Urea Nitrogen 6 L 7-18 MG/DL Creatinine 0.72 0.60-1.30 MG/DL Estimat Glomerular Filtration Rate 120 BUN/Creatinine Ratio 8 Glucose Level 144 H 70-105 MG/DL Calcium Level 8.6 8.5-10.1 MG/DL Phosphorus Level 2.3 2.3-4.7 MG/DL Magnesium Level 1.6 1.6-2.4 MG/DL My orders: Orders - TIMOTHY ARGUETA MD Physical Therapy Order (12/05/21 10:06) Insulin Aspart (Novolog) (Novolog (Charg (12/05/21 16:00) Transfer - Bed/Room/Location (12/05/21 13:41) Transfer - Bed/Room/Location (12/05/21 13:47) Patient Visit (12/05/21 ) Pt Eval Low Complexity (12/05/21 ) Magnesium (12/06/21 03:00) Phosphorus (12/06/21 03:00) Cbc With Automated Diff (12/06/21 03:00) Basic Metabolic Panel (12/06/21 05:00) Potassium Chloride (Tablet) (K Dur Table (12/06/21 06:30) Potassium Chloride (Tablet) (K Dur Table (12/06/21 08:30) Attending Discharge Inpt/Inobs (12/06/21 08:56) TIMOTHY ARGUETA MD Dec 06, 2021 09:14
[2021-12-06] MEDS ORDERED: BLOO1EAC87 MC (09:20)
[2021-12-06] MEDS ORDERED: [UNRECOGNIZED DRUG - CODE] MC (09:20)
--- NOTE | 2021-12-06 09:22 | Discharge Summary ---
Diagnosis/Chief Complaint Date of Admission Dec 03, 2021 at 16:40 Date of Discharge Discharge Date: Dec 06, 2021 Discharge Time: 1030 Admission Diagnosis Admission Diagnosis DIABETIC KETOACIDOSIS HYPONATREMIA NEW ONSET DIABETES MELLITUS - STEROID INDUCED NAUSEA EMESIS CHRONIC HYPERTENSION RENAL TRANSPLANT RECIPIENT CHRONIC IMMUNOSUPPRESSIVE MEDICATION USE CHRONIC STEROID USE DEPRESSION ANXIETY ATYPICAL HEMOLYTIC UREMIC SYNDROME Discharge Diagnosis DIABETIC KETOACIDOSIS HYPONATREMIA NEW ONSET DIABETES MELLITUS - STEROID INDUCED NAUSEA EMESIS CHRONIC HYPERTENSION RENAL TRANSPLANT RECIPIENT CHRONIC IMMUNOSUPPRESSIVE MEDICATION USE CHRONIC STEROID USE DEPRESSION ANXIETY ATYPICAL HEMOLYTIC UREMIC SYNDROME Reason Hospital Visit CHULA IS 36 Y/O MALE WHO IS WELL KNOWN TO ME FROM CLINIC. THE PATIENT PRESENTED TO THE OFFICE TODAY WITH NAUSEA AND EMESIS FOR A FEW DAYS WITH DECREASED FOOD INTAKE. HIS MOM REPORTS THAT HE HAS NOT FELT WELL FOR A FEW WEEKS AND SHE HAS BEEN ASK ING HIM TO CALL THE OFFICE BUT HE WOULD NOT CALL FOR AN APPOINTMENT. UPON REVIEW OF OLD LABS, IT WAS NOTED THAT HE HAD BEEN MILDLY HYPONATREMIC ON ONCOLOGY LABS WITH ELEVATED GLUCOSE IN THE 300 RANGE WITHOUT MY OFFICE BEING NOTIFIED OF HIS ABNORMAL LABS AND WITHOUT ONCOLOGY ACTIVELY TREATING THE ISSUE. CHULA WAS SENT FOR STAT LABS AND FLUIDS AT THE [facility] SINCE WE DID NOT HAVE ANY ACUTE EVIDENCE OF OTHER ILLNESS AND HE WAS NOT IN DISTRESS WITH NORMAL VITAL SIGNS AT THE OFFICE. WE RECEIVED A PHONE CALL FROM DAY SURGERY WITH HIS BLOOD GLUCOSE OF 1050, SODIUM OF 123, AND HE WAS ADMITTED TO THE ICU FOR DKA. HOME MEDICATIONS LISTED FROM THE OFFICE AND CONFIRMED BY PT'S MOTHER ARE FOLLOWS: PREDNISONE 5MG DAILY AMPICILLIN 500MG BID DULOXETINE 60MG DAILY NYSTATIN SUSPENSION PROTONIX 40MG DAILY PRN OXYCODONE 10/325MG BID PRN ASA 81MG DAILY COREG 25MG 1.5 TAB BID HYDRALAZINE 100MG TID VITAMIN D 3 5000 UNITS DAILY MYCOPHENOLATE 360MG BID TACROLIUMUS ER 1MG DAILY Discharge Summary Discharge Physical Examination Allergies: Coded Allergies: No Known Drug Allergies (Unverified , 06/28/16) Vitals & I&Os Vital Signs Date Time Temp Pulse Resp B/P (MAP) Pulse Ox O2 Delivery O2 Flow Rate FiO2 12/06/21 09:00 98 Room Air 12/06/21 08:11 37.1 100 18 128/82 (97) 12/04/21 07:53 0.00 General Appearance: Alert, Oriented X3, Cooperative HEENT: Atraumatic, PERRLA Respiratory: Clear to Auscultation, Normal Air Movement Cardiovascular: Regular Rate Abdominal: Normal Bowel Sounds, Soft, No Tenderness Extremities: No Clubbing, No Cyanosis Skin: No Rashes, No Breakdown, No Significant Lesion Neuro: Normal Speech, Strength at 5/5 X4 Ext, Cranial Nerves 3-12 NL Psych/Mental Status: Mental Status NL, Mood NL Hospital Course Was the Problem List Reviewed?: Yes DIABETIC KETOACIDOSIS HYPONATREMIA NEW ONSET DIABETES MELLITUS - STEROID INDUCED NAUSEA EMESIS CHRONIC HYPERTENSION RENAL TRANSPLANT RECIPIENT CHRONIC IMMUNOSUPPRESSIVE MEDICATION USE CHRONIC STEROID USE DEPRESSION ANXIETY ATYPICAL HEMOLYTIC UREMIC SYNDROME DIABETIC KETOACIDOSIS - FURTHER LABS PENDING - BUT PT HAS GLUCOSE OF 1050, NAUSEA, EMESIS AND POOR PO INTAKE FOR THE PAST WEEK. - ABG AND BETA HYDROXYBUTYRATE PENDING AT TIME OF NOTE. PT STARTED ON DKA PROTOCOL, MONITOR LABS, SERIAL FSBS, AND WILL SUPPORT WITH FLUIDS AND INSULIN DRIP. - SINCE HE IS NO LONGER VOMITING, CAN ADVANCE DIET TOLERATED. - WILL PLACE DIETARY CONSULT - WILL ALSO ASK FOR NURSE EDUCATOR CONSULT FOR PATIENT HYPONATREMIA - RESOLVED NEW ONSET DIABETES MELLITUS - STEROID INDUCED - PT ON STEROID SUPPRESSION OF IMMUNE SYSTEM WILL HAVE TO GET DIETARY INVOLVED PRIOR TO DISCHARGE AND SEE ABOUT ONE ON ONE COUNSELING FOR SOLDER TECHNICIAN PLAN DUE TO CHULA'S COMPLICATED MEDICAL PICTURE. - WILL HAVE OUTPATIENT DIABETIC EDUCATION WITH NURSE EDUCATOR AND SOLDER TECHNICIAN. - PT TO BE ON LEVEMIR 10 UNITS HS AND SLIDING SCALE INSULIN - WILL ADJUST LEVEMIR NEEDED OUTPATIENT. NAUSEA AND EMESIS - IV ZOFRAN, PROMETHAZINE - IV PPI CHRONIC HYPERTENSION - RESUMED HOME REGIMEN WITH PARAMETERS ON HYDRALAZINE. RENAL TRANSPLANT RECIPIENT ON CHRONIC IMMUNOSUPPRESSIVE MEDICATION USE WITH CHRONIC STEROID USE - PT WAS GIVEN A ONE TIME DOSE OF IV SOLUMEDROL FOR STRESS DOSING - WITH HIS VERY ELEVATED GLUCOSE, THE 20MG DOSE WAS THE SAFEST OPTION FOR STRESS DOSING SINCE HE HAS MISSED OR HAD EMESIS WITH SOME OF HIS USUAL MEDICATIONS. - RESTARTED MYCOPHENOLATE AND TACROLIMUS DOSING - FAMILY TO BROUGHT CHULA'S HOME MEDICATIONS. - ALSO RESUMED HIS AMPICILLIN FOR INFECTION PREVENTION WHILE ON IMMUNOSUPPRESSIVE MEDICATIONS. - HE IS MUCH BETTER THIS MORNING, ABLE TO KEEP DOWN PO MEDICATIONS, TRANSITIONED TO ORAL AMOXICILLIN SINCE HE IS NO LONGER VOMITING. DEPRESSION WITH ANXIETY - RESUMED CYMBALTA 12/04/21 ATYPICAL HEMOLYTIC UREMIC SYNDROME - PT RECENTLY HAD HIS CHEMOTHERAPY - SHOULD NOT BE DUE WHILE IN THE HOSPITAL DC TO HOME TODAY - Pending Labs Laboratory Tests 12/06/21 05:21: White Blood Count 3.6, Red Blood Count 3.69, Hemoglobin 11.4, Hematocrit 34, Mean Corpuscular Volume 93, Mean Corpuscular Hemoglobin 31, Mean Corpuscular Hemoglobin Concent 33, Red Cell Distribution Width 13.9, Platelet Count 82, Mean Platelet Volume 9.8, Immature Granulocyte % (Auto) 1, Neutrophils (%) (Auto) 68, Lymphocytes (%) (Auto) 15, Monocytes (%) (Auto) 13, Eosinophils (%) (Auto) 2, Basophils (%) (Auto) 1, Neutrophils # (Auto) 2.4, Lymphocytes # (Auto) 0.5, Monocytes # (Auto) 0.5, Eosinophils # (Auto) 0.1, Basophils # (Auto) 0.0, Immature Granulocyte # (Auto) 0.1, Percent Immature Platelet Fraction 3.6, Sodium Level 138, Potassium Level 3.3, Chloride Level 108, Carbon Dioxide Level 21, Anion Gap 9, Blood Urea Nitrogen 6, Creatinine 0.72, Estimat Glomerular Filtration Rate 120, BUN/Creatinine Ratio 8, Glucose Level 144, Calcium Level 8.6, Phosphorus Level 2.3, Magnesium Level 1.6 Discharge Condition at discharge IMPROVED Instructions to patient/family Please see electronic discharge instructions given to patient. Discharge Medications Reviewed and agree with Discharge Medication list on patient's Discharge Instruction sheet TIMOTHY ARGUETA MD Dec 06, 2021 09:22
[2021-12-06] MEDS ORDERED: HEParin (CENTRAL IV FLUSH) 500 UNIT/5 ML SYR ONE (11:56)
[2021-12-06 11:58] VITALS: BP 128/88
[2021-12-06 12:15] VITALS: BP 128/88
[2021-12-07] MEDS ORDERED: PANTOPRAZOLE 40 MG (PROTONIX) TAB PO SCH (09:00)
== END 2021-12-06 12:04 | disposition home or self-care (01) | DRG 637 ==
LOC: LAB 13:58 → ICU 16:40 → 4TH 12-05 13:41
PROVIDERS: ADMIT Family Medicine; ATTEND Family Medicine
DX: E10.10 Type 1 diabetes mellitus with ketoacidosis without coma (principal); D59.3 Hemolytic-uremic syndrome; E87.1 Hypo-osmolality and hyponatremia; D84.9 Immunodeficiency, unspecified; N17.9 Acute kidney failure, unspecified; Z94.0 Kidney transplant status; R11.2 Nausea with vomiting, unspecified; I10 Essential (primary) hypertension; Z79.52 Long term (current) use of systemic steroids; F32.A Depression, unspecified; F41.9 Anxiety disorder, unspecified; E86.0 Dehydration; D64.9 Anemia, unspecified
CPT/HCPCS: 36415; 36591; 80048; 80053; 81000; 82010; 82805; 82947; 83036; 83735; 84100; 85007; 85025; 85027; 87040; 87081; 93005; 96374

== ENCOUNTER → 2021-12-13 | Outpatient (CLI) | payer MEDICARE ==
[~2021-12-13] MED LIST changes: +ASPI-1238 PO; +BLOO1EAC87 MC; +CARV12.53 PO; +CENTER ONLY IV SCH; +CHOL500050 PO; +ECULIZUMAB IV SCH; +FLUC100T10 PO; +HYDR100T27 PO; +INSU100V16 SC; +INSU100V5 SQ; +MYCO360T3 PO; +NS (IVPB) CANCER CENTER 250 ML IV SCH; +NS IV SCH; +NYST1000 PO; +OXYC-556 PO; +PANT40TA52 PO; +PRED5TAB PO; +PROM25TA14 PO; +SUCR1TAB PO; +TACR1TAB PO; +[UNRECOGNIZED DRUG - CODE] MC; +[UNRECOGNIZED DRUG - OTHER] IV SCH
== END ==
LOC: ONC 13:06
PROVIDERS: ATTEND Internal Medicine Hematology & Oncology
DX: Z51.11 Encounter for antineoplastic chemotherapy (principal); Z45.2 Encounter for adjustment and management of vascular access device
CPT/HCPCS: 36591; 96360; 96413

== ENCOUNTER → 2021-12-25 | Outpatient (CLI) | payer MEDICARE | LOC: ONC 13:03 | PROVIDERS: ATTEND Internal Medicine Hematology & Oncology | DX: Z51.11 Encounter for antineoplastic chemotherapy (principal); D59.3 Hemolytic-uremic syndrome; I12.0 Hypertensive chronic kidney disease with stage 5 chronic kidney disease or end stage renal disease; N18.6 End stage renal disease; D63.1 Anemia in chronic kidney disease; R73.9 Hyperglycemia, unspecified; Z99.2 Dependence on renal dialysis; Z94.0 Kidney transplant status | CPT/HCPCS: 96360; 96413 ==

== ENCOUNTER → 2022-01-02 | Outpatient (CLI) | payer MEDICARE ==
[~2022-01-02] VITALS: Ht 175.3 cm; Wt 73.5 kg
[~2022-01-02] MED LIST changes: -CENTER ONLY IV SCH; -ECULIZUMAB IV SCH; -NS (IVPB) CANCER CENTER 250 ML IV SCH; -NS IV SCH; -[UNRECOGNIZED DRUG - OTHER] IV SCH
== END ==
LOC: DSME 13:00
PROVIDERS: ATTEND Family Medicine
DX: E11.9 Type 2 diabetes mellitus without complications (principal); Z79.4 Long term (current) use of insulin

== ENCOUNTER → 2022-01-08 | Outpatient (CLI) | payer MEDICARE ==
[~2022-01-08] MED LIST changes: +CENTER ONLY IV SCH; +ECULIZUMAB IV SCH; +HEParin (CENTRAL IV FLUSH) 500 UNIT/5 ML SYR IV PRN; +NS (IVPB) 250 ML IV SCH; +NS IV SCH; +[UNRECOGNIZED DRUG - OTHER] IV SCH
== END ==
LOC: ONC 13:01
PROVIDERS: ATTEND Internal Medicine Hematology & Oncology
DX: Z51.11 Encounter for antineoplastic chemotherapy (principal); Z45.2 Encounter for adjustment and management of vascular access device; D59.3 Hemolytic-uremic syndrome; I12.0 Hypertensive chronic kidney disease with stage 5 chronic kidney disease or end stage renal disease; N18.6 End stage renal disease; D63.1 Anemia in chronic kidney disease; R73.9 Hyperglycemia, unspecified; Z94.0 Kidney transplant status; Z99.2 Dependence on renal dialysis
CPT/HCPCS: 36591; 96360; 96413

== ENCOUNTER → 2022-01-22 | Outpatient (CLI) | payer MEDICARE ==
[2022-01-22 13:17] LABS: BASOPHILS # (AUTO) 0.1 10^3/uL (0.0-0.1); BASOPHILS % (AUTO) 1 % (0-10); EOSINOPHILS # (AUTO) 0.2 10^3/uL (0.0-0.3); EOSINOPHILS % (AUTO) 2 % (0-10); HEMATOCRIT 47 % (40-54); LYMPHOCYTES # (AUTO) 0.8 10^3/uL (1.0-4.0); LYMPHOCYTES % (AUTO) 8 % (12-44); MEAN CORPUSCULAR HEMOGLOBIN 32 pg (25-34); MEAN CORPUSCULAR HGB CONC 34 g/dL (32-36); MEAN CORPUSCULAR VOLUME 95 fL (80-99); MEAN PLATELET VOLUME 9.5 fL (9.0-12.2); MONOCYTES # (AUTO) 0.7 10^3/uL (0.0-1.0); MONOCYTES % (AUTO) 7 % (0-12); NEUTROPHILS # (AUTO) 7.9 10^3/uL (1.8-7.8); NEUTROPHILS % (AUTO) 82 % (42-75); PLATELET COUNT 267 10^3/uL (130-400); WHITE BLOOD COUNT 9.7 10^3/uL (4.3-11.0)
[2022-01-22 13:37] LABS: ALBUMIN 4.2 GM/DL (3.2-4.5); BILIRUBIN,TOTAL 0.6 MG/DL (0.1-1.0); CREATININE SERUM 0.94 MG/DL (0.60-1.30); POTASSIUM 4.8 MMOL/L (3.6-5.0); TOTAL PROTEIN 7.9 GM/DL (6.4-8.2)
== END ==
LOC: ONC 13:05
PROVIDERS: ATTEND Internal Medicine Hematology & Oncology
DX: Z51.11 Encounter for antineoplastic chemotherapy (principal); D59.3 Hemolytic-uremic syndrome; I10 Essential (primary) hypertension; R73.9 Hyperglycemia, unspecified; Z94.0 Kidney transplant status; Z79.899 Other long term (current) drug therapy
CPT/HCPCS: 36591; 80053; 85025; 96360; 96413

== ENCOUNTER → 2022-02-06 | Outpatient (CLI) | payer MEDICARE ==
[2022-02-20 13:42] LABS: BASOPHILS % (AUTO) 0 % (0-10); EOSINOPHILS # (AUTO) 0.2 10^3/uL (0.0-0.3); EOSINOPHILS % (AUTO) 2 % (0-10); HEMATOCRIT 47 % (40-54); HEMOGLOBIN 15.8 g/dL (13.3-17.7); LYMPHOCYTES # (AUTO) 0.8 10^3/uL (1.0-4.0); LYMPHOCYTES % (AUTO) 8 % (12-44); MEAN CORPUSCULAR HEMOGLOBIN 31 pg (25-34); MEAN CORPUSCULAR HGB CONC 34 g/dL (32-36); MEAN CORPUSCULAR VOLUME 93 fL (80-99); MEAN PLATELET VOLUME 9.1 fL (9.0-12.2); MONOCYTES # (AUTO) 0.5 10^3/uL (0.0-1.0); MONOCYTES % (AUTO) 6 % (0-12); NEUTROPHILS % (AUTO) 84 % (42-75); PLATELET COUNT 280 10^3/uL (130-400); WHITE BLOOD COUNT 9.6 10^3/uL (4.3-11.0)
[2022-02-20 14:01] LABS: ALBUMIN 4.2 GM/DL (3.2-4.5); BILIRUBIN,TOTAL 0.6 MG/DL (0.1-1.0); CALCIUM 10.3 MG/DL (8.5-10.1); CREATININE SERUM 0.83 MG/DL (0.60-1.30); PHOSPHORUS 1.9 MG/DL (2.3-4.7); TOTAL PROTEIN 7.4 GM/DL (6.4-8.2)
[2022-02-21 01:29] LABS: FK506 5.3 ng/mL
== END ==
LOC: ONC 02-05 13:26
PROVIDERS: ATTEND Internal Medicine Hematology & Oncology
DX: Z51.11 Encounter for antineoplastic chemotherapy (principal); Z45.2 Encounter for adjustment and management of vascular access device; D59.3 Hemolytic-uremic syndrome; I12.0 Hypertensive chronic kidney disease with stage 5 chronic kidney disease or end stage renal disease; N18.6 End stage renal disease; D63.1 Anemia in chronic kidney disease; R73.9 Hyperglycemia, unspecified; Z94.0 Kidney transplant status; Z99.2 Dependence on renal dialysis
CPT/HCPCS: 36591; 96360; 96413

== ENCOUNTER → 2022-02-20 | Outpatient (CLI) | payer MEDICARE ==
[~2022-02-20] MED LIST changes: +NS IV 500 ML 500 ML ONE
== END ==
LOC: ONC 13:02
PROVIDERS: ATTEND Internal Medicine Hematology & Oncology
DX: Z51.11 Encounter for antineoplastic chemotherapy (principal); Z45.2 Encounter for adjustment and management of vascular access device; D59.3 Hemolytic-uremic syndrome; N18.6 End stage renal disease; Z99.2 Dependence on renal dialysis; I10 Essential (primary) hypertension; R73.9 Hyperglycemia, unspecified
CPT/HCPCS: 36591; 96360; 96413

== ENCOUNTER → 2022-03-06 | Outpatient (CLI) | payer MEDICARE | LOC: ONC 13:02 | PROVIDERS: ATTEND Internal Medicine Hematology & Oncology | DX: Z51.11 Encounter for antineoplastic chemotherapy (principal); Z45.2 Encounter for adjustment and management of vascular access device; D59.3 Hemolytic-uremic syndrome; I12.0 Hypertensive chronic kidney disease with stage 5 chronic kidney disease or end stage renal disease; N18.6 End stage renal disease; D63.1 Anemia in chronic kidney disease; R73.9 Hyperglycemia, unspecified; Z99.2 Dependence on renal dialysis; Z94.0 Kidney transplant status | CPT/HCPCS: 36591; 96360; 96413 ==

== ENCOUNTER → 2022-03-19 | Outpatient (CLI) | payer MEDICARE ==
[~2022-03-19] MED LIST changes: -NS IV 500 ML 500 ML ONE
[2022-03-19 14:29] LABS: BASOPHILS # (AUTO) 0.1 10^3/uL (0.0-0.1); BASOPHILS % (AUTO) 1 % (0-10); EOSINOPHILS # (AUTO) 0.2 10^3/uL (0.0-0.3); EOSINOPHILS % (AUTO) 2 % (0-10); HEMATOCRIT 48 % (40-54); HEMOGLOBIN 16.2 g/dL (13.3-17.7); LYMPHOCYTES # (AUTO) 0.9 10^3/uL (1.0-4.0); LYMPHOCYTES % (AUTO) 9 % (12-44); MEAN CORPUSCULAR HEMOGLOBIN 31 pg (25-34); MEAN CORPUSCULAR HGB CONC 34 g/dL (32-36); MEAN CORPUSCULAR VOLUME 91 fL (80-99); MEAN PLATELET VOLUME 10.1 fL (9.0-12.2); MONOCYTES # (AUTO) 0.5 10^3/uL (0.0-1.0); MONOCYTES % (AUTO) 6 % (0-12); NEUTROPHILS # (AUTO) 7.4 10^3/uL (1.8-7.8); NEUTROPHILS % (AUTO) 82 % (42-75); PLATELET COUNT 266 10^3/uL (130-400)
[2022-03-19 14:52] LABS: ALBUMIN 4.2 GM/DL (3.2-4.5); CALCIUM 10.1 MG/DL (8.5-10.1); CREATININE SERUM 0.85 MG/DL (0.60-1.30); PHOSPHORUS 2.6 MG/DL (2.3-4.7); POTASSIUM 3.9 MMOL/L (3.6-5.0)
[2022-03-20 00:27] LABS: FK506 2.7 ng/mL
== END ==
LOC: ONC 14:02
PROVIDERS: ATTEND Internal Medicine Hematology & Oncology
DX: Z51.11 Encounter for antineoplastic chemotherapy (principal); Z45.2 Encounter for adjustment and management of vascular access device; D59.3 Hemolytic-uremic syndrome; I12.0 Hypertensive chronic kidney disease with stage 5 chronic kidney disease or end stage renal disease; N18.6 End stage renal disease; D63.1 Anemia in chronic kidney disease; R73.9 Hyperglycemia, unspecified; Z99.2 Dependence on renal dialysis; Z94.0 Kidney transplant status
CPT/HCPCS: 36591; 80069; 80197; 85025; 87799; 96413

== ENCOUNTER → 2022-04-03 | Outpatient (CLI) | payer MEDICARE | LOC: ONC 13:34 | PROVIDERS: ATTEND Internal Medicine Hematology & Oncology | DX: Z51.11 Encounter for antineoplastic chemotherapy (principal); Z45.2 Encounter for adjustment and management of vascular access device; D59.3 Hemolytic-uremic syndrome; I12.0 Hypertensive chronic kidney disease with stage 5 chronic kidney disease or end stage renal disease; N18.6 End stage renal disease; D63.1 Anemia in chronic kidney disease; R73.9 Hyperglycemia, unspecified; Z99.2 Dependence on renal dialysis; Z94.0 Kidney transplant status | CPT/HCPCS: 36591; 96360; 96365 ==

== ENCOUNTER → 2022-04-17 | Outpatient (CLI) | payer MEDICARE ==
[2022-04-17 13:33] LABS: BASOPHILS # (AUTO) 0.1 10^3/uL (0.0-0.1); BASOPHILS % (AUTO) 1 % (0-10); EOSINOPHILS # (AUTO) 0.2 10^3/uL (0.0-0.3); EOSINOPHILS % (AUTO) 2 % (0-10); HEMATOCRIT 48 % (40-54); HEMOGLOBIN 15.8 g/dL (13.3-17.7); LYMPHOCYTES # (AUTO) 0.6 10^3/uL (1.0-4.0); LYMPHOCYTES % (AUTO) 7 % (12-44); MEAN CORPUSCULAR HEMOGLOBIN 30 pg (25-34); MEAN CORPUSCULAR HGB CONC 33 g/dL (32-36); MEAN CORPUSCULAR VOLUME 91 fL (80-99); MEAN PLATELET VOLUME 9.8 fL (9.0-12.2); MONOCYTES # (AUTO) 0.7 10^3/uL (0.0-1.0); MONOCYTES % (AUTO) 7 % (0-12); NEUTROPHILS # (AUTO) 7.9 10^3/uL (1.8-7.8); NEUTROPHILS % (AUTO) 83 % (42-75); PLATELET COUNT 223 10^3/uL (130-400); WHITE BLOOD COUNT 9.5 10^3/uL (4.3-11.0)
[2022-04-17 13:56] LABS: ALBUMIN 4.2 GM/DL (3.2-4.5); BILIRUBIN,TOTAL 1.1 MG/DL (0.1-1.0); CALCIUM 10.2 MG/DL (8.5-10.1); CREATININE SERUM 0.8 MG/DL (0.60-1.30); PHOSPHORUS 1.9 MG/DL (2.3-4.7); POTASSIUM 4.2 MMOL/L (3.6-5.0); TOTAL PROTEIN 7.3 GM/DL (6.4-8.2)
[2022-04-18 01:06] LABS: FK506 4.6 ng/mL
== END ==
LOC: ONC 12:57
PROVIDERS: ATTEND Internal Medicine Hematology & Oncology
DX: Z45.2 Encounter for adjustment and management of vascular access device (principal); Z51.11 Encounter for antineoplastic chemotherapy; Z90.5 Acquired absence of kidney; N18.9 Chronic kidney disease, unspecified
CPT/HCPCS: 36591; 80053; 80197; 84100; 85025; 87799; 96360; 96365; 96413

== ENCOUNTER → 2022-05-01 | Outpatient (CLI) | payer MEDICARE | LOC: ONC 13:00 | PROVIDERS: ATTEND Internal Medicine Hematology & Oncology | DX: Z51.11 Encounter for antineoplastic chemotherapy (principal); Z45.2 Encounter for adjustment and management of vascular access device | CPT/HCPCS: 96360; 96365; 96523 ==

== ENCOUNTER → 2022-05-15 | Outpatient (CLI) | payer MEDICARE ==
[2022-05-15 14:26] LABS: BASOPHILS % (AUTO) 0 % (0-10); EOSINOPHILS # (AUTO) 0.1 10^3/uL (0.0-0.3); EOSINOPHILS % (AUTO) 2 % (0-10); HEMATOCRIT 48 % (40-54); HEMOGLOBIN 16.1 g/dL (13.3-17.7); LYMPHOCYTES # (AUTO) 0.6 10^3/uL (1.0-4.0); LYMPHOCYTES % (AUTO) 7 % (12-44); MEAN CORPUSCULAR HEMOGLOBIN 30 pg (25-34); MEAN CORPUSCULAR HGB CONC 33 g/dL (32-36); MEAN CORPUSCULAR VOLUME 91 fL (80-99); MEAN PLATELET VOLUME 9.7 fL (9.0-12.2); MONOCYTES # (AUTO) 0.5 10^3/uL (0.0-1.0); MONOCYTES % (AUTO) 5 % (0-12); NEUTROPHILS # (AUTO) 8.2 10^3/uL (1.8-7.8); NEUTROPHILS % (AUTO) 86 % (42-75); PLATELET COUNT 222 10^3/uL (130-400); WHITE BLOOD COUNT 9.5 10^3/uL (4.3-11.0)
[2022-05-15 14:43] LABS: ALBUMIN 4.4 GM/DL (3.2-4.5); BILIRUBIN,TOTAL 0.8 MG/DL (0.1-1.0); CALCIUM 10.3 MG/DL (8.5-10.1); CREATININE SERUM 0.91 MG/DL (0.60-1.30); PHOSPHORUS 1.7 MG/DL (2.3-4.7); POTASSIUM 4.4 MMOL/L (3.6-5.0); TOTAL PROTEIN 7.3 GM/DL (6.4-8.2)
[2022-05-16 01:01] LABS: FK506 10.1 ng/mL
== END ==
LOC: ONC 13:00
PROVIDERS: ATTEND Internal Medicine Hematology & Oncology
DX: Z51.11 Encounter for antineoplastic chemotherapy (principal); Z45.2 Encounter for adjustment and management of vascular access device; D59.3 Hemolytic-uremic syndrome; I12.0 Hypertensive chronic kidney disease with stage 5 chronic kidney disease or end stage renal disease; N18.6 End stage renal disease; D63.1 Anemia in chronic kidney disease; R73.9 Hyperglycemia, unspecified; Z94.0 Kidney transplant status; Z99.2 Dependence on renal dialysis
CPT/HCPCS: 36591; 80053; 80061; 80197; 84100; 85025; 86160; 87799; 96360; 96365

== ENCOUNTER → 2022-05-29 | Outpatient (CLI) | payer MEDICARE ==
[~2022-05-29] MED LIST changes: +NS (IVPB) 250 ML ONE
== END ==
LOC: ONC 12:52
PROVIDERS: ATTEND Internal Medicine Hematology & Oncology
DX: D59.3 Hemolytic-uremic syndrome (principal); Z94.0 Kidney transplant status
CPT/HCPCS: 96365

== ENCOUNTER → 2022-06-12 | Outpatient (CLI) | payer MEDICARE ==
[~2022-06-12] MED LIST changes: +LEVO-55 PO; -LEVO500T81 PO; -NS (IVPB) 250 ML ONE
[2022-06-12 13:20] LABS: BASOPHILS % (AUTO) 0 % (0-10); EOSINOPHILS % (AUTO) 0 % (0-10); HEMATOCRIT 40 % (40-54); HEMOGLOBIN 13.1 g/dL (13.3-17.7); LYMPHOCYTES # (AUTO) 0.5 10^3/uL (1.0-4.0); LYMPHOCYTES % (AUTO) 4 % (12-44); MEAN CORPUSCULAR HEMOGLOBIN 29 pg (25-34); MEAN CORPUSCULAR HGB CONC 33 g/dL (32-36); MEAN CORPUSCULAR VOLUME 90 fL (80-99); MONOCYTES # (AUTO) 0.5 10^3/uL (0.0-1.0); MONOCYTES % (AUTO) 4 % (0-12); NEUTROPHILS # (AUTO) 11.5 10^3/uL (1.8-7.8); NEUTROPHILS % (AUTO) 91 % (42-75); PLATELET COUNT 232 10^3/uL (130-400); WHITE BLOOD COUNT 12.7 10^3/uL (4.3-11.0)
[2022-06-12 13:57] LABS: ALBUMIN 3.8 GM/DL (3.2-4.5); BILIRUBIN,TOTAL 0.8 MG/DL (0.1-1.0); CALCIUM 10.1 MG/DL (8.5-10.1); CREATININE SERUM 0.85 MG/DL (0.60-1.30); PHOSPHORUS 2.5 MG/DL (2.3-4.7); POTASSIUM 4.3 MMOL/L (3.6-5.0); TOTAL PROTEIN 7.1 GM/DL (6.4-8.2)
[2022-06-13 03:05] LABS: FK506 4.1 ng/mL
== END ==
LOC: ONC 12:59
PROVIDERS: ATTEND Internal Medicine Hematology & Oncology
DX: Z51.11 Encounter for antineoplastic chemotherapy (principal); Z45.2 Encounter for adjustment and management of vascular access device; E11.65 Type 2 diabetes mellitus with hyperglycemia; Z94.0 Kidney transplant status
CPT/HCPCS: 36591; 80053; 80061; 80197; 83036; 84100; 85025; 86160; 87799; 96360; 96365

== ENCOUNTER → 2022-06-13 | Outpatient (CLI) | payer MEDICARE ==
[~2022-06-13] MED LIST changes: -CENTER ONLY IV SCH; -ECULIZUMAB IV SCH; -HEParin (CENTRAL IV FLUSH) 500 UNIT/5 ML SYR IV PRN; -NS (IVPB) 250 ML IV SCH; -NS IV SCH; -[UNRECOGNIZED DRUG - OTHER] IV SCH
== END ==
LOC: LABNPT 10:01
PROVIDERS: ATTEND Family Medicine
DX: Z01.89 Encounter for other specified special examinations (principal)

== ENCOUNTER → 2022-07-28 | Outpatient (CLI) | payer MEDICARE ==
[2022-07-28 13:37] LABS: HEMATOCRIT 51 % (40-54); HEMOGLOBIN 16.6 g/dL (13.3-17.7); MEAN CORPUSCULAR HEMOGLOBIN 29 pg (25-34); MEAN CORPUSCULAR HGB CONC 33 g/dL (32-36); MEAN CORPUSCULAR VOLUME 90 fL (80-99); MEAN PLATELET VOLUME 9.7 fL (9.0-12.2); PLATELET COUNT 183 10^3/uL (130-400); WHITE BLOOD COUNT 7.1 10^3/uL (4.3-11.0)
[2022-07-28 13:54] LABS: ALBUMIN 4.3 GM/DL (3.2-4.5); BILIRUBIN,TOTAL 0.9 MG/DL (0.1-1.0); CALCIUM 10.4 MG/DL (8.5-10.1); CREATININE SERUM 0.92 MG/DL (0.60-1.30); POTASSIUM 4.4 MMOL/L (3.6-5.0); TOTAL PROTEIN 8.4 GM/DL (6.4-8.2)
--- NOTE | 2022-07-28 15:52 | Diagnostic Imaging Report ---
INDICATION: Abdominal pain. FINDINGS: The lung bases are clear. There are surgical clips in the right upper quadrant. The bowel gas pattern is nonspecific. There is no free air. There are no abnormal abdominal calcifications. IMPRESSION: Nonspecific bowel gas pattern. Dictated by: Dictated on workstation # [id number]
== END ==
LOC: RAD 13:04
PROVIDERS: ATTEND Nurse Practitioner Family
DX: R10.9 Unspecified abdominal pain (principal); Z86.19 Personal history of other infectious and parasitic diseases
CPT/HCPCS: 36415; 74018; 80053; 82150; 83690; 85027